=== PATIENT | female | born 1940 | race Caucasian/White ===

== ENCOUNTER 2018-05-05 10:05 | Inpatient (IN) | payer MEDICARE ==
[2018-05-05] MEDS ORDERED: SODIUM CHLORIDE 0.9% 500 ML IV STA (10:22)
[2018-05-05] MEDS ORDERED: ONDANSETRON 4 MG/2 ML VIAL IVP STA (10:23)
--- NOTE | 2018-05-05 10:41 | ED ---
General Adult HPI - General Chief complaint: Shortness of Breath Stated complaint: not feeling well Source: patient Mode of arrival: wheelchair Limitations: no limitations - History of Present Illness Initial comments: Dictation was produced using [employer] dictation software. please excuse any grammatical, word or spelling errors. Chief Complaint: 77-year-old female past medical history of hypertension, depression, GERD presents with 2 days of shortness of breath, left flank pain History of Present Illness:-year-old female past medical history of GERD, hypertension depression presents with left-sided flank pain, shortness of breath and nausea and vomiting 2 days. Patient states her symptoms began acutely. She states that she does not have any COPD or history of asthma. Patient has never taken an inhaler before. She does not know of any history of lung issues. Patient is also been having urinary complaints. She was just treated with antibiotics for recent UTI. Patient having history of chills but no fevers. States that she had multiple episodes of nausea and vomiting. She states her left flank pain is from leaving over the side of the bed caused by pressure. The ROS documented in this emergency department record has been reviewed and confirmed by me. Those systems with pertinent positive or negative responses have been documented in the HPI. All other systems are other negative and/or noncontributory. - Related Data Home Medications Medication Instructions Recorded Confirmed Hydrochlorothiazide [Hydrodiuril] 12.5 mg PO DAILY 02/21/14 05/05/18 Levothyroxine Sodium [Synthroid] 88 mcg PO DAILY 02/21/14 05/05/18 Losartan [Cozaar] 50 mg PO DAILY 02/21/14 05/05/18 amLODIPine BESYLATE [Norvasc] 10 mg PO DAILY 02/21/14 05/05/18 Citalopram Hydrobromide [CeleXA] 5 mg PO DAILY 06/20/16 05/05/18 Omeprazole/Sodium Bicarbonate 1 cap PO DAILY 06/20/16 05/05/18 [Zegerid 20 mg Capsule] Atorvastatin Calcium [Lipitor] 10 mg PO HS 05/05/18 05/05/18 Allergies Allergy/AdvReac Type Severity Reaction Status Date / Time Penicillins Allergy RASH ON Verified 05/05/18 11:24 TONGUE cephalexin monohydrate AdvReac Nausea Verified 05/05/18 11:24 [From Keflex] diazepam [From Valium] AdvReac PHLEBITIS Verified 05/05/18 11:24 IN RT ARM Review of Systems ROS Statement: Those systems with pertinent positive or pertinent negative responses have been documented in the HPI. ROS Other: All systems not noted in ROS Statement are negative. Past Medical History Past Medical History: GERD/Reflux, Hypertension, Osteoarthritis (OA), Thyroid Disorder Additional Past Medical History / Comment(s): HX IBS. History of Any Multi-Drug Resistant Organisms: None Reported Past Surgical History: Hysterectomy, Orthopedic Surgery Additional Past Surgical History / Comment(s): 2 RT SHOULDER SURG. LEFT FOOT SURGERY Past Anesthesia/Blood Transfusion Reactions: Postoperative Nausea & Vomiting ( PONV) Past Psychological History: Anxiety Smoking Status: Former smoker Past Alcohol Use History: None Reported Past Drug Use History: None Reported - Past Family History Mother Family Medical History: Cancer Additional Family Medical History / Comment(s): BREAST CANCER General Exam - General Exam Comments Initial Comments: PHYSICAL EXAM: General Impression: Alert and oriented x3, acute respiratory distress, mildly diaphoretic HEENT: Normocephalic atraumatic, extra-ocular movements intact, pupils equal and reactive to light bilaterally, dry mucous membranes Cardiovascular: Heart regular rate and rhythm, S1&S2 audible, no murmurs, rubs or gallops Chest: Lungs clear to auscultation bilaterally, no rhonchi, no wheeze, no rales Abdomen: Bowel sounds present, abdomen soft, non-tender, non-distended, no organomegaly Musculoskeletal: Pulses present and equal in all extremities, no peripheral edema, positive CVA tenderness Motor: Power 5/5 bilaterally, no focal deficits noted Neurological: CN II-XII grossly intact, no focal motor or sensory deficits noted Skin: Intact with no visualized rashes Psych: Normal affect and mood Limitations: no limitations Course Vital Signs 05/05/18 05/05/18 10:07 11:44 Temperature 95.5 F L Pulse Rate 125 H 108 H Respiratory 27 H 16 Rate Blood Pressure 108/69 131/81 O2 Sat by Pulse 95 95 Oximetry Medical Decision Making - Medical Decision Making ED course: 77-year-old female with no significant comorbidities presents with 2 days of flank pain, shortness of breath and nausea vomiting. As upon arrival shows temperature 95.5, heart rate of 125, respiratory rate of 27. Patient is hemodynamic was stable otherwise. Laboratory evaluation obtained. Leukocytosis of 16.0. Hemoglobin of 17.5. Coag panel shows INR 1.2. Potassium 3.1. Patient given by mouth potassium. There is mild elevation of renal markers. Glucose is 100. Total bilirubin 1.8. Cardiac enzymes are within normal limits. Urinalysis consistent with urinary tract infection. Patient given for quinolones for UTI. There is reasonably that patient is having symptoms consistent with pyelonephritis given left CVA tenderness. There is clinical suspicion that patient also has a pulmonary embolus. CT angios obtained showing filling defect in the tertiary and secondary right lower lobe pulmonary arterial branches compatible with pulmonary embolism. Patient denies any lower extremity symptoms. Patient started on heparin. Patient appears stable at this time. No signs of severe right heart strain given negative cardiac enzymes. Patient is hemodynamically stable at this time. Patient be admitted to Dr. Hernandez. EKG Interpretation: A 12 lead EKG was obtained. It was interpreted by myself and attending physician. There is a P wave before every QRS complex. Rate is 110. Rhythm is sinus tachycardia. QT is not prolonged. No ST segment depression or elevation. There is findings of S1 every 3 T3. Given clinical presentation there is some EKG findings to suggest right heart strain. - Lab Data Result diagrams: 05/05/18 10:52 05/05/18 10:52 Lab Results 05/05/18 05/05/18 05/05/18 Range/Units 10:52 10:52 10:52 WBC 16.0 H (3.8-10.6) k/uL RBC 5.81 H (3.80-5.40) m/uL Hgb 17.5 H (11.4-16.0) gm/dL Hct 52.6 H (34.0-46.0) % MCV 90.7 (80.0-100.0) fL MCH 30.1 (25.0-35.0) pg MCHC 33.2 (31.0-37.0) g/dL RDW 13.8 (11.5-15.5) % Plt Count 150 (150-450) k/uL Neutrophils % 90 % Lymphocytes % 3 % Monocytes % 5 % Eosinophils % 0 % Basophils % 0 % Neutrophils # 14.4 H (1.3-7.7) k/uL Lymphocytes # 0.6 L (1.0-4.8) k/uL Monocytes # 0.8 (0-1.0) k/uL Eosinophils # 0.1 (0-0.7) k/uL Basophils # 0.0 (0-0.2) k/uL PT (9.0-12.0) sec INR (<1.2) APTT (22.0-30.0) sec Sodium 139 (137-145) mmol/L Potassium 3.1 L (3.5-5.1) mmol/L Chloride 103 (98-107) mmol/L Carbon Dioxide 25 (22-30) mmol/L Anion Gap 11 mmol/L BUN 21 H (7-17) mg/dL Creatinine 1.10 H (0.52-1.04) mg/dL Est GFR (CKD-EPI)AfAm 57 (>60 ml/min/1.73 sqM) Est GFR (CKD-EPI)NonAf 49 (>60 ml/min/1.73 sqM) Glucose 100 H (74-99) mg/dL Calcium 9.5 (8.4-10.2) mg/dL Magnesium 1.7 (1.6-2.3) mg/dL Total Bilirubin 1.8 H (0.2-1.3) mg/dL AST 22 (14-36) U/L ALT 35 (9-52) U/L Alkaline Phosphatase 77 (38-126) U/L Total Creatine Kinase 41 (30-135) U/L CK-MB (CK-2) 0.7 (0.0-2.4) ng/mL CK-MB (CK-2) Rel Index 1.7 Troponin I 0.017 (0.000-0.034) ng/mL NT-Pro-B Natriuret Pep pg/mL Total Protein 6.3 (6.3-8.2) g/dL Albumin 3.5 (3.5-5.0) g/dL Lipase 92 (23-300) U/L Urine Color Urine Appearance (Clear) Urine pH (5.0-8.0) Ur Specific [place] (1.001-1.035) Urine Protein (Negative) Urine Glucose (UA) (Negative) Urine Ketones (Negative) Urine Blood (Negative) Urine Nitrite (Negative) Urine Bilirubin (Negative) Urine Urobilinogen (<2.0) mg/dL Ur Leukocyte Esterase (Negative) Urine RBC (0-5) /hpf Urine WBC (0-5) /hpf Urine WBC Clumps (None) /hpf Ur Squamous Epith Cells (0-4) /hpf Urine Bacteria (None) /hpf Urine Mucus (None) /hpf 05/05/18 05/05/18 05/05/18 Range/Units 10:52 10:52 11:42 WBC (3.8-10.6) k/uL RBC (3.80-5.40) m/uL Hgb (11.4-16.0) gm/dL Hct (34.0-46.0) % MCV (80.0-100.0) fL MCH (25.0-35.0) pg MCHC (31.0-37.0) g/dL RDW (11.5-15.5) % Plt Count (150-450) k/uL Neutrophils % % Lymphocytes % % Monocytes % % Eosinophils % % Basophils % % Neutrophils # (1.3-7.7) k/uL Lymphocytes # (1.0-4.8) k/uL Monocytes # (0-1.0) k/uL Eosinophils # (0-0.7) k/uL Basophils # (0-0.2) k/uL PT 11.8 (9.0-12.0) sec INR 1.2 H (<1.2) APTT 22.8 (22.0-30.0) sec Sodium (137-145) mmol/L Potassium (3.5-5.1) mmol/L Chloride (98-107) mmol/L Carbon Dioxide (22-30) mmol/L Anion Gap mmol/L BUN (7-17) mg/dL Creatinine (0.52-1.04) mg/dL Est GFR (CKD-EPI)AfAm (>60 ml/min/1.73 sqM) Est GFR (CKD-EPI)NonAf (>60 ml/min/1.73 sqM) Glucose (74-99) mg/dL Calcium (8.4-10.2) mg/dL Magnesium (1.6-2.3) mg/dL Total Bilirubin (0.2-1.3) mg/dL AST (14-36) U/L ALT (9-52) U/L Alkaline Phosphatase (38-126) U/L Total Creatine Kinase (30-135) U/L CK-MB (CK-2) (0.0-2.4) ng/mL CK-MB (CK-2) Rel Index Troponin I (0.000-0.034) ng/mL NT-Pro-B Natriuret Pep 695 pg/mL Total Protein (6.3-8.2) g/dL Albumin (3.5-5.0) g/dL Lipase (23-300) U/L Urine Color Yellow Urine Appearance Cloudy H (Clear) Urine pH 7.5 (5.0-8.0) Ur Specific [place] 1.017 (1.001-1.035) Urine Protein 2+ H (Negative) Urine Glucose (UA) Negative (Negative) Urine Ketones 1+ H (Negative) Urine Blood Large H (Negative) Urine Nitrite Positive H (Negative) Urine Bilirubin Negative (Negative) Urine Urobilinogen 3.0 (<2.0) mg/dL Ur Leukocyte Esterase Large H (Negative) Urine RBC 25 H (0-5) /hpf Urine WBC >182 H (0-5) /hpf Urine WBC Clumps Many H (None) /hpf Ur Squamous Epith Cells 3 (0-4) /hpf Urine Bacteria Many H (None) /hpf Urine Mucus Few H (None) /hpf Disposition Clinical Impression: Pyelonephritis, Pulmonary embolism Disposition: ADMITTED IP TO THIS HOSP Referrals: Cole Hernandez DO [Primary Care Provider] - 1-2 days Decision Time: 13:27
[2018-05-05 11:09] LABS: Basophils % (A) 0 %; Eosinophils # (A) 0.1 k/uL (0-0.7); Eosinophils % (A) 0 %; HCT 52.6 % (34.0-46.0); HGB 17.5 gm/dL (11.4-16.0); Lymphocytes # (A) 0.6 k/uL (1.0-4.8); Lymphocytes % (A) 3 %; MCH 30.1 pg (25.0-35.0); MCHC 33.2 g/dL (31.0-37.0); MCV 90.7 fL (80.0-100.0); Mean Platelet Volume 6.8; Monocytes # (A) 0.8 k/uL (0-1.0); Monocytes % (A) 5 %; Neutrophils # (A) 14.4 k/uL (1.3-7.7); Neutrophils % (A) 90 %; Platelet Count 150 k/uL (150-450); RBC 5.81 m/uL (3.80-5.40); RDW 13.8 % (11.5-15.5)
[2018-05-05 11:15] LABS: INR 1.2 (<1.2); Partial Thromboplastin Time 22.8 sec (22.0-30.0); Prothrombin Time 11.8 sec (9.0-12.0)
[2018-05-05 11:17] LABS: Albumin 3.5 g/dL (3.5-5.0); Calcium 9.5 mg/dL (8.4-10.2); Magnesium 1.7 mg/dL (1.6-2.3); Potassium 3.1 mmol/L (3.5-5.1); Total Bilirubin 1.8 mg/dL (0.2-1.3); Total Protein 6.3 g/dL (6.3-8.2)
--- NOTE | 2018-05-05 11:23 | XR ---
EXAMINATION TYPE: XR chest 2V DATE OF EXAM: 05/05/2018 COMPARISON: None HISTORY: Difficulty breathing, shortness of breath and vomiting TECHNIQUE: Frontal and lateral views of the chest are obtained. FINDINGS: Aorta is dense, question some tortuosity, dilation in the thoracic aorta. Retrocardiac den sity with central lucency suggests hiatal hernia. No evident airspace disease, pneumothorax, or pleur al effusion. Heart size may be accentuated by rotation. Pulmonary vascularity and isi within normal limits. Question erosion distal clavicle, correlate for postop change. There are overlying cardiac le ads. IMPRESSION: Question some ectasia or aneurysmal change of the distal thoracic aorta. Probable hiatal hernia.
[2018-05-05 11:47] LABS: Creatine Kinase MB 0.7 ng/mL (0.0-2.4); Troponin I 0.017 ng/mL (0.000-0.034)
[2018-05-05 12:08] LABS: Appearance,Urine Cloudy (Clear); Bacteria,Urine Many /hpf; Bilirubin,Urine Negative (Negative); Blood,Urine Large (Negative); Color,Urine Yellow; Glucose,Urine (UA) Negative (Negative); Ketones,Urine 1+ (Negative); Leukocyte Esterase,Urine Large (Negative); Mucus,Urine Few /hpf; Nitrite,Urine Positive (Negative); PH, Urine 7.5 (5.0-8.0); Protein,Urine 2+ (Negative); RBC,Urine 25 /hpf (0-5); Specific Gravity,Urine 1.017 (1.001-1.035); Squamous Epithelial Cell,Urine 3 /hpf (0-4); WBC,Urine >182 /hpf (0-5)
[2018-05-05] MEDS ORDERED: LEVOFLOXACIN 750MG-D5W PMX 750 MG in DEXTROSE/WATER 1 150ML.BAG IVPB STA (12:13)
--- NOTE | 2018-05-05 12:33 | CT ---
EXAMINATION TYPE: CT angio chest DATE OF EXAM: 05/05/2018 COMPARISON: HISTORY: Difficulty breathing. CT DLP: 215.4 mGycm CONTRAST: CT chest with contrast and 3D reconstruction with MIP imaging is performed with IV Contrast, patient injected with 80 mL of Isovue 370. Contrast-enhanced CT of the chest was performed through the course of the pulmonary arteries with corey g and mediastinal window settings submitted. 3D reconstruction with MIP imaging was also performed. PULMONARY ARTERIES: Filling defect is seen within secondary and tertiary right lower lobe pulmonary arterial branches compatible with pulmonary embolism. No evidence for upper lobe embolism on the righ t or left-sided embolism. No saddle component is seen. LUNGS: The lungs are clear and free of infiltrate. No evidence for atelectasis. No pulmonary nodule or mass is detected. No pleural effusion. MEDIASTINUM: Thoracic aorta is of normal caliber,however, evaluation is limited given timing of the contrast bolus. If there is concern for thoracic aortic pathology consider SRINIVASAN. Correlate clinicall y . The heart is not enlarged. No evidence for mediastinal mass. No mediastinal lymph nodes greater than 1cm. HILAR STRUCTURES: No evidence for mass. No hilar lymph nodes greater than 1 cm. UPPER ABDOMEN: Large left renal cystic lesion. IMPRESSION: 1. Filling defect is seen within secondary and tertiary right lower lobe pulmonary arterial branche s compatible with pulmonary embolism.
[2018-05-05] MEDS ORDERED: HEPARIN SODIUM,PORCINE 5,000 UNIT/ML 1 ML VIAL IV PRN (12:50)
[2018-05-05] MEDS ORDERED: HEPARIN SODIUM,PORCINE 10,000 UNIT/ML 1 ML VIAL IV ONE (12:50)
[2018-05-05] MEDS ORDERED: POTASSIUM CHLORIDE ER 20 MEQ TAB.ER PO STA (13:25)
[2018-05-05] MEDS ORDERED: NALOXONE 0.4 MG/ML 1 ML VIAL IV PRN (13:37)
[2018-05-05] MEDS: HEPARIN SOD,PORK IN 0.45% NACL 25,000 UNIT in 0.45% NACL 1 500ML.BAG IV SCH (14:04)
[2018-05-05] MEDS ORDERED: SODIUM CHLORIDE 0.9% 500 ML IV SCH (14:15)
[2018-05-05] MEDS ORDERED: ACETAMINOPHEN TAB 325 MG TAB PO PRN (16:39)
[2018-05-05] MEDS ORDERED: ATORVASTATIN 10 MG TAB PO SCH (21:00)
[2018-05-06] MEDS: LEVOTHYROXINE 88 MCG TAB PO SCH (07:05)
[2018-05-06 07:47] LABS: Basophils % (A) 0 %; Eosinophils % (A) 0 %; HCT 44.8 % (34.0-46.0); Lymphocytes # (A) 0.9 k/uL (1.0-4.8); Lymphocytes % (A) 6 %; MCH 29.9 pg (25.0-35.0); MCV 93.4 fL (80.0-100.0); Mean Platelet Volume 8.2; Monocytes # (A) 0.9 k/uL (0-1.0); Monocytes % (A) 7 %; Neutrophils # (A) 12.4 k/uL (1.3-7.7); Neutrophils % (A) 86 %; Platelet Count 136 k/uL (150-450); RBC 4.79 m/uL (3.80-5.40); RDW 13.7 % (11.5-15.5); WBC 14.4 k/uL (3.8-10.6)
[2018-05-06] MEDS ORDERED: LEVOFLOXACIN 750MG-D5W PMX 750 MG in DEXTROSE/WATER 1 150ML.BAG IVPB SCH (08:00)
[2018-05-06 08:05] LABS: Albumin 2.7 g/dL (3.5-5.0); Calcium 8.2 mg/dL (8.4-10.2); Potassium 3.8 mmol/L (3.5-5.1); Total Bilirubin 0.7 mg/dL (0.2-1.3); Total Protein 5.3 g/dL (6.3-8.2)
[2018-05-06 08:10] LABS: HGB 14.3 gm/dL (11.4-16.0)
[2018-05-06] MEDS: amLODIPine 10 MG TAB PO SCH (09:07)
[2018-05-06] MEDS: LOSARTAN 50 MG TAB PO SCH (09:07)
[2018-05-06] MEDS: HYDROCHLOROTHIAZIDE 12.5 MG CAP PO SCH (09:07)
[2018-05-06] MEDS: PANTOPRAZOLE 40 MG TABLET PO SCH (09:07)
[2018-05-06] MEDS: CITALOPRAM HYDROBROMIDE 10 MG TAB PO SCH (09:07)
[2018-05-06] MEDS ORDERED: SODIUM CHLORIDE 0.9% 1,000 ML IV SCH (11:30)
[2018-05-06] MEDS: SODIUM CHLORIDE 0.9% 1,000 ML IV SCH (11:40)
--- NOTE | 2018-05-06 12:28 | US ---
EXAMINATION TYPE: US venous doppler duplex LE BI DATE OF EXAM: 05/06/2018 10:54 AM COMPARISON: CT chest 05/05/2018 CLINICAL HISTORY: PE, r/o DVT. SIDE PERFORMED: Bilateral TECHNIQUE: The lower extremity deep venous system is examined utilizing real time linear array sonog [place] with graded compression, doppler sonography and color-flow sonography. VESSELS IMAGED: External Iliac Vein (EIV) Common Femoral Vein Deep Femoral Vein Greater Saphenous Vein * Femoral Vein Popliteal Vein Small Saphenous Vein * Proximal Calf Veins (* superficial vessels) Grayscale, color doppler, spectral doppler imaging performed of the deep veins of the lower extremiti es. Right Leg: Negative for DVT Left Leg: Positive for DVT, echo filled mid popliteal v extending to proximal calf v's, non-compress ible vessel with no flow at this area. Lack of color flow is noted within the left popliteal vein extending peripherally, there are low-leve l internal echoes, no spectral waveform present. There is noncompressibility. IMPRESSION: Popliteal deep venous thrombosis noted on the left.
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
--- NOTE | 2018-05-06 13:45 | ECHOF ---
Referral Reason:PE MEASUREMENTS -------- HEIGHT: 165.1 cm WEIGHT: 72.1 kg BP: 110/62 RVIDd: 3.1 cm (< 3.3) IVSd: 1.2 cm (0.6 - 1.1) LVIDd: 4.3 cm (3.9 - 5.3) LVPWd: 1.2 cm (0.6 - 1.1) IVSs: 1.8 cm LVIDs: 2.6 cm LVPWs: 1.6 cm LA Diam: 3.5 cm (2.7 - 3.8) LAESV Index (A-L): 21.33 ml/m Ao Diam: 3.7 cm (2.0 - 3.7) AV Cusp: 2.4 cm (1.5 - 2.6) MV EXCURSION: 14.924 mm (> 18.000) MV EF SLOPE: 42 mm/s (70 - 150) EPSS: 0.4 cm MV E Pepe: 0.69 m/s MV DecT: 200 ms MV A Pepe: 0.93 m/s MV E/A Ratio: 0.73 AV maxP.35 mmHg AV maxP.35 mmHg AV meanP.32 mmHg AR PHT: 704 ms FINDINGS -------- Sinus rhythm. This was a technically adequate study. The left ventricular size is normal. There is borderline concentric left ventricular hypertrophy. Overall left ventricular systolic function is normal with, an EF between 60 - 65 %. The right ventricle is normal in size. Normal LA size by volume 22+/-6 ml/m2. The right atrium is normal in size. There is mild aortic valve sclerosis. There is mild aortic regurgitation. Mild mitral annular calcification present. There is trace mitral regurgitation. The tricuspid valve appears structurally normal. The pulmonic valve was not well visualized. The aortic root size is normal. The ascending aorta is dilated measuring up to {Ao Asc Diam}.4.2cm IVC Not well visulized. There is no pericardial effusion. CONCLUSIONS -------- 1. Sinus rhythm. 2. This was a technically adequate study. 3. The left ventricular size is normal. 4. There is borderline concentric left ventricular hypertrophy. 5. Overall left ventricular systolic function is normal with, an EF between 60 - 65 %. 6. The right ventricle is normal in size. 7. Normal LA size by volume 22+/-6 ml/m2. 8. The right atrium is normal in size. 9. There is mild aortic valve sclerosis. 10. There is mild aortic regurgitation. 11. Mild mitral annular calcification present. 12. There is trace mitral regurgitation. 13. The tricuspid valve appears structurally normal. 14. The pulmonic valve was not well visualized. 15. The aortic root size is normal. 16. The ascending aorta is dilated measuring up to {Ao Asc Diam}. 17. IVC Not well visulized. 18. There is no pericardial effusion. PATIENT RESOURCE SPECIALIST: Bushra Gambino RDCS
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
--- NOTE | 2018-05-06 15:13 | US ---
EXAMINATION TYPE: US kidneys/renal and bladder DATE OF EXAM: 05/06/2018 COMPARISON: Prior abdomen ultrasound 06/02/2012 CLINICAL HISTORY: uti, possible pyelonephritis. EXAM MEASUREMENTS: Right Kidney: 11.0 x 5.2 x 4.8 cm Left Kidney: 14.1 x 7.8 x 6.4 cm Right Kidney: multiple cysts noted largest measuring 3.0 x 3.0 x 2.4cm which is increased in size com pared to prior exam from 18 mm, cortical medullary differentiation is maintained, there is no hydrone phrosis or pathologic calcification Left Kidney: multiple cysts noted, largest measuring 11.2 x 7.6 x 10.1cm, there is poor visualization of the normal renal parenchyma, cortical medullary differentiation appears maintained, no pathologic calcification Bladder: wnl as visualized, not fully distended There is no ascites.. Cyst associated with the kidneys show increased through transmission, imperceptible wall, are anechoi c. IMPRESSION: Bilateral renal cysts appear simple. Pyelonephritis not excluded.
[2018-05-06] MEDS: HEPARIN SOD,PORK IN 0.45% NACL 25,000 UNIT in 0.45% NACL 1 500ML.BAG IV SCH (16:52)
[2018-05-07] MEDS: LEVOTHYROXINE 88 MCG TAB PO SCH (06:15)
[2018-05-07] MEDS: PANTOPRAZOLE 40 MG TABLET PO SCH (06:15)
[2018-05-07] MEDS: SODIUM CHLORIDE 0.9% 1,000 ML IV SCH ×2 (08:05→15:17)
[2018-05-07] MEDS: HEPARIN SOD,PORK IN 0.45% NACL 25,000 UNIT in 0.45% NACL 1 500ML.BAG IV SCH (08:05)
[2018-05-07] MEDS ORDERED: APIXABAN 5 MG TAB PO SCH (09:00)
[2018-05-07] MEDS: CITALOPRAM HYDROBROMIDE 10 MG TAB PO SCH (09:56)
[2018-05-07] MEDS: LOSARTAN 50 MG TAB PO SCH (09:58)
[2018-05-07] MEDS: amLODIPine 10 MG TAB PO SCH (09:58)
[2018-05-07] MEDS: HYDROCHLOROTHIAZIDE 12.5 MG CAP PO SCH (09:58)
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
--- NOTE | 2018-05-07 14:24 | P.GSCN ---
History of Present Illness Consult date: 05/07/18 Reason for Consult: Pyelonephritis Requesting physician: Cole Hernandez History of present illness: The patient is a 77-year-old white female who recently sustained a left hip injury while kayaking. She has also experienced chills, dyspnea, nausea with vomiting, and malodorous urine. She presented to the emergency room, and was found to have a left lower extremity deep venous thrombosis with pulmonary emboli. Urinalysis is suggestive of infection, and clinically she appears to have acute left pyelonephritis and she has experienced mild left flank discomfort. She denies any prior history of pyelonephritis, but she has been treated for several UTIs annually. Review of Systems - Constitutional Reports chills, Denies fever - Gastrointestinal Reports nausea, Reports vomiting - Genitourinary Genitourinary: Reports flank pain, Denies dysuria, Denies hematuria, Denies kidney stones Past Medical History Past Medical History: GERD/Reflux, Hyperlipidemia, Osteoarthritis (OA), Thyroid Disorder Additional Past Medical History / Comment(s): Pt had recent UTI tx with ABX, IBS , past rectal bleed, diverticulosis, gastric polyps/montague's esophagus in past , arthritis in neck/back bilateral shoulders and bilateral thumbs, past R arm phlebitis, past liver cyst. History of Any Multi-Drug Resistant Organisms: None Reported Past Surgical History: Bladder Surgery, Breast Surgery, Hysterectomy, Orthopedic Surgery Additional Past Surgical History / Comment(s): Hysterectomy with cystocele, R shoulder arthroscopy for rotator cuff repair and R shoulder arthrotomy for spur , L foot injured as child with surgical repair, EGDs/colonoscopies, R breast benign biopsy, bilateral cataract removal/lens implants. Past Anesthesia/Blood Transfusion Reactions: Postoperative Nausea & Vomiting ( PONV) Smoking Status: Former smoker - Past Family History Mother Family Medical History: Cancer Additional Family Medical History / Comment(s): BREAST CANCER Father Family Medical History: Coronary Artery Disease (CAD) Medications and Allergies Home Medications Medication Instructions Recorded Confirmed Type Hydrochlorothiazide [Hydrodiuril] 12.5 mg PO DAILY 02/21/14 05/05/18 History Levothyroxine Sodium [Synthroid] 88 mcg PO DAILY 02/21/14 05/05/18 History Losartan [Cozaar] 50 mg PO DAILY 02/21/14 05/05/18 History amLODIPine BESYLATE [Norvasc] 10 mg PO DAILY 02/21/14 05/05/18 History Citalopram Hydrobromide [CeleXA] 5 mg PO DAILY 06/20/16 05/05/18 History Omeprazole/Sodium Bicarbonate 1 cap PO DAILY 06/20/16 05/05/18 History [Zegerid 20 mg Capsule] Rosuvastatin [Crestor] 10 mg PO HS #30 tablet 05/06/18 Rx Levofloxacin [Levaquin] 500 mg PO DAILY 3 Days #7 tab 05/07/18 Rx Allergies Allergy/AdvReac Type Severity Reaction Status Date / Time Penicillins Allergy RASH ON Verified 05/05/18 11:24 TONGUE cephalexin monohydrate AdvReac Nausea Verified 05/05/18 11:24 [From Keflex] diazepam [From Valium] AdvReac PHLEBITIS Verified 05/05/18 11:24 IN RT ARM Surgical - Exam Vital Signs Temp Pulse Resp BP Pulse Ox 95.5 F L 125 H 27 H 108/69 95 05/05/18 10:07 05/05/18 10:07 05/05/18 10:07 05/05/18 10:07 05/05/18 10:07 - General well developed, well nourished, no distress - Neck no masses, trachea midline - Respiratory normal respiratory effort - Abdomen Abdomen: soft, non tender, no guarding, no rigid, no rebound - Psychiatric oriented to time, oriented to person, oriented to place, speech is normal, memory intact Results - Labs 05/06/18 03:04 05/06/18 03:04 Abnormal Lab Results - Last 24 Hours (Table) 05/06/18 05/06/18 05/06/18 Range/Units 03:04 03:04 08:41 WBC 14.4 H (3.8-10.6) k/uL Plt Count 136 L (150-450) k/uL Neutrophils # 12.4 H (1.3-7.7) k/uL Lymphocytes # 0.9 L (1.0-4.8) k/uL APTT 64.1 H (22.0-30.0) sec Chloride 110 H (98-107) mmol/L Carbon Dioxide 19 L (22-30) mmol/L BUN 20 H (7-17) mg/dL Glucose 119 H (74-99) mg/dL Calcium 8.2 L (8.4-10.2) mg/dL Total Protein 5.3 L (6.3-8.2) g/dL Albumin 2.7 L (3.5-5.0) g/dL Microbiology - Last 24 Hours (Table) 05/06/18 16:05 Urine Culture - Preliminary Urine,Clean Catch 05/05/18 10:52 Blood Culture - Preliminary Blood No Growth after 24 hours Diabetes panel 05/06/18 Range/Units 03:04 Sodium 138 (137-145) mmol/L Potassium 3.8 (3.5-5.1) mmol/L Chloride 110 H (98-107) mmol/L Carbon Dioxide 19 L (22-30) mmol/L BUN 20 H (7-17) mg/dL Creatinine 0.99 (0.52-1.04) mg/dL Glucose 119 H (74-99) mg/dL Calcium 8.2 L (8.4-10.2) mg/dL AST 24 (14-36) U/L ALT 34 (9-52) U/L Alkaline Phosphatase 58 (38-126) U/L Total Protein 5.3 L (6.3-8.2) g/dL Albumin 2.7 L (3.5-5.0) g/dL Calcium panel 05/06/18 Range/Units 03:04 Calcium 8.2 L (8.4-10.2) mg/dL Albumin 2.7 L (3.5-5.0) g/dL Pituitary panel 05/06/18 Range/Units 03:04 Sodium 138 (137-145) mmol/L Potassium 3.8 (3.5-5.1) mmol/L Chloride 110 H (98-107) mmol/L Carbon Dioxide 19 L (22-30) mmol/L BUN 20 H (7-17) mg/dL Creatinine 0.99 (0.52-1.04) mg/dL Glucose 119 H (74-99) mg/dL Calcium 8.2 L (8.4-10.2) mg/dL Adrenal panel 05/06/18 Range/Units 03:04 Sodium 138 (137-145) mmol/L Potassium 3.8 (3.5-5.1) mmol/L Chloride 110 H (98-107) mmol/L Carbon Dioxide 19 L (22-30) mmol/L BUN 20 H (7-17) mg/dL Creatinine 0.99 (0.52-1.04) mg/dL Glucose 119 H (74-99) mg/dL Calcium 8.2 L (8.4-10.2) mg/dL Total Bilirubin 0.7 (0.2-1.3) mg/dL AST 24 (14-36) U/L ALT 34 (9-52) U/L Alkaline Phosphatase 58 (38-126) U/L Total Protein 5.3 L (6.3-8.2) g/dL Albumin 2.7 L (3.5-5.0) g/dL - Imaging US - kidney/bladder: report reviewed Assessment and Plan (1) Pyelonephritis Current Visit: Yes Status: Acute Code(s): N12 - TUBULO-INTERSTITIAL NEPHRITIS, NOT SPCF ACUTE OR CHRONIC SNOMED Code(s): 63938385 Plan: As stated, the patient appears to have acute left pyelonephritis. A urine culture is pending. She has been treated with IV Levaquin, with symptomatic improvement. She is scheduled to be discharged home on our course. She will be treated with Levaquin 500 mg daily for 7 days. Unfortunately, she has a very difficult time tolerating antibiotics. She is ALLERGIC to penicillin and cephalosporins. Levaquin causes GI upset, similar to ciprofloxacin, but to a lesser degree than Bactrim. The renal ultrasound showed renal cysts but was otherwise unremarkable. The postvoid residual be checked to assess bladder emptying prior to discharge. For UTI prevention, I have suggested she may benefit from cranberry tablets, as well as the use of Estrace vaginal cream. She will follow up with me as needed. Time with Patient: Greater than 30
[2018-05-07 15:29] VITALS: BP 118/82; PULSE 79; RESP 14; TEMP 98.2
[2018-05-08] MEDS ORDERED: LEVOFLOXACIN 750 MG TAB PO SCH (09:00)
== END 2018-05-07 16:20 | disposition home or self-care (01) | DRG 299 ==
LOC: EC 10:05 → 6SEL 13:39
PROVIDERS: ADMIT Family Medicine; ATTEND Family Medicine
DX: I82.432 Acute embolism and thrombosis of left popliteal vein (principal); I26.99 Other pulmonary embolism without acute cor pulmonale; N10 Acute pyelonephritis; S80.12XS Contusion of left lower leg, sequela; S80.11XS Contusion of right lower leg, sequela; V94 Other and unspecified water transport accidents; B96.20 Unspecified Escherichia coli [E. coli] as the cause of diseases classified elsewhere; E03.9 Hypothyroidism, unspecified; E78.5 Hyperlipidemia, unspecified; I10 Essential (primary) hypertension; K21.9 Gastro-esophageal reflux disease without esophagitis; K22.70 Barrett's esophagus without dysplasia; K44.9 Diaphragmatic hernia without obstruction or gangrene; K58.9 Irritable bowel syndrome, unspecified; M47.9 Spondylosis, unspecified; M19.042 Primary osteoarthritis, left hand; M19.041 Primary osteoarthritis, right hand; Z98.42 Cataract extraction status, left eye; Z98.41 Cataract extraction status, right eye; Z96.1 Presence of intraocular lens; Z80.3 Family history of malignant neoplasm of breast; Z82.49 Family history of ischemic heart disease and other diseases of the circulatory system; Z86.010 Personal history of colon polyps; Z87.19 Personal history of other diseases of the digestive system; Z86.72 Personal history of thrombophlebitis; Z87.440 Personal history of urinary (tract) infections; Z87.891 Personal history of nicotine dependence; Z90.710 Acquired absence of both cervix and uterus; M19.012 Primary osteoarthritis, left shoulder; M19.011 Primary osteoarthritis, right shoulder; Z88.1 Allergy status to other antibiotic agents; Z88.0 Allergy status to penicillin; Z88.8 Allergy status to other drugs, medicaments and biological substances; F41.9 Anxiety disorder, unspecified; N28.1 Cyst of kidney, acquired; Z79.890 Hormone replacement therapy; Z79.899 Other long term (current) drug therapy; K57.90 Diverticulosis of intestine, part unspecified, without perforation or abscess without bleeding
CPT/HCPCS: 36415; 71046; 71275; 76770; 80053; 81001; 82550; 82553; 83690; 83735; 83880; 84484; 85025; 85610; 85730; 87040; 87086; 93005; 93306; 93970; 96361; 96365; 96375; 96376; 99285

== ENCOUNTER 2018-07-03 15:51 | Emergency (ER) | payer MEDICARE ==
[2018-07-03 17:31] LABS: Basophils # (A) 0.1 k/uL (0-0.2); Basophils % (A) 1 %; Eosinophils # (A) 0.1 k/uL (0-0.7); Eosinophils % (A) 1 %; HCT 36.9 % (34.0-46.0); HGB 11.8 gm/dL (11.4-16.0); Lymphocytes # (A) 1.3 k/uL (1.0-4.8); Lymphocytes % (A) 19 %; MCH 27.8 pg (25.0-35.0); MCV 87.1 fL (80.0-100.0); Mean Platelet Volume 6.7; Monocytes # (A) 0.6 k/uL (0-1.0); Monocytes % (A) 9 %; Neutrophils # (A) 4.5 k/uL (1.3-7.7); Neutrophils % (A) 67 %; Platelet Count 371 k/uL (150-450); RBC 4.24 m/uL (3.80-5.40); RDW 15.4 % (11.5-15.5); WBC 6.6 k/uL (3.8-10.6)
[2018-07-03 17:43] LABS: Anion Gap 9 mmol/L; Blood Urea Nitrogen 19 mg/dL (7-17); Calcium 10.1 mg/dL (8.4-10.2); Carbon Dioxide 22 mmol/L (22-30); Chloride 104 mmol/L (98-107); Glucose 87 mg/dL (74-99); Potassium 3.6 mmol/L (3.5-5.1); Sodium 135 mmol/L (137-145)
--- NOTE | 2018-07-03 18:35 | CT ---
EXAMINATION TYPE: CT abdomen pelvis w con DATE OF EXAM: 07/03/2018 COMPARISON: CT abdomen pelvis 05/30/2018 HISTORY: Constipation. CT DLP: 679.6 mGycm Automated exposure control for dose reduction was used. TECHNIQUE: Helical acquisition of images was performed from the lung bases through the pelvis. CONTRAST: Performed without Oral Contrast and with IV Contrast, patient injected with 100ml mL of Isovue 300. FINDINGS: LUNG BASES/lower thorax: No significant abnormality is appreciated. Noncalcified plaque is again seen in the lower thoracic aorta. LIVER/GB: No significant abnormality is appreciated. Multiple benign liver cysts are seen. The gallbl adder is unremarkable. PANCREAS: Small unchanged low attenuation structures are again seen throughout the pancreas. SPLEEN: No significant abnormality is seen. ADRENALS: No significant abnormality is seen. KIDNEYS: Multiple bilateral renal cysts are unchanged. Kidneys are otherwise unremarkable. FREE AIR: No free air is visualized. RETROPERITONEAL ADENOPATHY: None visualized REPRODUCTIVE ORGANS: The uterus is absent. URINARY BLADDER: No significant abnormality is seen. PELVIC ADENOPATHY: None visualized. OSSEOUS STRUCTURES: No significant abnormality is seen. BOWEL: No significant abnormality is seen. A gastrostomy tube is evident. There is a left lower quad rant ostomy which is unremarkable. 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 Interval removal of right lower quadrant abdominal drains. Trace amount of fluid within the low pelvis which has significantly improved in th e interval. IMPRESSION: 1. NO ACUTE ABDOMINAL OR PELVIC PROCESS. 2. POSTSURGICAL CHANGES.
[2018-07-03 18:41] VITALS: PULSE 99
[2018-07-03] MEDS ORDERED: SENNOSIDES 8.6 MG TAB PO STA (18:47)
[2018-07-03] MEDS ORDERED: BISACODYL 5 MG TABLET.DR PO STA (18:47)
--- NOTE | 2018-07-03 18:55 | ED ---
Abdominal Pain HPI - General Chief Complaint: Abdominal Pain Stated Complaint: Colostomy issues Time Seen by Provider: 07/03/18 16:16 Source: patient Mode of arrival: wheelchair Limitations: no limitations - History of Present Illness Initial Comments: 87-year-old female presenting with stoma pain and hard stool at stoma site. Patient recently had a complicated medical admission for diverticulitis that resulted in a sigmoid colectomy with colostomy. Patient states she was discharged from [facility] two days prior and they did not fill her stool softeners. She states she has been having stoma pressure with hard stool at the site and she was unsure if this was normal. Denies any nausea vomiting or fevers or chills. She states that there has been gas within her ostomy bag. She denies any abdominal pain. - Related Data Home Medications Medication Instructions Recorded Confirmed Omeprazole/Sodium Bicarbonate 1 cap PO DAILY 06/20/16 05/12/18 [Zegerid 20 mg Capsule] Apixaban [Eliquis] 5 mg PO BID 05/12/18 05/12/18 Previous Rx's Medication Instructions Recorded ALPRAZolam [Xanax] 0.5 mg PO TID #9 tab 06/14/18 Acetaminophen Tab [Tylenol] 650 mg PO Q4HR PRN tab 06/14/18 Aspirin 81 mg PO DAILY chew 06/14/18 Atorvastatin [Lipitor] 20 mg PO HS tab 06/14/18 Calcium Carbonate [Tums] 1,000 mg PO QID PRN chew 06/14/18 Citalopram Hydrobromide [CeleXA] 40 mg PO DAILY #6 tab 06/14/18 Furosemide [Lasix] 20 mg PO BID@0900,1600 tab 06/14/18 Levothyroxine Sodium [Synthroid] 100 mcg PO DAILY@0630 tab 06/14/18 Mag Hydrox/Al Hydrox/Simeth 15 ml PO Q4HR PRN cup 06/14/18 [Maalox] Magnesium Hydroxide [Milk of 2,400 mg PO BID PRN ml 06/14/18 Magnesia Concentrate] Multivitamins, Thera Liquid 5 ml PO DAILY@1200 ml 06/14/18 [Theragran Liquid (formulary)] Ondansetron Odt [Zofran Odt] 4 mg PO Q8HR PRN #30 tab 06/14/18 amLODIPine [Norvasc] 5 mg PO DAILY tab 06/14/18 guaiFENesin [Mucinex] 600 mg PO Q12HR tablet.er 06/14/18 Doxycycline [Vibramycin] 100 mg PEG/G-TUBE BID 9 Days #18 06/15/18 cap Metoprolol Tartrate [Lopressor] 75 mg PO BID tab 06/15/18 Bisacodyl [Dulcolax] 5 mg PO DAILY #30 tablet. 07/03/18 Sennosides-Docusate Sodium 2 each PO BID #60 tab 07/03/18 [Senokot-S] Allergies Allergy/AdvReac Type Severity Reaction Status Date / Time Penicillins Allergy RASH ON Verified 07/03/18 16:10 TONGUE cephalexin monohydrate AdvReac Nausea Verified 07/03/18 16:10 [From Keflex] diazepam [From Valium] AdvReac PHLEBITIS Verified 07/03/18 16:10 IN RT ARM diphenhydramine AdvReac Unknown Verified 07/03/18 16:10 [From Benadryl] erythromycin base AdvReac Unknown Verified 07/03/18 16:10 sulfamethoxazole AdvReac Vomiting Verified 07/03/18 16:10 [From Bactrim] trimethoprim [From Bactrim] AdvReac Vomiting Verified 07/03/18 16:10 Review of Systems ROS Statement: Those systems with pertinent positive or pertinent negative responses have been documented in the HPI. Review of Systems Constitutional: Denies fever, chills Eyes: Denies change in vision, Denies pain Ears, nose, mouth, throat: Denies headaches, Denies sore throat Cardiovascular: Denies chest pain. Denies palpitations Respiratory: Denies shortness of breath, Denies cough Gastrointestinal: Denies abdominal pain. Denies nausea, vomiting, diarrhea. Pain at stoma site Genitourinary: Denies hematuria, Denies infections Musculoskeletal: Denies pain, Denies swelling Integumentary: Denies rash Neurological: Denies headache, focal weakness, focal numbness Psychiatric: Denies anxiety, Denies depression Hematologic/Lymphatic: Denies easy bleeding or bruising ROS Other: All systems not noted in ROS Statement are negative. Past Medical History Past Medical History: Deep Vein Thrombosis (DVT), GERD/Reflux, Hyperlipidemia, Osteoarthritis (OA), Pulmonary Embolus (PE), Thyroid Disorder Additional Past Medical History / Comment(s): recurrent uti's, IBS, past rectal bleed, diverticulosis, gastric polyps/montague's esophagus in past, arthritis in neck/back bilateral shoulders and bilateral thumbs, past R arm phlebitis, past liver cyst. History of Any Multi-Drug Resistant Organisms: VRE Date of last positivie culture/infection: 06/12/18 MDRO Source:: VRE Past Surgical History: Bladder Surgery, Bowel Resection, Breast Surgery, Hysterectomy, Orthopedic Surgery Additional Past Surgical History / Comment(s): Hysterectomy with cystocele, R shoulder arthroscopy for rotator cuff repair and R shoulder arthrotomy for spur , L foot injured as child with surgical repair, EGDs/colonoscopies, R breast benign biopsy, bilateral cataract removal/lens implants. Past Anesthesia/Blood Transfusion Reactions: Postoperative Nausea & Vomiting ( PONV) Past Psychological History: Unable to Obtain Smoking Status: Former smoker Past Alcohol Use History: Unable to Obtain Past Drug Use History: Unable to Obtain - Past Family History Mother Family Medical History: Cancer Additional Family Medical History / Comment(s): BREAST CANCER Father Family Medical History: Coronary Artery Disease (CAD) General Exam - General Exam Comments Initial Comments: General: Awake, alert, No acute Distress HENT: Normocephalic. Atraumatic Eyes: PERRL. EOMI. No scleral icterus. No injected conjunctiva Neck: Full ROM Chest/Lungs: Clear to auscultation bilaterally. No wheezing, rhonchi, or rales Cardiac: Regular rate, rhythm. No murmurs or rubs Abdomen/GI: Soft, nontender, nondistended. No rebound, guarding, or rigidity. No erythema surrounding feeding tube. Ostomy with dried stool. Normoactive bowel sounds. Musculoskeletal: Full ROM Skin: Warm, dry, intact Neurologic: A/Ox3, no weakness, no sensory deficit, no abnormal gait, no coordination deficit Limitations: no limitations Course Vital Signs 07/03/18 07/03/18 07/03/18 16:07 18:39 19:16 Temperature 98.1 F 98.5 F Pulse Rate 85 99 99 Respiratory 18 18 16 Rate Blood Pressure 141/81 132/85 125/92 O2 Sat by Pulse 98 97 97 Oximetry Medical Decision Making - Medical Decision Making 77-year-old female presenting with hard stool and stoma pressure. Initial exam the patient is awake, alert, no acute distress. VSS. Her abdomen is soft and nontender, nsoft stool easily moves away from the stoma. Her laboratory workup is negative for acute process. Her CT abdomen and pelvis with contrast showed no evidence of obstruction patient will be given prescriptions for her Senokot and took a laxative she was taking outpatient. She has a follow-up appointment with her surgeon on the 15 of this month. She is nontoxic appearing and tolerating by mouth. No further emergent workup indicated. The patient was given return to ED instructions. They were instructed to follow up with their primary care provider. Stable for discharge at this time. - Lab Data Result diagrams: 07/03/18 17:05 07/03/18 17:05 Lab Results 07/03/18 07/03/18 Range/Units 17:05 17:05 WBC 6.6 (3.8-10.6) k/uL RBC 4.24 (3.80-5.40) m/uL Hgb 11.8 (11.4-16.0) gm/dL Hct 36.9 (34.0-46.0) % MCV 87.1 (80.0-100.0) fL MCH 27.8 (25.0-35.0) pg MCHC 32.0 (31.0-37.0) g/dL RDW 15.4 (11.5-15.5) % Plt Count 371 (150-450) k/uL Neutrophils % 67 % Lymphocytes % 19 % Monocytes % 9 % Eosinophils % 1 % Basophils % 1 % Neutrophils # 4.5 (1.3-7.7) k/uL Lymphocytes # 1.3 (1.0-4.8) k/uL Monocytes # 0.6 (0-1.0) k/uL Eosinophils # 0.1 (0-0.7) k/uL Basophils # 0.1 (0-0.2) k/uL Sodium 135 L (137-145) mmol/L Potassium 3.6 (3.5-5.1) mmol/L Chloride 104 (98-107) mmol/L Carbon Dioxide 22 (22-30) mmol/L Anion Gap 9 mmol/L BUN 19 H (7-17) mg/dL Creatinine 0.72 (0.52-1.04) mg/dL Est GFR (CKD-EPI)AfAm >90 (>60 ml/min/1.73 sqM) Est GFR (CKD-EPI)NonAf 83 (>60 ml/min/1.73 sqM) Glucose 87 (74-99) mg/dL Calcium 10.1 (8.4-10.2) mg/dL Disposition Clinical Impression: Constipation Disposition: HOME SELF-CARE Condition: Good Instructions: Colostomy Care (ED), Colectomy Diet (ED) Additional Instructions: Follow up with your surgeon and doctor as scheduled. Return to ED if unable to eat or drink without vomiting, worsening stoma pain, or not passing stool. Prescriptions: Bisacodyl [Dulcolax] 5 mg PO DAILY #30 tablet.dr [place]-Docusate Sodium [Senokot-S] 2 each PO BID #60 tab Is patient prescribed a controlled substance at d/c from ED?: No
[2018-07-03 19:18] VITALS: BP 125/92; RESP 16; TEMP 98.5
== END 2018-07-03 19:25 | disposition home or self-care (01) ==
LOC: EC 15:51
DX: K59.00 Constipation, unspecified (principal); K21.9 Gastro-esophageal reflux disease without esophagitis; Z87.891 Personal history of nicotine dependence; Z88.0 Allergy status to penicillin; Z88.1 Allergy status to other antibiotic agents; Z88.2 Allergy status to sulfonamides; Z88.8 Allergy status to other drugs, medicaments and biological substances; Z79.01 Long term (current) use of anticoagulants; Z79.899 Other long term (current) drug therapy; Z86.711 Personal history of pulmonary embolism; Z86.718 Personal history of other venous thrombosis and embolism; Z90.49 Acquired absence of other specified parts of digestive tract; Z93.3 Colostomy status
CPT/HCPCS: 36415; 80048; 85025; 74177; 99284; Q9967

== ENCOUNTER → 2018-08-25 | Outpatient (CLI) | payer MEDICARE ==
[2018-08-25 13:56] LABS: Potassium 3.5 mmol/L (3.5-5.1)
[2018-08-25 14:10] LABS: HCT 38.5 % (34.0-46.0); HGB 12.3 gm/dL (11.4-16.0); MCH 26.3 pg (25.0-35.0); MCHC 32.1 g/dL (31.0-37.0); Mean Platelet Volume 7.2; Platelet Count 287 k/uL (150-450); RDW 14.4 % (11.5-15.5); WBC 7.4 k/uL (3.8-10.6)
[2018-08-25 14:13] LABS: MCV 81.9 fL (80.0-100.0)
== END | disposition home or self-care (01) ==
LOC: LABPAT 11:40
PROVIDERS: ATTEND Surgery
DX: Z01.818 Encounter for other preprocedural examination (principal); Z01.812 Encounter for preprocedural laboratory examination; K57.32 Diverticulitis of large intestine without perforation or abscess without bleeding
CPT/HCPCS: 36415; 80051; 85027; 93005

== ENCOUNTER 2018-08-31 10:58 | Day surgery (SDC) | payer MEDICARE ==
[2018-08-25 18:22] VITALS: BMI 24.6
[~2018-08-31 10:58] MED LIST: LACTATED RINGERS 1,000 ML IV SCH
[2018-08-31 11:16] VITALS: TEMP 97.9
[2018-08-31] MEDS ORDERED: LIDOCAINE 1% 20 ML VIAL (10MG/ML) FOR IV START INTRADERMA ONE (11:16)
[2018-08-31] MEDS ORDERED: LACTATED RINGERS 1,000 ML IV ONE (11:16)
[2018-08-31] MEDS ORDERED: PROPOFOL 10 MG/ML 20 ML VIAL IV ONE (12:11)
[2018-08-31] MEDS ORDERED: LIDOCAINE 1% INJ 10MG/ML (20 ML MDV) ONE (12:11)
--- NOTE | 2018-08-31 12:14 | P.GSHP ---
History of Present Illness H&P Date: 08/31/18 Chief Complaint: History of perforated diverticulitis This a 77-year-old female who presents today for colonoscopy. Patient's previous history of perforated diverticulitis. She'll be undergoing reversal of colostomy. Past Medical History Past Medical History: Atrial Fibrillation, Deep Vein Thrombosis (DVT), GERD/ Reflux, GI Bleed, Hyperlipidemia, Hypertension, Osteoarthritis (OA), Pulmonary Embolus (PE), Thyroid Disorder Additional Past Medical History / Comment(s): IBS, past rectal bleed/PROCTITIS, diverticulosis, COLON/gastric Polyps/ montague's esophagus in past, arthritis in neck/back bilateral shoulders & bilateral FINGERS, past R arm phlebitis, past liver cyst. SL LEAKY VALVE, GETS ECHO YEARLY. SEPSIS, COLOSTOMY D/T PERFORATION 05/20/18; HAS PEG TUBE; EPISODE OF AFIB POST-OP. EDEMA FEET. History of Any Multi-Drug Resistant Organisms: VRE Date of last positivie culture/infection: 06/12/18 MDRO Source:: VRE Past Surgical History: Bladder Surgery, Bowel Resection, Breast Surgery, Hysterectomy, Orthopedic Surgery Additional Past Surgical History / Comment(s): Hysterectomy with cystocele, R shoulder arthroscopy for rotator cuff repair and R shoulder arthrotomy for spur , L foot injured as child with surgical repair, EGDs/colonoscopies, R breast benign biopsy, bilateral cataract removal/lens implants. VARICOSE VEINS LASERED BOB. PICC LINE, THEN REMOVAL; COLOSTOMY 04/2018; PEG TUBE 06/10/18. Past Anesthesia/Blood Transfusion Reactions: Postoperative Nausea & Vomiting ( PONV) Additional Past Anesthesia/Blood Transfusion Reaction / Comment(s): PONV X1 Smoking Status: Former smoker - Past Family History Mother Family Medical History: Cancer Additional Family Medical History / Comment(s): BREAST CANCER Father Family Medical History: Coronary Artery Disease (CAD) Medications and Allergies Home Medications Medication Instructions Recorded Confirmed Type Omeprazole/Sodium Bicarbonate 1 cap PO DAILY 06/20/16 08/25/18 History [Zegerid 20 mg Capsule] Apixaban [Eliquis] 5 mg PO BID 05/12/18 08/25/18 History Acetaminophen Tab [Tylenol] 650 mg PO Q4HR PRN tab 06/14/18 08/25/18 Rx Aspirin 81 mg PO DAILY chew 06/14/18 08/25/18 Rx Levothyroxine Sodium [Synthroid] 100 mcg PO DAILY@0630 tab 06/14/18 08/25/18 Rx ALPRAZolam [Xanax] 0.25 mg PO BID PRN 08/25/18 08/25/18 History Bisacodyl [Dulcolax] 5 mg PO HS 08/25/18 08/25/18 History Citalopram Hydrobromide [CeleXA] 20 mg PO DAILY 08/25/18 08/25/18 History Fiber Powder 2 tsp PO BID 08/25/18 08/25/18 History Losartan Potassium [Cozaar] 50 mg PO DAILY 08/25/18 08/25/18 History Multivit/Folic Acid/Vit K1 2 each PO DAILY 08/25/18 08/25/18 History [One-A-Day Women's 50 Plus Tab] Rosuvastatin [Crestor] 10 mg PO DAILY 08/25/18 08/25/18 History amLODIPine [Norvasc] 10 mg PO DAILY 08/25/18 08/25/18 History Allergies Allergy/AdvReac Type Severity Reaction Status Date / Time Penicillins Allergy RASH ON Verified 08/25/18 16:59 TONGUE sulfamethoxazole Allergy Vomiting Verified 08/25/18 16:59 [From Bactrim] trimethoprim [From Bactrim] Allergy Vomiting Verified 08/25/18 16:59 cephalexin monohydrate AdvReac Nausea Verified 08/25/18 16:59 [From Keflex] diazepam [From Valium] AdvReac PHLEBITIS Verified 08/25/18 16:59 IN RT ARM diphenhydramine AdvReac Unknown Verified 08/25/18 16:59 [From Benadryl] erythromycin base AdvReac Unknown Verified 08/25/18 16:59 Surgical - Exam Vital Signs Temp Pulse Resp BP Pulse Ox 97.9 F 97 18 155/81 94 L 08/31/18 11:15 08/31/18 11:15 08/31/18 11:15 08/31/18 11:15 08/31/18 11:15 - General well developed, no distress - Eyes PERRL - ENT normal pinna - Neck no masses - Respiratory normal expansion - Cardiovascular Rhythm: regular - Abdomen Abdomen: soft, non tender Assessment and Plan Assessment: History of perforated place. We'll perform colonoscopy.
--- NOTE | 2018-08-31 12:29 | P.OP ---
Date of Procedure: 08/31/18 Preoperative Diagnosis: History of perforated diverticulitis Postoperative Diagnosis: Mild diverticulosis Procedure(s) Performed: Colonoscopy Anesthesia: MAC Surgeon: Jose Garcia Pathology: none sent Condition: stable Disposition: PACU Description of Procedure: The patient's placed on the endoscopy table in the lateral position she received IV sedation. Digital rectal exam was performed which revealed no abnormalities. The flexible colonoscope was then placed patient anus and passed throughout the rectal stump. The stump measured approximately 18 cm in length. The the scope was then withdrawn. Next the clot scope was advanced through the colostomy. The ileocecal valve was visualized. The cecum, ascending and transverse colon appeared normal. There is a few scattered diverticuli in the descending colon. Scope was withdrawn for patient.
[2018-08-31 12:50] VITALS: BP 139/82; PULSE 70; RESP 16
== END 2018-08-31 13:11 | disposition home or self-care (01) ==
LOC: ORWHC2ENDO 10:58
PROVIDERS: ATTEND Surgery
DX: K57.30 Diverticulosis of large intestine without perforation or abscess without bleeding (principal); E07.9 Disorder of thyroid, unspecified; E78.5 Hyperlipidemia, unspecified; I10 Essential (primary) hypertension; I48.91 Unspecified atrial fibrillation; K21.9 Gastro-esophageal reflux disease without esophagitis; Z79.01 Long term (current) use of anticoagulants; Z79.82 Long term (current) use of aspirin; Z82.49 Family history of ischemic heart disease and other diseases of the circulatory system; Z86.711 Personal history of pulmonary embolism; Z86.718 Personal history of other venous thrombosis and embolism; Z88.0 Allergy status to penicillin; Z87.891 Personal history of nicotine dependence; Z93.1 Gastrostomy status; Z93.3 Colostomy status; Z88.1 Allergy status to other antibiotic agents; Z88.2 Allergy status to sulfonamides; F32.9 Major depressive disorder, single episode, unspecified; Z79.899 Other long term (current) drug therapy
CPT/HCPCS: 44388; J2001; J2704

== ENCOUNTER 2018-09-01 10:11 | Inpatient (IN) | payer MEDICARE ==
[~2018-09-01 10:11] MED LIST changes: +DEXAMETHASONE SOD PHOSPHATE 10 MG/ML 1 ML VIAL IV ONE; +HEPARIN SODIUM,PORCINE 5,000 UNIT/ML 1 ML VIAL SQ ONE; +HYDROmorphone 0.5 MG/0.5 ML SYRINGE IVP PRN; +LIDOCAINE 1% 20 ML VIAL (10MG/ML) FOR IV START INTRADERMA PRN; +MIDAZOLAM (PF) 2 MG/2 ML VIAL IV PRN; +ONDANSETRON 4 MG/2 ML VIAL IVP ONE; +SCOPOLAMINE 1.5MG/72HR PATCH TRANSDERM ONE; +ceFAZolin IN SWFI 2 GM/20 ML SYRINGE IVP ONE; +metroNIDAZOLE-NS PMX 500 MG in SALINE 1 100ML.BAG IVPB ONE
--- NOTE | 2018-09-01 12:01 | P.GSHP ---
History of Present Illness H&P Date: 09/01/18 Chief Complaint: History of perforated diverticulitis This a 77-year-old female who presents today for reversal of colostomy. Patient 's previous history of perforated diverticulitis. She will also have her PEG tube removed today. Patient aware the risks of surgery including anastomotic leak. Past Medical History Past Medical History: Atrial Fibrillation, Deep Vein Thrombosis (DVT), GERD/ Reflux, GI Bleed, Hyperlipidemia, Hypertension, Osteoarthritis (OA), Pulmonary Embolus (PE), Thyroid Disorder Additional Past Medical History / Comment(s): IBS, past rectal bleed/PROCTITIS, diverticulosis, COLON/gastric Polyps/ montague's esophagus in past, arthritis in neck/back bilateral shoulders & bilateral FINGERS, past R arm phlebitis, past liver cyst. SL LEAKY VALVE, GETS ECHO YEARLY. SEPSIS, COLOSTOMY D/T PERFORATION 05/20/18; HAS PEG TUBE; EPISODE OF AFIB POST-OP. EDEMA FEET. History of Any Multi-Drug Resistant Organisms: VRE Date of last positivie culture/infection: 06/12/18 MDRO Source:: VRE Past Surgical History: Bladder Surgery, Bowel Resection, Breast Surgery, Hysterectomy, Orthopedic Surgery Additional Past Surgical History / Comment(s): Hysterectomy with cystocele, R shoulder arthroscopy for rotator cuff repair and R shoulder arthrotomy for spur , L foot injured as child with surgical repair, EGDs/colonoscopies, R breast benign biopsy, bilateral cataract removal/lens implants. VARICOSE VEINS LASERED BOB. PICC LINE, THEN REMOVAL; COLOSTOMY 04/2018; PEG TUBE 06/10/18. Past Anesthesia/Blood Transfusion Reactions: Postoperative Nausea & Vomiting ( PONV) Additional Past Anesthesia/Blood Transfusion Reaction / Comment(s): PONV X1. Smoking Status: Former smoker - Past Family History Mother Family Medical History: Cancer Additional Family Medical History / Comment(s): BREAST CANCER Father Family Medical History: Coronary Artery Disease (CAD) Medications and Allergies Home Medications Medication Instructions Recorded Confirmed Type Omeprazole/Sodium Bicarbonate 1 cap PO DAILY 06/20/16 09/01/18 History [Zegerid 20 mg Capsule] Apixaban [Eliquis] 5 mg PO BID 05/12/18 09/01/18 History Acetaminophen Tab [Tylenol] 650 mg PO Q4HR PRN tab 06/14/18 09/01/18 Rx Aspirin 81 mg PO DAILY chew 06/14/18 09/01/18 Rx Levothyroxine Sodium [Synthroid] 100 mcg PO DAILY@0630 tab 06/14/18 09/01/18 Rx ALPRAZolam [Xanax] 0.25 mg PO BID PRN 08/25/18 09/01/18 History Bisacodyl [Dulcolax] 5 mg PO HS 08/25/18 09/01/18 History Citalopram Hydrobromide [CeleXA] 20 mg PO DAILY 08/25/18 09/01/18 History Fiber Powder 2 tsp PO BID 08/25/18 09/01/18 History Losartan Potassium [Cozaar] 50 mg PO DAILY 08/25/18 09/01/18 History Multivit/Folic Acid/Vit K1 2 each PO DAILY 08/25/18 09/01/18 History [One-A-Day Women's 50 Plus Tab] Rosuvastatin [Crestor] 10 mg PO DAILY 08/25/18 09/01/18 History amLODIPine [Norvasc] 10 mg PO DAILY 08/25/18 09/01/18 History Allergies Allergy/AdvReac Type Severity Reaction Status Date / Time Penicillins Allergy RASH ON Verified 09/01/18 10:41 TONGUE sulfamethoxazole Allergy Vomiting Verified 09/01/18 10:41 [From Bactrim] trimethoprim [From Bactrim] Allergy Vomiting Verified 09/01/18 10:41 cephalexin monohydrate AdvReac Nausea Verified 09/01/18 10:41 [From Keflex] diazepam [From Valium] AdvReac PHLEBITIS Verified 09/01/18 10:41 IN RT ARM diphenhydramine AdvReac Unknown Verified 09/01/18 10:41 [From Benadryl] erythromycin base AdvReac Unknown Verified 09/01/18 10:41 Surgical - Exam Vital Signs Temp Pulse Resp BP Pulse Ox 98.1 F 86 16 137/79 96 09/01/18 10:30 09/01/18 10:30 09/01/18 10:30 09/01/18 10:30 09/01/18 10:30 - General well developed, no distress - Eyes PERRL - ENT normal pinna - Neck no masses - Respiratory normal expansion - Cardiovascular Rhythm: regular - Abdomen Colostomy in left lower quadrant Abdomen: soft, non tender Assessment and Plan Assessment: History of perforated diverticulitis. We'll perform reversal colostomy.
[2018-09-01] MEDS ORDERED: GLYCOPYRROLATE 0.2 MG/ML 2 ML VIAL ONE (12:30)
[2018-09-01] MEDS ORDERED: ePHEDrine SULFATE/0.9% NACL/PF 50 MG/5 ML SYRINGE IV ONE (12:30)
[2018-09-01] MEDS ORDERED: NEOSTIGMINE 1 MG/ML 10 ML VIAL ONE (12:30)
[2018-09-01] MEDS ORDERED: HYDROmorphone (PF) 1 MG/ML ONE (12:30)
[2018-09-01] MEDS ORDERED: ROCURONIUM BROMIDE 10 MG/ML 10 ML VIAL IV ONE (12:30)
[2018-09-01] MEDS ORDERED: MIDAZOLAM 2 MG/2 ML VIAL ONE (12:30)
[2018-09-01] MEDS ORDERED: WATER FOR INJECTION, STERILE 10 ML VIAL IV ONE (12:30)
[2018-09-01] MEDS ORDERED: fentaNYL (PF) 50 MCG/ML 2 ML AMP ONE (12:30)
[2018-09-01] MEDS ORDERED: SUCCINYLCHOLINE CHLORIDE 100 MG/5 ML SYR IV ONE (12:30)
[2018-09-01] MEDS ORDERED: LIDOCAINE 1% INJ 10MG/ML (20 ML MDV) ONE (12:30)
[2018-09-01] MEDS ORDERED: PROPOFOL 10 MG/ML 20 ML VIAL IV ONE (12:30)
[2018-09-01] MEDS ORDERED: NALOXONE 0.4 MG/ML 1 ML VIAL IV PRN (14:12)
[2018-09-01] MEDS ORDERED: ROPIVACAINE 250 MG, HYDROMORPHONE (PF) 5 MG in SODIUM CHLORIDE 0.9% 200 ML EPIDURAL PRN (14:12)
[2018-09-01] MEDS ORDERED: HYDROmorphone 1 MG/ML 1 ML SYRINGE IVP PRN (14:40)
--- NOTE | 2018-09-01 16:31 | P.OP ---
Date of Procedure: 09/01/18 Preoperative Diagnosis: History of perforated diverticulitis Postoperative Diagnosis: History of perforated diverticulitis Adhesions Procedure(s) Performed: Reversal of colostomy Place of adhesions Small bowel resection Anesthesia: CAM Surgeon: Jose Garcia Estimated Blood Loss (ml): 50 Pathology: other (Small bowel, colon) Condition: stable Disposition: PACU Description of Procedure: The patient's placed on the operative table in the supine position. She received general anesthesia. Her abdomen was prepped and draped in usual sterile fashion. The patient was placed in dorsal 5 position. And was entered through midline incision. Upon entering the peritoneal cavity there was extensive adhesions. Approximately 35 minutes operative time used to lyse adhesions. The colostomy was then transected against the fascia using the GI stapler. The colon was mobilized by dividing the white line of [place]. In the pelvis there were extensive adhesions. These were lysed with sharp dissection. There was a loop of small bowel that appeared to contain the interloop abscess and was quite scarred. This was dissected free. Incised through its size this portion of small bowel. The bowel was transected proximally and distally with a GI stapler. And then a [id number] functional end-to-end staple phimosis was performed using the MEET and TA stapler. The rectal stump was mobilized. At this point the anvil for the EEA stapler was placed into the colon. The staple line was transected using left cautery and then the anvil was placed into the colon and then using a GI stapler a small segment of the colon was transected. The anvil was driven through the staple line. The EEA stapler was then placed the patient's anus and then the spike was driven through the rectal stump. The anvil was connected to the stapler. [place] then closed and fired. 2 intact tissue rings were retrieved. Using a hydropic the proximal bowel was occluded. And then air was insufflated via a rigid sigmoidoscope. There is no evidence of any extravasation of air. The abdomen was then irrigated. The fascia was closed with looped #1 PDS suture. Skin was closed viktoriya. The colostomy site was then excised using cautery. The fascial defect was closed with 0 Vicryl suture. Skin was closed viktoriya. The prevena wound system was placed on top of the stapler skin. Patient was sent to recovery in stable condition.
[2018-09-01 20:45] VITALS: BMI 27.5
[2018-09-01] MEDS: D5-0.45% NACL WITH KCL 20MEQ/L 1,000 ML IV SCH (22:25)
[2018-09-02] MEDS: D5-0.45% NACL WITH KCL 20MEQ/L 1,000 ML IV SCH ×3 (00:10→19:16)
[2018-09-02 00:30] LABS: Glucose,Whole Blood 173 mg/dL (75-99)
[2018-09-02] MEDS ORDERED: LACTATED RINGERS 1,000 ML IV SCH ×3 (01:30→03:30)
--- NOTE | 2018-09-02 07:40 | P.PN ---
Progress Note - Text Progress Note Date: 09/02/18 Postoperative day # status post colostomy reversal ,epidural catheter placed for postoperative analgesia, patient currently on combination of epidural infusion solution of Ropivacaine 0.0625% and Dilaudid 20 g per mL the infusion rate at 2 ml per hour , yesterday patient was started at 6 mL per hour , overnight patient was drowsy and she had pinpoint pupils, and patient given intravenous Narcan to reverse the effects of opioid , and we decreased the infusion from 6 mL per hour to 2 mL per hour, patient responded very well, currently her vital signs are stable and her blood pressure is 103/69 pulse 96 and saturation 95% , on facemask, patient had no motor deficit, her VAS 0/10, negative aspiration for CSF, Description alert and oriented 3, there is no focal neurological deficit Assessment and plan= post operative day # 1 , patient had epidural catheter ( functioning glue-like intrathecal ) ,patient doing well ,pain well controlled , will continue the same management, we'll keep patient at 2 mL per hour
[2018-09-02 07:48] LABS: Basophils % (A) 0 %; Eosinophils % (A) 0 %; HCT 33.5 % (34.0-46.0); HGB 10.1 gm/dL (11.4-16.0); Hypochromasia Marked; Lymphocytes # (A) 0.7 k/uL (1.0-4.8); Lymphocytes % (A) 4 %; MCHC 30.2 g/dL (31.0-37.0); Mean Platelet Volume 6.6; Monocytes % (A) 6 %; Neutrophils # (A) 14.9 k/uL (1.3-7.7); Neutrophils % (A) 89 %; Platelet Count 202 k/uL (150-450); RDW 14.4 % (11.5-15.5); WBC 16.7 k/uL (3.8-10.6)
[2018-09-02 08:31] LABS: Calcium 8.7 mg/dL (8.4-10.2); Potassium 4.4 mmol/L (3.5-5.1)
[2018-09-02] MEDS ORDERED: SODIUM CHLORIDE 0.9% 500 ML 500 ML IV ONE ×2 (08:42→12:03)
[2018-09-02] MEDS ORDERED: LACTATED RINGERS 500 ML IV SCH (09:30)
--- NOTE | 2018-09-02 10:30 | XR ---
EXAMINATION TYPE: XR chest 1V portable DATE OF EXAM: 09/02/2018 COMPARISON: Prior chest x-ray 06/12/2018 HISTORY: Hypoxia and atelectasis TECHNIQUE: Single frontal view of the chest is obtained. FINDINGS: Patient is rotated, technique is apical lordotic. There are overlying cardiac leads. Aorta is dense. Right hemidiaphragm is elevated. Left-sided PICC line has been removed. Heart size is stab le. Suspect some basilar atelectatic changes are present. No pneumothorax or pleural effusion. IMPRESSION: Basilar atelectasis. Rotated exam. Follow-up PA and lateral chest x-ray suggested.
[2018-09-02] MEDS ORDERED: ALPRAZolam 0.25 MG TAB PO PRN (11:56)
[2018-09-02] MEDS ORDERED: IPRATROPIUM-ALBUTEROL 3 ML NEB INHALATION PRN (13:10)
--- NOTE | 2018-09-02 14:03 | P.HPIM ---
History of Present Illness H&P Date: 09/02/18 Chief Complaint: scheduled reversal of colostomy 77-year-old female who underwent elective reversal of colostomy and removal of PEG tube. The patient underwent sigmoid colectomy and end colostomy in April 2018 due to diverticulitis with abscess formation. She became malnourished at that time and required PEG tube insertion. The patient has not used her PEG tube recently and has been tolerating oral intake well. The patient was evaluated postoperatively on the medical floor. She is awake and alert. Reports pain is tolerable. Denies chest pain or pressure. Person catheter is intact. Patients urine output has been marginal. She has received 2L in fluid boluses overnight. Patient has an epidural which was infusing at 6ml/hr. The patient became hypoxic overnight with oxygen saturations in the 50s and increased lethargy. She was given Narcan with improvement in her oxygenation. She is on a non-rebreather this morning with O2 sats greater than 92%. Epidural was decreased to 2ml/hr and patient is tolerating well. REVIEW OF SYSTEMS: Those systems with pertinent positive or pertinent negative responses have been documented in the HPI PHYSICAL EXAM: GENERAL: This is a 77-year-old female in no apparent distress at the time of examination. Pleasant and cooperative. HEENT: Head is atraumatic, normocephalic. Pupils are equal, round, and reactive to light. Sclerae anicteric. Conjunctivae are clear. Mucus membranes of the mouth are moist. Neck is supple. RESPIRATORY: Clear to auscultation. No wheezes, rales, or rhonchi. No use of accessory muscles. Patient maintaining oxygen saturation greater than 92%. CARDIOVASCULAR: Regular rate and rhythm. S1 and S2 noted. GASTROINTESTINAL: No distention noted. Abdomen soft and round. Hypoactive bowel sounds auscultated x [address]rants[address] vac in place INTEGUMENTARY: No cyanosis. No jaundice. No rashes noted. No cellulitis noted. EXTREMITIES: 2+ peripheral pulses. No evidence of peripheral edema. No calf tenderness noted. NEUROLOGIC: Cranial nerves II-XII intact. PSYCHIATRIC: Awake, alert, and oriented X 3. Appropriate affect. Intact judgement and insight. ASSESSMENT: Reversal of colostomy and removal of PEG tube, POD #1 History of diverticulitis with abscess formation, s/p colectomy with colostomy creation in April 2018 Acute hypoxic respiratory failure, suspect secondary to epidural infusion, improved with Narcan Elevated troponin, suspect secondary to oxygen supply and demand mismatch, secondary to hypoxia overnight Acute kidney injury, creatinine 1.2, baseline 0.4-0.6 History of paroxysmal atrial fibrillation History of right lower lobe pulmonary emboli and left popliteal DVT, April 2018, on anticoagulation with Eliquis Hyperlipidemia GERD Hypothyroidism History of anxiety PLAN: Continue postoperative surgical care per Dr. Garcia Continue epidural at decreased rate of 2ml Monitor respiratory status Pulmonary on consult. Appreciate recommendations and input Patient received 500cc bolus this morning. Give additional 500cc bolus now x 1. Monitor urine output. Continue IV fluids at 125cc/hr Continue to hold Eliquis while epidural is infusing. Will resume after epidural DC Continue person while epidural is in place Consult cardiology for evaluation Home meds as appropriate Monitor labs Monitor vital signs and address as appropriate Discharge planning: Patient to return home when stable Further recommendations pending patient's course Nurse practitioner note has been reviewed by physician. Signing provider agrees with the documented findings, assessment, and plan of care. Past Medical History Past Medical History: Atrial Fibrillation, Deep Vein Thrombosis (DVT), GERD/ Reflux, GI Bleed, Hyperlipidemia, Hypertension, Osteoarthritis (OA), Pulmonary Embolus (PE), Thyroid Disorder Additional Past Medical History / Comment(s): IBS, past rectal bleed/PROCTITIS, diverticulosis, COLON/gastric Polyps/ montague's esophagus in past, arthritis in neck/back bilateral shoulders & bilateral FINGERS, past R arm phlebitis, past liver cyst. SL LEAKY VALVE, GETS ECHO YEARLY. SEPSIS, COLOSTOMY D/T PERFORATION 05/20/18; HAS PEG TUBE; EPISODE OF AFIB POST-OP. EDEMA FEET. History of Any Multi-Drug Resistant Organisms: VRE Date of last positivie culture/infection: 06/12/18 MDRO Source:: VRE Past Surgical History: Bladder Surgery, Bowel Resection, Breast Surgery, Hysterectomy, Orthopedic Surgery Additional Past Surgical History / Comment(s): Hysterectomy with cystocele, R shoulder arthroscopy for rotator cuff repair and R shoulder arthrotomy for spur , L foot injured as child with surgical repair, EGDs/colonoscopies, R breast benign biopsy, bilateral cataract removal/lens implants. VARICOSE VEINS LASERED BBO. PICC LINE, THEN REMOVAL; COLOSTOMY 04/2018; PEG TUBE 06/10/18. Past Anesthesia/Blood Transfusion Reactions: Postoperative Nausea & Vomiting ( PONV) Additional Past Anesthesia/Blood Transfusion Reaction / Comment(s): PONV X1. Past Psychological History: Anxiety, Depression Additional Psychological History / Comment(s): ANXIETY BEGAN DURING [facility] HOSPITALIZATION 04/2018. Smoking Status: Former smoker Past Alcohol Use History: None Reported Additional Past Alcohol Use History / Comment(s): STARTED SMOKING AT AGE 17, QUIT AT AGE 43, SMOKED 1PPD Past Drug Use History: None Reported - Past Family History Mother Family Medical History: Cancer Additional Family Medical History / Comment(s): BREAST CANCER Father Family Medical History: Coronary Artery Disease (CAD) Medications and Allergies Home Medications Medication Instructions Recorded Confirmed Type Omeprazole/Sodium Bicarbonate 1 cap PO DAILY 06/20/16 09/01/18 History [Zegerid 20 mg Capsule] Apixaban [Eliquis] 5 mg PO BID 05/12/18 09/01/18 History Acetaminophen Tab [Tylenol] 650 mg PO Q4HR PRN tab 06/14/18 09/01/18 Rx Aspirin 81 mg PO DAILY chew 06/14/18 09/01/18 Rx Levothyroxine Sodium [Synthroid] 100 mcg PO DAILY@0630 tab 06/14/18 09/01/18 Rx ALPRAZolam [Xanax] 0.25 mg PO BID PRN 08/25/18 09/01/18 History Bisacodyl [Dulcolax] 5 mg PO HS 08/25/18 09/01/18 History Citalopram Hydrobromide [CeleXA] 20 mg PO DAILY 08/25/18 09/01/18 History Fiber Powder 2 tsp PO BID 08/25/18 09/01/18 History Losartan Potassium [Cozaar] 50 mg PO DAILY 08/25/18 09/01/18 History Multivit/Folic Acid/Vit K1 2 tab PO DAILY 08/25/18 09/01/18 History [One-A-Day Women's 50 Plus Tab] Rosuvastatin [Crestor] 10 mg PO DAILY 08/25/18 09/01/18 History amLODIPine [Norvasc] 10 mg PO DAILY 08/25/18 09/01/18 History Allergies Allergy/AdvReac Type Severity Reaction Status Date / Time Penicillins Allergy RASH ON Verified 09/01/18 17:26 TONGUE sulfamethoxazole Allergy Vomiting Verified 09/01/18 17:26 [From Bactrim] trimethoprim [From Bactrim] Allergy Vomiting Verified 09/01/18 17:26 cephalexin monohydrate AdvReac Nausea Verified 09/01/18 17:26 [From Keflex] diazepam [From Valium] AdvReac PHLEBITIS Verified 09/01/18 17:26 IN RT ARM diphenhydramine AdvReac Unknown Verified 09/01/18 17:26 [From Benadryl] erythromycin base AdvReac Unknown Verified 09/01/18 17:26 Physical Exam Vitals: Vital Signs Temp Pulse Pulse Resp BP Pulse Ox 09/02/18 08:00 98 18 09/02/18 07:04 99.3 F 98 18 103/69 95 09/02/18 05:17 91 14 118/50 96 09/02/18 03:26 88 12 107/71 98 09/02/18 02:07 87 12 102/69 97 09/02/18 00:37 97.6 F 103 H 12 118/76 86 L 09/02/18 00:30 8 L 103/69 09/02/18 00:15 97.0 F L 98 8 L 93/58 86 L 09/01/18 19:30 97.5 F L 91 16 103/66 92 L 09/01/18 17:57 97.6 F 93 108/69 95 09/01/18 17:15 85 16 108/63 98 09/01/18 16:45 86 16 111/64 98 09/01/18 16:16 86 16 120/66 98 09/01/18 16:02 88 16 122/66 98 09/01/18 15:46 88 16 123/67 97 09/01/18 15:32 93 16 135/73 100 09/01/18 15:19 89 16 127/70 100 09/01/18 15:00 89 16 127/66 100 09/01/18 14:52 97.0 F L 93 12 127/64 97 Intake and Output 09/01/18 09/02/18 09/02/18 22:59 06:59 14:59 Intake Total 1028 2000 Output Total 120 100 100 Balance 908 1900 -100 Intake: IV 438 Intake, IV Titration 2000 Amount Lactated Ringers 1,000 ml 1000 @ 999 mls/hr IV .Q1H1M [facility] Rx#:[id number] Lactated Ringers 1,000 ml 1000 @ 999 mls/hr IV .Q1H1M [facility] Rx#:[id number] Oral 590 Output: Urine 120 100 100 Uretheral (Person) 100 100 Other: Voiding Method Indwelling Catheter Indwelling Catheter Indwelling Catheter Weight 75 kg Results CBC & Chem 7: 09/02/18 07:16 09/02/18 07:16 Labs: Abnormal Lab Results - Last 24 Hours (Table) 09/02/18 09/02/18 09/02/18 Range/Units 00:29 07:16 07:16 WBC 16.7 H (3.8-10.6) k/uL Hgb 10.1 L (11.4-16.0) gm/dL Hct 33.5 L (34.0-46.0) % MCHC 30.2 L (31.0-37.0) g/dL Neutrophils # 14.9 H (1.3-7.7) k/uL Lymphocytes # 0.7 L (1.0-4.8) k/uL Chloride 108 H (98-107) mmol/L BUN 18 H (7-17) mg/dL Creatinine 1.20 H (0.52-1.04) mg/dL Glucose 160 H (74-99) mg/dL POC Glucose (mg/dL) 173 H (75-99) mg/dL Troponin I (0.000-0.034) ng/mL 09/02/18 Range/Units 07:16 WBC (3.8-10.6) k/uL Hgb (11.4-16.0) gm/dL Hct (34.0-46.0) % MCHC (31.0-37.0) g/dL Neutrophils # (1.3-7.7) k/uL Lymphocytes # (1.0-4.8) k/uL Chloride (98-107) mmol/L BUN (7-17) mg/dL Creatinine (0.52-1.04) mg/dL Glucose (74-99) mg/dL POC Glucose (mg/dL) (75-99) mg/dL Troponin I 0.040 H* (0.000-0.034) ng/mL Thrombosis Risk Factor Assmnt - Choose All That Apply Each Factor Represents 1 point: History of prior major surgery (<1month), Obesity (BMI >25) Other Risk Factors: Yes Each Risk Factor Represents 2 Points: Major surgery Each Risk Factor Represents 3 Points: Age 75 years or older, History of DVT/PE Thrombosis Risk Factor Assessment Total Risk Factor Score: 10 Thrombosis Risk Factor Assessment Level: High Risk
--- NOTE | 2018-09-02 14:12 | P.PN ---
Subjective Progress Note Date: 09/02/18 77-year-old female who underwent elective reversal of colostomy and removal of PEG tube. POD #1. The patient underwent sigmoid colectomy and end colostomy in April 2018 due to diverticulitis with abscess formation. She became malnourished at that time and required PEG tube insertion. The patient has not used her PEG tube recently and has been tolerating oral intake well. The patient was evaluated postoperatively on the medical floor. She is awake and alert. Reports pain is tolerable. Denies chest pain or pressure. [place] catheter is intact. Patients urine output has been marginal. She has received 2L in fluid boluses overnight and and additional 1L per medicine today. IVF infusing at 125cc/hr. Patient has an epidural which was infusing at 6ml/hr during the night. The patient became hypoxic overnight with oxygen saturations in the 50s and increased lethargy. She was given Narcan with improvement in her oxygenation. She was placed on a non-rebreather which has since been weaned to 4L NC. Epidural was decreased to 2ml/hr and patient is tolerating well. She is tolerating ice chips. Denies passing flatus. PHYSICAL EXAM: GENERAL: This is a 77-year-old female in no apparent distress at the time of examination. Pleasant and cooperative. HEENT: Head is atraumatic, normocephalic. Pupils are equal, round, and reactive to light. Sclerae anicteric. Conjunctivae are clear. Mucus membranes of the mouth are moist. Neck is supple. RESPIRATORY: Clear to auscultation. No wheezes, rales, or rhonchi. No use of accessory muscles. Patient maintaining oxygen saturation greater than 92%. CARDIOVASCULAR: Regular rate and rhythm. GASTROINTESTINAL: No distention noted. Abdomen soft and round. Hypoactive bowel sounds auscultated x [address]rants[address] vac in place INTEGUMENTARY: No cyanosis. No jaundice. No rashes noted. No cellulitis noted. EXTREMITIES: 2+ peripheral pulses. No evidence of peripheral edema. No calf tenderness noted. NEUROLOGIC: Cranial nerves II-XII intact. PSYCHIATRIC: Awake, alert, and oriented X 3. Appropriate affect. Intact judgement and insight. ASSESSMENT: Reversal of colostomy and removal of PEG tube, POD #1 History of diverticulitis with abscess formation, s/p colectomy with colostomy creation in April 2018 Acute hypoxic respiratory failure, suspect secondary to epidural infusion, improved with Narcan Elevated troponin, suspect secondary to oxygen supply and demand mismatch, secondary to hypoxia overnight Acute kidney injury, creatinine 1.2, baseline 0.4-0.6 History of paroxysmal atrial fibrillation History of right lower lobe pulmonary emboli and left popliteal DVT, April 2018, on anticoagulation with Eliquis Hyperlipidemia GERD Hypothyroidism History of anxiety PLAN: Patient may begin clear liquid diet Patient received an additional 1L bolus today, for a total of 3L. Continue IVF at 125. Monitor urine output. Pain control. Continue epidural Incentive spirometry Continue to hold Eliquis while epidural is infusing. Will resume after epidural DC Nurse practitioner note has been reviewed by physician. Signing provider agrees with the documented findings, assessment, and plan of care. Objective - Vital Signs Vital signs: Vital Signs Temp 99.3 F 09/02/18 07:04 Pulse 98 09/02/18 08:00 Resp 18 09/02/18 08:00 BP 103/69 09/02/18 07:04 Pulse Ox 95 09/02/18 07:04 Intake & Output 09/01/18 09/02/18 09/02/18 18:59 06:59 18:59 Intake Total 2538 2590 1000 Output Total 220 100 100 Balance 2318 2490 900 Weight 75 kg Intake: IV 2538 Intake, IV Titration 2000 1000 Amount Lactated Ringers 1,000 ml 1000 @ 999 mls/hr IV .Q1H1M [facility] Rx#:[id number] Lactated Ringers 1,000 ml 1000 @ 999 mls/hr IV .Q1H1M [facility] Rx#:[id number] Sodium Chloride 0.9% 500 500 ml 500 ml @ 999 mls/hr IV .Q31M [facility] Rx#:[id number] Sodium Chloride 0.9% 500 500 ml 500 ml @ 999 mls/hr IV .Q31M [facility] Rx#:[id number] Oral 590 Output: Urine 120 100 100 Uretheral ([place]) 100 100 Estimated Blood Loss 100 Other: Voiding Method Indwelling Catheter Indwelling Catheter Indwelling Catheter - Labs CBC & Chem 7: 09/02/18 07:16 09/02/18 07:16 Labs: Abnormal Lab Results - Last 24 Hours (Table) 09/02/18 09/02/18 09/02/18 Range/Units 00:29 07:16 07:16 WBC 16.7 H (3.8-10.6) k/uL Hgb 10.1 L (11.4-16.0) gm/dL Hct 33.5 L (34.0-46.0) % MCHC 30.2 L (31.0-37.0) g/dL Neutrophils # 14.9 H (1.3-7.7) k/uL Lymphocytes # 0.7 L (1.0-4.8) k/uL Chloride 108 H (98-107) mmol/L BUN 18 H (7-17) mg/dL Creatinine 1.20 H (0.52-1.04) mg/dL Glucose 160 H (74-99) mg/dL POC Glucose (mg/dL) 173 H (75-99) mg/dL Troponin I (0.000-0.034) ng/mL 09/02/18 Range/Units 07:16 WBC (3.8-10.6) k/uL Hgb (11.4-16.0) gm/dL Hct (34.0-46.0) % MCHC (31.0-37.0) g/dL Neutrophils # (1.3-7.7) k/uL Lymphocytes # (1.0-4.8) k/uL Chloride (98-107) mmol/L BUN (7-17) mg/dL Creatinine (0.52-1.04) mg/dL Glucose (74-99) mg/dL POC Glucose (mg/dL) (75-99) mg/dL Troponin I 0.040 H* (0.000-0.034) ng/mL
--- NOTE | 2018-09-02 16:54 | P.CNPUL ---
History of Present Illness Consult date: 09/02/18 Requesting physician: Cole Hernandez Reason for consult: dyspnea Chief complaint: Shortness of breath History of present illness: This is a very pleasant 77-year-old female patient who follows with Dr. Hernandez as her primary care physician. She has a history of DVT/PE, hyperlipidemia, hypothyroidism, depression, former smoking history, and abdominal abscess and perforated diverticulitis requiring colectomy and end colostomy performed on . She was readmitted here to the hospital yesterday 09/01/2018 to undergo an elective bursal of colostomy with lysis of adhesions and small bowel resection performed by Dr. Garcia. She tolerated the procedure well. She was having some issues with shortness of breath and O2 saturations in the low 90s requiring nonrebreather mask. A chest x-ray revealed bibasilar atelectasis and we are consulted for the same. She is seen today in consultation on the regular medical floor. She is awake and alert in no acute distress. Currently maintaining O2 saturations in the 90s on 3 L/m per nasal cannula. Her pain is well controlled with an epidural of a ropivacaine/hydromorphone. She is working with the incentive spirometer. Pulling approximately 1 L. White count 16.7. Hemoglobin 10.1. Creatinine 1.20. Review of Systems 14 point review of system was conducted. All negative other than as mentioned in HPI. Past Medical History Past Medical History: Atrial Fibrillation, Deep Vein Thrombosis (DVT), GERD/ Reflux, GI Bleed, Hyperlipidemia, Hypertension, Osteoarthritis (OA), Pulmonary Embolus (PE), Thyroid Disorder Additional Past Medical History / Comment(s): IBS, past rectal bleed/PROCTITIS, diverticulosis, COLON/gastric Polyps/ montague's esophagus in past, arthritis in neck/back bilateral shoulders & bilateral FINGERS, past R arm phlebitis, past liver cyst. SL LEAKY VALVE, GETS ECHO YEARLY. SEPSIS, COLOSTOMY D/T PERFORATION 05/20/18; HAS PEG TUBE; EPISODE OF AFIB POST-OP. EDEMA FEET. History of Any Multi-Drug Resistant Organisms: VRE Date of last positivie culture/infection: 06/12/18 MDRO Source:: VRE Past Surgical History: Bladder Surgery, Bowel Resection, Breast Surgery, Hysterectomy, Orthopedic Surgery Additional Past Surgical History / Comment(s): Hysterectomy with cystocele, R shoulder arthroscopy for rotator cuff repair and R shoulder arthrotomy for spur , L foot injured as child with surgical repair, EGDs/colonoscopies, R breast benign biopsy, bilateral cataract removal/lens implants. VARICOSE VEINS LASERED BOB. PICC LINE, THEN REMOVAL; COLOSTOMY 04/2018; PEG TUBE 06/10/18. Past Anesthesia/Blood Transfusion Reactions: Postoperative Nausea & Vomiting ( PONV) Additional Past Anesthesia/Blood Transfusion Reaction / Comment(s): PONV X1. Past Psychological History: Anxiety, Depression Additional Psychological History / Comment(s): ANXIETY BEGAN DURING [facility] 04/2018. Smoking Status: Former smoker Past Alcohol Use History: None Reported Additional Past Alcohol Use History / Comment(s): STARTED SMOKING AT AGE 17, QUIT AT AGE 43, SMOKED 1PPD Past Drug Use History: None Reported - Past Family History Mother Family Medical History: Cancer Additional Family Medical History / Comment(s): BREAST CANCER Father Family Medical History: Coronary Artery Disease (CAD) Medications and Allergies Home Medications Medication Instructions Recorded Confirmed Type Omeprazole/Sodium Bicarbonate 1 cap PO DAILY 06/20/16 09/01/18 History [Zegerid 20 mg Capsule] Apixaban [Eliquis] 5 mg PO BID 05/12/18 09/01/18 History Acetaminophen Tab [Tylenol] 650 mg PO Q4HR PRN tab 06/14/18 09/01/18 Rx Aspirin 81 mg PO DAILY chew 06/14/18 09/01/18 Rx Levothyroxine Sodium [Synthroid] 100 mcg PO DAILY@0630 tab 06/14/18 09/01/18 Rx ALPRAZolam [Xanax] 0.25 mg PO BID PRN 08/25/18 09/01/18 History Bisacodyl [Dulcolax] 5 mg PO HS 08/25/18 09/01/18 History Citalopram Hydrobromide [CeleXA] 20 mg PO DAILY 08/25/18 09/01/18 History Fiber Powder 2 tsp PO BID 08/25/18 09/01/18 History Losartan Potassium [Cozaar] 50 mg PO DAILY 08/25/18 09/01/18 History Multivit/Folic Acid/Vit K1 2 tab PO DAILY 08/25/18 09/01/18 History [One-A-Day Women's 50 Plus Tab] Rosuvastatin [Crestor] 10 mg PO DAILY 08/25/18 09/01/18 History amLODIPine [Norvasc] 10 mg PO DAILY 08/25/18 09/01/18 History Allergies Allergy/AdvReac Type Severity Reaction Status Date / Time Penicillins Allergy RASH ON Verified 09/01/18 17:26 TONGUE sulfamethoxazole Allergy Vomiting Verified 09/01/18 17:26 [From Bactrim] trimethoprim [From Bactrim] Allergy Vomiting Verified 09/01/18 17:26 cephalexin monohydrate AdvReac Nausea Verified 09/01/18 17:26 [From Keflex] diazepam [From Valium] AdvReac PHLEBITIS Verified 09/01/18 17:26 IN RT ARM diphenhydramine AdvReac Unknown Verified 09/01/18 17:26 [From Benadryl] erythromycin base AdvReac Unknown Verified 09/01/18 17:26 Physical Exam Vitals: Vital Signs Temp Pulse Pulse Resp BP Pulse Ox 09/02/18 15:00 97.6 F 93 16 112/67 90 L 09/02/18 08:00 98 18 09/02/18 07:04 99.3 F 98 18 103/69 95 09/02/18 05:17 91 14 118/50 96 09/02/18 03:26 88 12 107/71 98 09/02/18 02:07 87 12 102/69 97 09/02/18 00:37 97.6 F 103 H 12 118/76 86 L 09/02/18 00:30 8 L 103/69 09/02/18 00:15 97.0 F L 98 8 L 93/58 86 L 09/01/18 19:30 97.5 F L 91 16 103/66 92 L 09/01/18 17:57 97.6 F 93 108/69 95 09/01/18 17:15 85 16 108/63 98 09/01/18 16:45 86 16 111/64 98 Intake and Output 09/02/18 09/02/18 09/02/18 06:59 14:59 22:59 Intake Total 1999 1000 Output Total 100 100 Balance 1900 900 Intake: Intake, IV Titration 1999 1000 Amount Lactated Ringers 1,000 ml 1000 @ 999 mls/hr IV .Q1H1M [facility] Rx#:[id number] Lactated Ringers 1,000 ml 1000 @ 999 mls/hr IV .Q1H1M [facility] Rx#:[id number] Sodium Chloride 0.9% 500 500 ml 500 ml @ 999 mls/hr IV .Q31M [facility] Rx#:[id number] Sodium Chloride 0.9% 500 500 ml 500 ml @ 999 mls/hr IV .Q31M [facility] Rx#:[id number] Output: Urine 100 100 Uretheral (Medellin) 100 100 Other: Voiding Method Indwelling Catheter Indwelling Catheter Weight 75 kg GENERAL EXAM: Alert, active, comfortable in no apparent distress. On nasal O2. HEAD: Normocephalic. EYES: Normal reaction of pupils, equal size. NOSE: Clear with pink turbinates. THROAT: No erythema or exudates. NECK: No masses, no JVD. CHEST: No chest wall deformity. LUNGS: Equal air entry with faint crackles in the posterior bases. CVS: S1 and S2 normal with no audible murmur, regular rhythm. ABDOMEN: Abdominal dressing dry and intact. No hepatosplenomegaly, normal bowel sounds, no guarding or rigidity. SPINE: No scoliosis or deformity SKIN: No rashes CENTRAL NERVOUS SYSTEM: No focal deficits, tone is normal in all 4 extremities. EXTREMITIES: There is no peripheral edema. No clubbing, no cyanosis. Peripheral pulses are intact. Results - Laboratory Findings CBC and BMP: 09/02/18 07:16 09/02/18 07:16 Abnormal lab findings: Abnormal Labs 09/02/18 09/02/18 09/02/18 00:29 07:16 07:16 WBC 16.7 H Hgb 10.1 L Hct 33.5 L MCHC 30.2 L Neutrophils # 14.9 H Lymphocytes # 0.7 L Chloride 108 H BUN 18 H Creatinine 1.20 H Glucose 160 H POC Glucose (mg/dL) 173 H Troponin I 09/02/18 07:16 WBC Hgb Hct MCHC Neutrophils # Lymphocytes # Chloride BUN Creatinine Glucose POC Glucose (mg/dL) Troponin I 0.040 H* - Diagnostic Findings Chest x-ray: image reviewed (Minimal atelectasis in the lung bases) Assessment and Plan Assessment: Impression: #1 Colectomy with end colostomy performed secondary to perforated diverticulitis and abscess back on 05/20/2018. Reversal of colostomy with lysis of adhesions performed on 09/01/2018. Postoperative day #1. #2 Hypoxemia as an expected outcome due to abdominal surgery and poor inspiratory effort. Currently on oxygen at 2 L/m per nasal cannula. #3 History of PE/DVT, anticoagulated with Eliquis in the outpatient setting. #4 Hypothyroidism. #5 Hypertension. #6 Hyperlipidemia. #7 History of anxiety/depression. #8 Acute renal failure. Plan: The patient was seen and evaluated by Dr. Dr. Gutierres. Chest x-ray and labs were reviewed. We will resume DuoNeb inhalations every 4 hours. Encouraged regarding the increased use of the incentive spirometer and cough and deep breathing exercises. Increase her activity as tolerated. Resume Eliquis once cleared by surgical services. We will continue to follow and make further recommendations based on her clinical status. I, the cosigning physician, performed a history & physical examination of the patient. Lungs sounds faint crackles in the posterior bases, diminished. Maintaining good O2 saturations in the 90s on 2 L/m per nasal cannula. I discussed the assessment and plan of care with my nurse practitioner, Margo Neves. I attest to the above note as dictated by her. Time with Patient: Greater than 30
[2018-09-02] MEDS: IPRATROPIUM-ALBUTEROL 3 ML NEB INHALATION SCH (20:55)
[2018-09-02] MEDS: PSYLLIUM HUSK 100% 6 GM PACKET PO SCH (22:17)
[2018-09-02] MEDS: METOCLOPRAMIDE 5 MG/ML 2 ML VIAL IVP PRN (22:20)
[2018-09-02] MEDS ORDERED: PANTOPRAZOLE 40 MG TABLET PO STA (22:51)
[2018-09-03] MEDS: D5-0.45% NACL WITH KCL 20MEQ/L 1,000 ML IV SCH ×3 (02:11→22:51)
[2018-09-03] MEDS: METOCLOPRAMIDE 5 MG/ML 2 ML VIAL IVP PRN ×2 (03:40→11:37)
--- NOTE | 2018-09-03 06:01 | P.PN ---
Progress Note - Text Progress Note Date: 09/03/18 Patient is postop day 2 from a colostomy reversal. She has an epidural catheter which has been running at a very low rate to a miles per hour. She's had some difficulty breathing last night advise him to turn to catheter off. The night prior she also had some difficulty breathing and the catheter was turned down to 2 amounts. She reports a heaviness in her lower extremities. At the time of exam this morning the catheter been off for a few hours and lower extremities and return to normal. Continues to require oxygen but is feeling better than she was previously. At this point I feel that removing the catheter be the best course of action. We will discontinue the catheter today. Please discontinue the catheter at least 4 hours after last dose subq heparin and hold the next dose for at least 2 hours after discontinuation
[2018-09-03] MEDS: IPRATROPIUM-ALBUTEROL 3 ML NEB INHALATION SCH ×3 (07:00→20:03)
[2018-09-03] MEDS ORDERED: ONDANSETRON 4 MG/2 ML VIAL ONE (07:40)
[2018-09-03 08:36] LABS: Basophils % (A) 0 %; Eosinophils # (A) 0.1 k/uL (0-0.7); Eosinophils % (A) 1 %; HGB 10.8 gm/dL (11.4-16.0); Hypochromasia Slight; Lymphocytes % (A) 6 %; MCH 27.3 pg (25.0-35.0); MCHC 32.8 g/dL (31.0-37.0); MCV 83.4 fL (80.0-100.0); Mean Platelet Volume 7.4; Monocytes % (A) 6 %; Neutrophils # (A) 14.3 k/uL (1.3-7.7); Neutrophils % (A) 86 %; Platelet Count 211 k/uL (150-450); RBC 3.95 m/uL (3.80-5.40); RDW 14.7 % (11.5-15.5); WBC 16.6 k/uL (3.8-10.6)
[2018-09-03 08:59] LABS: Calcium 8.6 mg/dL (8.4-10.2); Potassium 4.1 mmol/L (3.5-5.1); Total Bilirubin 0.5 mg/dL (0.2-1.3); Total Protein 5.6 g/dL (6.3-8.2)
[2018-09-03] MEDS ORDERED: HEPARIN SODIUM,PORCINE 5,000 UNIT/ML 1 ML VIAL SQ SCH (09:00)
[2018-09-03] MEDS: ONDANSETRON 4 MG/2 ML VIAL IVP PRN (09:19)
[2018-09-03] MEDS: LEVOTHYROXINE 100 MCG TAB PO SCH (10:15)
[2018-09-03] MEDS: MULTIVITAMINS, THERA 1 EACH TAB PO SCH (10:16)
[2018-09-03] MEDS: PSYLLIUM HUSK 100% 6 GM PACKET PO SCH ×2 (10:18→20:44)
[2018-09-03] MEDS: APIXABAN 5 MG TAB PO SCH ×2 (10:23→20:44)
[2018-09-03] MEDS: PANTOPRAZOLE 40 MG TABLET PO SCH (10:23)
[2018-09-03] MEDS: amLODIPine 10 MG TAB PO SCH (11:19)
[2018-09-03] MEDS: CITALOPRAM HYDROBROMIDE 20 MG TAB PO SCH (11:19)
[2018-09-03] MEDS: ATORVASTATIN 20 MG TAB PO SCH (11:19)
[2018-09-03] MEDS: LOSARTAN 50 MG TAB PO SCH (11:19)
[2018-09-03] MEDS: ACETAMINOPHEN TAB 325 MG TAB PO PRN (11:33)
--- NOTE | 2018-09-03 13:28 | XR ---
EXAMINATION TYPE: XR chest 1V portable DATE OF EXAM: 09/03/2018 COMPARISON: 09/02/2018 HISTORY: Shortness of breath TECHNIQUE: Single frontal view of the chest is obtained. FINDINGS: There is a new right lower lobe opacity obscuring the right hemidiaphragm and right midlun g reticular opacity both accentuated by low lung volumes. Retrocardiac opacity is also seen with obsc uration of the medial left hemidiaphragm. Remainder the lungs are clear. Cardia mediastinal silhouett e is mildly enlarged. Osseous structures are grossly intact with generalized demineralization. IMPRESSION: Findings most compatible with multifocal pneumonia. Follow-up exam after treatment is re commended to ensure resolution.
--- NOTE | 2018-09-03 14:32 | P.PN ---
Subjective Progress Note Date: 09/03/18 Principal diagnosis: Colectomy with end colostomy, postoperative acute hypoxemic respiratory failure This is a very pleasant 77-year-old female patient who follows with Dr. Hernandez as her primary care physician. She has a history of DVT/PE, hyperlipidemia, hypothyroidism, depression, former smoking history, and abdominal abscess and perforated diverticulitis requiring colectomy and end colostomy performed on . She was readmitted here to the hospital yesterday 09/01/2018 to undergo an elective bursal of colostomy with lysis of adhesions and small bowel resection performed by Dr. Garcia. She tolerated the procedure well. She was having some issues with shortness of breath and O2 saturations in the low 90s requiring nonrebreather mask. A chest x-ray revealed bibasilar atelectasis and we are consulted for the same. She is seen today in consultation on the regular medical floor. She is awake and alert in no acute distress. Currently maintaining O2 saturations in the 90s on 3 L/m per nasal cannula. Her pain is well controlled with an epidural of a ropivacaine/hydromorphone. She is working with the incentive spirometer. Pulling approximately 1 L. White count 16.7. Hemoglobin 10.1. Creatinine 1.20. On 09/03/2018 patient seen in follow-up on medical surgical floor. Patient has been increasingly more hypoxemic, now she is on 15 L per high flow nasal cannula , with a pulse ox of 91-92%, patient has been vomiting, liquid dark green emesis. There was a-team call last night in regards to increasing hypoxemia, Dr Gutierres was not contacted regarding the a-team. No fever, no chills, patient has been afebrile, hemodynamically stable, lung sounds are diminished, bowel sounds are absent, wound VAC is present on the abdominal incision. These labs have been reviewed, WBC is 16.6, about the same as it was yesterday, hemoglobin is 10.8, sodium is 136, potassium is 4.1, chloride is 106, B1 is 16 and creatinine 0.86. No cough, no chest congestion, no wheezing. No chest pain. Patient will have a NG tube inserted for the ileus. Not passed any gas yet. She has been work on her incentive spirometer, and she is able to achieve about [id number] on it. Stat chest x-ray was obtained, and showed a new right lower lobe opacity obscuring the right hemidiaphragm and right midlung, reticular opacity both accentuated by low lung volumes. Retrocardiac opacity is also seen with obscuration of the medial left hemidiaphragm, findings are suspicious for multifocal pneumonia, possibly aspiration related. She was started on antibiotic coverage in the form of Levaquin, patient has multiple ALLERGIES including to penicillins, sulfamethoxazole, trimethoprim, cephalexin, erythromycin. Objective - Vital Signs Vital signs: Vital Signs Temp 98.5 F 09/03/18 07:00 Pulse 103 H 09/03/18 08:00 Resp 16 09/03/18 08:00 BP 128/74 09/03/18 07:00 Pulse Ox 92 L 09/03/18 07:00 Intake & Output 09/02/18 09/03/18 09/03/18 18:59 06:59 18:59 Intake Total 1000 2000 Output Total 250 900 400 Balance 750 1100 -400 Weight 75 kg Intake: Intake, IV Titration 1000 2000 Amount D5-0.45% NaCl with KCl 2000 20Meq/l 1,000 ml @ 125 mls/hr IV .Q8H [facility] Rx#: [id number] Sodium Chloride 0.9% 500 500 ml 500 ml @ 999 mls/hr IV .Q31M [facility] Rx#:[id number] Sodium Chloride 0.9% 500 500 ml 500 ml @ 999 mls/hr IV .Q31M [facility] Rx#:[id number] Output: Urine 250 900 400 Uretheral (Medellin) 250 400 Other: Voiding Method Indwelling Catheter Indwelling Catheter Indwelling Catheter - Exam GENERAL EXAM: Alert, pleasant, 77-year-old white female Ativan 15 L per high flow nasal cannula comfortable in no apparent distress. HEAD: Normocephalic/atraumatic. EYES: Normal reaction of pupils, equal size. Conjunctiva pink, sclera white. NOSE: Clear with pink turbinates. THROAT: No erythema or exudates. NECK: No masses, no JVD, no thyroid enlargement, no adenopathy. CHEST: No chest wall deformity. Symmetrical expansion. LUNGS: Diminished breath sounds bilaterally CVS: Regular rate and rhythm, normal S1 and S2, no gallops, no murmurs, no rubs ABDOMEN: Soft, nontender. Mid abdominal and left upper quadrant transverse incision, the wound VAC in place. Bowel sounds are absent EXTREMITIES: No clubbing, no edema, no cyanosis, 2+ pulses and upper and lower extremities. MUSCULOSKELETAL: Muscle strength and tone normal. SPINE: No scoliosis or deformity SKIN: No rashes CENTRAL NERVOUS SYSTEM: Alert and oriented -3. No focal deficits, tone is normal in all 4 extremities. PSYCHIATRIC: Alert and oriented -3. Appropriate affect. Intact judgment and insight. - Labs CBC & Chem 7: 09/03/18 07:44 09/03/18 07:44 Labs: Abnormal Lab Results - Last 24 Hours (Table) 09/03/18 09/03/18 Range/Units 07:44 07:44 WBC 16.6 H (3.8-10.6) k/uL Hgb 10.8 L (11.4-16.0) gm/dL Hct 33.0 L (34.0-46.0) % Neutrophils # 14.3 H (1.3-7.7) k/uL Sodium 136 L (137-145) mmol/L Glucose 123 H (74-99) mg/dL Total Protein 5.6 L (6.3-8.2) g/dL Albumin 3.0 L (3.5-5.0) g/dL Assessment and Plan Plan: Assessment: #1 Colectomy with end colostomy performed secondary to perforated diverticulitis and abscess back on 05/20/2018. Reversal of colostomy with lysis of adhesions performed on 09/01/2018. Postoperative day #2 #2 Acute hypoxemic respiratory failure related to abdominal surgery and poor inspiratory effort. Today's chest x-ray showed bilateral infiltrates, suspicious for multifocal pneumonia, possibly related to aspiration. #3 Nausea and vomiting, related to postoperative ileus #4 History of PE/DVT, anticoagulated with Eliquis in the outpatient setting. #5 Hypothyroidism. #6 Hypertension. #7 Hyperlipidemia. #8 History of anxiety/depression. #9 Acute renal failure. Plan: Today's chest x-ray has been reviewed with Dr. Gutireres, showed bilateral infiltrates suspicious for multifocal pneumonia, possibly related to aspiration. Patient has multiple ALLERGIES including ALLERGIES to multiple antibiotics. IV Levaquin has been started, continue with nebulized bronchodilators, continue encouraging deep breathing and coughing, patient's epidural has been discontinued, she is fairly comfortable at rest. Patient has developed postoperative ileus, NG tube will be inserted. We will continue to closely follow I performed a history & physical examination of the patient and discussed their management with my nurse practitioner, Ros Liao. I reviewed the nurse practitioner's note and agree with the documented findings and plan of care. Lung sounds are positive for diminished breath sounds. The findings and the impression was discussed with the patient. I attest to the documentation by the nurse practitioner. Time with Patient: Less than 30
--- NOTE | 2018-09-03 14:54 | P.CRDCN ---
History of Present Illness History of present illness: This is a pleasant 77-year-old female past medical history significant for paroxysmal atrial fibrillation on long-term anticoagulation, dyslipidemia, hypertension, DVT, diverticulitis with colostomy, and aortic regurgitation with preserved LV function. She follows with Dr. Landry in the office. She has not history of coronary artery disease. We have been asked to see her in consultation for elevated troponin. She came to the hospital 09/01 for elective reversal of colostomy and PEG tube removal per Dr. Overton. Surgery was unremarkable. Post operatively she had an epidural in place. Overnight after surgery she was found to be hypoxic at 50% and had to receive Narcan. Lethargy and hypoxia improved with narcan administration. Epidural has since been removed. Troponins were obtained and came to be minimally elevated 0.012, 0.040 and 0.029. This is why we are asked to see her. She is seen and examined resting comfortably in bed in no acute distress with and daughter at the bedside. She denies ever having had chest pain. She currently denies shortness of breath, chest pain, dizziness or palpitations. She continues to feel discomfort in her abdomen. Chest x-ray obtained reveals multifocal pneumonia. She has been seen in consultation by pulmonary services and his third thought that she possibly has aspiration pneumonia. EKG reveals sinus mechanism with nonspecific ST abnormalities noted. Laboratory data reviewed, hemoglobin 10.8, platelets 211, to be VC 16.6, sodium 136, potassium 4.1, creatinine 0.86. Current cardiac medications include amlodipine 10 mg daily, rosuvastatin 10 mg daily, losartan 50 mg daily, aspirin 81 mg daily and Eliquis 5 mg twice a day. Most recent echocardiogram obtained April 2018 reveals preserved left ventricular systolic function with ejection fraction 55-60% and moderately dilated left atrium. At the time of my exam: CONSTITUTIONAL: Denies fever. Denies chills. EYES: Denies blurred vision. Denies vision changes. Denies eye pain. EARS, NOSE, MOUTH & THROAT: Denies headache. Denies sore throat. Denies ear pain. CARDIOVASCULAR: Denies chest pain. Denies shortness of breath. Denies orthopnea. Denies PND. Denies palpitations. RESPIRATORY: Denies cough. GASTROINTESTINAL: Complains of abdominal pain. Denies diarrhea. Denies constipation. Denies nausea. Denies vomiting. MUSCULOSKELETAL: Denies myalgias. INTEGUMENTARY: Denies pruitis. Denies rash. NEUROLOGIC: Denies numbness. Denies tingling. Denies weakness. PSYCHIATRIC: Denies anxiety. Denies depression. ENDOCRINE: Denies fatigue. Denies weight change. Denies polydipsia. Denies polyurina. GENITOURINARY: Denies burning, hematuria or urgency with micturation. HEMATOLOGIC: Denies history of anemia. Denies bleeding. Blood pressure 128/74 heart rate 103 afebrile maintaining oxygen saturation on nasal cannula GENERAL: This is a 77-year-old female in no apparent distress at the time of my examination. HEENT: Head is atraumatic, normocephalic. Pupils are equal, round. Sclerae anicteric. Conjunctivae are clear. Mucous membranes of the mouth are moist. Neck is supple. There is no jugular venous distention. No carotid bruit is heard. LUNGS: Clear to auscultation no wheezes, rales or rhonchi. No chest wall tenderness is noted on palpation or with deep breathing. HEART: Regular rate and rhythm with murmur at the base, no rubs or gallops. S1 and S2 heard. EXTREMITIES: No evidence of peripheral edema and no calf tenderness noted. ASSESSMENT Elective colostomy reversal postoperative day #2 Acute hypoxia secondary to epidural Pneumonia, multifactorial. Possible aspiration. Mild troponin leak secondary to hypoxia oxygen supply demand mismatch. Paroxysmal atrial fibrillation on long-term anticoagulation Hypertension Dyslipidemia Aortic regurgitation PLAN Add on small dose of beta kacy, lopressor 25 mg PO BID for better heart rate control. No evidence of acute coronary syndrome, mild troponin leak secondary to acute hypoxic event causing an oxygen supply-demand mismatch. Ongoing medical management. Follow up with Dr. Landry upon discharge. Thank you kindly for this consultation. Nurse Practitioner note has been reviewed, I agree with a documented findings and plan of care. Patient was seen and examined. Past Medical History Past Medical History: Atrial Fibrillation, Deep Vein Thrombosis (DVT), GERD/ Reflux, GI Bleed, Hyperlipidemia, Hypertension, Osteoarthritis (OA), Pulmonary Embolus (PE), Thyroid Disorder Additional Past Medical History / Comment(s): IBS, past rectal bleed/PROCTITIS, diverticulosis, COLON/gastric Polyps/ montague's esophagus in past, arthritis in neck/back bilateral shoulders & bilateral FINGERS, past R arm phlebitis, past liver cyst. SL LEAKY VALVE, GETS ECHO YEARLY. SEPSIS, COLOSTOMY D/T PERFORATION 05/20/18; HAS PEG TUBE; EPISODE OF AFIB POST-OP. EDEMA FEET. History of Any Multi-Drug Resistant Organisms: VRE Date of last positivie culture/infection: 06/12/18 MDRO Source:: VRE Past Surgical History: Bladder Surgery, Bowel Resection, Breast Surgery, Hysterectomy, Orthopedic Surgery Additional Past Surgical History / Comment(s): Hysterectomy with cystocele, R shoulder arthroscopy for rotator cuff repair and R shoulder arthrotomy for spur , L foot injured as child with surgical repair, EGDs/colonoscopies, R breast benign biopsy, bilateral cataract removal/lens implants. VARICOSE VEINS LASERED BOB. PICC LINE, THEN REMOVAL; COLOSTOMY 04/2018; PEG TUBE 06/10/18. Past Anesthesia/Blood Transfusion Reactions: Postoperative Nausea & Vomiting ( PONV) Additional Past Anesthesia/Blood Transfusion Reaction / Comment(s): PONV X1. Past Psychological History: Anxiety, Depression Additional Psychological History / Comment(s): ANXIETY BEGAN DURING [facility] HOSPITALIZATION 04/2018. Smoking Status: Former smoker Past Alcohol Use History: None Reported Additional Past Alcohol Use History / Comment(s): STARTED SMOKING AT AGE 17, QUIT AT AGE 43, SMOKED 1PPD Past Drug Use History: None Reported - Past Family History Mother Family Medical History: Cancer Additional Family Medical History / Comment(s): BREAST CANCER Father Family Medical History: Coronary Artery Disease (CAD) Medications and Allergies Home Medications Medication Instructions Recorded Confirmed Type Omeprazole/Sodium Bicarbonate 1 cap PO DAILY 06/20/16 09/01/18 History [Zegerid 20 mg Capsule] Apixaban [Eliquis] 5 mg PO BID 05/12/18 09/01/18 History Acetaminophen Tab [Tylenol] 650 mg PO Q4HR PRN tab 06/14/18 09/01/18 Rx Aspirin 81 mg PO DAILY chew 06/14/18 09/01/18 Rx Levothyroxine Sodium [Synthroid] 100 mcg PO DAILY@0630 tab 06/14/18 09/01/18 Rx ALPRAZolam [Xanax] 0.25 mg PO BID PRN 08/25/18 09/01/18 History Bisacodyl [Dulcolax] 5 mg PO HS 08/25/18 09/01/18 History Citalopram Hydrobromide [CeleXA] 20 mg PO DAILY 08/25/18 09/01/18 History Fiber Powder 2 tsp PO BID 08/25/18 09/01/18 History Losartan Potassium [Cozaar] 50 mg PO DAILY 08/25/18 09/01/18 History Multivit/Folic Acid/Vit K1 2 tab PO DAILY 08/25/18 09/01/18 History [One-A-Day Women's 50 Plus Tab] Rosuvastatin [Crestor] 10 mg PO DAILY 08/25/18 09/01/18 History amLODIPine [Norvasc] 10 mg PO DAILY 08/25/18 09/01/18 History Allergies Allergy/AdvReac Type Severity Reaction Status Date / Time Penicillins Allergy RASH ON Verified 09/01/18 17:26 TONGUE sulfamethoxazole Allergy Vomiting Verified 09/01/18 17:26 [From Bactrim] trimethoprim [From Bactrim] Allergy Vomiting Verified 09/01/18 17:26 cephalexin monohydrate AdvReac Nausea Verified 09/01/18 17:26 [From Keflex] diazepam [From Valium] AdvReac PHLEBITIS Verified 09/01/18 17:26 IN RT ARM diphenhydramine AdvReac Unknown Verified 09/01/18 17:26 [From Benadryl] erythromycin base AdvReac Unknown Verified 09/01/18 17:26 Physical Exam Vitals: Vital Signs Temp Pulse Resp BP Pulse Ox 09/03/18 08:00 103 H 16 09/03/18 07:00 98.5 F 103 H 16 128/74 92 L 09/03/18 03:45 106 H 12 130/81 92 L 09/03/18 01:41 91 L 09/03/18 01:15 90 L 09/02/18 23:47 92 L 09/02/18 22:30 87 L 09/02/18 21:30 6 L 09/02/18 20:58 93 L 09/02/18 20:20 16 86 L 09/02/18 19:14 98.4 F 92 16 122/75 92 L 09/02/18 16:00 93 16 09/02/18 15:00 97.6 F 93 16 112/67 90 L Intake and Output 09/02/18 09/03/18 09/03/18 22:59 06:59 14:59 Intake Total 1000 1000 Output Total 150 900 400 Balance 850 100 -400 Intake: Intake, IV Titration 1000 1000 Amount D5-0.45% NaCl with KCl 1000 1000 20Meq/l 1,000 ml @ 125 mls/hr IV .Q8H [facility] Rx#: [id number] Output: Urine 150 900 400 Uretheral ([place]) 150 400 Other: Voiding Method Indwelling Catheter Indwelling Catheter Indwelling Catheter Weight 75 kg Results 09/03/18 07:44 09/03/18 07:44 Cardiac Enzymes 09/03/18 Range/Units 07:44 AST 21 (14-36) U/L CBC 09/03/18 Range/Units 07:44 WBC 16.6 H (3.8-10.6) k/uL RBC 3.95 (3.80-5.40) m/uL Hgb 10.8 L (11.4-16.0) gm/dL Hct 33.0 L (34.0-46.0) % Plt Count 211 (150-450) k/uL Comprehensive Metabolic Panel 09/03/18 Range/Units 07:44 Sodium 136 L (137-145) mmol/L Potassium 4.1 (3.5-5.1) mmol/L Chloride 106 (98-107) mmol/L Carbon Dioxide 23 (22-30) mmol/L BUN 16 (7-17) mg/dL Creatinine 0.86 (0.52-1.04) mg/dL Glucose 123 H (74-99) mg/dL Calcium 8.6 (8.4-10.2) mg/dL AST 21 (14-36) U/L ALT 17 (9-52) U/L Alkaline Phosphatase 49 (38-126) U/L Total Protein 5.6 L (6.3-8.2) g/dL Albumin 3.0 L (3.5-5.0) g/dL Current Medications Generic Name Dose Route Start Last Admin Trade Name Freq PRN Reason Stop Dose Admin Acetaminophen 650 mg 09/02/18 11:56 09/03/18 11:33 Tylenol Tab PO 650 mg Q4HR PRN Administration Fever and/ or Mild Pain Albuterol/Ipratropium 3 ml 09/02/18 20:00 09/03/18 13:33 Duoneb 0.5 Mg-3 Mg/3 Ml Soln INHALATION Not Given RT-TID KATI Albuterol/Ipratropium 3 ml 09/02/18 13:10 Duoneb 0.5 Mg-3 Mg/3 Ml Soln INHALATION RT-Q2H PRN Shortness Of Breath Or Wheezing Alprazolam 0.25 mg 09/02/18 11:56 Xanax PO BID PRN Anxiety Amlodipine Besylate 10 mg 09/03/18 09:00 09/03/18 11:19 Norvasc PO Not Given DAILY [facility] Apixaban 5 mg 09/03/18 09:00 09/03/18 10:23 Eliquis PO 5 mg BID KATI Administration Atorvastatin Calcium 20 mg 09/03/18 09:00 09/03/18 11:19 Lipitor PO Not Given DAILY [facility] Citalopram Hydrobromide 20 mg 09/03/18 09:00 09/03/18 11:19 Celexa PO Not Given DAILY [facility] Hydromorphone HCl 1 mg 09/01/18 14:40 Dilaudid IVP Q3HR PRN Pain Ropivacaine 250 mg/ 250 mls @ 0 mls/hr 09/01/18 14:12 09/01/18 15:26 Hydromorphone HCl 5 mg/ Sodium EPIDURAL 38 mls Chloride .Q0M PRN Administration Pain Control Protocol Per Protocol Potassium Chloride/Dextrose/Sod Cl 1,000 mls @ 125 mls/hr 09/01/18 14:45 07/12 02:11 D5%-1/2ns-Kcl 20 Meq/L Iv Solution IV Not Given .Q8H [facility] Levofloxacin 500 mg/ IV 100 mls @ 100 mls/hr 09/03/18 16:00 Solution IVPB Q24H [facility] Levothyroxine Sodium 100 mcg 09/03/18 06:30 09/03/18 10:15 Synthroid PO Not Given DAILY@0630 [facility] Lidocaine HCl 0.1 ml 09/01/18 05:47 09/01/18 11:00 .Xylocaine 1% Inj (10mg/Ml) For Iv Start INTRADERMA 0.1 ml PER PROTOCOL PRN Administration IV Start Losartan Potassium 50 mg 09/03/18 09:00 09/03/18 11:19 Cozaar PO Not Given DAILY [facility] Metoclopramide HCl 10 mg 09/01/18 14:40 09/03/18 11:37 Reglan IVP 10 mg Q6HR PRN Administration Nausea and Vomiting Multivitamins 1 each 09/03/18 09:00 09/03/18 10:16 Theragran PO Not Given DAILY [facility] Naloxone HCl 0.2 mg 09/01/18 14:12 09/02/18 00:30 Narcan IV 0.2 mg Q2M PRN Administration Opioid Reversal Ondansetron HCl 4 mg 09/03/18 07:38 09/03/18 09:19 Zofran IVP 4 mg Q6HR PRN Administration Nausea And Vomiting Pantoprazole Sodium 40 mg 09/03/18 07:30 09/03/18 10:23 Protonix PO 40 mg [id number] KATI Administration Psyllium Hydrophilic Mucilloid 6 gm 09/02/18 21:00 09/03/18 10:18 Metamucil PO Not Given BID KATI Intake and Output 09/02/18 09/03/18 09/03/18 22:59 06:59 14:59 Intake Total 1000 1000 Output Total 150 900 400 Balance 850 100 -400 Intake: Intake, IV Titration 1000 1000 Amount D5-0.45% NaCl with KCl 1000 1000 20Meq/l 1,000 ml @ 125 mls/hr IV .Q8H [facility] Rx#: [id number] Output: Urine 150 900 400 Uretheral ([place]) 150 400 Other: Voiding Method Indwelling Catheter Indwelling Catheter Indwelling Catheter Weight 75 kg 09/03/18 07:44 09/03/18 07:44
[2018-09-03] MEDS: LEVOFLOXACIN 500MG-D5W PMX 500 MG in DEXTROSE/WATER 1 100ML.BAG IVPB SCH (15:27)
--- NOTE | 2018-09-03 15:54 | P.PN ---
Subjective Progress Note Date: 09/03/18 77-year-old female who underwent elective reversal of colostomy and removal of PEG tube. The patient underwent sigmoid colectomy and end colostomy in April 2018 due to diverticulitis with abscess formation. She became malnourished at that time and required PEG tube insertion. The patient has not used her PEG tube recently and has been tolerating oral intake well. 09/02/2018 The patient was evaluated postoperatively on the medical floor. She is awake and alert. Reports pain is tolerable. Denies chest pain or pressure. [place] catheter is intact. Patients urine output has been marginal. She has received 2L in fluid boluses overnight. Patient has an epidural which was infusing at 6ml /hr. The patient became hypoxic overnight with oxygen saturations in the 50s and increased lethargy. She was given Narcan with improvement in her oxygenation. She is on a non-rebreather this morning with O2 sats greater than 92%. Epidural was decreased to 2ml/hr and patient is tolerating well. 09/03/2018 Patient examined at the bedside. Patient reports yesterday afternoon she drank apple juice and a bowl of broth. She became nauseated afterwards. The patient had an episode of emesis this morning. She also became more hypoxic overnight and is requiring 15 L of oxygen. Pulmonary is following. PHYSICAL EXAM: GENERAL: This is a 77-year-old female in no apparent distress at the time of examination. Pleasant and cooperative. HEENT: Head is atraumatic, normocephalic. Pupils are equal, round, and reactive to light. Sclerae anicteric. Conjunctivae are clear. Mucus membranes of the mouth are moist. Neck is supple. RESPIRATORY: Clear to auscultation. No wheezes, rales, or rhonchi. No use of accessory muscles. Patient maintaining oxygen saturation greater than 92%. CARDIOVASCULAR: Regular rate and rhythm. S1 and S2 noted. GASTROINTESTINAL: No distention noted. Abdomen soft and round. Hypoactive bowel sounds auscultated x [address]rants[address] vac in place INTEGUMENTARY: No cyanosis. No jaundice. No rashes noted. No cellulitis noted. EXTREMITIES: 2+ peripheral pulses. No evidence of peripheral edema. No calf tenderness noted. NEUROLOGIC: Cranial nerves II-XII intact. PSYCHIATRIC: Awake, alert, and oriented X 3. Appropriate affect. Intact judgement and insight. ASSESSMENT: Reversal of colostomy and removal of PEG tube, POD #2 History of diverticulitis with abscess formation, s/p colectomy with colostomy creation in April 2018 Acute hypoxic respiratory failure, suspect secondary to epidural infusion, improved with Narcan Elevated troponin, suspect secondary to oxygen supply and demand mismatch, secondary to hypoxia overnight Acute kidney injury, creatinine 1.2, baseline 0.4-0.6 History of paroxysmal atrial fibrillation History of right lower lobe pulmonary emboli and left popliteal DVT, April 2018, on anticoagulation with Eliquis Hyperlipidemia GERD Hypothyroidism History of anxiety PLAN: Continue postoperative surgical care per Dr. Garcia Discontinue epidural Resume Eliquis Monitor respiratory status Pulmonary and cardiology on consult. Appreciate recommendations and input Home meds as appropriate Monitor labs Monitor vital signs and address as appropriate Discharge planning: Patient to return home when stable Further recommendations pending patient's course Nurse practitioner note has been reviewed by physician. Signing provider agrees with the documented findings, assessment, and plan of care. Objective - Vital Signs Vital signs: Vital Signs Temp 98.5 F 09/03/18 07:00 Pulse 103 H 09/03/18 15:11 Resp 16 09/03/18 15:11 BP 128/74 09/03/18 07:00 Pulse Ox 92 L 09/03/18 07:00 Intake & Output 09/02/18 09/03/18 09/03/18 18:59 06:59 18:59 Intake Total 1000 2000 875 Output Total 250 900 800 Balance 750 1100 75 Weight 75 kg Intake: Intake, IV Titration 1000 2000 875 Amount D5-0.45% NaCl with KCl 1999 875 20Meq/l 1,000 ml @ 125 mls/hr IV .Q8H [facility] Rx#: [id number] Sodium Chloride 0.9% 500 500 ml 500 ml @ 999 mls/hr IV .Q31M [facility] Rx#:[id number] Sodium Chloride 0.9% 500 500 ml 500 ml @ 999 mls/hr IV .Q31M [facility] Rx#:[id number] Output: Urine 250 900 800 Uretheral ([place]) 250 800 Other: Voiding Method Indwelling Catheter Indwelling Catheter Indwelling Catheter - Labs CBC & Chem 7: 09/03/18 07:44 09/03/18 07:44 Labs: Abnormal Lab Results - Last 24 Hours (Table) 09/03/18 09/03/18 Range/Units 07:44 07:44 WBC 16.6 H (3.8-10.6) k/uL Hgb 10.8 L (11.4-16.0) gm/dL Hct 33.0 L (34.0-46.0) % Neutrophils # 14.3 H (1.3-7.7) k/uL Sodium 136 L (137-145) mmol/L Glucose 123 H (74-99) mg/dL Total Protein 5.6 L (6.3-8.2) g/dL Albumin 3.0 L (3.5-5.0) g/dL
--- NOTE | 2018-09-03 16:03 | P.PN ---
Subjective Progress Note Date: 09/03/18 77-year-old female who underwent elective reversal of colostomy and removal of PEG tube. POD #2. Patient having episodes of emesis this morning. Unable to tolerate clear liquids. NG tube was attempted multiple times without success. Patient refusing any additional attempts. WBC 16.6. Epidural discontinued this morning and Eliquis has been resumed. PHYSICAL EXAM: GENERAL: This is a 77-year-old female in no apparent distress at the time of examination. Pleasant and cooperative. HEENT: Head is atraumatic, normocephalic. Pupils are equal, round, and reactive to light. Sclerae anicteric. Conjunctivae are clear. Mucus membranes of the mouth are moist. Neck is supple. RESPIRATORY: Nonlabored respirations. Equal expansion CARDIOVASCULAR: Regular rate and rhythm. GASTROINTESTINAL: No distention noted. Abdomen soft and round. Hypoactive bowel sounds auscultated x [address]rants[address] vac in place INTEGUMENTARY: No cyanosis. No jaundice. No rashes noted. No cellulitis noted. EXTREMITIES: 2+ peripheral pulses. No evidence of peripheral edema. No calf tenderness noted. NEUROLOGIC: Cranial nerves II-XII intact. PSYCHIATRIC: Awake, alert, and oriented X 3. Appropriate affect. Intact judgement and insight. ASSESSMENT: 1. Reversal of colostomy and removal of PEG tube, POD #2 2. History of diverticulitis with abscess formation, s/p colectomy with colostomy creation in April 2018 3. Acute hypoxic respiratory failure, suspect secondary to epidural infusion, improved with Narcan. Further worsened overnight requiring high flow nasal cannula, CXR reveals bilateral infiltrates, suspicious for multifocal pneumonia , possibly related to aspiration. 4. Postoperative ileus 5. Elevated troponin, suspect secondary to oxygen supply and demand mismatch, secondary to hypoxia overnight 6. Acute kidney injury, creatinine 1.2, baseline 0.4-0.6 7. History of paroxysmal atrial fibrillation 8. History of right lower lobe pulmonary emboli and left popliteal DVT, April 2018, on anticoagulation with Eliquis 9. Hyperlipidemia 10. GERD 11. Hypothyroidism 12. History of anxiety PLAN: Patient refusing further attempts at NG insertion at this time. Keep patient NPO. Continue IV fluids. Pulmonary, cardiology, and medicine on consult. Input appreciated. Incentive spirometry. Begin Levaquin 500 mg every 24 hours. Monitor white count. Nurse practitioner note has been reviewed by physician. Signing provider agrees with the documented findings, assessment, and plan of care. Objective - Vital Signs Vital signs: Vital Signs Temp 98.5 F 09/03/18 07:00 Pulse 103 H 09/03/18 15:11 Resp 16 09/03/18 15:11 BP 128/74 09/03/18 07:00 Pulse Ox 92 L 09/03/18 07:00 Intake & Output 09/02/18 09/03/18 09/03/18 18:59 06:59 18:59 Intake Total 1000 2000 875 Output Total 250 900 800 Balance 750 1100 75 Weight 75 kg Intake: Intake, IV Titration 1000 2000 875 Amount D5-0.45% NaCl with KCl 2000 875 20Meq/l 1,000 ml @ 125 mls/hr IV .Q8H [facility] Rx#: [id number] Sodium Chloride 0.9% 500 500 ml 500 ml @ 999 mls/hr IV .Q31M [facility] Rx#:[id number] Sodium Chloride 0.9% 500 500 ml 500 ml @ 999 mls/hr IV .Q31M [facility] Rx#:[id number] Output: Urine 250 900 800 Uretheral ([place]) 250 800 Other: Voiding Method Indwelling Catheter Indwelling Catheter Indwelling Catheter - Labs CBC & Chem 7: 09/03/18 07:44 09/03/18 07:44 Labs: Abnormal Lab Results - Last 24 Hours (Table) 09/03/18 09/03/18 Range/Units 07:44 07:44 WBC 16.6 H (3.8-10.6) k/uL Hgb 10.8 L (11.4-16.0) gm/dL Hct 33.0 L (34.0-46.0) % Neutrophils # 14.3 H (1.3-7.7) k/uL Sodium 136 L (137-145) mmol/L Glucose 123 H (74-99) mg/dL Total Protein 5.6 L (6.3-8.2) g/dL Albumin 3.0 L (3.5-5.0) g/dL
[2018-09-03] MEDS: METOPROLOL TARTRATE 25 MG TAB PO SCH (20:44)
[2018-09-04] MEDS: LEVOTHYROXINE 100 MCG TAB PO SCH (05:50)
[2018-09-04] MEDS: D5-0.45% NACL WITH KCL 20MEQ/L 1,000 ML IV SCH ×3 (05:52→15:22)
[2018-09-04 08:16] LABS: Basophils % (A) 0 %; Eosinophils # (A) 0.2 k/uL (0-0.7); Eosinophils % (A) 1 %; HCT 33.8 % (34.0-46.0); HGB 10.8 gm/dL (11.4-16.0); Hypochromasia Slight; Lymphocytes # (A) 0.8 k/uL (1.0-4.8); Lymphocytes % (A) 7 %; MCH 26.4 pg (25.0-35.0); MCHC 31.8 g/dL (31.0-37.0); MCV 82.8 fL (80.0-100.0); Mean Platelet Volume 7.5; Monocytes # (A) 0.7 k/uL (0-1.0); Monocytes % (A) 6 %; Neutrophils # (A) 10.2 k/uL (1.3-7.7); Neutrophils % (A) 85 %; Platelet Count 188 k/uL (150-450); RBC 4.09 m/uL (3.80-5.40); RDW 14.8 % (11.5-15.5)
[2018-09-04 08:23] LABS: ALT 20 U/L (9-52); AST 18 U/L (14-36); Alkaline Phosphatase 56 U/L (38-126); Anion Gap 7 mmol/L; Blood Urea Nitrogen 6 mg/dL (7-17); Calcium 9.2 mg/dL (8.4-10.2); Carbon Dioxide 25 mmol/L (22-30); Chloride 110 mmol/L (98-107); Glucose 120 mg/dL (74-99); Potassium 3.9 mmol/L (3.5-5.1); Sodium 142 mmol/L (137-145); Total Bilirubin 0.5 mg/dL (0.2-1.3); Total Protein 5.8 g/dL (6.3-8.2)
[2018-09-04] MEDS: IPRATROPIUM-ALBUTEROL 3 ML NEB INHALATION SCH ×3 (08:58→20:26)
[2018-09-04] MEDS: ACETAMINOPHEN TAB 325 MG TAB PO PRN (10:15)
[2018-09-04] MEDS: PANTOPRAZOLE 40 MG TABLET PO SCH (10:28)
[2018-09-04] MEDS: APIXABAN 5 MG TAB PO SCH ×2 (10:28→20:59)
[2018-09-04] MEDS: METOPROLOL TARTRATE 25 MG TAB PO SCH ×2 (10:29→20:59)
[2018-09-04] MEDS: PSYLLIUM HUSK 100% 6 GM PACKET PO SCH ×2 (10:30→21:01)
[2018-09-04] MEDS: amLODIPine 10 MG TAB PO SCH (11:46)
[2018-09-04] MEDS: ATORVASTATIN 20 MG TAB PO SCH (11:46)
[2018-09-04] MEDS: LOSARTAN 50 MG TAB PO SCH (11:53)
[2018-09-04] MEDS: CITALOPRAM HYDROBROMIDE 20 MG TAB PO SCH (11:53)
[2018-09-04] MEDS: MULTIVITAMINS, THERA 1 EACH TAB PO SCH (11:54)
--- NOTE | 2018-09-04 12:12 | P.PN ---
Subjective Progress Note Date: 09/04/18 Principal diagnosis: Reversal of colostomy. Postoperative hypoxemic respiratory failure. This is a very pleasant 77-year-old female patient who follows with Dr. Hernandez as her primary care physician. She has a history of DVT/PE, hyperlipidemia, hypothyroidism, depression, former smoking history, and abdominal abscess and perforated diverticulitis requiring colectomy and end colostomy performed on . She was readmitted here to the hospital yesterday 09/01/2018 to undergo an elective bursal of colostomy with lysis of adhesions and small bowel resection performed by Dr. Garcia. She tolerated the procedure well. She was having some issues with shortness of breath and O2 saturations in the low 90s requiring nonrebreather mask. A chest x-ray revealed bibasilar atelectasis and we are consulted for the same. She is seen today in consultation on the regular medical floor. She is awake and alert in no acute distress. Currently maintaining O2 saturations in the 90s on 3 L/m per nasal cannula. Her pain is well controlled with an epidural of a ropivacaine/hydromorphone. She is working with the incentive spirometer. Pulling approximately 1 L. White count 16.7. Hemoglobin 10.1. Creatinine 1.20. On 09/03/2018 patient seen in follow-up on medical surgical floor. Patient has been increasingly more hypoxemic, now she is on 15 L per high flow nasal cannula , with a pulse ox of 91-92%, patient has been vomiting, liquid dark green emesis. There was a-team call last night in regards to increasing hypoxemia, Dr Gutierres was not contacted regarding the a-team. No fever, no chills, patient has been afebrile, hemodynamically stable, lung sounds are diminished, bowel sounds are absent, wound VAC is present on the abdominal incision. These labs have been reviewed, WBC is 16.6, about the same as it was yesterday, hemoglobin is 10.8, sodium is 136, potassium is 4.1, chloride is 106, B1 is 16 and creatinine 0.86. No cough, no chest congestion, no wheezing. No chest pain. Patient will have a NG tube inserted for the ileus. Not passed any gas yet. She has been work on her incentive spirometer, and she is able to achieve about [id number] on it. Stat chest x-ray was obtained, and showed a new right lower lobe opacity obscuring the right hemidiaphragm and right midlung, reticular opacity both accentuated by low lung volumes. Retrocardiac opacity is also seen with obscuration of the medial left hemidiaphragm, findings are suspicious for multifocal pneumonia, possibly aspiration related. She was started on antibiotic coverage in the form of Levaquin, patient has multiple ALLERGIES including to penicillins, sulfamethoxazole, trimethoprim, cephalexin, erythromycin. Patient is seen today 09/04/2017 in follow-up on the surgical floor. She is currently sitting up in a chair at the bedside. She is awake and alert in no acute distress. They were unable to pass a nasogastric tube down for her suspected ileus yesterday. Today however she has not had any further nausea or vomiting. She is also much less short of breath today and down to 4 L/m per nasal cannula. She is working well with the incentive spirometer. Count 12.0. Hemoglobin 10.8. Creatinine 0.68. He remains on Levaquin. Objective - Vital Signs Vital signs: Vital Signs Temp 98.1 F 09/04/18 07:05 Pulse 94 09/04/18 11:45 Resp 16 09/04/18 11:45 BP 138/81 09/04/18 11:45 Pulse Ox 94 L 09/04/18 11:45 Intake & Output 09/03/18 09/04/18 09/04/18 18:59 06:59 18:59 Intake Total 875 2000 Output Total 800 3800 2100 Balance 75 -1800 -2100 Intake: Intake, IV Titration 875 2000 Amount D5-0.45% NaCl with KCl 875 2000 20Meq/l 1,000 ml @ 125 mls/hr IV .Q8H [facility] Rx#: [id number] Output: Urine 800 3800 2100 Uretheral ([place]) 800 Other: Voiding Method Indwelling Catheter Indwelling Catheter Indwelling Catheter - Exam GENERAL EXAM: Alert, pleasant, 77-year-old female in no acute distress. Currently on 4 L nasal cannula. HEAD: Normocephalic/atraumatic. EYES: Normal reaction of pupils, equal size. Conjunctiva pink, sclera white. NOSE: Clear with pink turbinates. THROAT: No erythema or exudates. NECK: No masses, no JVD, no thyroid enlargement, no adenopathy. CHEST: No chest wall deformity. Symmetrical expansion. LUNGS: Diminished breath sounds bilaterally CVS: Regular rate and rhythm, normal S1 and S2, no gallops, no murmurs, no rubs ABDOMEN: Soft, nontender. Mid abdominal and left upper quadrant transverse incision, the wound VAC in place. Bowel sounds are absent EXTREMITIES: No clubbing, no edema, no cyanosis, 2+ pulses and upper and lower extremities. MUSCULOSKELETAL: Muscle strength and tone normal. SPINE: No scoliosis or deformity SKIN: No rashes CENTRAL NERVOUS SYSTEM: Alert and oriented -3. No focal deficits, tone is normal in all 4 extremities. PSYCHIATRIC: Alert and oriented -3. Appropriate affect. Intact judgment and insight. - Labs CBC & Chem 7: 09/04/18 07:35 09/04/18 07:35 Labs: Abnormal Lab Results - Last 24 Hours (Table) 09/04/18 09/04/18 Range/Units 07:35 07:35 WBC 12.0 H (3.8-10.6) k/uL Hgb 10.8 L (11.4-16.0) gm/dL Hct 33.8 L (34.0-46.0) % Neutrophils # 10.2 H (1.3-7.7) k/uL Lymphocytes # 0.8 L (1.0-4.8) k/uL Chloride 110 H (98-107) mmol/L BUN 6 L (7-17) mg/dL Glucose 120 H (74-99) mg/dL Total Protein 5.8 L (6.3-8.2) g/dL Albumin 3.0 L (3.5-5.0) g/dL Assessment and Plan Assessment: Impression: #1 Colectomy with end colostomy performed secondary to perforated diverticulitis and abscess back on 05/20/2018. Reversal of colostomy with lysis of adhesions performed on 09/01/2018. Postoperative day #3. #2 Hypoxemia as an expected outcome due to abdominal surgery and poor inspiratory effort. Currently on oxygen at 4 L/m per nasal cannula. #3 History of PE/DVT, anticoagulated with Eliquis in the outpatient setting. #4 Hypothyroidism. #5 Hypertension. #6 Hyperlipidemia. #7 History of anxiety/depression. #8 Acute renal failure. Plan: The patient was seen and evaluated by Dr. Gutierres. She is improved today as compared to yesterday. Down to 4 L/m per nasal cannula. Encouraged regarding the increased use of the incentive spirometer and cough and deep breathing exercises. Increase her activity as tolerated. We will continue to follow and make further recommendations based on her clinical status. I, the cosigning physician, performed a history & physical examination of the patient. Lungs sounds faint crackles in the posterior bases, diminished. Maintaining good O2 saturations in the 90s on 4 L/m per nasal cannula. I discussed the assessment and plan of care with my nurse practitioner, Margo Neves. I attest to the above note as dictated by her.
[2018-09-04] MEDS: LEVOFLOXACIN 500MG-D5W PMX 500 MG in DEXTROSE/WATER 1 100ML.BAG IVPB SCH (15:21)
--- NOTE | 2018-09-04 15:30 | P.PN ---
Subjective Progress Note Date: 09/04/18 Principal diagnosis: Reversal of colostomy Postoperative hypoxic respiratory failure This is a very pleasant 77-year-old female patient who follows with Dr. Hernandez as her primary care physician. She has a history of DVT/PE, hyperlipidemia, hypothyroidism, depression, former smoking history, and abdominal abscess and perforated diverticulitis requiring colectomy and end colostomy performed on . She was readmitted here to the hospital yesterday 09/01/2018 to undergo an elective bursal of colostomy with lysis of adhesions and small bowel resection performed by Dr. Garcia. She tolerated the procedure well. She was having some issues with shortness of breath and O2 saturations in the low 90s requiring nonrebreather mask. A chest x-ray revealed bibasilar atelectasis and we are consulted for the same. She is seen today in consultation on the regular medical floor. She is awake and alert in no acute distress. Currently maintaining O2 saturations in the 90s on 3 L/m per nasal cannula. Her pain is well controlled with an epidural of a ropivacaine/hydromorphone. She is working with the incentive spirometer. Pulling approximately 1 L. White count 16.7. Hemoglobin 10.1. Creatinine 1.20. Patient is seen today 09/04/2017 in follow-up on the surgical floor. She is currently sitting up in a chair at the bedside. She is awake and alert in no acute distress. They were unable to pass a nasogastric tube down for her suspected ileus yesterday. Today however she has not had any further nausea or vomiting. She is also much less short of breath today and down to 4 L/m per nasal cannula. She is working well with the incentive spirometer. Count 12.0. Hemoglobin 10.8. Creatinine 0.68. He remains on Levaquin. Objective - Vital Signs Vital signs: Vital Signs Temp 98.1 F 09/04/18 07:05 Pulse 88 09/04/18 07:05 Resp 18 09/04/18 07:05 BP 154/86 09/04/18 07:05 Pulse Ox 93 L 09/04/18 10:30 Intake & Output 09/03/18 09/04/18 09/04/18 18:59 06:59 18:59 Intake Total 875 2000 Output Total 800 3800 2100 Balance 75 -1800 -2100 Intake: Intake, IV Titration 875 2000 Amount D5-0.45% NaCl with KCl 875 2000 20Meq/l 1,000 ml @ 125 mls/hr IV .Q8H [facility] Rx#: [id number] Output: Urine 800 3800 2100 Uretheral ([place]) 800 Other: Voiding Method Indwelling Catheter Indwelling Catheter Indwelling Catheter - Exam GENERAL EXAM: Alert, pleasant, 77-year-old female in no acute distress. Currently on 4 L nasal cannula. HEAD: Normocephalic/atraumatic. EYES: Normal reaction of pupils, equal size. Conjunctiva pink, sclera white. NOSE: Clear with pink turbinates. THROAT: No erythema or exudates. NECK: No masses, no JVD, no thyroid enlargement, no adenopathy. CHEST: No chest wall deformity. Symmetrical expansion. LUNGS: Diminished breath sounds bilaterally CVS: Regular rate and rhythm, normal S1 and S2, no gallops, no murmurs, no rubs ABDOMEN: Soft, nontender. Mid abdominal and left upper quadrant transverse incision, the wound VAC in place. Bowel sounds are absent EXTREMITIES: No clubbing, no edema, no cyanosis, 2+ pulses and upper and lower extremities. MUSCULOSKELETAL: Muscle strength and tone normal. SPINE: No scoliosis or deformity SKIN: No rashes CENTRAL NERVOUS SYSTEM: Alert and oriented -3. No focal deficits, tone is normal in all 4 extremities. PSYCHIATRIC: Alert and oriented -3. Appropriate affect. Intact judgment and insight. - Labs CBC & Chem 7: 09/04/18 07:35 09/04/18 07:35 Labs: Abnormal Lab Results - Last 24 Hours (Table) 09/04/18 09/04/18 Range/Units 07:35 07:35 WBC 12.0 H (3.8-10.6) k/uL Hgb 10.8 L (11.4-16.0) gm/dL Hct 33.8 L (34.0-46.0) % Neutrophils # 10.2 H (1.3-7.7) k/uL Lymphocytes # 0.8 L (1.0-4.8) k/uL Chloride 110 H (98-107) mmol/L BUN 6 L (7-17) mg/dL Glucose 120 H (74-99) mg/dL Total Protein 5.8 L (6.3-8.2) g/dL Albumin 3.0 L (3.5-5.0) g/dL Assessment and Plan Assessment: 1 Colectomy with end colostomy performed secondary to perforated diverticulitis and abscess back on 05/20/2018. Reversal of colostomy with lysis of adhesions performed on 09/01/2018. Postoperative day #3. 2 Hypoxemia as an expected outcome due to abdominal surgery and poor inspiratory effort. Currently on oxygen at 4 L/m per nasal cannula. 3 History of PE/DVT, anticoagulated with Eliquis in the outpatient setting. 4 Hypothyroidism. 5 Hypertension. 6 Hyperlipidemia. 7 History of anxiety/depression. 8 Acute renal failure. She is improved today as compared to yesterday. Down to 4 L/m per nasal cannula. Encouraged regarding the increased use of the incentive spirometer and cough and deep breathing exercises. Increase her activity as tolerated. We will continue to follow and make further recommendations based on her clinical status. Time with Patient: Greater than 30
[2018-09-05] MEDS: D5-0.45% NACL WITH KCL 20MEQ/L 1,000 ML IV SCH ×3 (01:12→15:02)
[2018-09-05] MEDS: LEVOTHYROXINE 100 MCG TAB PO SCH (06:14)
[2018-09-05 07:47] LABS: Basophils % (A) 0 %; Eosinophils # (A) 0.3 k/uL (0-0.7); Eosinophils % (A) 3 %; HCT 35.5 % (34.0-46.0); HGB 11.2 gm/dL (11.4-16.0); Hypochromasia Moderate; Lymphocytes # (A) 1.1 k/uL (1.0-4.8); Lymphocytes % (A) 12 %; MCH 26.5 pg (25.0-35.0); MCHC 31.6 g/dL (31.0-37.0); MCV 83.7 fL (80.0-100.0); Monocytes # (A) 0.7 k/uL (0-1.0); Monocytes % (A) 8 %; Neutrophils # (A) 6.6 k/uL (1.3-7.7); Neutrophils % (A) 73 %; Platelet Count 226 k/uL (150-450); RBC 4.25 m/uL (3.80-5.40); RDW 14.7 % (11.5-15.5); WBC 9.1 k/uL (3.8-10.6)
[2018-09-05 08:18] LABS: ALT 29 U/L (9-52); AST 13 U/L (14-36); Alkaline Phosphatase 54 U/L (38-126); Anion Gap 7 mmol/L; Blood Urea Nitrogen 4 mg/dL (7-17); Calcium 9.3 mg/dL (8.4-10.2); Carbon Dioxide 23 mmol/L (22-30); Chloride 109 mmol/L (98-107); Glucose 109 mg/dL (74-99); Potassium 3.9 mmol/L (3.5-5.1); Sodium 139 mmol/L (137-145); Total Bilirubin 0.5 mg/dL (0.2-1.3); Total Protein 5.8 g/dL (6.3-8.2)
[2018-09-05] MEDS: LOSARTAN 50 MG TAB PO SCH (08:27)
[2018-09-05] MEDS: PANTOPRAZOLE 40 MG TABLET PO SCH (08:27)
[2018-09-05] MEDS: IPRATROPIUM-ALBUTEROL 3 ML NEB INHALATION SCH ×3 (09:27→20:06)
[2018-09-05] MEDS: amLODIPine 10 MG TAB PO SCH (10:30)
[2018-09-05] MEDS: METOPROLOL TARTRATE 25 MG TAB PO SCH ×2 (10:30→20:02)
[2018-09-05] MEDS: APIXABAN 5 MG TAB PO SCH ×2 (10:31→20:02)
[2018-09-05] MEDS: PSYLLIUM HUSK 100% 6 GM PACKET PO SCH (10:32)
[2018-09-05] MEDS: CITALOPRAM HYDROBROMIDE 20 MG TAB PO SCH (10:32)
[2018-09-05] MEDS: ATORVASTATIN 20 MG TAB PO SCH (10:32)
[2018-09-05] MEDS: MULTIVITAMINS, THERA 1 EACH TAB PO SCH (10:32)
--- NOTE | 2018-09-05 11:07 | P.PN ---
Subjective Progress Note Date: 09/04/18 CHIEF COMPLAINT: Status post colostomy reversal and small bowel resection HISTORY OF PRESENT ILLNESS: The patient is an 77-year-old female status post colostomy reversal and small bowel resection, 09/02/2018. Postop day 2. Yesterday she had nausea with vomiting. This morning, nausea has improved. By this evening, she feels much better. No passage of flatus. PHYSICAL EXAM: VITAL SIGNS: Reviewed GENERAL: Well-developed in no acute distress. HEENT: No sclera icterus. Extraocular movements grossly intact. Moist buccal mucosa. Head is atraumatic, normocephalic. Hears conversational speech. No nasal drainage. NECK: Supple without lymphadenopathy. CHEST: Non-labored respirations and equal bilateral excursions. CARDIOVASCULAR: Palpable 2+ radial pulses. Irregular rate and irregular rhythm ABDOMEN: Soft. Midline dressing clean dry and intact MUSCULOSKELETAL: No clubbing, cyanosis. NEUROLOGIC: No focal or lateralizing signs. Cranial nerves II through XII grossly intact. PSYCH: Appropriate affect. Alert and oriented to person, place and time. SKIN: Well perfused. Good skin turgor. LABS: Reviewed ASSESSMENT: 1. Diverticulitis with perforation and no takedown of colostomy PLAN: 1. No advancement of diet with current bowel function 2. Recommend warm beverage as she reports intolerance to ice chips and popsicles 3. Monitor leukocytosis Objective - Vital Signs Vital signs: Vital Signs Temp 98.0 F 09/05/18 08:00 Pulse 72 09/05/18 08:00 Resp 18 09/05/18 08:00 BP 164/92 09/05/18 08:00 Pulse Ox 92 L 09/05/18 08:00 Intake & Output 09/04/18 09/05/18 09/05/18 18:59 06:59 18:59 Intake Total 100 1000 296 Output Total 3100 Balance -3000 1000 296 Intake: Intake, IV Titration 100 1000 Amount D5-0.45% NaCl with KCl 100 1000 20Meq/l 1,000 ml @ 125 mls/hr IV .Q8H [facility] Rx#: [id number] Oral 296 Output: Urine 3100 Other: Voiding Method Toilet Bedpan Bedpan Bedpan # Voids 5 - Labs CBC & Chem 7: 09/05/18 07:18 09/05/18 07:18 Labs: Abnormal Lab Results - Last 24 Hours (Table) 09/05/18 09/05/18 Range/Units 07:18 07:18 Hgb 11.2 L (11.4-16.0) gm/dL Chloride 109 H (98-107) mmol/L BUN 4 L (7-17) mg/dL Glucose 109 H (74-99) mg/dL AST 13 L (14-36) U/L Total Protein 5.8 L (6.3-8.2) g/dL Albumin 3.0 L (3.5-5.0) g/dL Assessment and Plan (1) Atrial fibrillation with controlled ventricular rate Current Visit: Yes Status: Acute Code(s): I48.91 - UNSPECIFIED ATRIAL FIBRILLATION SNOMED Code(s): 11763430 (2) H/O deep venous thrombosis Current Visit: Yes Status: Acute Code(s): Z86.718 - PERSONAL HISTORY OF OTHER VENOUS THROMBOSIS AND EMBOLISM SNOMED Code(s): 841511538 (3) Diverticulitis Current Visit: Yes Status: Acute Code(s): K57.92 - DVTRCLI OF INTEST, PART UNSP, W/O PERF OR ABSCESS W/O BLEED SNOMED Code(s): 886479822 (4) Status post colostomy takedown Current Visit: Yes Status: Acute Code(s): Z98.890 - OTHER SPECIFIED POSTPROCEDURAL STATES SNOMED Code(s): 49188985568581447 (5) Ischemic dilated cardiomyopathy Current Visit: Yes Status: Acute Code(s): I25.5 - ISCHEMIC CARDIOMYOPATHY; I42.0 - DILATED CARDIOMYOPATHY SNOMED Code(s): 176858268 (6) Descending thoracic aortic dissection Current Visit: No Status: Acute Priority: Low Code(s): I71.01 - DISSECTION OF THORACIC AORTA SNOMED Code(s): 775545472 (7) Pulmonary embolism Current Visit: No Status: Acute Code(s): I26.99 - OTHER PULMONARY EMBOLISM WITHOUT ACUTE COR PULMONALE SNOMED Code(s): 14013601
[2018-09-05] MEDS: ACETAMINOPHEN TAB 325 MG TAB PO PRN ×2 (11:40→20:02)
--- NOTE | 2018-09-05 11:49 | P.PN ---
Subjective Progress Note Date: 09/05/18 Principal diagnosis: Reversal of colostomy Postoperative hypoxic respiratory failure Pneumonia This is a very pleasant 77-year-old female patient who follows with Dr. Hernandez as her primary care physician. She has a history of DVT/PE, hyperlipidemia, hypothyroidism, depression, former smoking history, and abdominal abscess and perforated diverticulitis requiring colectomy and end colostomy performed on . She was readmitted here to the hospital yesterday 09/01/2018 to undergo an elective bursal of colostomy with lysis of adhesions and small bowel resection performed by Dr. Garcia. She tolerated the procedure well. She was having some issues with shortness of breath and O2 saturations in the low 90s requiring nonrebreather mask. A chest x-ray revealed bibasilar atelectasis and we are consulted for the same. She is seen today in consultation on the regular medical floor. She is awake and alert in no acute distress. Currently maintaining O2 saturations in the 90s on 3 L/m per nasal cannula. Her pain is well controlled with an epidural of a ropivacaine/hydromorphone. She is working with the incentive spirometer. Pulling approximately 1 L. White count 16.7. Hemoglobin 10.1. Creatinine 1.20. Patient is seen today 09/04/2017 in follow-up on the surgical floor. She is currently sitting up in a chair at the bedside. She is awake and alert in no acute distress. They were unable to pass a nasogastric tube down for her suspected ileus yesterday. Today however she has not had any further nausea or vomiting. She is also much less short of breath today and down to 4 L/m per nasal cannula. She is working well with the incentive spirometer. Count 12.0. Hemoglobin 10.8. Creatinine 0.68. He remains on Levaquin. 09/05/2017 Patient is seen and evaluated in follow-up in room at bedside; patient does report improvement in nausea and vomiting; remains on clear liquid diet which will be adjusted per surgery discretion Vital signs are evaluated and are stable with a temp of 98 pulse 72 respiration 18 and blood pressure 164/92; patient is saturating 92% on room air Patient remains on IV levofloxacin 500 mg every 24 hours; we will continue with current antibiotics to further recommendations from pulmonary service; continue to monitor CBC closely Objective - Vital Signs Vital signs: Vital Signs Temp 98.0 F 09/05/18 08:00 Pulse 72 09/05/18 08:00 Resp 18 09/05/18 08:00 BP 164/92 09/05/18 08:00 Pulse Ox 92 L 09/05/18 08:00 Intake & Output 09/04/18 09/05/18 09/05/18 18:59 06:59 18:59 Intake Total 100 1000 296 Output Total 3100 Balance -3000 1000 296 Intake: Intake, IV Titration 100 1000 Amount D5-0.45% NaCl with KCl 100 1000 20Meq/l 1,000 ml @ 125 mls/hr IV .Q8H [facility] Rx#: [id number] Oral 296 Output: Urine 3100 Other: Voiding Method Toilet Bedpan Bedpan Bedpan # Voids 5 - Exam GENERAL EXAM: Alert, pleasant, 77-year-old female in no acute distress. Currently on 4 L nasal cannula. HEAD: Normocephalic/atraumatic. EYES: Normal reaction of pupils, equal size. Conjunctiva pink, sclera white. NOSE: Clear with pink turbinates. THROAT: No erythema or exudates. NECK: No masses, no JVD, no thyroid enlargement, no adenopathy. CHEST: No chest wall deformity. Symmetrical expansion. LUNGS: Diminished breath sounds bilaterally CVS: Regular rate and rhythm, normal S1 and S2, no gallops, no murmurs, no rubs ABDOMEN: Soft, nontender. Mid abdominal and left upper quadrant transverse incision, the wound VAC in place. Bowel sounds are absent EXTREMITIES: No clubbing, no edema, no cyanosis, 2+ pulses and upper and lower extremities. MUSCULOSKELETAL: Muscle strength and tone normal. SPINE: No scoliosis or deformity SKIN: No rashes CENTRAL NERVOUS SYSTEM: Alert and oriented -3. No focal deficits, tone is normal in all 4 extremities. PSYCHIATRIC: Alert and oriented -3. Appropriate affect. Intact judgment and insight. - Labs CBC & Chem 7: 09/05/18 07:18 09/05/18 07:18 Labs: Abnormal Lab Results - Last 24 Hours (Table) 09/05/18 09/05/18 Range/Units 07:18 07:18 Hgb 11.2 L (11.4-16.0) gm/dL Chloride 109 H (98-107) mmol/L BUN 4 L (7-17) mg/dL Glucose 109 H (74-99) mg/dL AST 13 L (14-36) U/L Total Protein 5.8 L (6.3-8.2) g/dL Albumin 3.0 L (3.5-5.0) g/dL Assessment and Plan Assessment: 1 Colectomy with end colostomy performed secondary to perforated diverticulitis and abscess back on 05/20/2018. Reversal of colostomy with lysis of adhesions performed on 09/01/2018. Postoperative day #3. 2 Hypoxemia as an expected outcome due to abdominal surgery and poor inspiratory effort. Currently on oxygen at 4 L/m per nasal cannula. 3 History of PE/DVT, anticoagulated with Eliquis in the outpatient setting. 4 Hypothyroidism. 5 Hypertension. 6 Hyperlipidemia. 7 History of anxiety/depression. 8 Acute renal failure. She is improved today as compared to yesterday. Down to 4 L/m per nasal cannula. Encouraged regarding the increased use of the incentive spirometer and cough and deep breathing exercises. Increase her activity as tolerated. We will continue to follow and make further recommendations based on her clinical status. Time with Patient: Greater than 30
--- NOTE | 2018-09-05 12:51 | PN ---
PROGRESS NOTE DATE OF SERVICE: September 05, 2018 This is a 77-year-old female, postop day #4, status post reversal of colostomy. She had a previous colectomy with end colostomy performed for perforated diverticulitis and abscess back May 20, 2018. Currently doing reasonably well. She did develop some respiratory distress postsurgically, likely from some fluid overload as well as some atelectasis. In addition, she developed a bit of a postoperative ileus. Multiple things have improved. An NG tube was attempted but could not be placed. Her saturations have improved and she is now down to room air. She does have previous history of pulmonary embolism/DVT. In addition, she has a history of hypothyroidism, hypertension, hyperlipidemia, anxiety/depression, and renal insufficiency. All-in-all, the patient is doing much better. She has no particular complaints today. She is lying nearly flat in bed. She is a little bit cool. Current vital signs are reviewed. Her temperature is 98 degrees, heart rate 72, respiratory rate 16, blood pressure 164/92, mean 116, room air saturation between 92-94 percent. Appears in no acute distress. No respiratory distress. No audible wheezing. No use of accessory muscles. HEENT examination is grossly unremarkable. Mucous membranes are moist. No oral lesions. Neck is supple. Full range of motion. No adenopathy or thyromegaly. Cardiovascular examination reveals regular rhythm rate. S1, S2 normal. No murmur. Lungs reveal a few scattered rhonchi. No wheezes or crackles. Breath sounds equal bilaterally. Abdomen is soft. Bowel sounds are not noted. Extremities are intact. No cyanosis, clubbing, or edema. Skin without rash. Neurologic examination is brief but nonfocal. LABS: Reviewed. White count 9.1, hemoglobin 11.2, hematocrit 35.5, platelet count 326,000. Sodium 139, potassium 3.9, chloride 109 CO2 is 23, BUN and creatinine were 4 and 0.69. The rest of the labs look pretty good. Albumin is 3. Microbiologic studies are negative. Medications are reviewed. ASSESSMENT: 1. Postoperative day #4, status post reversal of colostomy. The patient had a colectomy with end colostomy for perforated diverticulitis and abscess back in April 2018. 2. Hypoxemia, likely related to atelectasis and/or poor inspiratory effort and/or mild fluid overload, much improved. 3. History of pulmonary embolism/deep vein thrombosis. 4. Hypothyroidism. 5. Hypertension. 6. Hyperlipidemia. 7. History of anxiety/depression. 8. Acute renal insufficiency. PLAN: The patient is doing much better. She is doing better on her incentive spirometer. She is getting 2000 mL. In addition, she has been weaned off supplemental oxygen. Also, her belly is much improved. An NG tube was ordered but never performed. It could not be placed. We will continue to follow. Prognosis is guarded. MMODL / IJN: [id number] /
--- NOTE | 2018-09-05 14:27 | P.PN ---
Subjective Progress Note Date: 09/05/18 CHIEF COMPLAINT: Status post colostomy reversal and small bowel resection HISTORY OF PRESENT ILLNESS: The patient is an 77-year-old female status post colostomy reversal and small bowel resection, 09/02/2018. Postop day 3. Patient is concerned that she is pending to have a bowel movement and passed flatus. She also reports discomfort from sutures underneath the skin near the umbilicus. She has no abdominal binder for when she coughs causes pain. She is tolerating warm beverages PHYSICAL EXAM: VITAL SIGNS: Reviewed GENERAL: Well-developed in no acute distress. HEENT: No sclera icterus. Extraocular movements grossly intact. Moist buccal mucosa. Head is atraumatic, normocephalic. Hears conversational speech. No nasal drainage. NECK: Supple without lymphadenopathy. CHEST: Non-labored respirations and equal bilateral excursions. CARDIOVASCULAR: Palpable 2+ radial pulses. Regular rate and irregular rhythm ABDOMEN: Soft. Midline dressing clean dry and intact MUSCULOSKELETAL: No clubbing, cyanosis. NEUROLOGIC: No focal or lateralizing signs. Cranial nerves II through XII grossly intact. PSYCH: Appropriate affect. Alert and oriented to person, place and time. SKIN: Well perfused. Good skin turgor. LABS: Reviewed ASSESSMENT: 1. Diverticulitis with perforation and no takedown of colostomy PLAN: 1. Continue diet on clears. 2. IV fluids 75 mL/h or less to prevent volume overload 3. Recommend abdominal binder for comfort 4. May benefit from Entereg for ileus Objective - Vital Signs Vital signs: Vital Signs Temp 98.0 F 09/05/18 08:00 Pulse 72 09/05/18 08:00 Resp 18 09/05/18 08:00 BP 164/92 09/05/18 08:00 Pulse Ox 92 L 09/05/18 08:00 Intake & Output 09/04/18 09/05/18 09/05/18 18:59 06:59 18:59 Intake Total 100 1000 296 Output Total 3100 Balance -3000 1000 296 Intake: Intake, IV Titration 100 1000 Amount D5-0.45% NaCl with KCl 100 1000 20Meq/l 1,000 ml @ 125 mls/hr IV .Q8H [facility] Rx#: [id number] Oral 296 Output: Urine 3100 Other: Voiding Method Toilet Bedpan Bedpan Bedpan # Voids 5 - Labs CBC & Chem 7: 09/05/18 07:18 09/05/18 07:18 Labs: Abnormal Lab Results - Last 24 Hours (Table) 09/05/18 09/05/18 Range/Units 07:18 07:18 Hgb 11.2 L (11.4-16.0) gm/dL Chloride 109 H (98-107) mmol/L BUN 4 L (7-17) mg/dL Glucose 109 H (74-99) mg/dL AST 13 L (14-36) U/L Total Protein 5.8 L (6.3-8.2) g/dL Albumin 3.0 L (3.5-5.0) g/dL Assessment and Plan (1) Atrial fibrillation with controlled ventricular rate Current Visit: Yes Status: Acute Code(s): I48.91 - UNSPECIFIED ATRIAL FIBRILLATION SNOMED Code(s): 21419923 (2) H/O deep venous thrombosis Current Visit: Yes Status: Acute Code(s): Z86.718 - PERSONAL HISTORY OF OTHER VENOUS THROMBOSIS AND EMBOLISM SNOMED Code(s): 671591402 (3) Diverticulitis Current Visit: Yes Status: Acute Code(s): K57.92 - DVTRCLI OF INTEST, PART UNSP, W/O PERF OR ABSCESS W/O BLEED SNOMED Code(s): 902578221 (4) Status post colostomy takedown Current Visit: Yes Status: Acute Code(s): Z98.890 - OTHER SPECIFIED POSTPROCEDURAL STATES SNOMED Code(s): 39900370978267475 (5) Ischemic dilated cardiomyopathy Current Visit: Yes Status: Acute Code(s): I25.5 - ISCHEMIC CARDIOMYOPATHY; I42.0 - DILATED CARDIOMYOPATHY SNOMED Code(s): 261063930 (6) Descending thoracic aortic dissection Current Visit: No Status: Acute Priority: Low Code(s): I71.01 - DISSECTION OF THORACIC AORTA SNOMED Code(s): 630914411 (7) Pulmonary embolism Current Visit: No Status: Acute Code(s): I26.99 - OTHER PULMONARY EMBOLISM WITHOUT ACUTE COR PULMONALE SNOMED Code(s): 84489717
[2018-09-05] MEDS: LEVOFLOXACIN 500MG-D5W PMX 500 MG in DEXTROSE/WATER 1 100ML.BAG IVPB SCH (15:02)
[2018-09-05] MEDS ORDERED: ZOLPIDEM 5 MG TAB PO PRN (17:59)
[2018-09-05] MEDS: ALVIMOPAN 12 MG CAPSULE PO SCH (20:02)
[2018-09-06] MEDS: D5-0.45% NACL WITH KCL 20MEQ/L 1,000 ML IV SCH ×2 (04:55→17:27)
[2018-09-06] MEDS: LEVOTHYROXINE 100 MCG TAB PO SCH (06:19)
[2018-09-06] MEDS: IPRATROPIUM-ALBUTEROL 3 ML NEB INHALATION SCH ×3 (07:04→19:42)
[2018-09-06 07:23] LABS: Basophils # (A) 0.1 k/uL (0-0.2); Basophils % (A) 1 %; Eosinophils # (A) 0.3 k/uL (0-0.7); Eosinophils % (A) 4 %; HCT 36.7 % (34.0-46.0); HGB 11.8 gm/dL (11.4-16.0); Lymphocytes # (A) 1.4 k/uL (1.0-4.8); Lymphocytes % (A) 17 %; MCH 26.2 pg (25.0-35.0); MCHC 32.1 g/dL (31.0-37.0); MCV 81.7 fL (80.0-100.0); Mean Platelet Volume 7.3; Monocytes # (A) 0.7 k/uL (0-1.0); Monocytes % (A) 9 %; Neutrophils # (A) 5.4 k/uL (1.3-7.7); Neutrophils % (A) 66 %; Platelet Count 255 k/uL (150-450); RBC 4.49 m/uL (3.80-5.40); RDW 14.7 % (11.5-15.5); WBC 8.1 k/uL (3.8-10.6)
[2018-09-06 07:37] LABS: Albumin 3.2 g/dL (3.5-5.0); Calcium 9.6 mg/dL (8.4-10.2); Magnesium 1.3 mg/dL (1.6-2.3); Potassium 4.1 mmol/L (3.5-5.1); Total Bilirubin 0.6 mg/dL (0.2-1.3); Total Protein 6.2 g/dL (6.3-8.2)
[2018-09-06] MEDS: METOPROLOL TARTRATE 25 MG TAB PO SCH ×2 (08:24→21:14)
[2018-09-06] MEDS: LOSARTAN 50 MG TAB PO SCH (08:24)
[2018-09-06] MEDS: ALVIMOPAN 12 MG CAPSULE PO SCH ×2 (08:24→21:14)
[2018-09-06] MEDS: CITALOPRAM HYDROBROMIDE 20 MG TAB PO SCH (08:24)
[2018-09-06] MEDS: PANTOPRAZOLE 40 MG TABLET PO SCH (08:24)
[2018-09-06] MEDS: amLODIPine 10 MG TAB PO SCH (08:24)
[2018-09-06] MEDS: ATORVASTATIN 20 MG TAB PO SCH ×2 (08:24→08:25)
[2018-09-06] MEDS: MULTIVITAMINS, THERA 1 EACH TAB PO SCH (08:24)
[2018-09-06] MEDS: APIXABAN 5 MG TAB PO SCH ×2 (08:24→21:14)
--- NOTE | 2018-09-06 10:38 | P.PN ---
Subjective Progress Note Date: 09/06/18 77-year-old female who underwent elective reversal of colostomy and removal of PEG tube. POD #5. Patient was examined at the bedside this morning. She is feeling well this morning and states her pain is tolerable. She reports passing a lot of flatus. Denies BM. Patient states she sat in the chair yesterday and has been ambulating in her room. Denies nausea or vomiting. She is tolerating clear liquids. She is afebrile. WBC is 8.1. PHYSICAL EXAM: GENERAL: This is a 77-year-old female in no apparent distress at the time of examination. Pleasant and cooperative. HEENT: Head is atraumatic, normocephalic. Pupils are equal, round, and reactive to light. Sclerae anicteric. Conjunctivae are clear. Mucus membranes of the mouth are moist. Neck is supple. RESPIRATORY: Nonlabored respirations. Equal expansion CARDIOVASCULAR: Regular rate and rhythm. GASTROINTESTINAL: No distention noted. Abdomen soft and round. Hypoactive bowel sounds auscultated x 4 quadrants. Prevena vac in place. Abdominal binder in place. INTEGUMENTARY: No cyanosis. No jaundice. No rashes noted. No cellulitis noted. EXTREMITIES: 2+ peripheral pulses. No evidence of peripheral edema. No calf tenderness noted. NEUROLOGIC: Cranial nerves II-XII intact. PSYCHIATRIC: Awake, alert, and oriented X 3. Appropriate affect. Intact judgement and insight. ASSESSMENT: 1. Reversal of colostomy and removal of PEG tube 2. History of diverticulitis with abscess formation, s/p colectomy with colostomy creation in April 2018 3. Acute hypoxic respiratory failure, suspect secondary to epidural infusion, improved with Narcan. Further worsened overnight requiring high flow nasal cannula, CXR reveals bilateral infiltrates, suspicious for multifocal pneumonia , possibly related to aspiration. 4. Postoperative ileus, resolving 5. Elevated troponin, suspect secondary to oxygen supply and demand mismatch, secondary to hypoxia overnight 6. Acute kidney injury, creatinine 1.2, baseline 0.4-0.6 7. History of paroxysmal atrial fibrillation 8. History of right lower lobe pulmonary emboli and left popliteal DVT, April 2018, on anticoagulation with Eliquis 9. Hyperlipidemia 10. GERD 11. Hypothyroidism 12. History of anxiety PLAN: Continue clear liquid diet. Patient has only been drinking some tea for her meals. If patient is able to tolerate additional clear liquids today, possible advancement of diet to full liquids tonight. Patient passing flatus. Await BM. Increase activity as tolerated. Incentive spirometry. Abdominal binder for comfort. Continue Entereg. Nurse practitioner note has been reviewed by physician. Signing provider agrees with the documented findings, assessment, and plan of care. Objective - Vital Signs Vital signs: Vital Signs Temp 98.5 F 09/06/18 07:29 Pulse 78 09/06/18 07:29 Resp 14 09/06/18 07:29 BP 142/87 09/06/18 07:29 Pulse Ox 96 09/06/18 07:29 Intake & Output 09/05/18 09/06/18 09/06/18 18:59 06:59 18:59 Intake Total 592 Balance 592 Intake: Oral 592 Other: Voiding Method Bedpan Bedpan # Voids 3 1 1 - Labs CBC & Chem 7: 09/06/18 06:24 09/06/18 06:24 Labs: Abnormal Lab Results - Last 24 Hours (Table) 09/06/18 Range/Units 06:24 Chloride 110 H (98-107) mmol/L BUN 5 L (7-17) mg/dL Glucose 101 H (74-99) mg/dL Magnesium 1.3 L (1.6-2.3) mg/dL Total Protein 6.2 L (6.3-8.2) g/dL Albumin 3.2 L (3.5-5.0) g/dL
[2018-09-06] MEDS: ONDANSETRON 4 MG/2 ML VIAL IVP PRN (10:56)
--- NOTE | 2018-09-06 15:02 | P.PN ---
Subjective Progress Note Date: 09/06/18 Principal diagnosis: Colectomy with end colostomy, postoperative acute hypoxemic respiratory failure This is a very pleasant 77-year-old female patient who follows with Dr. Hernandez as her primary care physician. She has a history of DVT/PE, hyperlipidemia, hypothyroidism, depression, former smoking history, and abdominal abscess and perforated diverticulitis requiring colectomy and end colostomy performed on . She was readmitted here to the hospital yesterday 09/01/2018 to undergo an elective bursal of colostomy with lysis of adhesions and small bowel resection performed by Dr. Garcia. She tolerated the procedure well. She was having some issues with shortness of breath and O2 saturations in the low 90s requiring nonrebreather mask. A chest x-ray revealed bibasilar atelectasis and we are consulted for the same. She is seen today in consultation on the regular medical floor. She is awake and alert in no acute distress. Currently maintaining O2 saturations in the 90s on 3 L/m per nasal cannula. Her pain is well controlled with an epidural of a ropivacaine/hydromorphone. She is working with the incentive spirometer. Pulling approximately 1 L. White count 16.7. Hemoglobin 10.1. Creatinine 1.20. On 09/03/2018 patient seen in follow-up on medical surgical floor. Patient has been increasingly more hypoxemic, now she is on 15 L per high flow nasal cannula , with a pulse ox of 91-92%, patient has been vomiting, liquid dark green emesis. There was a-team call last night in regards to increasing hypoxemia, Dr Gutierres was not contacted regarding the a-team. No fever, no chills, patient has been afebrile, hemodynamically stable, lung sounds are diminished, bowel sounds are absent, wound VAC is present on the abdominal incision. These labs have been reviewed, WBC is 16.6, about the same as it was yesterday, hemoglobin is 10.8, sodium is 136, potassium is 4.1, chloride is 106, B1 is 16 and creatinine 0.86. No cough, no chest congestion, no wheezing. No chest pain. Patient will have a NG tube inserted for the ileus. Not passed any gas yet. She has been work on her incentive spirometer, and she is able to achieve about [id number] on it. Stat chest x-ray was obtained, and showed a new right lower lobe opacity obscuring the right hemidiaphragm and right midlung, reticular opacity both accentuated by low lung volumes. Retrocardiac opacity is also seen with obscuration of the medial left hemidiaphragm, findings are suspicious for multifocal pneumonia, possibly aspiration related. She was started on antibiotic coverage in the form of Levaquin, patient has multiple ALLERGIES including to penicillins, sulfamethoxazole, trimethoprim, cephalexin, erythromycin. On 09/06/2017 patient seen in follow-up on medical surgical floor. She sits up in the recliner, in no acute distress, on room air, the pulse ox of 96%, afebrile, hemodynamically stable, lung sounds are clear on today's examination, she working on her incentive spirometer. No further vomiting or nausea, today' s labs have been reviewed, showed a PVC of 8.1, hemoglobin 11.8, sodium is 140 potassium is 4.1, chloride is 110, B1 is 5 and creatinine 0.80, abdominal incisions are with foam, and wound VAC is in place. Patient is on her home dose Eliquis, she is on oral Levaquin, nebulized bronchodilators. Objective - Vital Signs Vital signs: Vital Signs Temp 98.5 F 09/06/18 07:29 Pulse 78 09/06/18 07:29 Resp 14 09/06/18 07:29 BP 142/87 09/06/18 07:29 Pulse Ox 96 09/06/18 07:29 Intake & Output 09/05/18 09/06/18 09/06/18 18:59 06:59 18:59 Intake Total 592 Balance 592 Weight 75 kg Intake: Oral 592 Other: Voiding Method Bedpan Bedpan # Voids 3 1 1 - Exam GENERAL EXAM: Alert, pleasant, 77-year-old white female on room air, comfortable in no apparent distress. HEAD: Normocephalic/atraumatic. EYES: Normal reaction of pupils, equal size. Conjunctiva pink, sclera white. NOSE: Clear with pink turbinates. THROAT: No erythema or exudates. NECK: No masses, no JVD, no thyroid enlargement, no adenopathy. CHEST: No chest wall deformity. Symmetrical expansion. LUNGS: Diminished breath sounds bilaterally CVS: Regular rate and rhythm, normal S1 and S2, no gallops, no murmurs, no rubs ABDOMEN: Soft, nontender. Mid abdominal and left upper quadrant transverse incision, the wound VAC in place. Bowel sounds are absent EXTREMITIES: No clubbing, no edema, no cyanosis, 2+ pulses and upper and lower extremities. MUSCULOSKELETAL: Muscle strength and tone normal. SPINE: No scoliosis or deformity SKIN: No rashes CENTRAL NERVOUS SYSTEM: Alert and oriented -3. No focal deficits, tone is normal in all 4 extremities. PSYCHIATRIC: Alert and oriented -3. Appropriate affect. Intact judgment and insight. - Labs CBC & Chem 7: 09/06/18 06:24 09/06/18 06:24 Labs: Abnormal Lab Results - Last 24 Hours (Table) 09/06/18 Range/Units 06:24 Chloride 110 H (98-107) mmol/L BUN 5 L (7-17) mg/dL Glucose 101 H (74-99) mg/dL Magnesium 1.3 L (1.6-2.3) mg/dL Total Protein 6.2 L (6.3-8.2) g/dL Albumin 3.2 L (3.5-5.0) g/dL Assessment and Plan Plan: Assessment: #1 Colectomy with end colostomy performed secondary to perforated diverticulitis and abscess back on 05/20/2018. Reversal of colostomy with lysis of adhesions performed on 09/01/2018. Postoperative day #5 #2 Acute hypoxemic respiratory failure related to abdominal surgery and poor inspiratory effort. Today's chest x-ray showed bilateral infiltrates, suspicious for multifocal pneumonia, possibly related to aspiration. Hypoxemia has resolved, today on 09/06/2018 patient is on room air #3 Nausea and vomiting, related to postoperative ileus, resolved #4 History of PE/DVT, anticoagulated with Eliquis in the outpatient setting. #5 Hypothyroidism. #6 Hypertension. #7 Hyperlipidemia. #8 History of anxiety/depression. #9 Acute renal failure. Plan: Clinically patient is stable, she is on room air, maintaining stable oxygenation , no difficulty breathing, she is working on her incentive spirometer, we'll repeat chest x-ray in the morning, continue her antibiotics, nebulized bronchodilators, encourage deep breathing and coughing. Further vomiting, patient is tolerating clear liquids. Possible discharge home in 24-48 hours, from pulmonary perspective if cleared by surgery I performed a history & physical examination of the patient and discussed their management with my nurse practitioner, Ros Liao. I reviewed the nurse practitioner's note and agree with the documented findings and plan of care. Lung sounds are positive for diminished breath sounds. The findings and the impression was discussed with the patient. I attest to the documentation by the nurse practitioner. Time with Patient: Less than 30
[2018-09-06] MEDS: LEVOFLOXACIN 500MG-D5W PMX 500 MG in DEXTROSE/WATER 1 100ML.BAG IVPB SCH (17:20)
--- NOTE | 2018-09-06 21:02 | P.PN ---
Subjective Progress Note Date: 09/06/18 77-year-old female who underwent elective reversal of colostomy and removal of PEG tube. POD #5. Patient was examined at the bedside this morning. She is feeling well this morning and states her pain is tolerable. She reports passing a lot of flatus. Denies BM. Patient states she sat in the chair yesterday and has been ambulating in her room. Denies nausea or vomiting. She is tolerating clear liquids. She is afebrile. Objective - Vital Signs Vital signs: Vital Signs Temp 98.7 F 09/06/18 15:11 Pulse 81 09/06/18 15:11 Resp 19 09/06/18 15:11 BP 130/84 09/06/18 15:11 Pulse Ox 94 L 09/06/18 15:11 Intake & Output 09/05/18 09/06/18 09/06/18 18:59 06:59 18:59 Intake Total 592 727.5 Balance 592 727.5 Weight 75 kg Intake: Intake, IV Titration 487.5 Amount D5-0.45% NaCl with KCl 487.5 20Meq/l 1,000 ml @ 75 mls /hr IV .[id number] [facility] Rx#: [id number] Oral 592 240 Other: Voiding Method Bedpan Bedpan # Voids 3 1 1 - Constitutional General appearance: Present: mild distress - EENT Eyes: Present: normal appearance ENT: Present: normal oropharynx - Respiratory Respiratory: bilateral: CTA - Cardiovascular Rhythm: regular - Gastrointestinal General gastrointestinal: Present: soft, tenderness Localized gastrointestinal: tender: midline (incision clean) - Integumentary Integumentary: Present: normal - Neurologic Neurologic: Present: focal deficits - Musculoskeletal Musculoskeletal: Present: strength equal bilaterally - Psychiatric Psychiatric: Present: A&O x's 3 - Labs CBC & Chem 7: 09/06/18 06:24 09/06/18 06:24 Labs: Abnormal Lab Results - Last 24 Hours (Table) 09/06/18 Range/Units 06:24 Chloride 110 H (98-107) mmol/L BUN 5 L (7-17) mg/dL Glucose 101 H (74-99) mg/dL Magnesium 1.3 L (1.6-2.3) mg/dL Total Protein 6.2 L (6.3-8.2) g/dL Albumin 3.2 L (3.5-5.0) g/dL Assessment and Plan Assessment: 1. Reversal of colostomy and removal of PEG tube 2. History of diverticulitis with abscess formation, s/p colectomy with colostomy creation in April 2018 3. Acute hypoxic respiratory failure, suspect secondary to epidural infusion, improved with Narcan. Further worsened overnight requiring high flow nasal cannula, CXR reveals bilateral infiltrates, suspicious for multifocal pneumonia , possibly related to aspiration. 4. Postoperative ileus, resolving 5. Elevated troponin, suspect secondary to oxygen supply and demand mismatch, secondary to hypoxia overnight 6. Acute kidney injury, creatinine 1.2, baseline 0.4-0.6 7. History of paroxysmal atrial fibrillation 8. History of right lower lobe pulmonary emboli and left popliteal DVT, April 2018, on anticoagulation with Eliquis 9. Hyperlipidemia 10. GERD 11. Hypothyroidism 12. History of anxiety Plan: PLAN: Continue clear liquid diet. Patient has only been drinking some tea for her meals. If patient is able to tolerate additional clear liquids today, possible advancement of diet to full liquids tonight. Patient passing flatus. Await BM. Increase activity as tolerated. Incentive spirometry.Discharge planning Time with Patient: Greater than 30
[2018-09-06] MEDS: ACETAMINOPHEN TAB 325 MG TAB PO PRN (22:31)
[2018-09-07] MEDS: LEVOTHYROXINE 100 MCG TAB PO SCH (05:52)
[2018-09-07] MEDS: D5-0.45% NACL WITH KCL 20MEQ/L 1,000 ML IV SCH (05:53)
--- NOTE | 2018-09-07 07:36 | XR ---
EXAMINATION TYPE: XR chest 2V DATE OF EXAM: 09/07/2018 COMPARISON: Prior chest x-ray 09/03/2018 CT abdomen pelvis 07/03/2018 HISTORY: Shortness of breath TECHNIQUE: Frontal and lateral views of the chest are obtained. FINDINGS: There is improvement in patient's lung volumes and aeration. Aorta is tortuous and dense, aneurysmal. Heart size is likely stable, may be accentuated by rotation. No pneumothorax or sizable p leural effusion evident, minimal blunting of the posterior costophrenic sulcus on the right. Bone min eralization is normal. Hiatal hernia again noted. IMPRESSION: Difficult to exclude minimal effusion, improvement in aeration. Hiatal hernia. Aortic an eurysm.
[2018-09-07] MEDS: IPRATROPIUM-ALBUTEROL 3 ML NEB INHALATION SCH ×2 (07:48→13:34)
[2018-09-07] MEDS: PANTOPRAZOLE 40 MG TABLET PO SCH (09:15)
[2018-09-07] MEDS: CITALOPRAM HYDROBROMIDE 20 MG TAB PO SCH (09:15)
[2018-09-07] MEDS: ALVIMOPAN 12 MG CAPSULE PO SCH (09:15)
[2018-09-07] MEDS: METOPROLOL TARTRATE 25 MG TAB PO SCH (09:16)
[2018-09-07] MEDS: ATORVASTATIN 20 MG TAB PO SCH (09:16)
[2018-09-07] MEDS: LOSARTAN 50 MG TAB PO SCH (09:16)
[2018-09-07] MEDS: amLODIPine 10 MG TAB PO SCH (09:16)
[2018-09-07] MEDS: APIXABAN 5 MG TAB PO SCH (09:17)
[2018-09-07] MEDS: MULTIVITAMINS, THERA 1 EACH TAB PO SCH (09:17)
--- NOTE | 2018-09-07 10:40 | P.PN ---
Subjective Progress Note Date: 09/07/18 77-year-old female who underwent elective reversal of colostomy and removal of PEG tube. POD #6. Patient was examined at the bedside this morning. She is feeling well this morning and states her pain is tolerable. She reports passing a lot of flatus. Patient did have a bowel movement this morning. Denies nausea or vomiting. She is tolerating full liquid diet. Lab work from this AM is currently pending. PHYSICAL EXAM: GENERAL: This is a 77-year-old female in no apparent distress at the time of examination. Pleasant and cooperative. HEENT: Head is atraumatic, normocephalic. Pupils are equal, round, and reactive to light. Sclerae anicteric. Conjunctivae are clear. Mucus membranes of the mouth are moist. Neck is supple. RESPIRATORY: Nonlabored respirations. Equal expansion CARDIOVASCULAR: Regular rate and rhythm. GASTROINTESTINAL: No distention noted. Abdomen soft and round. Bowel sounds auscultated x 4 quadrants. Pre[address]a vac in place. Abdominal binder in place. INTEGUMENTARY: No cyanosis. No jaundice. No rashes noted. No cellulitis noted. EXTREMITIES: 2+ peripheral pulses. No evidence of peripheral edema. No calf tenderness noted. NEUROLOGIC: Cranial nerves II-XII intact. PSYCHIATRIC: Awake, alert, and oriented X 3. Appropriate affect. Intact judgement and insight. ASSESSMENT: 1. Reversal of colostomy and removal of PEG tube 2. History of diverticulitis with abscess formation, s/p colectomy with colostomy creation in April 2018 3. Acute hypoxic respiratory failure, suspect secondary to epidural infusion, improved with Narcan. Further worsened overnight requiring high flow nasal cannula, CXR reveals bilateral infiltrates, suspicious for multifocal pneumonia , possibly related to aspiration. 4. Postoperative ileus, resolving 5. Elevated troponin, suspect secondary to oxygen supply and demand mismatch, secondary to hypoxia overnight 6. Acute kidney injury, creatinine 1.2, baseline 0.4-0.6 7. History of paroxysmal atrial fibrillation 8. History of right lower lobe pulmonary emboli and left popliteal DVT, April 2018, on anticoagulation with Eliquis 9. Hyperlipidemia 10. GERD 11. Hypothyroidism 12. History of anxiety 13. Hypomagnesemia PLAN: Continue full liquid diet. Continue supplements. Increase activity as tolerated. Incentive spirometry. Abdominal binder for comfort. Continue Entereg. Patients magnesium was low yesterday at 1.3. Repeat blood work from this morning is currently pending. Patient may require magnesium supplementation depending on lab work results. Anticipate discharge home tomorrow. Consult PT/OT Nurse practitioner note has been reviewed by physician. Signing provider agrees with the documented findings, assessment, and plan of care. Objective - Vital Signs Vital signs: Vital Signs Temp 97.5 F L 09/07/18 07:15 Pulse 80 09/07/18 07:15 Resp 16 09/07/18 07:15 BP 154/90 09/07/18 07:15 Pulse Ox 96 09/07/18 07:15 Intake & Output 09/06/18 09/07/18 09/07/18 18:59 06:59 18:59 Intake Total 727.5 600 Output Total 300 Balance 727.5 300 Weight 75 kg Intake: Intake, IV Titration 487.5 600 Amount D5-0.45% NaCl with KCl 487.5 600 20Meq/l 1,000 ml @ 75 mls /hr IV .[id number] [facility] Rx#: [id number] Oral 240 Output: Urine 300 Other: Voiding Method Bedpan # Voids 1 - Labs CBC & Chem 7: 09/06/18 06:24 09/06/18 06:24
--- NOTE | 2018-09-07 10:43 | P.PN ---
Subjective Progress Note Date: 09/07/18 Principal diagnosis: Reversal of colostomy. Postoperative hypoxemic respiratory failure. This is a very pleasant 77-year-old female patient who follows with Dr. Hernandez as her primary care physician. She has a history of DVT/PE, hyperlipidemia, hypothyroidism, depression, former smoking history, and abdominal abscess and perforated diverticulitis requiring colectomy and end colostomy performed on . She was readmitted here to the hospital yesterday 09/01/2018 to undergo an elective bursal of colostomy with lysis of adhesions and small bowel resection performed by Dr. Garcia. She tolerated the procedure well. She was having some issues with shortness of breath and O2 saturations in the low 90s requiring nonrebreather mask. A chest x-ray revealed bibasilar atelectasis and we are consulted for the same. She is seen today in consultation on the regular medical floor. She is awake and alert in no acute distress. Currently maintaining O2 saturations in the 90s on 3 L/m per nasal cannula. Her pain is well controlled with an epidural of a ropivacaine/hydromorphone. She is working with the incentive spirometer. Pulling approximately 1 L. White count 16.7. Hemoglobin 10.1. Creatinine 1.20. The patient is seen again today 09/07/2018 in follow-up on the regular medical floor. She is awake and alert in no acute distress. She is currently maintaining good O2 saturations in the 90s on room air. She's afebrile. Hemodynamically stable. Denies any worsening shortness of breath cough or congestion. Today's chest x-ray shows improved aeration with minimal effusions. Still some discomfort at the surgical site. Bowel sounds are present. Objective - Vital Signs Vital signs: Vital Signs Temp 97.5 F L 09/07/18 07:15 Pulse 80 09/07/18 07:15 Resp 16 09/07/18 07:15 BP 154/90 09/07/18 07:15 Pulse Ox 96 09/07/18 07:15 Intake & Output 09/06/18 09/07/18 09/07/18 18:59 06:59 18:59 Intake Total 727.5 600 Output Total 300 Balance 727.5 300 Weight 75 kg Intake: Intake, IV Titration 487.5 600 Amount D5-0.45% NaCl with KCl 487.5 600 20Meq/l 1,000 ml @ 75 mls /hr IV .[id number] KATI Rx#: [id number] Oral 240 Output: Urine 300 Other: Voiding Method Bedpan # Voids 1 - Exam GENERAL EXAM: Alert, pleasant, 77-year-old female in no acute distress. Currently on room air. HEAD: Normocephalic/atraumatic. EYES: Normal reaction of pupils, equal size. Conjunctiva pink, sclera white. NOSE: Clear with pink turbinates. THROAT: No erythema or exudates. NECK: No masses, no JVD, no thyroid enlargement, no adenopathy. CHEST: No chest wall deformity. Symmetrical expansion. LUNGS: Diminished breath sounds bilaterally CVS: Regular rate and rhythm, normal S1 and S2, no gallops, no murmurs, no rubs ABDOMEN: Soft, nontender. Mid abdominal and left upper quadrant transverse incision, the wound VAC in place. Bowel sounds are present EXTREMITIES: No clubbing, no edema, no cyanosis, 2+ pulses and upper and lower extremities. MUSCULOSKELETAL: Muscle strength and tone normal. SPINE: No scoliosis or deformity SKIN: No rashes CENTRAL NERVOUS SYSTEM: Alert and oriented -3. No focal deficits, tone is normal in all 4 extremities. PSYCHIATRIC: Alert and oriented -3. Appropriate affect. Intact judgment and insight. - Labs CBC & Chem 7: 09/06/18 06:24 09/06/18 06:24 Assessment and Plan Assessment: Impression: #1 Colectomy with end colostomy performed secondary to perforated diverticulitis and abscess back on 05/20/2018. Reversal of colostomy with lysis of adhesions performed on 09/01/2018. #2 Hypoxemia as an expected outcome due to abdominal surgery and poor inspiratory effort. Currently on oxygen at 4 L/m per nasal cannula. #3 History of PE/DVT, anticoagulated with Eliquis in the outpatient setting. #4 Hypothyroidism. #5 Hypertension. #6 Hyperlipidemia. #7 History of anxiety/depression. #8 Acute renal failure. Plan: The patient was seen and evaluated by Dr. Black. She is stable from the pulmonary standpoint. Maintaining good O2 saturations in the 90s on room air. Encouraged regarding the increased use of the incentive spirometer and cough and deep breathing exercises. Increase her activity as tolerated. We will continue to follow and make further recommendations based on her clinical status. Home once cleared surgically. I, the cosigning physician, performed a history & physical examination of the patient. Lungs sounds clear, diminished. Maintaining good O2 saturations in the 90s on room air. I discussed the assessment and plan of care with my nurse practitioner, Margo Neves. I attest to the above note as dictated by her.
[2018-09-07 11:08] LABS: Basophils % (A) 0 %; Eosinophils # (A) 0.2 k/uL (0-0.7); Eosinophils % (A) 2 %; HCT 35.9 % (34.0-46.0); HGB 11.4 gm/dL (11.4-16.0); Hypochromasia Slight; Lymphocytes # (A) 1.1 k/uL (1.0-4.8); Lymphocytes % (A) 11 %; MCH 26.4 pg (25.0-35.0); MCHC 31.9 g/dL (31.0-37.0); MCV 82.8 fL (80.0-100.0); Mean Platelet Volume 7.1; Monocytes # (A) 0.9 k/uL (0-1.0); Monocytes % (A) 9 %; Neutrophils # (A) 7.2 k/uL (1.3-7.7); Neutrophils % (A) 74 %; Platelet Count 274 k/uL (150-450); RBC 4.33 m/uL (3.80-5.40); RDW 14.8 % (11.5-15.5); WBC 9.7 k/uL (3.8-10.6)
[2018-09-07 11:19] LABS: Calcium 9.1 mg/dL (8.4-10.2); Magnesium 1.3 mg/dL (1.6-2.3); Potassium 4.5 mmol/L (3.5-5.1)
--- NOTE | 2018-09-07 13:06 | P.DS ---
Providers Date of admission: 09/01/18 10:11 Expected date of discharge: 09/07/18 Attending physician: Jose Garcia Consults: 09/01/18 16:35 Consult Physician Routine Consulting Provider: Cole Hernandez Consult Reason/Comments: Medical management Do you want consulting provider notified?: Yes 09/02/18 07:58 Consult Physician Routine Consulting Provider: Alex Gutierres Consult Reason/Comments: hypoxia Do you want consulting provider notified?: Yes 09/02/18 09:50 Consult Physician Routine Consulting Provider: Negro Landry Consult Reason/Comments: elevated troponin Do you want consulting provider notified?: Yes Primary care physician: Cole Hernandez Hospital Course: 77-year-old female who underwent elective reversal of colostomy and removal of PEG tube. Patient did well postoperatively. She is tolerating PO intake. Having BMs. Vitals stable. Afebrile. WBC within normal limits. She has been ambulating. She is stable for discharge home today. Follow up with Dr. Garcia and Dr. Hernandez in one week. See EMR for further details regarding hospital course. Discharge Diagnosis: 1. Reversal of colostomy and removal of PEG tube 2. History of diverticulitis with abscess formation, s/p colectomy with colostomy creation in April 2018 3. Acute hypoxic respiratory failure, suspect secondary to epidural infusion, improved with Narcan. Further worsened overnight requiring high flow nasal cannula, CXR reveals bilateral infiltrates, suspicious for multifocal pneumonia , possibly related to aspiration. 4. Postoperative ileus, resolved Nurse practitioner note has been reviewed by physician. Signing provider agrees with the documented findings, assessment, and plan of care. Patient Condition at Discharge: Stable Plan - Discharge Summary Discharge Rx Participant: No New Discharge Prescriptions: New Levofloxacin [Levaquin] 500 mg PO Q24H #5 tab Metoprolol Tartrate [Lopressor] 25 mg PO BID #60 tab Continue Omeprazole/Sodium Bicarbonate [Zegerid 20 mg Capsule] 1 cap PO DAILY Apixaban [Eliquis] 5 mg PO BID Acetaminophen Tab [Tylenol] 650 mg PO Q4HR PRN tab PRN Reason: Fever and/ or Mild Pain Aspirin 81 mg PO DAILY chew Levothyroxine Sodium [Synthroid] 100 mcg PO DAILY@0630 tab ALPRAZolam [Xanax] 0.25 mg PO BID PRN PRN Reason: Anxiety Citalopram Hydrobromide [CeleXA] 20 mg PO DAILY Bisacodyl [Dulcolax] 5 mg PO HS Multivit/Folic Acid/Vit K1 [One-A-Day Women's 50 Plus Tab] 2 tab PO DAILY Losartan Potassium [Cozaar] 50 mg PO DAILY amLODIPine [Norvasc] 10 mg PO DAILY Rosuvastatin [Crestor] 10 mg PO DAILY Fiber Powder 2 tsp PO BID Discharge Medication List Omeprazole/Sodium Bicarbonate [Zegerid 20 mg Capsule] 1 cap PO DAILY 06/20/16 [ History] Apixaban [Eliquis] 5 mg PO BID 05/12/18 [History] Acetaminophen Tab [Tylenol] 650 mg PO Q4HR PRN tab 06/14/18 [Rx] Aspirin 81 mg PO DAILY chew 06/14/18 [Rx] Levothyroxine Sodium [Synthroid] 100 mcg PO DAILY@0630 tab 06/14/18 [Rx] ALPRAZolam [Xanax] 0.25 mg PO BID PRN 08/25/18 [History] Bisacodyl [Dulcolax] 5 mg PO HS 08/25/18 [History] Citalopram Hydrobromide [CeleXA] 20 mg PO DAILY 08/25/18 [History] Fiber Powder 2 tsp PO BID 08/25/18 [History] Losartan Potassium [Cozaar] 50 mg PO DAILY 08/25/18 [History] Multivit/Folic Acid/Vit K1 [One-A-Day Women's 50 Plus Tab] 2 tab PO DAILY [History] Rosuvastatin [Crestor] 10 mg PO DAILY 08/25/18 [History] amLODIPine [Norvasc] 10 mg PO DAILY 08/25/18 [History] Levofloxacin [Levaquin] 500 mg PO Q24H #5 tab 09/07/18 [Rx] Metoprolol Tartrate [Lopressor] 25 mg PO BID #60 tab 09/07/18 [Rx] Follow up Appointment(s)/Referral(s): Cole Hernandez DO [Primary Care Provider] - 1 Week Jose Garcia MD [STAFF PHYSICIAN] - 1 Week Patient Instructions/Handouts: [facility] [place] [facility] Closed [facility] Management System Discharge Instructions, Full Liquid Diet (DC), Open Colostomy Reversal (DC)
[2018-09-07] MEDS: MAGNESIUM SULFATE-D5W PMX 1 GM in DEXTROSE/WATER 1 100ML.BAG IVPB SCH ×3 (15:49→16:49)
[2018-09-07 16:00] VITALS: BP 114/82; PULSE 75; RESP 12; TEMP 98
[2018-09-07] MEDS ORDERED: LEVOFLOXACIN 500 MG TAB PO SCH (16:00)
== END 2018-09-07 18:20 | disposition home or self-care (01) | DRG 329 ==
LOC: 2ORMAIN 10:11 → EDSTATUS 13:50 → 4SSUR 17:20
PROVIDERS: ADMIT Surgery; ATTEND Surgery
PROC: 0DBG0ZZ Excision of Left Large Intestine, Open Approach (ICD-10-PCS; 2018-09-01)
PROC: 0DNW0ZZ Release Peritoneum, Open Approach (ICD-10-PCS; 2018-09-01)
PROC: 0DP6XUZ Removal of Feeding Device from Stomach, External Approach (ICD-10-PCS; 2018-09-01)
PROC: 0DB80ZZ Excision of Small Intestine, Open Approach (ICD-10-PCS; principal; 2018-09-01 13:25)
DX: Z43.3 Encounter for attention to colostomy (principal); J96.01 Acute respiratory failure with hypoxia; J69.0 Pneumonitis due to inhalation of food and vomit; Z43.1 Encounter for attention to gastrostomy; N17.9 Acute kidney failure, unspecified; J98.11 Atelectasis; K56.7 Ileus, unspecified; E87.70 Fluid overload, unspecified; I48.0 Paroxysmal atrial fibrillation; I71.2 Thoracic aortic aneurysm, without rupture; E83.42 Hypomagnesemia; I25.5 Ischemic cardiomyopathy; I35.1 Nonrheumatic aortic (valve) insufficiency; K66.0 Peritoneal adhesions (postprocedural) (postinfection); T88.59XA Other complications of anesthesia, initial encounter; T41.3X5A Adverse effect of local anesthetics, initial encounter; K21.9 Gastro-esophageal reflux disease without esophagitis; I10 Essential (primary) hypertension; E78.5 Hyperlipidemia, unspecified; K58.9 Irritable bowel syndrome, unspecified; M19.012 Primary osteoarthritis, left shoulder; M19.011 Primary osteoarthritis, right shoulder; M19.042 Primary osteoarthritis, left hand; M19.041 Primary osteoarthritis, right hand; M47.812 Spondylosis without myelopathy or radiculopathy, cervical region; E03.9 Hypothyroidism, unspecified; F41.9 Anxiety disorder, unspecified; F32.9 Major depressive disorder, single episode, unspecified; R77.8 Other specified abnormalities of plasma proteins; I83.90 Asymptomatic varicose veins of unspecified lower extremity; Z79.01 Long term (current) use of anticoagulants; Z79.82 Long term (current) use of aspirin; Z79.890 Hormone replacement therapy; Z79.899 Other long term (current) drug therapy; Z87.891 Personal history of nicotine dependence; Z86.718 Personal history of other venous thrombosis and embolism; Z86.010 Personal history of colon polyps; Z87.19 Personal history of other diseases of the digestive system; Z86.19 Personal history of other infectious and parasitic diseases; Z86.711 Personal history of pulmonary embolism; Z90.49 Acquired absence of other specified parts of digestive tract; Z90.710 Acquired absence of both cervix and uterus; Z86.72 Personal history of thrombophlebitis; Z98.42 Cataract extraction status, left eye; Z98.41 Cataract extraction status, right eye; Z96.1 Presence of intraocular lens; Z88.1 Allergy status to other antibiotic agents; Z88.0 Allergy status to penicillin; Z88.2 Allergy status to sulfonamides; Z88.8 Allergy status to other drugs, medicaments and biological substances; Z80.3 Family history of malignant neoplasm of breast; Z82.49 Family history of ischemic heart disease and other diseases of the circulatory system; Y92.230 Patient room in hospital as the place of occurrence of the external cause
CPT/HCPCS: 71045; 71046; 80048; 80053; 83735; 84484; 85025; 86850; 86900; 86901; 88304; 88307; 93005; 94760

== ENCOUNTER 2019-05-15 10:09 | Observation (INO) | payer MEDICARE ==
--- NOTE | 2019-05-15 10:41 | ED ---
General Adult HPI - General Chief complaint: Shortness of Breath Stated complaint: SOB Time Seen by Provider: 05/15/19 10:20 Source: patient, RN notes reviewed Mode of arrival: wheelchair Limitations: no limitations - History of Present Illness Initial comments: 78-year-old female presents emergency Department chief complaint shortness of breath. Patient states that she woke up today and felt very short of breath. Patient states she became very anxious at this time. Patient states that her blood pressure was elevated but denies any chest pain. Patient states that she recently stopped Norvasc. She states she stopped because she was having leg swelling. Patient denies any fever, chills. Patient states that she does have a cough. Patient currently takes Eliquis for A. fib with a history of DVT. Patient denies any nausea vomiting diarrhea constipation. Patient states she feels greatly improved since been in the emergency room on oxygen. - Related Data Home Medications Medication Instructions Recorded Confirmed Apixaban [Eliquis] 5 mg PO BID 05/12/18 05/15/19 Losartan Potassium [Cozaar] 50 mg PO DAILY 08/25/18 05/15/19 Rosuvastatin [Crestor] 10 mg PO DAILY 08/25/18 05/15/19 amLODIPine [Norvasc] 10 mg PO DAILY 08/25/18 05/15/19 Cholecalciferol [Vitamin D3 (25 1,000 unit PO DAILY 05/15/19 05/15/19 Mcg = 1000 Iu)] Citalopram Hydrobromide [CeleXA] 10 mg PO DAILY 05/15/19 05/15/19 Ferrous Sulfate [Feosol] 325 mg PO DAILY 05/15/19 05/15/19 Hydrochlorothiazide [Hydrodiuril] 12.5 mg PO DAILY 05/15/19 05/15/19 Omeprazole/Sodium Bicarbonate 1 cap PO DAILY 05/15/19 05/15/19 [Omeppi 40 mg-1,100 mg Capsule] Previous Rx's Medication Instructions Recorded Acetaminophen Tab [Tylenol] 650 mg PO Q4HR PRN tab 06/14/18 Aspirin 81 mg PO DAILY chew 06/14/18 Levothyroxine Sodium [Synthroid] 100 mcg PO DAILY@0630 tab 06/14/18 Metoprolol Tartrate [Lopressor] 25 mg PO BID #60 tab 09/07/18 Allergies Allergy/AdvReac Type Severity Reaction Status Date / Time Penicillins Allergy RASH ON Verified 05/15/19 10:30 TONGUE sulfamethoxazole Allergy Vomiting Verified 05/15/19 10:30 [From Bactrim] trimethoprim [From Bactrim] Allergy Vomiting Verified 05/15/19 10:30 cephalexin monohydrate AdvReac Nausea Verified 05/15/19 10:30 [From Keflex] diazepam [From Valium] AdvReac PHLEBITIS Verified 05/15/19 10:30 IN RT ARM diphenhydramine AdvReac Unknown Verified 05/15/19 10:30 [From Benadryl] erythromycin base AdvReac Unknown Verified 05/15/19 10:30 Review of Systems ROS Statement: Those systems with pertinent positive or pertinent negative responses have been documented in the HPI. ROS Other: All systems not noted in ROS Statement are negative. Past Medical History Past Medical History: Deep Vein Thrombosis (DVT), GERD/Reflux, Hyperlipidemia, Osteoarthritis (OA), Pulmonary Embolus (PE), Thyroid Disorder Additional Past Medical History / Comment(s): IBS, past rectal bleed/PROCTITIS, diverticulosis, COLON/gastric Polyps/ montague's esophagus in past, arthritis in neck/back bilateral shoulders & bilateral FINGERS, past R arm phlebitis, past liver cyst. SL LEAKY VALVE, GETS ECHO YEARLY. SEPSIS, COLOSTOMY D/T PERFORATION 05/20/18; HAS PEG TUBE; EPISODE OF AFIB POST-OP. EDEMA FEET. History of Any Multi-Drug Resistant Organisms: VRE Date of last positivie culture/infection: 06/12/18 MDRO Source:: VRE Past Surgical History: Bladder Surgery, Bowel Resection, Breast Surgery, Hysterectomy, Orthopedic Surgery Additional Past Surgical History / Comment(s): Hysterectomy with cystocele, R shoulder arthroscopy for rotator cuff repair and R shoulder arthrotomy for spur, L foot injured as child with surgical repair, EGDs/colonoscopies, R breast benign biopsy, bilateral cataract removal/lens implants. VARICOSE VEINS LASERED BOB. PICC LINE, THEN REMOVAL; COLOSTOMY 04/2018; PEG TUBE 06/10/18. Past Anesthesia/Blood Transfusion Reactions: Postoperative Nausea & Vomiting (PO NV) Additional Past Anesthesia/Blood Transfusion Reaction / Comment(s): PONV X1. Past Psychological History: Unable to Obtain Past Alcohol Use History: Unable to Obtain Past Drug Use History: Unable to Obtain - Past Family History Mother Family Medical History: Cancer Additional Family Medical History / Comment(s): BREAST CANCER Father Family Medical History: Coronary Artery Disease (CAD) General Exam Limitations: no limitations General appearance: alert, in no apparent distress, anxious Head exam: Present: atraumatic, normocephalic, normal inspection Eye exam: Present: normal appearance, PERRL, EOMI. Absent: scleral icterus, conjunctival injection, periorbital swelling ENT exam: Present: normal exam, normal oropharynx, mucous membranes moist Neck exam: Present: normal inspection, full ROM. Absent: tenderness, meningismus, lymphadenopathy Respiratory exam: Present: normal lung sounds bilaterally. Absent: respiratory distress, wheezes, rales, rhonchi, stridor Cardiovascular Exam: Present: regular rate, normal rhythm, normal heart sounds. Absent: systolic murmur, diastolic murmur, rubs, gallop, clicks GI/Abdominal exam: Present: soft, normal bowel sounds. Absent: distended, tenderness, guarding, rebound, rigid Extremities exam: Absent: pedal edema Neurological exam: Present: alert Skin exam: Present: warm, dry, intact, normal color. Absent: rash Course Vital Signs 05/15/19 05/15/19 05/15/19 10:15 11:20 11:47 Temperature 97.7 F Pulse Rate 81 60 61 Respiratory 26 H 16 16 Rate Blood Pressure 119/101 179/89 131/93 O2 Sat by Pulse 100 99 99 Oximetry 05/15/19 05/15/19 13:00 14:09 Temperature Pulse Rate 70 56 L Respiratory 16 20 Rate Blood Pressure 199/128 O2 Sat by Pulse 98 Oximetry EKG Findings - EKG Comments: EKG Findings:: EKG performed at 11:26 sinus rhythm with PACs prolonged QT rate of 63 ME 176 QRS 84 QT/QTC 468/478 Medical Decision Making - Medical Decision Making 78-year-old female initially presented emergency from for dyspnea. She is coming complaining of leg swelling which she thought was related to her Norvasc. Patient's BMP is elevated from previous up to 3000. Chest x-ray shows evidence of cardiomegaly though no overt signs of failure. Patient was improved sitting up with supplemental O2 she does complain orthopnea. Patient labs otherwise show mildl, hypomagnesemia, hypokalemia. to complain of mild headache and initial presentation those seemed to worsen. CT was of the brain was obtained which showed no acute abnormality. She has normal neuro exam. Patient was given morphine as she is Eliquis cannot take Toradol. She does have an ALLERGY to Benadryl. Patient was given Zofran which did not help her nausea right on was ordered. Patient was now evaluated by Dr. Trujillo given the fact that she's had this intractable headache. Dilaudid, hydralazine was ordered for her blood pressure as a continue to elevate. Case discussed with admitting physician who will come and evaluate the patient. - Lab Data Result diagrams: 05/15/19 10:49 05/15/19 10:49 Lab Results 05/15/19 05/15/19 05/15/19 Range/Units 10:49 10:49 10:49 WBC 8.4 (3.8-10.6) k/uL RBC 5.57 H (3.80-5.40) m/uL Hgb 13.6 D (11.4-16.0) gm/dL Hct 42.8 (34.0-46.0) % MCV 76.8 L (80.0-100.0) fL MCH 24.4 L (25.0-35.0) pg MCHC 31.7 (31.0-37.0) g/dL RDW 18.9 H (11.5-15.5) % Plt Count 219 (150-450) k/uL Neutrophils % 73 % Lymphocytes % 18 % Monocytes % 6 % Eosinophils % 1 % Basophils % 1 % Neutrophils # 6.1 (1.3-7.7) k/uL Lymphocytes # 1.5 (1.0-4.8) k/uL Monocytes # 0.5 (0-1.0) k/uL Eosinophils # 0.1 (0-0.7) k/uL Basophils # 0.1 (0-0.2) k/uL Hypochromasia Slight Anisocytosis Slight Microcytosis Moderate PT (9.0-12.0) sec INR (<1.2) APTT (22.0-30.0) sec Sodium 141 (137-145) mmol/L Potassium 3.3 L (3.5-5.1) mmol/L Chloride 106 (98-107) mmol/L Carbon Dioxide 19 L (22-30) mmol/L Anion Gap 16 mmol/L BUN 14 (7-17) mg/dL Creatinine 1.14 H (0.52-1.04) mg/dL Est GFR (CKD-EPI)AfAm 54 (>60 ml/min/1.73 sqM) Est GFR (CKD-EPI)NonAf 47 (>60 ml/min/1.73 sqM) Glucose 105 H (74-99) mg/dL Calcium 10.3 H (8.4-10.2) mg/dL Magnesium 1.5 L (1.6-2.3) mg/dL Total Bilirubin 0.6 (0.2-1.3) mg/dL AST 25 (14-36) U/L ALT 22 (9-52) U/L Alkaline Phosphatase 83 (38-126) U/L Troponin I (0.000-0.034) ng/mL NT-Pro-B Natriuret Pep 3320 pg/mL Total Protein 7.6 (6.3-8.2) g/dL Albumin 4.5 (3.5-5.0) g/dL Urine Color Urine Appearance (Clear) Urine pH (5.0-8.0) Ur Specific [place] (1.001-1.035) Urine Protein (Negative) Urine Glucose (UA) (Negative) Urine Ketones (Negative) Urine Blood (Negative) Urine Nitrite (Negative) Urine Bilirubin (Negative) Urine Urobilinogen (<2.0) mg/dL Ur Leukocyte Esterase (Negative) 05/15/19 05/15/19 05/15/19 Range/Units 10:49 10:49 12:55 WBC (3.8-10.6) k/uL RBC (3.80-5.40) m/uL Hgb (11.4-16.0) gm/dL Hct (34.0-46.0) % MCV (80.0-100.0) fL MCH (25.0-35.0) pg MCHC (31.0-37.0) g/dL RDW (11.5-15.5) % Plt Count (150-450) k/uL Neutrophils % % Lymphocytes % % Monocytes % % Eosinophils % % Basophils % % Neutrophils # (1.3-7.7) k/uL Lymphocytes # (1.0-4.8) k/uL Monocytes # (0-1.0) k/uL Eosinophils # (0-0.7) k/uL Basophils # (0-0.2) k/uL Hypochromasia Anisocytosis Microcytosis PT 12.0 (9.0-12.0) sec INR 1.2 H (<1.2) APTT 23.9 (22.0-30.0) sec Sodium (137-145) mmol/L Potassium (3.5-5.1) mmol/L Chloride (98-107) mmol/L Carbon Dioxide (22-30) mmol/L Anion Gap mmol/L BUN (7-17) mg/dL Creatinine (0.52-1.04) mg/dL Est GFR (CKD-EPI)AfAm (>60 ml/min/1.73 sqM) Est GFR (CKD-EPI)NonAf (>60 ml/min/1.73 sqM) Glucose (74-99) mg/dL Calcium (8.4-10.2) mg/dL Magnesium (1.6-2.3) mg/dL Total Bilirubin (0.2-1.3) mg/dL AST (14-36) U/L ALT (9-52) U/L Alkaline Phosphatase (38-126) U/L Troponin I <0.012 (0.000-0.034) ng/mL NT-Pro-B Natriuret Pep pg/mL Total Protein (6.3-8.2) g/dL Albumin (3.5-5.0) g/dL Urine Color Light Yellow Urine Appearance Clear (Clear) Urine pH 8.0 (5.0-8.0) Ur Specific [place] 1.009 (1.001-1.035) Urine Protein Negative (Negative) Urine Glucose (UA) Negative (Negative) Urine Ketones Negative (Negative) Urine Blood Negative (Negative) Urine Nitrite Negative (Negative) Urine Bilirubin Negative (Negative) Urine Urobilinogen <2.0 (<2.0) mg/dL Ur Leukocyte Esterase Negative (Negative) Disposition Clinical Impression: Hypertension, Headache, CHF (congestive heart failure), Dyspnea Disposition: [facility] Condition: Fair Referrals: Cole Hernandez DO [Primary Care Provider] - 1-2 days
[2019-05-15 11:02] LABS: Anisocytosis Slight; Basophils # (A) 0.1 k/uL (0-0.2); Basophils % (A) 1 %; Eosinophils # (A) 0.1 k/uL (0-0.7); Eosinophils % (A) 1 %; HCT 42.8 % (34.0-46.0); Hypochromasia Slight; Lymphocytes # (A) 1.5 k/uL (1.0-4.8); Lymphocytes % (A) 18 %; MCH 24.4 pg (25.0-35.0); MCHC 31.7 g/dL (31.0-37.0); MCV 76.8 fL (80.0-100.0); Mean Platelet Volume 7.4; Microcytosis Moderate; Monocytes # (A) 0.5 k/uL (0-1.0); Monocytes % (A) 6 %; Neutrophils # (A) 6.1 k/uL (1.3-7.7); Neutrophils % (A) 73 %; Platelet Count 219 k/uL (150-450); RBC 5.57 m/uL (3.80-5.40); RDW 18.9 % (11.5-15.5); WBC 8.4 k/uL (3.8-10.6)
[2019-05-15 11:06] LABS: HGB 13.6 gm/dL (11.4-16.0)
--- NOTE | 2019-05-15 11:06 | XR ---
EXAMINATION TYPE: XR chest 2V DATE OF EXAM: 05/15/2019 HISTORY: difficulty breathing. REFERENCE: Previous study dated 09/07/2018. FINDINGS: The heart is mildly prominent. The lungs are clear. Pleural space are clear. IMPRESSION: MILD CARDIOMEGALY.
[2019-05-15 11:09] LABS: INR 1.2 (<1.2); Partial Thromboplastin Time 23.9 sec (22.0-30.0)
[2019-05-15 11:18] LABS: Albumin 4.5 g/dL (3.5-5.0); Calcium 10.3 mg/dL (8.4-10.2); Magnesium 1.5 mg/dL (1.6-2.3); Potassium 3.3 mmol/L (3.5-5.1); Total Bilirubin 0.6 mg/dL (0.2-1.3); Total Protein 7.6 g/dL (6.3-8.2)
[2019-05-15] MEDS ORDERED: LORazepam 2 MG/ML INJ IV STA (11:21)
[2019-05-15] MEDS ORDERED: ONDANSETRON 4 MG/2 ML VIAL IVP STA (12:29)
[2019-05-15] MEDS ORDERED: MORPHINE SULFATE 2 MG/ML SYRINGE IVP ONE (12:29)
[2019-05-15 13:08] LABS: Appearance,Urine Clear (Clear); Bilirubin,Urine Negative (Negative); Blood,Urine Negative (Negative); Color,Urine Light Yellow; Glucose,Urine (UA) Negative (Negative); Ketones,Urine Negative (Negative); Leukocyte Esterase,Urine Negative (Negative); Nitrite,Urine Negative (Negative); Protein,Urine Negative (Negative); Specific Gravity,Urine 1.009 (1.001-1.035); Urobilinogen,Urine <2.0 mg/dL (<2.0)
--- NOTE | 2019-05-15 13:42 | CT ---
EXAMINATION TYPE: CT brain wo con DATE OF EXAM: 05/15/2019 COMPARISON: NONE HISTORY: Intractable headache CT DLP: 1090.4 mGycm Automated exposure control for dose reduction was used. FINDINGS: Central structures are midline. There is no evidence of hydrocephalus. There is diffuse periventricul ar white matter lucency, likely reflecting chronic white matter ischemic change. There is no acute fo rosendo lesion, mass effect or midline shift identified. I do not see evidence of intracranial blood. Visualized portions of the paranasal sinuses and mastoids are clear. The bony calvarium is intact. IMPRESSION: 1. NO ACUTE INTRACRANIAL ABNORMALITY. 2. MILD DEGENERATIVE CHANGE.
[2019-05-15] MEDS ORDERED: METOCLOPRAMIDE 5 MG/ML 2 ML VIAL IVP STA (14:03)
[2019-05-15] MEDS ORDERED: hydrALAZINE HCL 20 MG/ML 1 ML VIAL IVP STA ×2 (14:03→14:46)
[2019-05-15] MEDS ORDERED: HYDROmorphone 0.5 MG/0.5 ML SYRINGE IVP STA (14:19)
[2019-05-15] MEDS ORDERED: LORazepam 2 MG/ML INJ IV PRN (15:20)
[2019-05-15] MEDS ORDERED: NALOXONE 0.4 MG/ML 1 ML VIAL IV PRN (15:20)
[2019-05-15] MEDS ORDERED: ENALAPRILAT 1.25 MG/ML 1 ML VIAL IVP STA (15:20)
[2019-05-15] MEDS ORDERED: POTASSIUM CHLORIDE 20 MEQ in WATER FOR INJECTION 1 100ML.BAG IVPB STA (15:39)
[2019-05-15] MEDS: MAGNESIUM SULFATE-D5W PMX 1 GM in DEXTROSE/WATER 1 100ML.BAG IVPB SCH ×2 (19:15→20:03)
[2019-05-15] MEDS: HYDROmorphone 0.5 MG/0.5 ML SYRINGE IVP PRN (20:53)
[2019-05-15] MEDS: METOPROLOL TARTRATE 25 MG TAB PO SCH (22:24)
[2019-05-15] MEDS: APIXABAN 5 MG TAB PO SCH (22:24)
[2019-05-16] MEDS: HYDROmorphone 0.5 MG/0.5 ML SYRINGE IVP PRN (00:36)
--- NOTE | 2019-05-16 02:12 | P.HPIM ---
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 Patient says that she has been having headaches for the past 4 days and thinks it is due to her increased heart rate. Patient was found have SBP greater than 200 in the ER. Patient says that she woke up today and felt very short of breath and became very anxious. Patient was brought to the hospital by her family. No complaints of fever or chills. Patient does have cough without sputum production. No nausea vomiting or diarrhea. No abdominal pain. Denied any recent illnesses. Patient does have intractable headache currently and could not provide most of the history. Family is at bedside. Patient was given hydralazine and enalapril IV in the ER with improvement in blood pressure. Patient was given a dose of IV Dilaudid. Chest x-ray showed mild cardiomegaly. CT head showed no acute intracranial abnormality. Mild degenerative changes. BNP 3320 Potassium 3.8 and magnesium 1.5 Urinalysis negative for infection Review of Systems Constitutional: Patient denies any fever or chills . No generalized weakness or weight loss. Abdomen: Patient denied nausea vomiting and diarrhea and abdominal pain. Cardiovascular: Patient denies any chest pain and does have short of breath no palpitations. Respiratory: patient denied any cough is from production. No shortness of breath Neurologic: Patient denied any numbness or tingling. Severe headache. Data review of systems could not be obtained from the patient. Past Medical History Past Medical History: Deep Vein Thrombosis (DVT), GERD/Reflux, Hyperlipidemia, Osteoarthritis (OA), Pulmonary Embolus (PE), Thyroid Disorder Additional Past Medical History / Comment(s): IBS, past rectal bleed/PROCTITIS, diverticulosis, COLON/gastric Polyps/ montague's esophagus in past, arthritis in neck/back bilateral shoulders & bilateral FINGERS, past R arm phlebitis, past liver cyst. SL LEAKY VALVE, GETS ECHO YEARLY. SEPSIS, COLOSTOMY D/T PERFORATION 05/20/18; HAS PEG TUBE; EPISODE OF AFIB POST-OP. EDEMA FEET. History of Any Multi-Drug Resistant Organisms: VRE Date of last positivie culture/infection: 06/12/18 MDRO Source:: VRE Past Surgical History: Bladder Surgery, Bowel Resection, Breast Surgery, Hysterectomy, Orthopedic Surgery Additional Past Surgical History / Comment(s): Hysterectomy with cystocele, R shoulder arthroscopy for rotator cuff repair and R shoulder arthrotomy for spur, L foot injured as child with surgical repair, EGDs/colonoscopies, R breast benign biopsy, bilateral cataract removal/lens implants. VARICOSE VEINS LASERED BOB. PICC LINE, THEN REMOVAL; COLOSTOMY 04/2018; PEG TUBE 06/10/18. Past Anesthesia/Blood Transfusion Reactions: Postoperative Nausea & Vomiting (PONV) Additional Past Anesthesia/Blood Transfusion Reaction / Comment(s): PONV X1. Past Psychological History: Unable to Obtain Additional Psychological History / Comment(s): ANXIETY BEGAN DURING [facility] HOSPITALIZATION 04/2018. Smoking Status: Former smoker Past Alcohol Use History: Unable to Obtain Additional Past Alcohol Use History / Comment(s): STARTED SMOKING AT AGE 17 QUIT AT AGE 43 SMOKED 1PPD Past Drug Use History: Unable to Obtain - Past Family History Mother Family Medical History: Cancer Additional Family Medical History / Comment(s): BREAST CANCER Father Family Medical History: Coronary Artery Disease (CAD) Medications and Allergies Home Medications Medication Instructions Recorded Confirmed Type Apixaban [Eliquis] 5 mg PO BID 05/12/18 05/15/19 History Acetaminophen Tab [Tylenol] 650 mg PO Q4HR PRN tab 06/14/18 05/15/19 Rx Aspirin 81 mg PO DAILY chew 06/14/18 05/15/19 Rx Levothyroxine Sodium [Synthroid] 100 mcg PO DAILY@0630 tab 06/14/18 05/15/19 Rx Losartan Potassium [Cozaar] 50 mg PO DAILY 08/25/18 05/15/19 History Rosuvastatin [Crestor] 10 mg PO DAILY 08/25/18 05/15/19 History amLODIPine [Norvasc] 10 mg PO DAILY 08/25/18 05/15/19 History Metoprolol Tartrate [Lopressor] 25 mg PO BID #60 tab 09/07/18 05/15/19 Rx Cholecalciferol [Vitamin D3 (25 1,000 unit PO DAILY 05/15/19 05/15/19 History Mcg = 1000 Iu)] Citalopram Hydrobromide [CeleXA] 10 mg PO DAILY 05/15/19 05/15/19 History Ferrous Sulfate [Feosol] 325 mg PO DAILY 05/15/19 05/15/19 History Hydrochlorothiazide [Hydrodiuril] 12.5 mg PO DAILY 05/15/19 05/15/19 History Omeprazole/Sodium Bicarbonate 1 cap PO DAILY 05/15/19 05/15/19 History [Omeppi 40 mg-1,100 mg Capsule] Allergies Allergy/AdvReac Type Severity Reaction Status Date / Time Penicillins Allergy RASH ON Verified 05/15/19 10:30 TONGUE sulfamethoxazole Allergy Vomiting Verified 05/15/19 10:30 [From Bactrim] trimethoprim [From Bactrim] Allergy Vomiting Verified 05/15/19 10:30 cephalexin monohydrate AdvReac Nausea Verified 05/15/19 10:30 [From Keflex] diazepam [From Valium] AdvReac PHLEBITIS Verified 05/15/19 10:30 IN RT ARM diphenhydramine AdvReac Unknown Verified 05/15/19 10:30 [From Benadryl] erythromycin base AdvReac Unknown Verified 05/15/19 10:30 Physical Exam Vitals: Vital Signs Temp Pulse Resp BP Pulse Ox 05/15/19 16:27 79 16 157/88 98 05/15/19 16:00 97.8 F 76 16 160/100 98 05/15/19 15:58 76 16 98 05/15/19 14:09 56 L 20 199/128 05/15/19 13:00 70 16 98 05/15/19 11:47 61 16 131/93 99 05/15/19 11:20 60 16 179/89 99 05/15/19 10:15 97.7 F 81 26 H 119/101 100 Intake and Output 05/15/19 05/15/19 05/15/19 06:59 14:59 22:59 Other: Weight 72.575 kg PHYSICAL EXAMINATION: Patient is lying in the bed comfortably, mild distress, awake alert and oriented.. HEENT: Normocephalic. Neck is supple. Pupils reactive. Nostrils clear. Oral cavity is moist. Ears reveal no drainage. Neck reveals no JVD, carotid bruits, or thyromegaly. CHEST EXAMINATION: Trachea is central. Symmetrical expansion. Lung arias clear to auscultation and percussion. CARDIAC: Normal S1, S2 with no gallops. No murmurs ABDOMEN: Soft. Bowel sounds normal. No organomegaly. No abdominal bruits. Extremities: reveal no edema. No clubbing or cyanosis Neurologically awake, alert, oriented x3 with well-coordinated movements. No focal deficits noted Skin: No rash or skin lesions. Psychiatric: Coperative. Nonsuicidal Musculoskeletal: No joint swelling or deformity. Normal range of motion. Results CBC & Chem 7: 05/15/19 10:49 05/15/19 10:49 Labs: Abnormal Lab Results - Last 24 Hours (Table) 05/15/19 05/15/19 05/15/19 Range/Units 10:49 10:49 10:49 RBC 5.57 H (3.80-5.40) m/uL MCV 76.8 L (80.0-100.0) fL MCH 24.4 L (25.0-35.0) pg RDW 18.9 H (11.5-15.5) % INR 1.2 H (<1.2) Potassium 3.3 L (3.5-5.1) mmol/L Carbon Dioxide 19 L (22-30) mmol/L Creatinine 1.14 H (0.52-1.04) mg/dL Glucose 105 H (74-99) mg/dL Calcium 10.3 H (8.4-10.2) mg/dL Magnesium 1.5 L (1.6-2.3) mg/dL Thrombosis Risk Factor Assmnt - DVT/VTE Prophylaxis DVT/VTE Prophylaxis: Pharmacologic Prophylaxis ordered - Choose All That Apply Any of the Below Risk Factors Present?: Yes Each Factor Represents 1 point: Heart failure (<1month) Other Risk Factors: Yes Each Risk Factor Represents 3 Points: Age 75 years or older Thrombosis Risk Factor Assessment Total Risk Factor Score: 4 Thrombosis Risk Factor Assessment Level: Moderate Risk Assessment and Plan Assessment: Intractable headache likely due to uncontrolled hypertension Hypertensive urgency Elevated BNP. Without evidence of leg swelling lung condition. Previous echocardiogram showed normal EF. History of DVT/PE. Currently on anticoagulation with Eliquis. Paroxysmal atrial fibrillation. Patient had one episode postoperatively. Hypothyroidism Hyperlipidemia Hypertension Osteoarthritis History of diverticulitis with perforation status post colectomy/colostomy reversal in August 2018. Previous history of smoking Anxiety Plan: Patient was given IV hydralazine and enalapril in the ER with improvement in blood pressure and patient was also given IV Dilaudid. Headache is improving as well. Continue the home medications. Patient recently stopped taking Norvasc due to leg swelling. Started back on Norvasc as well. Continue with anticoagulation. CT head showed no acute process. Continue with home medications and follow up closely Further recommendations based on the clinical course. Prognosis guarded with multiple medical problems and comorbid conditions. Discussed with the family at bedside in detail. Time with Patient: Greater than 30
[2019-05-16] MEDS: LEVOTHYROXINE 100 MCG TAB PO SCH (05:57)
[2019-05-16] MEDS: MAGNESIUM SULFATE-D5W PMX 1 GM in DEXTROSE/WATER 1 100ML.BAG IVPB SCH ×2 (05:57→09:13)
[2019-05-16 08:10] LABS: Calcium 9.8 mg/dL (8.4-10.2); Magnesium 2.8 mg/dL (1.6-2.3); Potassium 3.6 mmol/L (3.5-5.1)
[2019-05-16] MEDS ORDERED: NICOTINE 14MG/24HR PATCH TRANSDERM SCH (09:00)
[2019-05-16] MEDS: SODIUM BICARBONATE TAB 650 MG TAB PO SCH (09:10)
[2019-05-16] MEDS: METOPROLOL TARTRATE 25 MG TAB PO SCH ×2 (09:11→20:46)
[2019-05-16] MEDS: APIXABAN 5 MG TAB PO SCH ×2 (09:11→20:46)
[2019-05-16] MEDS: CHOLECALCIFEROL 1,000 UNIT TAB PO SCH (09:12)
[2019-05-16] MEDS: LOSARTAN 50 MG TAB PO SCH (09:12)
[2019-05-16] MEDS: ATORVASTATIN 20 MG TAB PO SCH (09:12)
[2019-05-16] MEDS: PANTOPRAZOLE 40 MG TABLET PO SCH (09:12)
[2019-05-16] MEDS: ASPIRIN 81 MG PO SCH (09:12)
[2019-05-16] MEDS: amLODIPine 10 MG TAB PO SCH (09:13)
[2019-05-16] MEDS: CITALOPRAM HYDROBROMIDE 10 MG TAB PO SCH (09:14)
--- NOTE | 2019-05-16 11:38 | P.PN ---
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 Patient says that she has been having headaches for the past 4 days and thinks it is due to her increased heart rate. Patient was found have SBP greater than 200 in the ER. Patient says that she woke up today and felt very short of breath and became very anxious. Patient was brought to the hospital by her family. No complaints of fever or chills. Patient does have cough without sputum production. No nausea vomiting or diarrhea. No abdominal pain. Denied any recent illnesses. Patient does have intractable headache currently and could not provide most of t he history. Family is at bedside. Patient was given hydralazine and enalapril IV in the ER with improvement in blood pressure. Patient was given a dose of IV Dilaudid. Chest x-ray showed mild cardiomegaly. CT head showed no acute intracranial abnormality. Mild degenerative changes. BNP 3320 Potassium 3.8 and magnesium 1.5 Urinalysis negative for infection 05/16/2019 Norvasc added back on antihypertensive regimen yesterday, blood pressure is well controlled. Headache has subsided. Telemetry atrial fibrillation, controlled ventricular rate. Electrolytes supplemented, potassium 3.6, magnesium 2.8. Mild elevation in creatinine, 1.43. Positive bowel movement. Vital signs stable, maintaining O2 sats in the high 90s on 2 L nasal cannula which can be weaned off. Receiving prn Ativan for anxieity. Denies chest pain, palpitations. Denies lightheadedness, dizziness or focal deficits. Objective - Vital Signs Vital signs: Vital Signs Temp 98.3 F 05/16/19 06:50 Pulse 63 05/16/19 06:50 Resp 18 05/16/19 06:50 BP 114/76 05/16/19 06:50 Pulse Ox 96 05/16/19 06:50 Intake & Output 05/15/19 05/16/19 05/16/19 18:59 06:59 18:59 Intake Total 300 Balance 300 Weight 72.575 kg Intake: Intake, IV Titration 300 Amount Magnesium Sulfate-D5w Pmx 200 1 gm In Dextrose/Water 1 100ml.bag @ 100 mls/hr IVPB Q1H KATI Rx#: [id number] Potassium Chloride 20 meq 100 In Water For Injection 1 100ml.bag @ 50 mls/hr IVPB ONCE STA Rx#: [id number] Other: # Voids 2 - Exam Patient is sitting up in bed, anxious, teary-eyed, awake alert and oriented 3. HEENT: Normocephalic. Neck is supple. Pupils reactive. Nostrils clear. Oral cavity is moist. Neck reveals no JVD, carotid bruits, or thyromegaly. CHEST EXAMINATION: Trachea is central. Symmetrical expansion. Lung arias clear to auscultation and percussion. CARDIAC: Normal S1, S2 with no gallops. No murmurs ABDOMEN: Soft. Bowel sounds normal. No organomegaly. No abdominal bruits. Extremities: reveal no edema. No clubbing or cyanosis Neurologically awake, alert, oriented x3 with well-coordinated movements. No focal deficits noted Skin: No rash or skin lesions. Psychiatric: Coperative. Anxious, emotional. Musculoskeletal: No joint swelling or deformity. Normal range of motion. - Labs CBC & Chem 7: 05/15/19 10:49 05/16/19 07:10 Labs: Abnormal Lab Results - Last 24 Hours (Table) 05/15/19 05/15/19 05/15/19 Range/Units 10:49 10:49 10:49 RBC 5.57 H (3.80-5.40) m/uL MCV 76.8 L (80.0-100.0) fL MCH 24.4 L (25.0-35.0) pg RDW 18.9 H (11.5-15.5) % INR 1.2 H (<1.2) Potassium 3.3 L (3.5-5.1) mmol/L Carbon Dioxide 19 L (22-30) mmol/L BUN (7-17) mg/dL Creatinine 1.14 H (0.52-1.04) mg/dL Glucose 105 H (74-99) mg/dL Calcium 10.3 H (8.4-10.2) mg/dL Magnesium 1.5 L (1.6-2.3) mg/dL 05/16/19 Range/Units 07:10 RBC (3.80-5.40) m/uL MCV (80.0-100.0) fL MCH (25.0-35.0) pg RDW (11.5-15.5) % INR (<1.2) Potassium (3.5-5.1) mmol/L Carbon Dioxide (22-30) mmol/L BUN 23 H (7-17) mg/dL Creatinine 1.43 H (0.52-1.04) mg/dL Glucose 154 H (74-99) mg/dL Calcium (8.4-10.2) mg/dL Magnesium 2.8 H (1.6-2.3) mg/dL Assessment and Plan Assessment: Intractable headache likely due to uncontrolled hypertension, subsided Hypertensive urgency, resolved Elevated BNP. Without evidence of leg swelling lung condition. Previous echocardiogram showed normal EF. History of DVT/PE. Currently on anticoagulation with Eliquis. Paroxysmal atrial fibrillation. Patient had one episode postoperatively. Hypothyroidism Hyperlipidemia Hypertension Osteoarthritis History of diverticulitis with perforation status post colectomy/colostomy reversal in August 2018. Previous history of smoking Anxiety Hypokalemia Hypomagnesemia Plan: Continue on current medication regime , Ativan, monitoring and symptomatic treatment. Maintain antihypertensive regimen, blood pressure well controlled. Maintain anticoagulation. Plan of care discussed at bedside with both patient and who verbalized understanding of and agreement with. Potassium and magnesium supplementation as per replacement protocols. Close monitoring of electrolytes, renal function with repeat follow-up labs in a.m. Continue monitor overnight, discharge planning in progress for tomorrow. The impression and plan of care has been dictated as directed. : I performed a history and examination of this patient, discussed the same with the dictator. I agree with the dictator's note ,documented as a scribe. Any additional findings or plans will be noted.
[2019-05-16] MEDS: ACETAMINOPHEN TAB 325 MG TAB PO PRN ×2 (13:35→20:46)
[2019-05-16] MEDS: HYDROcodone/APAP 5-325MG 1 EACH TAB PO PRN (22:01)
[2019-05-17] MEDS: HYDROcodone/APAP 5-325MG 1 EACH TAB PO PRN (05:22)
[2019-05-17] MEDS: LEVOTHYROXINE 100 MCG TAB PO SCH (05:23)
[2019-05-17 07:50] LABS: Calcium 9.3 mg/dL (8.4-10.2); Potassium 3.4 mmol/L (3.5-5.1)
[2019-05-17] MEDS: CHOLECALCIFEROL 1,000 UNIT TAB PO SCH (08:29)
[2019-05-17] MEDS: PANTOPRAZOLE 40 MG TABLET PO SCH (08:29)
[2019-05-17] MEDS: ATORVASTATIN 20 MG TAB PO SCH (08:29)
[2019-05-17] MEDS: LOSARTAN 50 MG TAB PO SCH (08:29)
[2019-05-17] MEDS: SODIUM BICARBONATE TAB 650 MG TAB PO SCH (08:29)
[2019-05-17] MEDS: amLODIPine 10 MG TAB PO SCH (08:29)
[2019-05-17] MEDS: ASPIRIN 81 MG PO SCH (08:29)
[2019-05-17] MEDS: METOPROLOL TARTRATE 25 MG TAB PO SCH ×2 (08:29→20:41)
[2019-05-17] MEDS: APIXABAN 5 MG TAB PO SCH ×2 (08:29→20:41)
[2019-05-17] MEDS: CITALOPRAM HYDROBROMIDE 10 MG TAB PO SCH (08:30)
[2019-05-17] MEDS: SODIUM CHLORIDE 0.9% 1,000 ML IV SCH (11:35)
--- NOTE | 2019-05-17 11:59 | P.CNNES ---
History of Present Illness Consult date: 05/17/19 Requesting physician: Sophia Bradford Reason for Consult: Headache Chief complaint: Headache History of Present Illness: This is a 78 RH female who did have migraines during her adult years until m enopause. She came into the hospital c/o a severe holocranial pressure-like pain up to 8/10. She was found to be markedly hypertensive, and primary team has been diligently working on BP control, which is now better. She did have a breakthrough headache last night that was of the same characteristics. It responded to a dose of Ativan. Currently, she only has a mild 3/10 headache. She also has h/o cervical spondylosis for which she wears a soft neck collar. She often feels pain that starts at the skull base with radiation to the bioccipital area. There is no associated photosonophobia. She did have N/V when her headache was severe. In general, she feels better now. Denies associated tongue/jaw claudication, pain on mastication or visual disturbance. No vertigo, diplopia, confusion, seizure, facial numbness or droop, bulbar symptoms, aphasia, focal numbness/weakness, tremors, bowel/bladder incontinence or ataxia. Trigger was apparently elevated BP and excessive neck movements. Alleviating factor is rest. She only started having these headaches 5 days ago and was ongoing daily lasting all day until her BP was adequately treated. Review of Systems I have performed a 14-point organ ROS with patient; pertinents are as per HPI. Past Medical History Past Medical History: Deep Vein Thrombosis (DVT), GERD/Reflux, Hyperlipidemia, Osteoarthritis (OA), Pulmonary Embolus (PE), Thyroid Disorder Additional Past Medical History / Comment(s): IBS, past rectal bleed/PROCTITIS, diverticulosis, COLON/gastric Polyps/ montague's esophagus in past, arthritis in neck/back bilateral shoulders & bilateral FINGERS, past R arm phlebitis, past liver cyst. SL LEAKY VALVE, GETS ECHO YEARLY. SEPSIS, COLOSTOMY D/T PERFORATION 05/20/18; HAS PEG TUBE; EPISODE OF AFIB POST-OP. EDEMA FEET. History of Any Multi-Drug Resistant Organisms: VRE Date of last positivie culture/infection: 06/12/18 MDRO Source:: VRE Past Surgical History: Bladder Surgery, Bowel Resection, Breast Surgery, Hysterectomy, Orthopedic Surgery Additional Past Surgical History / Comment(s): Hysterectomy with cystocele, R shoulder arthroscopy for rotator cuff repair and R shoulder arthrotomy for spur, L foot injured as child with surgical repair, EGDs/colonoscopies, R breast benign biopsy, bilateral cataract removal/lens implants. VARICOSE VEINS LASERED BOB. PICC LINE, THEN REMOVAL; COLOSTOMY 04/2018; PEG TUBE 06/10/18. Past Anesthesia/Blood Transfusion Reactions: Postoperative Nausea & Vomiting (PONV) Additional Past Anesthesia/Blood Transfusion Reaction / Comment(s): PONV X1. Past Psychological History: Unable to Obtain Additional Psychological History / Comment(s): ANXIETY BEGAN DURING [facility] HOSPITALIZATION 04/2018. Smoking Status: Former smoker Past Alcohol Use History: Unable to Obtain Additional Past Alcohol Use History / Comment(s): STARTED SMOKING AT AGE 17 QUIT AT AGE 43 SMOKED 1PPD Past Drug Use History: Unable to Obtain - Past Family History Mother Family Medical History: Cancer Additional Family Medical History / Comment(s): BREAST CANCER Father Family Medical History: Coronary Artery Disease (CAD) Medications and Allergies Home Medications Medication Instructions Recorded Confirmed Type Apixaban [Eliquis] 5 mg PO BID 05/12/18 05/15/19 History Acetaminophen Tab [Tylenol] 650 mg PO Q4HR PRN tab 06/14/18 05/15/19 Rx Aspirin 81 mg PO DAILY chew 06/14/18 05/15/19 Rx Levothyroxine Sodium [Synthroid] 100 mcg PO DAILY@0630 tab 06/14/18 05/15/19 Rx Losartan Potassium [Cozaar] 50 mg PO DAILY 08/25/18 05/15/19 History Rosuvastatin [Crestor] 10 mg PO DAILY 08/25/18 05/15/19 History amLODIPine [Norvasc] 10 mg PO DAILY 08/25/18 05/15/19 History Metoprolol Tartrate [Lopressor] 25 mg PO BID #60 tab 09/07/18 05/15/19 Rx Cholecalciferol [Vitamin D3 (25 1,000 unit PO DAILY 05/15/19 05/15/19 History Mcg = 1000 Iu)] Citalopram Hydrobromide [CeleXA] 10 mg PO DAILY 05/15/19 05/15/19 History Ferrous Sulfate [Feosol] 325 mg PO DAILY 05/15/19 05/15/19 History Hydrochlorothiazide [Hydrodiuril] 12.5 mg PO DAILY 05/15/19 05/15/19 History Omeprazole/Sodium Bicarbonate 1 cap PO DAILY 05/15/19 05/15/19 History [Omeppi 40 mg-1,100 mg Capsule] Allergies Allergy/AdvReac Type Severity Reaction Status Date / Time Penicillins Allergy RASH ON Verified 05/15/19 10:30 TONGUE sulfamethoxazole Allergy Vomiting Verified 05/15/19 10:30 [From Bactrim] trimethoprim [From Bactrim] Allergy Vomiting Verified 05/15/19 10:30 cephalexin monohydrate AdvReac Nausea Verified 05/15/19 10:30 [From Keflex] diazepam [From Valium] AdvReac PHLEBITIS Verified 05/15/19 10:30 IN RT ARM diphenhydramine AdvReac Unknown Verified 05/15/19 10:30 [From Benadryl] erythromycin base AdvReac Unknown Verified 05/15/19 10:30 Physical Examination - Vital Signs Vital Signs: Vital Signs Temp Pulse Resp BP Pulse Ox 05/17/19 08:38 96 05/17/19 08:10 18 05/17/19 07:37 98.2 F 59 L 122/83 93 L 05/17/19 03:59 18 05/17/19 01:55 98.0 F 63 18 156/80 94 L 05/17/19 00:57 15 05/16/19 20:00 16 05/16/19 19:53 98.0 F 70 17 108/64 94 L 05/16/19 15:00 98.8 F 71 16 122/55 98 05/16/19 13:42 80 118/74 Intake and Output 05/16/19 05/17/19 05/17/19 22:59 06:59 14:59 Intake Total 240 240 Balance 240 240 Intake: Oral 240 240 Other: Voiding Method Toilet Toilet Toilet # Voids 1 1 1 Gen NAD Pleasant and cooperative HEENT NCAT Sclera without icterus O/P clear Neck Soft neck collar on Cor RRR no m/r/g Lungs CTAB Abd Soft NTND +BS Ext Warm to touch No edema Neuro MS A+Ox4 Normal fluency Able to follow all commands CN PERRL VFF no APD EOMI no nystagmus or MAUREEN No facial asymmetry Masseter's symmetric Hearing intact to normal voice bilaterally Speech not dysarthric Equal elevation of palate Tongue midline Sym shrug and SCM bilaterally Motor Normal bulk/tone No pronator or tremors Strength 5/5 sym throughout Sens Intact to LT x4 No neglect or extinction Coord No dysmetria on FTN bilaterally DTRs 2+/4 sym throughout Toes downgoing bilaterally No clonus at achilles Gait Deferred Results - Laboratory Findings CBC and BMP: 05/15/19 10:49 05/17/19 06:57 Abnormal Lab Findings: Abnormal Labs 05/15/19 05/15/19 05/15/19 10:49 10:49 10:49 RBC 5.57 H MCV 76.8 L MCH 24.4 L RDW 18.9 H INR 1.2 H Potassium 3.3 L Carbon Dioxide 19 L BUN Creatinine 1.14 H Glucose 105 H Calcium 10.3 H Magnesium 1.5 L 05/16/19 05/17/19 07:10 06:57 RBC MCV MCH RDW INR Potassium 3.4 L Carbon Dioxide BUN 23 H 31 H Creatinine 1.43 H 1.41 H Glucose 154 H 101 H Calcium Magnesium 2.8 H - Diagnostic Findings Additional findings: CT Head wo cont 05/17/19. No ICH. Nil acute. I have reviewed neuroimages myself. Assessment and Plan Assessment: Acute headache in the setting of elevated BP. Her headache is likely mixed from elevated BP, muscle tension and possible occipital irritation. Her neuro exam is non-focal. Do not suspect other secondary causes of headache. Plan: -Tizanidine 2mg po q6h prn headache -Treat BP as per primary team -CT Head results d/w patient -No further inpatient neuro recs at this time. Stable for discharge from acute neuro standpoint. Please call with new ?. Thank you for this consultation. Time with Patient: Greater than 30 (Time spent in direct patient care, greater than 50% of which was spent in [id number] counseling and coordination of care: 70 minutes)
[2019-05-17 14:33] VITALS: BMI 26.9
--- NOTE | 2019-05-17 14:44 | P.PN ---
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 Patient says that she has been having headaches for the past 4 days and thinks it is due to her increased heart rate. Patient was found have SBP greater than 200 in the ER. Patient says that she woke up today and felt very short of breath and became very anxious. Patient was brought to the hospital by her family. No complaints of fever or chills. Patient does have cough without sputum production. No nausea vomiting or diarrhea. No abdominal pain. Denied any recent illnesses. Patient does have intractable headache currently and could not provide most of t he history. Family is at bedside. Patient was given hydralazine and enalapril IV in the ER with improvement in blood pressure. Patient was given a dose of IV Dilaudid. Chest x-ray showed mild cardiomegaly. CT head showed no acute intracranial abnormality. Mild degenerative changes. BNP 3320 Potassium 3.8 and magnesium 1.5 Urinalysis negative for infection 05/16/2019 Norvasc added back on antihypertensive regimen yesterday, blood pressure is well controlled. Headache has subsided. Telemetry atrial fibrillation, controlled ventricular rate. Electrolytes supplemented, potassium 3.6, magnesium 2.8. Mild elevation in creatinine, 1.43. Positive bowel movement. Vital signs stable, maintaining O2 sats in the high 90s on 2 L nasal cannula which can be weaned off. Receiving prn Ativan for anxieity. Denies chest pain, palpitations. Denies lightheadedness, dizziness or focal deficits. 05/17/2019 referring frontal headache started throughout the night, persists this morning. Denies diplopia. Denies nausea vomiting. BUN 31 and creatinine 1.41. Minimal fluid intake. Minimal ambulation with in room to bathroom. Denies chest pain, palpitations or shortness of breath. Maintaining O2 sats in the 90s on room air. Objective - Vital Signs Vital signs: Vital Signs Temp 98.6 F 05/17/19 13:32 Pulse 58 L 05/17/19 13:32 Resp 18 05/17/19 08:10 BP 148/70 05/17/19 13:32 Pulse Ox 94 L 05/17/19 13:32 Intake & Output 05/16/19 05/17/19 05/17/19 18:59 06:59 18:59 Intake Total 240 480 Balance 240 480 Intake: Oral 240 480 Other: Voiding Method Toilet Toilet # Voids 1 1 1 - Exam Patient is sitting up in bed, no acute distress, awake alert and oriented 3. HEENT: Normocephalic. Neck is supple. Pupils reactive. Nostrils clear. Oral cavity is moist. Tongue midline. Neck reveals no JVD, carotid bruits, or thyromegaly. CHEST EXAMINATION: Trachea is central. Symmetrical expansion. Lung arias clear to auscultation and percussion. CARDIAC: Normal S1, S2 with no gallops. No murmurs ABDOMEN: Soft. Nondistended, nontender, Bowel sounds normal. No organomegaly. Extremities: reveal no edema. No clubbing or cyanosis, no calf tenderness. Neurologically awake, alert, oriented x3 with well-coordinated movements. No facial symmetry. Speech fluent and appropriate. No focal deficits noted. Strength and sensation grossly intact. Skin: No rash or skin lesions. Psychiatric: Coperative. Calm. - Labs CBC & Chem 7: 05/15/19 10:49 05/17/19 06:57 Labs: Abnormal Lab Results - Last 24 Hours (Table) 05/17/19 Range/Units 06:57 Potassium 3.4 L (3.5-5.1) mmol/L BUN 31 H (7-17) mg/dL Creatinine 1.41 H (0.52-1.04) mg/dL Glucose 101 H (74-99) mg/dL Microbiology - Last 24 Hours (Table) 05/15/19 10:49 Blood Culture - Preliminary Blood No Growth after 48 hours Assessment and Plan Assessment: Intractable headache likely due to uncontrolled hypertension possible atypical migraine,Workup in progress Hypertensive urgency, resolved Elevated BNP. Without evidence of leg swelling lung condition. Previous echocardiogram showed normal EF. History of DVT/PE. Currently on anticoagulation with Eliquis. Paroxysmal atrial fibrillation. Patient had one episode postoperatively. Hypothyroidism Hyperlipidemia Hypertension Osteoarthritis History of diverticulitis with perforation status post colectomy/colostomy reversal in August 2018. Previous history of smoking Anxiety Hypokalemia Hypomagnesemia Plan: Continue on current medication regime , Ativan, monitoring and symptomatic treatment. Neurology consulted regarding recurrent headaches .IV fluids initiated at 50 MLS per hour secondary to renal function. Close monitoring of renal function with repeat labs ordered for a.m. Maintain antihypertensive regimen, blood pressure well controlled. Increase ambulation, as tolerated, up in chair for all meals. Discharge planning in progress for tomorrow. The impression and plan of care has been dictated as directed. : I performed a history and examination of this patient, discussed the same with the dictator. I agree with the dictator's note ,documented as a scribe. Any additional findings or plans will be noted.
[2019-05-18] MEDS: ACETAMINOPHEN TAB 325 MG TAB PO PRN (05:35)
[2019-05-18] MEDS: SODIUM CHLORIDE 0.9% 1,000 ML IV SCH (05:36)
[2019-05-18] MEDS: LEVOTHYROXINE 100 MCG TAB PO SCH (05:36)
[2019-05-18 07:57] LABS: Anisocytosis Slight; Basophils # (A) 0.1 k/uL (0-0.2); Basophils % (A) 1 %; Eosinophils # (A) 0.2 k/uL (0-0.7); Eosinophils % (A) 3 %; HCT 38.9 % (34.0-46.0); HGB 12.3 gm/dL (11.4-16.0); Hypochromasia Slight; Lymphocytes # (A) 1.5 k/uL (1.0-4.8); Lymphocytes % (A) 20 %; MCH 24.4 pg (25.0-35.0); MCHC 31.5 g/dL (31.0-37.0); MCV 77.3 fL (80.0-100.0); Microcytosis Moderate; Monocytes # (A) 0.7 k/uL (0-1.0); Monocytes % (A) 10 %; Neutrophils # (A) 4.7 k/uL (1.3-7.7); Neutrophils % (A) 64 %; Platelet Count 206 k/uL (150-450); RBC 5.03 m/uL (3.80-5.40); WBC 7.3 k/uL (3.8-10.6)
[2019-05-18 08:02] LABS: Calcium 9.1 mg/dL (8.4-10.2); Potassium 3.3 mmol/L (3.5-5.1)
[2019-05-18 08:25] VITALS: BP 161/81; PULSE 59; RESP 16; TEMP 97.3
[2019-05-18] MEDS: SODIUM BICARBONATE TAB 650 MG TAB PO SCH (09:32)
[2019-05-18] MEDS: amLODIPine 10 MG TAB PO SCH (09:32)
[2019-05-18] MEDS: CHOLECALCIFEROL 1,000 UNIT TAB PO SCH (09:34)
[2019-05-18] MEDS: ATORVASTATIN 20 MG TAB PO SCH (09:34)
[2019-05-18] MEDS: CITALOPRAM HYDROBROMIDE 10 MG TAB PO SCH (09:35)
[2019-05-18] MEDS: METOPROLOL TARTRATE 25 MG TAB PO SCH (09:35)
[2019-05-18] MEDS: APIXABAN 5 MG TAB PO SCH (09:35)
[2019-05-18] MEDS: PANTOPRAZOLE 40 MG TABLET PO SCH (09:35)
[2019-05-18] MEDS: LOSARTAN 50 MG TAB PO SCH (09:35)
[2019-05-18] MEDS: ASPIRIN 81 MG PO SCH (09:35)
--- NOTE | 2019-05-18 15:18 | P.DS ---
Providers Date of admission: 05/15/19 16:17 Expected date of discharge: 05/18/19 Attending physician: Cole Hernandez Consults: 05/17/19 09:39 Consult Physician Routine Consulting Provider: Mindy Carballo Consult Reason/Comments: Headaches Do you want consulting provider notified?: Yes Primary care physician: Cole Hernandez [place] [facility] Course: Final Diagnoses: Assessment: Intractable headache likely due to uncontrolled hypertension Hypertensive urgency, resolved Elevated BNP. Without evidence of leg swelling lung condition. Previous echocardiogram showed normal EF. History of DVT/PE. Currently on anticoagulation with Eliquis. Paroxysmal atrial fibrillation. Patient had one episode postoperatively. Hypothyroidism Hyperlipidemia Hypertension Osteoarthritis History of diverticulitis with perforation status post colectomy/colostomy reversal in August 2018. 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 Patient says that she has been having headaches for the past 4 days and thinks it is due to her increased heart rate. Patient was found have SBP greater than 200 in the ER. Patient says that she woke up today and felt very short of breath and became very anxious. Patient was brought to the hospital by her family. No complaints of fever or chills. Patient does have cough without sputum production. No nausea vomiting or diarrhea. No abdominal pain. Denied any r ecent illnesses. Patient does have intractable headache currently and could not provide most of the history. Family is at bedside. Patient was given hydralazine and enalapril IV in the ER with improvement in blood pressure. Patient was given a dose of IV Dilaudid. Chest x-ray showed mild cardiomegaly. CT head showed no acute intracranial abnormality. Mild degenerative changes. BNP 3320 Potassium 3.8 and magnesium 1.5 Urinalysis negative for infection 05/16/2019 Norvasc added back on antihypertensive regimen yesterday, blood pressure is well controlled. Headache has subsided. Telemetry atrial fibrillation, controlled ventricular rate. Electrolytes supplemented, potassium 3.6, magnesium 2.8. Mild elevation in creatinine, 1.43. Positive bowel movement. Vital signs stable, maintaining O2 sats in the high 90s on 2 L nasal cannula which can be weaned off. Receiving prn Ativan for anxieity. Denies chest pain, palpitations. Denies lightheadedness, dizziness or focal deficits. 05/17/2019 referring frontal headache started throughout the night, persists this morning. Denies diplopia. Denies nausea vomiting. BUN 31 and creatinine 1.41. Minimal fluid intake. Minimal ambulation with in room to bathroom. Denies chest pain, palpitations or shortness of breath. Maintaining O2 sats in the 90s on room air. Evaluated by neurology with headache, Tizanidine prn initiated with no further neuro recommendations at this time. Blood pressure controlled. Creatinine continues down to 1.11 Significant clinical improvement. Cleared by all consults for discharge. Patient is being discharged home in a stable condition with guarded prognosis. - Exam GENERAL:no acute distress, awake alert and oriented 3. CHEST EXAMINATION: Lung arias clear to auscultation and percussion. CARDIAC: Normal S1, S2 with no gallops. No murmurs ABDOMEN: Soft. Nondistended, nontender, Bowel sounds normal. Neurologically No focal deficits noted. The impression and plan of care has been dictated as directed. : I performed a history and examination of this patient, discussed the same with the dictator. I agree with the dictator's note ,documented as a scribe. Any additional findings or plans will be noted. Patient Condition at Discharge: Stable Plan - Discharge Summary Discharge Rx Participant: Yes New Discharge Prescriptions: New tiZANidine [Zanaflex] 2 mg PO TID PRN #12 tab PRN Reason: Headache Continue Apixaban [Eliquis] 5 mg PO BID Acetaminophen Tab [Tylenol] 650 mg PO Q4HR PRN tab PRN Reason: Fever and/ or Mild Pain Aspirin 81 mg PO DAILY chew Levothyroxine Sodium [Synthroid] 100 mcg PO DAILY@0630 tab Losartan Potassium [Cozaar] 50 mg PO DAILY amLODIPine [Norvasc] 10 mg PO DAILY Rosuvastatin [Crestor] 10 mg PO DAILY Metoprolol Tartrate [Lopressor] 25 mg PO BID #60 tab Ferrous Sulfate [Iron (65 MG Elemental)] 325 mg PO DAILY Citalopram Hydrobromide [CeleXA] 10 mg PO DAILY Cholecalciferol [Vitamin D3 (25 Mcg = 1000 Iu)] 1,000 unit PO DAILY Omeprazole/Sodium Bicarbonate [Omeppi 40 mg-1,100 mg Capsule] 1 cap PO DAILY Discharge Medication List Apixaban [Eliquis] 5 mg PO BID 05/12/18 [History] Acetaminophen Tab [Tylenol] 650 mg PO Q4HR PRN tab 06/14/18 [Rx] Aspirin 81 mg PO DAILY chew 06/14/18 [Rx] Levothyroxine Sodium [Synthroid] 100 mcg PO DAILY@0630 tab 06/14/18 [Rx] Losartan Potassium [Cozaar] 50 mg PO DAILY 08/25/18 [History] Rosuvastatin [Crestor] 10 mg PO DAILY 08/25/18 [History] amLODIPine [Norvasc] 10 mg PO DAILY 08/25/18 [History] Metoprolol Tartrate [Lopressor] 25 mg PO BID #60 tab 09/07/18 [Rx] Cholecalciferol [Vitamin D3 (25 Mcg = 1000 Iu)] 1,000 unit PO DAILY 05/15/19 [History] Citalopram Hydrobromide [CeleXA] 10 mg PO DAILY 05/15/19 [History] Ferrous Sulfate [Iron (65 MG Elemental)] 325 mg PO DAILY 05/15/19 [History] Omeprazole/Sodium Bicarbonate [Omeppi 40 mg-1,100 mg Capsule] 1 cap PO DAILY 05/15/19 [History] tiZANidine [Zanaflex] 2 mg PO TID PRN #12 tab 05/18/19 [Rx] Follow up Appointment(s)/Referral(s): Cole Hernandez DO [Primary Care Provider] - 1 Week (Office closed at time of discharge, please call and make appointment) Ambulatory/Diagnostic Orders: Basic Metabolic Panel [LAB.AMB] Time Frame: 3 Days, Location: None Selected Patient Instructions/Handouts: Heart Failure (DC), Acute Headache (DC), Chronic Hypertension (GEN), Hypertension (DC)
== END 2019-05-18 14:00 ==
LOC: EC 10:09 → 4SSUR 16:17
PROVIDERS: ADMIT Family Medicine; ATTEND Family Medicine
DX: R51 Headache (principal); I16.0 Hypertensive urgency; I11.9 Hypertensive heart disease without heart failure; I48.0 Paroxysmal atrial fibrillation; K21.9 Gastro-esophageal reflux disease without esophagitis; E78.5 Hyperlipidemia, unspecified; M19.90 Unspecified osteoarthritis, unspecified site; E87.6 Hypokalemia; E83.42 Hypomagnesemia; K22.70 Barrett's esophagus without dysplasia; K58.9 Irritable bowel syndrome, unspecified; K76.89 Other specified diseases of liver; R79.89 Other specified abnormal findings of blood chemistry; E03.9 Hypothyroidism, unspecified; R05 Cough; Z78.0 Asymptomatic menopausal state; M47.812 Spondylosis without myelopathy or radiculopathy, cervical region; Z91.14 Patient's other noncompliance with medication regimen; Z79.01 Long term (current) use of anticoagulants; Z79.890 Hormone replacement therapy; Z79.82 Long term (current) use of aspirin; Z79.899 Other long term (current) drug therapy; Z88.0 Allergy status to penicillin; Z88.1 Allergy status to other antibiotic agents; Z88.8 Allergy status to other drugs, medicaments and biological substances; Z88.2 Allergy status to sulfonamides; Z90.49 Acquired absence of other specified parts of digestive tract; Z87.891 Personal history of nicotine dependence; Z86.69 Personal history of other diseases of the nervous system and sense organs; Z86.711 Personal history of pulmonary embolism; Z86.718 Personal history of other venous thrombosis and embolism; Z16.21 Resistance to vancomycin; Z86.72 Personal history of thrombophlebitis; Z86.010 Personal history of colon polyps; Z87.19 Personal history of other diseases of the digestive system; Z98.42 Cataract extraction status, left eye; Z98.41 Cataract extraction status, right eye; Z96.1 Presence of intraocular lens; Z80.3 Family history of malignant neoplasm of breast; Z82.49 Family history of ischemic heart disease and other diseases of the circulatory system
CPT/HCPCS: 96376 ×4; 96366; 96367; 96365; 96375; 99285; 36415; 93005; 83880; 80053; 80048 ×3; 83605; 83735 ×2; 84484; 85025 ×2; 85610; 85730; 81003; 87040; 71046; 70450; G0378 ×4; J2060 ×2; J0360; J2765; J3480; J2405; J2270; J3475 ×2; J1170 ×2

== ENCOUNTER → 2019-05-31 | Outpatient (CLI) | payer MEDICARE ==
--- NOTE | 2019-05-31 14:34 | US ---
EXAMINATION TYPE: US kidneys/renal and bladder DATE OF EXAM: 05/31/2019 COMPARISON: CT abdomen dated 07/03/2018 CLINICAL HISTORY: R10.9 Abd pain, N20.0 Kidney stones. Hx renal cysts per CT. No hx of renal stones per patient. Left side pain x 1 week. Was on antibiotics for possible UTI. Nephrolithiasis and abd ominal pain. EXAM MEASUREMENTS: Right Kidney: 10.8 x 4.5 x 5.0 cm Left Kidney: 13.3 x 5.0 x 7.7 cm Right Kidney: Moderate right hydronephrosis. Multiple cystic appearing lesions visualized, largest me asured. Superior= 3.1 x 2.7 x 2.9 cm. Inferior = 2.5 x 1.4 x 2.0 cm. Left Kidney: Multiple cystic appearing lesions visualized, largest seen superior pole 11.1 x 8.1 x 7. 7 cm. Possible severe hydronephrosis visualized. Limited visualization of renal cortex and sinus du e to cyst and possible hydronephrosis. Bladder: distended, wnl Bilateral Jets seen No nephrolithiasis is seen. No suspicious masses are identified. The urinary bladder is anechoic. Bilateral ureteral jets are seen. IMPRESSION: 1. Moderate right hydronephrosis with multiple benign-appearing right renal cysts. 2. Contour of the left kidney is not clearly demarcated with numerous left renal cysts seen and possi ble severe left hydronephrosis. This could be better evaluated on CT.
== END | disposition home or self-care (01) ==
LOC: RADUSWWP 13:28
PROVIDERS: ATTEND Family Medicine
DX: N13.2 Hydronephrosis with renal and ureteral calculous obstruction (principal); N28.1 Cyst of kidney, acquired
CPT/HCPCS: 76770

== ENCOUNTER → 2019-06-07 | Outpatient (CLI) | payer MEDICARE ==
--- NOTE | 2019-06-07 15:14 | CT ---
EXAMINATION TYPE: CT abdomen pelvis wo con DATE OF EXAM: 06/07/2019 COMPARISON: Ultrasound kidneys 05/31/[address] abdomen 07/03/2018 HISTORY: Hematuria and LUQ pain CT DLP: 400.10 mGycm Automated exposure control for dose reduction was used. TECHNIQUE: Helical acquisition of images from the lung bases through the pelvis. FINDINGS: Lack of intravenous contrast could compromise sensitivity. There is a sizable hiatal hernia present. LUNG BASES: No significant abnormality is appreciated. AORTA: No significant abnormality is appreciataed. LIVER/GB: Hypodensities within the liver likely represent cysts and are similar to prior exam. PANCREAS: No significant abnormality is seen. SPLEEN: No significant abnormality is seen. ADRENALS: No significant abnormality is seen. KIDNEYS: Multiple cortical cysts present. The largest on the left measures approximately 10 to 11 cm in the upper pole in exophytic location and causes displacement of the left kidney. Additionally the medial aspect there is an additional cystic focus measuring 5.2 cm, lower pole shows a focus measurin g 5.7 cm extending in exophytic location. Laterally is smaller focus measures 2.1 cm inferiorly. The right kidney shows a probable parapelvic cyst centrally following pole measuring 2.5 cm. Upper pole c ystic foci measure 2.3 cm posteriorly and 2.3 cm anteriorly. There may be a ureteropelvic junction na rrowing on the right, the collecting system is prominent. Findings are similar to prior exam.. REPRODUCTIVE ORGANS: Not seen. URINARY BLADDER: No significant abnormality is seen. BOWEL: Postop changes noted to the bowel within the pelvis. FREE AIR: No Free Air is visible. ASCITES: None visible. PELVIC ADENOPATHY: None visualized. RETROPERITONEAL ADENOPATHY: No Retroperitoneal Adenopathy visible. OSSEOUS STRUCTURES: Scoliotic curvature noted to the lumbar spine. There are degenerative disc aguilar es and facet arthropathy. IMPRESSION: BILATERAL RENAL CYSTS SHOW SIMILAR APPEARANCE
== END | disposition home or self-care (01) ==
LOC: RADCTMAIN 13:06
PROVIDERS: ATTEND Urology
DX: N28.1 Cyst of kidney, acquired (principal)
CPT/HCPCS: 74176

== ENCOUNTER → 2020-07-11 | Outpatient (CLI) | payer MEDICARE ==
--- NOTE | 2020-07-11 11:56 | XR ---
Limited right hand HISTORY: Pain and swelling 3 views the right hand Bone mineralization is reduced. There is degenerative change at the intercarpal joint laterally withi n the mid carpal row, carpometacarpal joint of the first digit. Some hypertrophic change, subchondral sclerosis and joint space loss is present. Alignment is maintained. No fracture or dislocation. Dege nerative changes also present at the distal interphalangeal joint of the second digit. Soft tissue sw elling noted at the dorsal aspect of the metacarpal heads. IMPRESSION: Osteopenia, osteoarthritis.
--- NOTE | 2020-07-12 08:55 | XR ---
EXAMINATION TYPE: XR wrist complete RT DATE OF EXAM: 07/11/2020 COMPARISON: NONE HISTORY: Pain TECHNIQUE: Four views submitted. FINDINGS: The osseous structures are intact. Arthropathy of the MCP joints are noted and there is severe arthro margaret of the first carpometacarpal joint. Diffuse osteopenia. Mild narrowing of the radiocarpal joint . IMPRESSION: 1. Diffuse osteopenia with findings suggestive of osteoarthritis.
== END | disposition home or self-care (01) ==
LOC: RADXRMAIN 11:02
PROVIDERS: ATTEND Family Medicine
DX: M19.041 Primary osteoarthritis, right hand (principal); M85.841 Other specified disorders of bone density and structure, right hand

== ENCOUNTER → 2020-09-19 | Outpatient (CLI) | payer MEDICARE ==
[2020-09-19 11:16] LABS: HCT 42.5 % (34.0-46.0); HGB 14.1 gm/dL (11.4-16.0); MCH 26.7 pg (25.0-35.0); MCHC 33.1 g/dL (31.0-37.0); MCV 80.6 fL (80.0-100.0); Mean Platelet Volume 8.2; Platelet Count 219 k/uL (150-450); RBC 5.27 m/uL (3.80-5.40); RDW 14.2 % (11.5-15.5); WBC 6.2 k/uL (3.8-10.6)
== END | disposition home or self-care (01) ==
LOC: LABPAT 09:38
PROVIDERS: ATTEND Surgery
DX: Z01.818 Encounter for other preprocedural examination (principal); K43.0 Incisional hernia with obstruction, without gangrene; K43.9 Ventral hernia without obstruction or gangrene
CPT/HCPCS: 36415; 84132; 85027; 93005

== ENCOUNTER 2020-09-26 08:18 | Day surgery (SDC) | payer MEDICARE ==
[2020-09-24 14:16] VITALS: BMI 27.6
[~2020-09-26 08:18] MED LIST changes: +ACETAMINOPHEN TAB 500 MG TAB PO PRN; -DEXAMETHASONE SOD PHOSPHATE 10 MG/ML 1 ML VIAL IV ONE; +DEXAMETHASONE SOD PHOSPHATE 4 MG/ML 1 ML VIAL IV ONE; -HEPARIN SODIUM,PORCINE 5,000 UNIT/ML 1 ML VIAL SQ ONE; +HEPARIN SODIUM,PORCINE 5,000 UNIT/ML 1 ML VIAL SQ PRN; -HYDROmorphone 0.5 MG/0.5 ML SYRINGE IVP PRN; +LIDOCAINE 1% (10MG/ML) FOR IV START INTRADERMA PRN; -LIDOCAINE 1% 20 ML VIAL (10MG/ML) FOR IV START INTRADERMA PRN; -MIDAZOLAM (PF) 2 MG/2 ML VIAL IV PRN; +MIDAZOLAM 2 MG/2 ML VIAL IV PRN; -SCOPOLAMINE 1.5MG/72HR PATCH TRANSDERM ONE; -ceFAZolin IN SWFI 2 GM/20 ML SYRINGE IVP ONE; +fentaNYL (PF) 50 MCG/ML 2 ML AMP IVP PRN; -metroNIDAZOLE-NS PMX 500 MG in SALINE 1 100ML.BAG IVPB ONE
[2020-09-26] MEDS ORDERED: MIDAZOLAM 2 MG/2 ML VIAL IV ONE (09:29)
[2020-09-26] MEDS ORDERED: fentaNYL (PF) 50 MCG/ML 2 ML AMP IV ONE (09:29)
--- NOTE | 2020-09-26 10:26 | P.ANPRN ---
Procedure Note - Anesthesia - Nerve Block Performed Bilateral Transversus Abdominis Single Time Out Performed: Yes ([id number]) Date of Procedure: 09/26/20 Procedure Start Time: 09:30 Procedure Stop Time: 09:37 Location of Patient: PreOp Indication: Acute Post-Operative Pain, Requested by Surgeon Specifically requested for management of pain by DrEduardo: Jose Garcia Sedation Type: Sedate with meaningful contact maintained Preparation: Sterile Prep Position: Supine Catheter: None Needle Types: Pajunk Needle Gauge: 21 Ultrasound used to visualize needle placement: Yes Ultrasound used to observe medication spread: Yes Injectate: 0.5% Ropivacaine (see comment for volume) (15cc each side) Blood Aspirated: No Pain Paresthesia on Injection Noted: No Resistance on Injection: Normal Image Stored and Saved: Yes Events: Uneventful and Well Tolerated
--- NOTE | 2020-09-26 10:37 | P.GSHP ---
History of Present Illness H&P Date: 09/26/20 Chief Complaint: Incisional hernia This a 80-year-old female who presents today for laparoscopic robotic repair of incisional hernia. Patient's previous history of perforated diverticulitis with colostomy and then reversal colostomy. She developed an incisional hernia at t he superior portion of her scar. 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 SL LEAKY VALVE, GETS ECHO YEARLY. SEPSIS, COLOSTOMY D/T PERFORATION 05/20/18; EPISODE OF AFIB POST-OP. occasional EDEMA FEET. History of Any Multi-Drug Resistant Organisms: VRE Date of last positivie culture/infection: 06/12/18 MDRO Source:: VRE Past Surgical History: Bladder Surgery, Bowel Resection, Breast Surgery, Hysterectomy, Orthopedic Surgery Additional Past Surgical History / Comment(s): R shoulder arthroscopy for rotator cuff repair and R shoulder arthrotomy for spur, L foot injured as child with surgical repair, EGDs/colonoscopies, R breast benign biopsy, bilateral cataract removal/lens implants. VARICOSE VEINS LASERED BOB. PICC LINE, THEN REMOVAL; COLOSTOMY 04/2018; then reversed PEG TUBE 06/10/18, now removed Past Anesthesia/Blood Transfusion Reactions: Postoperative Nausea & Vomiting (PONV) Additional Past Anesthesia/Blood Transfusion Reaction / Comment(s): PONV X1. Smoking Status: Former smoker - Past Family History Mother Family Medical History: Cancer Additional Family Medical History / Comment(s): BREAST CANCER Father Family Medical History: Coronary Artery Disease (CAD) Medications and Allergies Home Medications Medication Instructions Recorded Confirmed Type Apixaban [Eliquis] 5 mg PO BID 05/12/18 09/26/20 History Levothyroxine Sodium [Synthroid] 100 mcg PO DAILY@0630 tab 06/14/18 09/26/20 Rx Rosuvastatin [Crestor] 10 mg PO DAILY 08/25/18 09/26/20 History amLODIPine [Norvasc] 10 mg PO QAM 08/25/18 09/26/20 History Metoprolol Tartrate [Lopressor] 25 mg PO BID #60 tab 09/07/18 09/26/20 Rx Losartan [Cozaar] 25 mg PO QAM 09/24/20 09/26/20 History Omeprazole/Sodium Bicarbonate 1 each PO DAILY 09/24/20 09/26/20 History [Zegerid 20 mg Capsule] hydroCHLOROthiazide [Hydrodiuril] 25 mg PO DAILY 09/24/20 09/26/20 History Allergies Allergy/AdvReac Type Severity Reaction Status Date / Time Penicillins Allergy RASH ON Verified 09/26/20 08:40 TONGUE sulfamethoxazole Allergy Vomiting Verified 09/26/20 08:40 [From Bactrim] trimethoprim [From Bactrim] Allergy Vomiting Verified 09/26/20 08:40 cephalexin monohydrate AdvReac Nausea Verified 09/26/20 08:40 [From Keflex] diazepam [From Valium] AdvReac PHLEBITIS Verified 09/26/20 08:40 IN RT ARM diphenhydramine AdvReac Unknown Verified 09/26/20 08:40 [From Benadryl] erythromycin base AdvReac Unknown Verified 09/26/20 08:40 Surgical - Exam Vital Signs Temp Pulse Resp BP Pulse Ox 97.9 F 67 16 138/79 97 09/26/20 08:43 09/26/20 08:43 09/26/20 08:43 09/26/20 08:43 09/26/20 08:43 - General well developed, well nourished, no distress - Eyes PERRL - ENT normal pinna - Neck no masses - Respiratory normal expansion - Cardiovascular Rhythm: regular - Abdomen Abdomen: soft, non tender Hernia: incisional (5 cm incisional hernia) Assessment and Plan Assessment: Incisional hernia. We'll perform laparoscopic robotic-assisted repair.
[2020-09-26] MEDS ORDERED: MIDAZOLAM 2 MG/2 ML VIAL ONE (10:44)
[2020-09-26] MEDS ORDERED: NEOSTIGMINE 1 MG/ML 10 ML VIAL ONE (10:44)
[2020-09-26] MEDS ORDERED: ePHEDrine SULFATE/0.9% NACL/PF 50 MG/5 ML SYRINGE IV ONE (10:44)
[2020-09-26] MEDS ORDERED: fentaNYL (PF) 50 MCG/ML 2 ML AMP ONE (10:44)
[2020-09-26] MEDS ORDERED: GLYCOPYRROLATE 0.2 MG/ML 2 ML VIAL ONE (10:44)
[2020-09-26] MEDS ORDERED: SUCCINYLCHOLINE CHLORIDE 100 MG/5 ML SYR IV ONE (10:44)
[2020-09-26] MEDS ORDERED: PROPOFOL 10 MG/ML 20 ML VIAL IV ONE (10:44)
[2020-09-26] MEDS ORDERED: LIDOCAINE 1% INJ 10MG/ML (20 ML MDV) ONE (10:44)
[2020-09-26] MEDS ORDERED: ROCURONIUM 10 MG/ML (10 ML VIAL) IV ONE (10:44)
[2020-09-26] MEDS ORDERED: BUPIVACAINE (PF) 0.25% 30 ML VIAL SQ ONE (11:43)
[2020-09-26] MEDS ORDERED: LACTATED RINGERS 1,000 ML IV ONE ×2 (11:49→12:08)
[2020-09-26] MEDS ORDERED: ONDANSETRON 4 MG/2 ML VIAL IVP PRN (12:08)
[2020-09-26] MEDS ORDERED: HYDROmorphone 0.5 MG/0.5 ML SYRINGE IVP PRN (12:08)
[2020-09-26] MEDS ORDERED: ACETAMINOPHEN TAB 325 MG TAB PO PRN (12:08)
[2020-09-26] MEDS ORDERED: HYDROcodone/APAP 5-325MG 1 EACH TAB PO PRN (12:08)
[2020-09-26] MEDS ORDERED: NALOXONE 0.4 MG/ML 1 ML VIAL IV PRN (12:08)
--- NOTE | 2020-09-26 12:08 | P.OP ---
Date of Procedure: 09/26/20 Preoperative Diagnosis: Incisional hernia Postoperative Diagnosis: Incarcerated incisional hernia Adhesions Procedure(s) Performed: Diagnostic laparoscopy Open Repair of incisional hernia with mesh Anesthesia: CAM Surgeon: Jose Garcia Estimated Blood Loss (ml): 10 Pathology: none sent Condition: stable Disposition: PACU Description of Procedure: The patient's placed on the operative table in supine position. She received general anesthesia. Her abdomen was prepped and draped usual sterile fashion. Using a 5 mL optical trocar in the right upper quadrant the. Cavity was entered. The antrum was insufflated after adequate insufflation the laparoscope was placed back. Cavity. There were significant adhesions seen throughout the peritoneal cavity. This point decided to perform an open repair of incisional hernia. The abdomen was insufflated the trochars withdrawn. The skin was incised along the midline scar. Then using electrocautery symptoms the subcu incision was divided and then the fascia exposed. The hernia defect encompassed mainly the upper portion of her incision. Fascia extremity was exposed. The fascia was then repaired #1 to fix suture. After the fascia was repaired. A piece of Prolene mesh placed over top the repair and secured with a supersharp tacker. A ALESHIA drains brought through separate stab incision. Major's fascia closed with 0 Vicryl. Skin was closed viktoriya. Patient top she will was sent to recovery room stable condition..
[2020-09-26] MEDS ORDERED: HYDROmorphone 0.5 MG/0.5 ML SYRINGE IVP ONE ×4 (12:27→13:49)
[2020-09-26] MEDS ORDERED: ONDANSETRON 4 MG/2 ML VIAL IVP ONE (12:56)
[2020-09-26] MEDS ORDERED: METOCLOPRAMIDE 5 MG/ML 2 ML VIAL IVP ONE (13:27)
[2020-09-26] MEDS: fentaNYL (PF) 50 MCG/ML 2 ML AMP IV ONE ×2 (14:20→14:32)
[2020-09-26 16:52] LABS: INR 1.1 (<1.2); Partial Thromboplastin Time 22.9 sec (22.0-30.0); Prothrombin Time 11.6 sec (9.0-12.0)
[2020-09-26] MEDS: KETOROLAC 15 MG/ML 1 ML VIAL IVP SCH (17:54)
[2020-09-26] MEDS: DOCUSATE 100 MG CAP PO SCH (20:49)
[2020-09-27] MEDS: KETOROLAC 15 MG/ML 1 ML VIAL IVP SCH ×3 (00:16→13:14)
[2020-09-27] MEDS: DOCUSATE 100 MG CAP PO SCH (07:49)
[2020-09-27] MEDS ORDERED: ATORVASTATIN 20 MG TAB PO SCH (09:00)
[2020-09-27] MEDS ORDERED: PANTOPRAZOLE SODIUM 40 MG GRANULE PKT PO SCH (09:00)
[2020-09-27] MEDS ORDERED: LOSARTAN 25 MG TAB PO SCH (09:00)
[2020-09-27] MEDS ORDERED: ENOXAPARIN 40 MG/0.4 ML SYRINGE SQ SCH (09:00)
[2020-09-27] MEDS ORDERED: METOPROLOL TARTRATE 25 MG TAB PO SCH (09:00)
--- NOTE | 2020-09-27 12:38 | P.CONS ---
History of Present Illness - Reason for Consult Consult date: 09/27/20 Medical management hypertension, hypothyroidism Requesting physician: Jose Garcia - Chief Complaint Incisional hernia, status post laparoscopic repair - History of Present Illness This is a 80-year-old female with past medical history of gastroesophageal reflux disease, DVT, hyperlipidemia, hypertension, osteoarthritis, PE, hypothyroidism, and multiple other medical issues presented for elective repair of incisional hernia. Tolerated procedure well. Diet initiated this morning, tolerated well with no nausea or vomiting. Passing flatus. Pain controlled on current regimen. Denies chest pain, palpitations or shortness of breath. Maintaining O2 sats in the 90s on 2 L nasal cannula. Afebrile. Review of Systems ROS Statement: Those systems with pertinent positive or pertinent negative responses have been documented in the HPI. ROS Other: All systems not noted in ROS Statement are negative. 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 SL LEAKY VALVE, GETS ECHO YEARLY. SEPSIS, COLOSTOMY D/T PERFORATION 05/20/18; EPISODE OF AFIB POST-OP. occasional EDEMA FEET. 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 VARICOSE VEINS LASERED BOB. PICC LINE, THEN REMOVAL; COLOSTOMY 04/2018; then reversed PEG TUBE 06/10/18, now removed Past Anesthesia/Blood Transfusion Reactions: Postoperative Nausea & Vomiting (PONV) Additional Past Anesthesia/Blood Transfusion Reaction / Comm: PONV X1. Past Psychological History: Anxiety Additional Psychological History / Comment(s): states no current medication Smoking Status: Former smoker Past Alcohol Use History: None Reported Additional Past Alcohol Use History / Comment(s): STARTED SMOKING AT AGE 17 QUIT AT AGE 43 SMOKED 1PPD Past Drug Use History: None Reported - Past Family History Mother Family Medical History: Cancer Additional Family Medical History / Comment(s): BREAST CANCER Father Family Medical History: Coronary Artery Disease (CAD) Medications and Allergies Home Medications Medication Instructions Recorded Confirmed Type Apixaban [Eliquis] 5 mg PO BID 05/12/18 09/26/20 History Levothyroxine Sodium [Synthroid] 100 mcg PO DAILY@0630 tab 06/14/18 09/26/20 Rx Rosuvastatin [Crestor] 10 mg PO DAILY 08/25/18 09/26/20 History amLODIPine [Norvasc] 10 mg PO QAM 08/25/18 09/26/20 History Metoprolol Tartrate [Lopressor] 25 mg PO BID #60 tab 09/07/18 09/26/20 Rx Losartan [Cozaar] 25 mg PO QAM 09/24/20 09/26/20 History Omeprazole/Sodium Bicarbonate 1 each PO DAILY 09/24/20 09/26/20 History [Zegerid 20 mg Capsule] hydroCHLOROthiazide [Hydrodiuril] 25 mg PO DAILY 09/24/20 09/26/20 History Docusate [Colace] 100 mg PO BID #30 capsule 09/27/20 Rx HYDROcodone/APAP 5-325MG [[place] 1 tab PO Q6HR PRN 3 Days #12 tab 09/27/20 Rx 5-325] Allergies Allergy/AdvReac Type Severity Reaction Status Date / Time Penicillins Allergy RASH ON Verified 09/26/20 08:40 TONGUE sulfamethoxazole Allergy Vomiting Verified 09/26/20 08:40 [From Bactrim] trimethoprim [From Bactrim] Allergy Vomiting Verified 09/26/20 08:40 cephalexin monohydrate AdvReac Nausea Verified 09/26/20 08:40 [From Keflex] diazepam [From Valium] AdvReac PHLEBITIS Verified 09/26/20 08:40 IN RT ARM diphenhydramine AdvReac Unknown Verified 09/26/20 08:40 [From Benadryl] erythromycin base AdvReac Unknown Verified 09/26/20 08:40 Physical Exam Vitals: Vital Signs Temp Pulse Resp BP Pulse Ox 09/27/20 07:46 98.3 F 72 18 131/75 94 L 09/27/20 02:00 97.8 F 67 18 124/69 93 L 09/26/20 19:45 97.5 F L 73 17 116/64 96 09/26/20 19:15 73 17 09/26/20 15:42 98 F 60 14 117/65 98 09/26/20 14:45 55 L 12 119/63 96 09/26/20 14:30 55 L 16 121/62 96 09/26/20 14:15 56 L 16 119/61 96 09/26/20 14:00 53 L 16 121/64 99 09/26/20 13:45 55 L 16 124/66 99 09/26/20 13:30 53 L 16 124/67 99 09/26/20 13:15 54 L 16 123/69 99 09/26/20 13:00 56 L 16 123/68 99 09/26/20 12:45 55 L 16 129/72 99 09/26/20 12:30 60 16 128/68 99 09/26/20 12:15 69 16 141/72 98 09/26/20 12:08 97.2 F L 87 16 113/81 98 09/26/20 09:42 56 L 16 142/71 97 09/26/20 08:43 97.9 F 67 16 138/79 97 Intake and Output 09/26/20 09/27/20 09/27/20 22:59 06:59 14:59 Intake Total 500 Output Total 30 Balance 500 -30 Intake: Intake, IV Titration 500 Amount Lactated Ringers 1,000 ml 500 @ 125 mls/hr IV .Q8H ONE Rx#:[id number] Output: Drainage 30 Abdomen 30 Other: # Voids 2 PHYSICAL EXAM: VITAL SIGNS: As above GENERAL: Sitting up in bed, no acute distress HEENT: Conjunctivae normal. eyes normal. Oral mucosa moist NECK: No JVD. No thyroid enlargement. No LNs CARDIOVASCULAR: S1, S2 regular.. No murmur RESPIRATION: Breath sounds diminished in the bases. No rhonchi or crackles. No bronchial breathing. ABDOMEN: Soft, status post surgery . Abdominal dressing clean dry and intact, ALESHIA with small amount of sanguinous drainage.No guarding. Bowel sounds heard. LEGS: No edema. no swelling PSYCHIATRY: Alert and oriented X3, mood and affect normal. NERVOUS SYSTEM: Cranial N 2-12 grossly normal. Moves all 4 limbs. No focal deficits. Strength and sensation grossly intact.. Skin: Warm and dry, no rash Lymphatic system. No LN neck axilla. Assessment and Plan Assessment: Incisional hernia, status post diagnostic laparoscopy with open repair Acute hypoxic respiratory failure, postoperative History of DVT, PE anticoagulated on Eliquis-on hold. Chronic Paroxysmal atrial fibrillation. Hypothyroidism Hyperlipidemia Hypertension Osteoarthritis History of diverticulitis with perforation status post colectomy/colostomy reversal in August 2018. History of nicotine dependence Anxiety Plan: Continue on current medication regime ,monitoring and symptomatic treatment. Labs ordered/pending. Eliquis to be resumed as soon as surgery clears. Diet advancement /pain management as per surgery.Increase ambulation as tolerated. Aggressive pulmonary toileting with incentive spirometer. Thank you to Dr. Garcia for the consult. The impression and plan of care has been dictated as directed. : I performed a history and examination of this patient, discussed the same with the dictator. I agree with the dictator's note ,documented as a scribe. Any additional findings or plans will be noted.
--- NOTE | 2020-09-27 12:40 | P.DS ---
Providers Expected date of discharge: 09/27/20 Attending physician: Jose Garcia Consults: 09/26/20 12:08 Consult Physician Routine Consulting Provider: Cole Hernandez Consult Reason/Comments: Medical management Do you want consulting provider notified?: Yes Primary care physician: Cole Hernandez Hospital Course: Discharge diagnosis 1. Incarcerated incisional hernia and adhesions status post diagnostic la paroscopy and open repair of incisional hernia with mesh Hospital course This is a 80-year-old female previous history of perforated diverticulitis with colostomy and then reversal colostomy. She developed an incisional hernia at the superior portion of her scar. Patient is status post diagnostic laparoscopy and open repair of incisional hernia with mesh. Patient tolerated surgery well. Pain is controlled. She is tolerating diet. She is up and ambulating. She is afebrile. She is stable for discharge. Physician Natural [employer] Engineer note has been reviewed by physician. Signing provider agrees with the documented findings, assessment, and plan of care. Patient Condition at Discharge: Stable Plan - Discharge Summary Discharge Rx Participant: Yes New Discharge Prescriptions: New Docusate [Colace] 100 mg PO BID #30 capsule HYDROcodone/APAP 5-325MG [[place] 5-325] 1 tab PO Q6HR PRN 3 Days #12 tab PRN Reason: Pain Continue Apixaban [Eliquis] 5 mg PO BID Levothyroxine Sodium [Synthroid] 100 mcg PO DAILY@0630 tab amLODIPine [Norvasc] 10 mg PO QAM Rosuvastatin [Crestor] 10 mg PO DAILY Metoprolol Tartrate [Lopressor] 25 mg PO BID #60 tab hydroCHLOROthiazide [Hydrodiuril] 25 mg PO DAILY Omeprazole/Sodium Bicarbonate [Zegerid 20 mg Capsule] 1 each PO DAILY Losartan [Cozaar] 25 mg PO QAM Discharge Medication List Apixaban [Eliquis] 5 mg PO BID 05/12/18 [History] Levothyroxine Sodium [Synthroid] 100 mcg PO DAILY@0630 tab 06/14/18 [Rx] Rosuvastatin [Crestor] 10 mg PO DAILY 08/25/18 [History] amLODIPine [Norvasc] 10 mg PO QAM 08/25/18 [History] Metoprolol Tartrate [Lopressor] 25 mg PO BID #60 tab 09/07/18 [Rx] Losartan [Cozaar] 25 mg PO QAM 09/24/20 [History] Omeprazole/Sodium Bicarbonate [Zegerid 20 mg Capsule] 1 each PO DAILY 09/24/20 [History] hydroCHLOROthiazide [Hydrodiuril] 25 mg PO DAILY 09/24/20 [History] Docusate [Colace] 100 mg PO BID #30 capsule 09/27/20 [Rx] HYDROcodone/APAP 5-325MG [[place] 5-325] 1 tab PO Q6HR PRN 3 Days #12 tab 09/27/20 [Rx] Follow up Appointment(s)/Referral(s): Cole Hernandez DO [Primary Care Provider] - 10/05/20 11:20 am Jose Garcia MD [STAFF PHYSICIAN] - 10/04/20 2:00 pm Activity/Diet/Wound Care/Special Instructions: Send home with IS, Q1H [place] No driving while taking Hope No lifting over 10 pounds You may shower. No soaking or tub baths for 2 weeks Very light activity until you are reevaluated at your follow up appointment with your surgeon Keep a log of ALESHIA drain output and bring with you to your follow-up appointment Milk/strip drains 2-3 times a day Discharge Disposition: HOME SELF-CARE
[2020-09-27] MEDS ORDERED: CALCIUM CARBONATE 500 MG CHEWABLE PO PRN (13:05)
[2020-09-27 14:44] VITALS: BP 146/84; PULSE 74; RESP 20; TEMP 98.2
[2020-09-27 19:14] LABS: Basophils # (A) 0.03 X 10*3/uL (0.00-0.10); Basophils % (A) 0.2 %; Eosinophils # (A) 0 X 10*3/uL (0.04-0.35); Eosinophils % (A) 0 %; HCT 38.3 % (37.2-46.3); HGB 12.2 g/dL (12.0-15.0); Lymphocytes # (A) 1.52 X 10*3/uL (0.90-5.00); Lymphocytes % (A) 10.7 %; MCH 26.2 pg (27.0-32.0); MCHC 31.9 g/dL (32.0-37.0); MCV 82.4 fL (80.0-97.0); Mean Platelet Volume 11.1 fL (9.5-12.2); Monocytes # (A) 1.25 X 10*3/uL (0.20-1.00); Monocytes % (A) 8.8 %; Neutrophils # (A) 11.33 X 10*3/uL (1.80-7.70); Neutrophils % (A) 79.9 %; Platelet Count 216 X 10*3/uL (140-440); RBC 4.65 X 10*6/uL (4.10-5.20); RDW 14.6 % (11.5-14.5); WBC 14.18 X 10*3/uL (4.50-10.00)
[2020-09-27 22:58] LABS: African American GFR (CKD) 38.3 (60.0-200.0); Anion Gap 13.3 mmol/L (4.00-12.00); BUN/Creat Ratio 18.67 Ratio (12.00-20.00); Calcium 9.2 mg/dL (8.7-10.3); Carbon Dioxide 25.7 mmol/L (21.6-31.8); Magnesium 1.6 mg/dL (1.5-2.4); Potassium 3.2 mmol/L (3.5-5.5)
[2020-09-28] MEDS ORDERED: LEVOTHYROXINE 100 MCG TAB PO SCH (06:30)
== END 2020-09-27 17:38 | disposition home or self-care (01) ==
LOC: OR 08:18 → 4SSUR 12:08 → OR 09-27 17:38
PROVIDERS: ATTEND Surgery
DX: K43.0 Incisional hernia with obstruction, without gangrene (principal); Z53.31 Laparoscopic surgical procedure converted to open procedure; K66.0 Peritoneal adhesions (postprocedural) (postinfection); I10 Essential (primary) hypertension; J96.01 Acute respiratory failure with hypoxia; I48.0 Paroxysmal atrial fibrillation; E03.9 Hypothyroidism, unspecified; F41.9 Anxiety disorder, unspecified; E78.5 Hyperlipidemia, unspecified; K21.9 Gastro-esophageal reflux disease without esophagitis; M19.90 Unspecified osteoarthritis, unspecified site; K57.90 Diverticulosis of intestine, part unspecified, without perforation or abscess without bleeding; Z86.711 Personal history of pulmonary embolism; Z86.718 Personal history of other venous thrombosis and embolism; Z87.19 Personal history of other diseases of the digestive system; Z90.710 Acquired absence of both cervix and uterus; Z90.49 Acquired absence of other specified parts of digestive tract; Z86.19 Personal history of other infectious and parasitic diseases; Z98.890 Other specified postprocedural states; Z98.41 Cataract extraction status, right eye; Z98.42 Cataract extraction status, left eye; Z96.1 Presence of intraocular lens; Z87.891 Personal history of nicotine dependence; Z80.3 Family history of malignant neoplasm of breast; Z82.49 Family history of ischemic heart disease and other diseases of the circulatory system; Z79.01 Long term (current) use of anticoagulants; Z79.890 Hormone replacement therapy; Z79.899 Other long term (current) drug therapy; Z88.0 Allergy status to penicillin; Z88.1 Allergy status to other antibiotic agents; Z88.2 Allergy status to sulfonamides; Z88.8 Allergy status to other drugs, medicaments and biological substances
CPT/HCPCS: 64488; 80048; 83735; 85025; 85610; 85730; 49561; 49568; C1781; J2250; J1644; J1100; J2710; J2765; J0690; J2405; J2001; J1650; J3010; J1885 ×2; J0330; J2704; J1170; 86850; 86900; 86901

== ENCOUNTER → 2020-11-28 | Outpatient (CLI) | payer MEDICARE ==
[2020-11-28 13:27] LABS: Appearance,Urine Clear (Clear); Bilirubin,Urine Negative (Negative); Blood,Urine Negative (Negative); Color,Urine Yellow; Glucose,Urine (UA) Negative (Negative); Ketones,Urine Negative (Negative); Leukocyte Esterase,Urine Negative (Negative); Nitrite,Urine Negative (Negative); Protein,Urine Negative (Negative); Specific Gravity,Urine 1.013 (1.001-1.035); Urobilinogen,Urine <2.0 mg/dL (<2.0)
[2020-11-28 13:50] LABS: Creatinine,Urine Random 169.3 mg/dL; Protein/Creatinine Ratio,Urine 0.053
[2020-11-28 15:59] LABS: Basophils # (A) 0.07 X 10*3/uL (0.00-0.10); Basophils % (A) 1.2 %; Eosinophils # (A) 0.16 X 10*3/uL (0.04-0.35); Eosinophils % (A) 2.7 %; HGB 13.3 g/dL (12.0-15.0); Lymphocytes # (A) 1.67 X 10*3/uL (0.90-5.00); Lymphocytes % (A) 28.4 %; MCH 26.3 pg (27.0-32.0); MCHC 31.7 g/dL (32.0-37.0); MCV 83.2 fL (80.0-97.0); Mean Platelet Volume 11.6 fL (9.5-12.2); Monocytes # (A) 0.63 X 10*3/uL (0.20-1.00); Monocytes % (A) 10.7 %; Neutrophils # (A) 3.34 X 10*3/uL (1.80-7.70); Neutrophils % (A) 56.7 %; Platelet Count 231 X 10*3/uL (140-440); RBC 5.05 X 10*6/uL (4.10-5.20); RDW 14.8 % (11.5-14.5); WBC 5.89 X 10*3/uL (4.50-10.00)
[2020-11-28 21:11] LABS: % Iron Saturation 10.64 (12.00-45.00); African American GFR (CKD) 38.3 (60.0-200.0); Albumin 4.5 g/dL (3.80-4.90); Anion Gap 15.1 mmol/L (4.00-12.00); BUN/Creat Ratio 16.67 Ratio (12.00-20.00); Calcium 9.7 mg/dL (8.7-10.3); Carbon Dioxide 21.9 mmol/L (21.6-31.8); Magnesium 1.5 mg/dL (1.5-2.4); Phosphorus 3.8 mg/dL (2.4-5.1); Potassium 3.6 mmol/L (3.5-5.5); Uric Acid 7.7 mg/dL (2.9-7.7)
[2020-11-28 21:21] LABS: Ferritin 11.5 ng/mL (10.0-291.0)
== END | disposition home or self-care (01) ==
LOC: LABWHC1 10:24
PROVIDERS: ATTEND Nurse Practitioner Family
DX: E55.9 Vitamin D deficiency, unspecified (principal); N39.0 Urinary tract infection, site not specified; N18.32 Chronic kidney disease, stage 3b; N25.81 Secondary hyperparathyroidism of renal origin; D64.9 Anemia, unspecified; M10.9 Gout, unspecified
CPT/HCPCS: 36415; 80048; 81003; 82040; 82306; 82570; 82728; 83540; 83550; 83735; 83970; 84100; 84156; 84550; 85025

== ENCOUNTER 2021-03-08 20:25 | Inpatient (IN) | payer MEDICARE ==
--- NOTE | 2021-03-08 21:00 | ED ---
Abdominal Pain HPI - General Source: patient, RN notes reviewed, old records reviewed Mode of arrival: ambulatory Limitations: no limitations - History of Present Illness MD Complaint: abdominal pain -: month(s) (1) Radiation: none Severity scale (1-10): 0 Consistency: now resolved Worsens With: eating Associated Symptoms: nausea, vomiting Treatments Prior to Arrival: other (Transfer from [facility]) <Brooks Curry - Last Filed: 03/08/21 21:02> <Bailey Gregory - Last Filed: 03/11/21 00:02> - General Chief Complaint: Abdominal Pain Stated Complaint: gallbladder pain - History of Present Illness Initial Comments: 80-year-old white female, alert and oriented 4, presents to the emergency room after being transferred from [facility]. Patient states that she went to the hospital after having pain today around 12:30. Patient states that she woke up this morning went to [employer] for breakfast around 8:30 and then at around 12:30 or 1:00 she started to have some abdominal pain. She tho ught she needed to eat something, so she ate 15 cheetoes and then she had worsening pain and started to vomit. Patient states that she hadn't eaten very much so vomitus was mostly phlegm. She states that the pain has been coming and going and has had 4 attacks this month. At [facility], Patient was found to have on ultrasound a 1 cm common bile duct and gallbladder wall thickening with large pancreatic cysts. Patient was transferred here with a recommendation for an MRCP. (Brooks Curry) - Related Data Home Medications Medication Instructions Recorded Confirmed Apixaban [Eliquis] 5 mg PO BID 05/12/18 03/08/21 Rosuvastatin [Crestor] 10 mg PO DAILY 08/25/18 03/08/21 amLODIPine [Norvasc] 10 mg PO DAILY 08/25/18 03/08/21 Omeprazole/Sodium Bicarbonate 1 cap PO DAILY 09/24/20 03/08/21 [Zegerid 20 mg Capsule] hydroCHLOROthiazide [Hydrodiuril] 25 mg PO DAILY 09/24/20 03/08/21 Citalopram Hydrobromide [CeleXA] 5 mg PO DAILY 03/08/21 03/08/21 Ergocalciferol [Vitamin D2 (1250 1,250 mcg PO TU 03/08/21 03/08/21 Mcg = 28181 Iu)] Levothyroxine Sodium 88 mcg PO DAILY 03/08/21 03/08/21 Losartan [Cozaar] 25 mg PO DAILY 03/08/21 03/08/21 Previous Rx's Medication Instructions Recorded Metoprolol Tartrate [Lopressor] 25 mg PO BID #60 tab 09/07/18 Allergies Allergy/AdvReac Type Severity Reaction Status Date / Time Penicillins Allergy RASH ON Verified 09/26/20 08:40 TONGUE sulfamethoxazole Allergy Vomiting Verified 09/26/20 08:40 [From Bactrim] trimethoprim [From Bactrim] Allergy Vomiting Verified 09/26/20 08:40 cephalexin monohydrate AdvReac Nausea Verified 09/26/20 08:40 [From Keflex] diazepam [From Valium] AdvReac PHLEBITIS Verified 09/26/20 08:40 IN RT ARM diphenhydramine AdvReac Unknown Verified 09/26/20 08:40 [From Benadryl] erythromycin base AdvReac Unknown Verified 09/26/20 08:40 Review of Systems ROS Other: All systems not noted in ROS Statement are negative. <Brooks Curry - Last Filed: 03/08/21 21:02> ROS Other: All systems not noted in ROS Statement are negative. <Bailey Gregory - Last Filed: 03/11/21 00:02> ROS Statement: Those systems with pertinent positive or pertinent negative responses have been documented in the HPI. Past Medical History Past Medical History: Deep Vein Thrombosis (DVT), GERD/Reflux, Hyperlipidemia, Osteoarthritis (OA), Pulmonary Embolus (PE), Thyroid Disorder Additional Past Medical History / Comment(s): IBS, past rectal bleed/PROCTITIS, diverticulosis, COLON/gastric Polyps/ montague's esophagus in past, arthritis in neck/back bilateral shoulders & bilateral FINGERS, past R arm phlebitis, past liver cyst. SL LEAKY VALVE, GETS ECHO YEARLY. SEPSIS, COLOSTOMY D/T PERFORATION 05/20/18; HAS PEG TUBE; EPISODE OF AFIB POST-OP. EDEMA FEET. History of Any Multi-Drug Resistant Organisms: VRE Date of last positivie culture/infection: 06/12/18 MDRO Source:: VRE Past Surgical History: Bladder Surgery, Bowel Resection, Breast Surgery, Hysterectomy, Orthopedic Surgery Additional Past Surgical History / Comment(s): Hysterectomy with cystocele, R shoulder arthroscopy for rotator cuff repair and R shoulder arthrotomy for spur, L foot injured as child with surgical repair, EGDs/colonoscopies, R breast benign biopsy, bilateral cataract removal/lens implants. VARICOSE VEINS LASERED BOB. PICC LINE, THEN REMOVAL; COLOSTOMY 04/2018; PEG TUBE 06/10/18. Past Anesthesia/Blood Transfusion Reactions: Postoperative Nausea & Vomiting (PONV) Additional Past Anesthesia/Blood Transfusion Reaction / Comment(s): PONV X1. Past Psychological History: Unable to Obtain Smoking Status: Never smoker Past Alcohol Use History: Unable to Obtain Past Drug Use History: Unable to Obtain - Past Family History Mother Family Medical History: Cancer Additional Family Medical History / Comment(s): BREAST CANCER Father Family Medical History: Coronary Artery Disease (CAD) <Brooks Curry - Last Filed: 03/08/21 21:02> General Exam Limitations: no limitations General appearance: alert, in no apparent distress Head exam: Present: atraumatic, normocephalic, normal inspection Eye exam: Present: normal appearance, PERRL, EOMI. Absent: scleral icterus, conjunctival injection, periorbital swelling Pupils: Present: normal accommodation ENT exam: Present: normal exam, normal oropharynx, mucous membranes moist Neck exam: Present: normal inspection, full ROM. Absent: tenderness, meningismus, lymphadenopathy, thyromegaly Respiratory exam: Present: normal lung sounds bilaterally. Absent: respiratory distress, wheezes, rales, rhonchi, stridor, chest wall tenderness, accessory muscle use, decreased breath sounds, prolonged expiratory Cardiovascular Exam: Present: regular rate, normal rhythm, normal heart sounds. Absent: systolic murmur, diastolic murmur, rubs, gallop, clicks GI/Abdominal exam: Present: soft, normal bowel sounds. Absent: distended, tenderness, guarding, rebound, rigid, organomegaly, mass, hernia Extremities exam: Present: normal inspection, full ROM, normal capillary refill. Absent: tenderness, pedal edema, joint swelling, calf tenderness Back exam: Present: normal inspection, full ROM. Absent: tenderness, CVA tenderness (R), CVA tenderness (L), muscle spasm, paraspinal tenderness, vertebral tenderness, rash noted Neurological exam: Present: alert, oriented X3, CN II-XII intact Psychiatric exam: Present: normal affect, normal mood Skin exam: Present: warm, dry, intact, normal color. Absent: rash, cyanosis, diaphoretic, erythema, petechiae, pallor, mottled <Brooks Curry - Last Filed: 03/08/21 21:02> Course Vital Signs 03/08/21 03/08/21 20:28 21:45 Temperature 98.7 F Pulse Rate 71 64 Respiratory 16 18 Rate Blood Pressure 140/76 134/72 O2 Sat by Pulse 98 95 Oximetry Medical Decision Making <Brooks Curry - Last Filed: 03/08/21 21:02> - Lab Data Result diagrams: 03/10/21 05:57 03/10/21 05:57 <Bailey Gregory - Last Filed: 03/11/21 00:02> - Medical Decision Making CT the abdomen and pelvis with contrast from [place] shows common bile duct dilation with mild gallbladder wall thickening. There are several cystic lesions in the liver, kidneys and pancreas. The largest cyst measures 21 x 22 mm in the head. This could be related to the common bile duct dilation and was recommended for MRCP. patient has no pain at this time, she denies any nausea. Abdomen is soft, patient is afebrile, vital signs are stable. Case discussed with Dr. Gregory, will admit patient with consult to surgery and GI.. (Brooks Curry) I was available for consultation in the emergency department. The history and physical exam were done by the midlevel provider. I was consulted for this [facility] care. I reviewed the case with the midlevel provider and based on their presentation of the patient, I agree with the assessment, medical decision making and plan of care as documented. Chart was dictated using [employer] dictation software. Attempts were made to correct any dictation errors however some typographical errors may persist. (Bailey Gregory) Disposition Decision Date: 03/08/21 Decision Time: 21:05 <Brooks Curry - Last Filed: 03/08/21 21:02> <Bailey Gregory - Last Filed: 03/11/21 00:02> Clinical Impression: Common bile duct dilatation, Pancreatic cyst Disposition: ADMITTED IP TO THIS [facility] Condition: Good
[2021-03-08] MEDS ORDERED: NALOXONE 0.4 MG/ML 1 ML VIAL IV PRN (21:11)
[2021-03-08] MEDS ORDERED: FAMOTIDINE 20 MG/2 ML VIAL IV STA (21:15)
[2021-03-08] MEDS: SODIUM CHLORIDE 0.9% 1,000 ML IV SCH (21:45)
[2021-03-08] MEDS: APIXABAN 5 MG TAB PO SCH (22:11)
[2021-03-08] MEDS: METOPROLOL TARTRATE 25 MG TAB PO SCH (22:12)
[2021-03-08 23:52] LABS: Basophils # (A) 0.1 k/uL (0-0.2); Basophils % (A) 1 %; Eosinophils % (A) 1 %; HCT 37.5 % (34.0-46.0); HGB 12.2 gm/dL (11.4-16.0); Lymphocytes # (A) 1.3 k/uL (1.0-4.8); Lymphocytes % (A) 22 %; MCH 26.1 pg (25.0-35.0); MCHC 32.4 g/dL (31.0-37.0); MCV 80.6 fL (80.0-100.0); Mean Platelet Volume 7.8; Monocytes # (A) 0.5 k/uL (0-1.0); Monocytes % (A) 9 %; Neutrophils # (A) 3.7 k/uL (1.3-7.7); Neutrophils % (A) 65 %; Platelet Count 190 k/uL (150-450); RBC 4.65 m/uL (3.80-5.40); RDW 14.2 % (11.5-15.5); WBC 5.8 k/uL (3.8-10.6)
[2021-03-09 00:04] LABS: Potassium 3.1 mmol/L (3.5-5.1)
[2021-03-09 00:05] LABS: African American GFR (CKD) 46 (>60 ml/min/1.73 sqM); Anion Gap 10 mmol/L; Blood Urea Nitrogen 25 mg/dL (7-17); Calcium 9.4 mg/dL (8.4-10.2); Carbon Dioxide 24 mmol/L (22-30); Chloride 105 mmol/L (98-107); Glucose 101 mg/dL (74-99); Non-African American GFR(CKD) 40 (>60 ml/min/1.73 sqM); Sodium 139 mmol/L (137-145)
[2021-03-09] MEDS ORDERED: Potassium Replacement Protocol 1 EACH MISC MISCELLANE PRN (01:04)
[2021-03-09] MEDS: POTASSIUM CHLORIDE ER 20 MEQ TAB.ER PO SCH ×2 (04:42→05:42)
[2021-03-09] MEDS: LEVOTHYROXINE 88 MCG TAB PO SCH (07:06)
[2021-03-09 07:45] LABS: Potassium 3.5 mmol/L (3.5-5.1)
[2021-03-09] MEDS: ATORVASTATIN 20 MG TAB PO SCH (08:52)
[2021-03-09] MEDS: LOSARTAN 25 MG TAB PO SCH (08:52)
[2021-03-09] MEDS: amLODIPine 10 MG TAB PO SCH (08:52)
[2021-03-09] MEDS: APIXABAN 5 MG TAB PO SCH ×2 (08:52→21:13)
[2021-03-09] MEDS: hydroCHLOROthiazide 25 MG TAB PO SCH (08:52)
[2021-03-09] MEDS: CITALOPRAM HYDROBROMIDE 10 MG TAB PO SCH (08:52)
[2021-03-09] MEDS: METOPROLOL TARTRATE 25 MG TAB PO SCH (08:52)
[2021-03-09] MEDS ORDERED: OMEPRAZOLE PO SCH (09:00)
[2021-03-09] MEDS ORDERED: METOPROLOL TARTRATE 25 MG TAB PO SCH (09:00)
[2021-03-09] MEDS ORDERED: SODIUM BICARBONATE PO SCH (09:00)
[2021-03-09] MEDS ORDERED: APIXABAN 5 MG TAB PO SCH (09:00)
[2021-03-09] MEDS ORDERED: [UNRECOGNIZED DRUG - OTHER] PO SCH (09:00)
--- NOTE | 2021-03-09 10:04 | P.GSCN ---
History of Present Illness Consult date: 03/09/21 History of present illness: 80-year-old female presents as a transfer from an outside facility secondary to imaging finding of common bile duct dilation and pancreatic cysts. Patient states that [place] and began having upper abdominal pain that was significant. She states that she has had similar attacks previously, however this one was the worst. She states that she had [employer] breakfast and went to the casino with her and upon leaving, began having some abdominal pain. She initially thought these were hunger pains and tried eating Cheetos, and this worsened her pain. Secondary to her pain, she presented to the emergency department and [place]. She states that on her arrival she began dry heaving and having phlegm-type vomiting. She states that after vomiting, she immediately felt better. On workup in [place], ultrasound of the abdomen was performed that did show a dilated common bile duct and distended gallbladder with a 9 mm focus concerning for a gallbladder polyp. She also had a CT of the abdomen and pelvis that was concerning of liver and pancreatic cysts with unknown etiology. It is unclear whether the cyst is causing the common bile duct dilation according to the report. Further evaluation was recommended with MRCP. At this time, the patient denies any abdominal pain. She denies any nausea or vomiting. She is currently tolerating clear liquid diet. She is on anticoagulation due to history of pulmonary embolism. She states that she has a, located surgical history involving colectomy with colostomy creation, colostomy reversal and hernia repair. She was offered to see her previous surgeon, however she did decline. Review of Systems All systems: negative Past Medical History Past Medical History: Deep Vein Thrombosis (DVT), GERD/Reflux, Hyperlipidemia, Osteoarthritis (OA), Pulmonary Embolus (PE), Thyroid Disorder Additional Past Medical History / Comment(s): IBS, past rectal bleed/PROCTITIS, diverticulosis, COLON/gastric Polyps/ montague's esophagus in past, arthritis in neck/back bilateral shoulders & bilateral FINGERS, past R arm phlebitis, past liver cyst. SL LEAKY VALVE, GETS ECHO YEARLY. SEPSIS, COLOSTOMY D/T PERFORATION 05/20/18; HAS PEG TUBE; EPISODE OF AFIB POST-OP. EDEMA FEET. 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 VARICOSE VEINS LASERED BOB. PICC LINE, THEN REMOVAL; COLOSTOMY 04/2018; PEG TUBE 06/10/18. Past Anesthesia/Blood Transfusion Reactions: Postoperative Nausea & Vomiting (PONV) Additional Past Anesthesia/Blood Transfusion Reaction / Comm: PONV X1. Past Psychological History: Unable to Obtain Additional Psychological History / Comment(s): ANXIETY BEGAN DURING [facility] 04/2018. Smoking Status: Former smoker Past Alcohol Use History: None Reported Additional Past Alcohol Use History / Comment(s): STARTED SMOKING AT AGE 17 QUIT AT AGE 43 SMOKED 1PPD Past Drug Use History: None Reported - Past Family History Mother Family Medical History: Cancer Additional Family Medical History / Comment(s): BREAST CANCER Father Family Medical History: Coronary Artery Disease (CAD) Medications and Allergies Home Medications Medication Instructions Recorded Confirmed Type Apixaban [Eliquis] 5 mg PO BID 05/12/18 03/08/21 History Rosuvastatin [Crestor] 10 mg PO DAILY 08/25/18 03/08/21 History amLODIPine [Norvasc] 10 mg PO DAILY 08/25/18 03/08/21 History Metoprolol Tartrate [Lopressor] 25 mg PO BID #60 tab 09/07/18 03/08/21 Rx Omeprazole/Sodium Bicarbonate 1 cap PO DAILY 09/24/20 03/08/21 History [Zegerid 20 mg Capsule] hydroCHLOROthiazide [Hydrodiuril] 25 mg PO DAILY 09/24/20 03/08/21 History Citalopram Hydrobromide [CeleXA] 5 mg PO DAILY 03/08/21 03/08/21 History Ergocalciferol [Vitamin D2 (1250 1,250 mcg PO TU 03/08/21 03/08/21 History Mcg = 54772 Iu)] Levothyroxine Sodium 88 mcg PO DAILY 03/08/21 03/08/21 History Losartan [Cozaar] 25 mg PO DAILY 03/08/21 03/08/21 History Allergies Allergy/AdvReac Type Severity Reaction Status Date / Time Penicillins Allergy RASH ON Verified 09/26/20 08:40 TONGUE sulfamethoxazole Allergy Vomiting Verified 09/26/20 08:40 [From Bactrim] trimethoprim [From Bactrim] Allergy Vomiting Verified 09/26/20 08:40 cephalexin monohydrate AdvReac Nausea Verified 09/26/20 08:40 [From Keflex] diazepam [From Valium] AdvReac PHLEBITIS Verified 09/26/20 08:40 IN RT ARM diphenhydramine AdvReac Unknown Verified 09/26/20 08:40 [From Benadryl] erythromycin base AdvReac Unknown Verified 09/26/20 08:40 Surgical - Exam Osteopathic Statement: *. No significant issues noted on an osteopathic structural exam other than those noted in the History and Physical/Consult. Vital Signs Temp Pulse Resp BP Pulse Ox 98.7 F 71 16 140/76 98 03/08/21 20:28 03/08/21 20:28 03/08/21 20:28 03/08/21 20:28 03/08/21 20:28 - General well nourished, no distress - Eyes PERRL - ENT no hearing loss - Neck trachea midline - Respiratory normal respiratory effort - Abdomen Nondistended, no rebound, no guarding, surgical scars well-healed Abdomen: soft, non tender - Psychiatric oriented to time, oriented to person, oriented to place Results - Labs 03/08/21 23:25 03/09/21 07:08 Abnormal Lab Results - Last 24 Hours (Table) 03/08/21 Range/Units 23:25 Potassium 3.1 L (3.5-5.1) mmol/L BUN 25 H (7-17) mg/dL Creatinine 1.29 H (0.52-1.04) mg/dL Glucose 101 H (74-99) mg/dL Diabetes panel 03/08/21 03/09/21 Range/Units 23:25 07:08 Sodium 139 (137-145) mmol/L Potassium 3.1 L 3.5 (3.5-5.1) mmol/L Chloride 105 (98-107) mmol/L Carbon Dioxide 24 (22-30) mmol/L BUN 25 H (7-17) mg/dL Creatinine 1.29 H (0.52-1.04) mg/dL Glucose 101 H (74-99) mg/dL Calcium 9.4 (8.4-10.2) mg/dL Calcium panel 03/08/21 Range/Units 23:25 Calcium 9.4 (8.4-10.2) mg/dL Pituitary panel 03/08/21 03/09/21 Range/Units 23:25 07:08 Sodium 139 (137-145) mmol/L Potassium 3.1 L 3.5 (3.5-5.1) mmol/L Chloride 105 (98-107) mmol/L Carbon Dioxide 24 (22-30) mmol/L BUN 25 H (7-17) mg/dL Creatinine 1.29 H (0.52-1.04) mg/dL Glucose 101 H (74-99) mg/dL Calcium 9.4 (8.4-10.2) mg/dL Adrenal panel 03/08/21 03/09/21 Range/Units 23:25 07:08 Sodium 139 (137-145) mmol/L Potassium 3.1 L 3.5 (3.5-5.1) mmol/L Chloride 105 (98-107) mmol/L Carbon Dioxide 24 (22-30) mmol/L BUN 25 H (7-17) mg/dL Creatinine 1.29 H (0.52-1.04) mg/dL Glucose 101 H (74-99) mg/dL Calcium 9.4 (8.4-10.2) mg/dL Assessment and Plan Plan: Discussed the case in depth with the patient. At this point, imaging reports from outside facility were reviewed. It was difficult to obtain liver function panel that was drawn at the outside facility. We will obtain a CMP for evaluation of liver enzymes along with lipase and amylase. As further imaging was recommended with MRCP, this will also be ordered. If patient does have pancreatic lesion, she will likely need referral to hepatobiliary services at a tertiary care facility. GI recommendations are also pending. We will continue to provide recommendations based on patient's clinical progress.
[2021-03-09 11:24] LABS: ALT 327 U/L (4-34); AST 360 U/L (14-36); African American GFR (CKD) 47 (>60 ml/min/1.73 sqM); Albumin 3.5 g/dL (3.5-5.0); Albumin/Globulin Ratio 1.3; Alkaline Phosphatase 209 U/L (38-126); Amylase 78 U/L (30-110); Anion Gap 6 mmol/L; Blood Urea Nitrogen 21 mg/dL (7-17); Calcium 9.6 mg/dL (8.4-10.2); Carbon Dioxide 26 mmol/L (22-30); Chloride 108 mmol/L (98-107); Globulin 2.7 g/dL; Glucose 88 mg/dL (74-99); Lipase 161 U/L (23-300); Non-African American GFR(CKD) 41 (>60 ml/min/1.73 sqM); Sodium 140 mmol/L (137-145); Total Bilirubin 0.9 mg/dL (0.2-1.3); Total Protein 6.2 g/dL (6.3-8.2)
--- NOTE | 2021-03-09 17:08 | XR ---
EXAMINATION TYPE: XR chest 1V DATE OF EXAM: 03/09/2021 COMPARISON: 05/15/2019 HISTORY: Short of breath TECHNIQUE: FINDINGS: There is no heart failure nor confluent pneumonic infiltrate. Costophrenic angles are clear . Thoracic aorta shows mild atheromatous change. Bony thorax is intact. There is small hiatal hernia. IMPRESSION: No active cardiopulmonary disease. Hiatal hernia.
--- NOTE | 2021-03-09 17:17 | HP ---
HISTORY AND PHYSICAL CHIEF COMPLAINT: Abdominal pain. HISTORY OF PRESENT ILLNESS: This 80-year-old woman with a past medical history of multiple medical problems including DVT, history of GERD, hypertension, DJD, history of pulmonary embolism. History of irritable bowel syndrome. History of colonic polyp. History of Parks's esophagus. History of bowel resection. Was in the [facility] when the patient developed severe abdominal pain. The pain was mainly in the upper abdomen. The patient also has severe nausea and vomiting also and the patient was sent to [facility] and workup was done at [facility] and in the [facility] workup, multiple abnormalities on the CT scan were noted including CBD dilatation, mild gallbladder wall thickening and several cysts in the liver, kidneys and pancreas also. The largest cyst was 21 to 22 mm. The patient is referred to [facility] for evaluation treatment. Surgical evaluation in progress. There is no history of fever, rigors. No headache, loss of consciousness, seizures. PAST MEDICAL HISTORY: History of DVT, GERD, hyperlipidemia, DJD, pulmonary embolism, bowel surgery. MEDICATIONS: Home medications are HydroDIURIL, Norvasc, Crestor, Zegerid, Lopressor, Cozaar, levothyroxine, vitamin D2, Celexa Eliquis. FAMILY HISTORY: History of breast cancer in the family. SOCIAL HISTORY: Previous history of smoking. No history of alcohol intake. REVIEW OF SYSTEMS: ENT: No diminished hearing. CARDIOVASCULAR: As mentioned earlier. GI: As mentioned. : No dysuria. NERVOUS SYSTEM: No numbness, weakness. ALLERGY: No asthma or hayfever. MUSCULOSKELETAL: As mentioned. HEMATOLOGY/ONCOLOGY: As mentioned earlier. ENDOCRINE: No history of diabetes, hypothyroid. CONSTITUTIONAL: As mentioned earlier. DERMATOLOGY: Negative. RHEUMATOLOGY: Negative. PSYCHIATRY: As mentioned earlier. PHYSICAL EXAMINATION: Pulse 59, blood pressure 137/72, respiration 20, temperature 98.1, pulse ox 94% on room air. HEENT: Conjunctivae normal. NECK: No JVD. CARDIOVASCULAR: S1, S2 muffled. RESPIRATION: Breath sounds diminished at the bases, a few scattered rhonchi and crackles. ABDOMEN: Soft, mild diffuse discomfort on palpation. No guarding. No rigidity. No mass palpable. LEGS: No edema. No swelling. NERVOUS SYSTEM: Higher functions as mentioned earlier. Moves all 4 limbs. No focal motor or sensory deficit. LYMPHATICS: No lymphadenopathy. SKIN: No rashes. JOINTS: No active deforming arthropathy. LABS: At this time show CBC within normal limits, sodium 140, potassium 3.5, creatinine is 1.26 and AST 360 and ALT is 327, alkaline phosphatase 209, total protein 6.2. ASSESSMENT: 1. Abdominal pain and CBD dilatation, rule out CBD obstruction. 2. Elevated AST, ALT and alkaline phosphatase. 3. Gallbladder wall thickening, rule out acute cholecystitis and cholelithiasis. 4. Increased creatinine with acute renal failure, acute tubular necrosis. 5. Hypokalemia. 6. Multiple cyst in the liver, kidneys and pancreas with polycystic kidney disease. 7. History of DVT. 8. History of gastroesophageal reflux disease. 9. History of hyperlipidemia. 10.History of DJD. 11.History of pulmonary embolus. 12.History IBS. 13.History of proctitis. 14.History of diverticulosis. 15.History of colostomy with perforation. 16.History of VRE. 17.History of atrial fibrillation. 18.History of bowel resection. 19.History of breast surgery. 20.History of anxiety. 21.History of nicotine dependence. 22.FULL CODE. RECOMMENDATIONS AND DISCUSSION: This 80-year-old woman who presented with multiple complex medical issues, we will monitor the patient closely. Will resume the home medications. Proton pump inhibitors. Symptomatic treatment. Closely follow with surgery, otherwise prognosis guarded. Further recommendations to follow. Surgical evaluation, gastroenterology evaluation, MRCP has been ordered by surgery. MMODL / IJN: [id number] /
[2021-03-09] MEDS: SODIUM CHLORIDE 0.9% 1,000 ML IV SCH (18:09)
[2021-03-09 20:32] LABS: Appearance,Urine Clear (Clear); Bacteria,Urine Few /hpf; Bilirubin,Urine Negative (Negative); Blood,Urine Trace (Negative); Color,Urine Light Yellow; Glucose,Urine (UA) Negative (Negative); Ketones,Urine Negative (Negative); Leukocyte Esterase,Urine Moderate (Negative); Nitrite,Urine Negative (Negative); PH, Urine 6.5 (5.0-8.0); Protein,Urine Negative (Negative); RBC,Urine 5 /hpf (0-5); Specific Gravity,Urine 1.009 (1.001-1.035); Squamous Epithelial Cell,Urine 1 /hpf (0-4); Urobilinogen,Urine <2.0 mg/dL (<2.0); WBC,Urine 58 /hpf (0-5)
[2021-03-09 20:34] LABS: ALT 274 U/L (4-34); AST 228 U/L (14-36); African American GFR (CKD) 58 (>60 ml/min/1.73 sqM); Albumin 4.2 g/dL (3.5-5.0); Albumin/Globulin Ratio 1.5; Alkaline Phosphatase 167 U/L (38-126); Anion Gap 11 mmol/L; Blood Urea Nitrogen 17 mg/dL (7-17); Calcium 9.5 mg/dL (8.4-10.2); Carbon Dioxide 21 mmol/L (22-30); Chloride 108 mmol/L (98-107); Globulin 2.8 g/dL; Glucose 108 mg/dL (74-99); Non-African American GFR(CKD) 51 (>60 ml/min/1.73 sqM); Sodium 140 mmol/L (137-145); Total Bilirubin 1.4 mg/dL (0.2-1.3)
[2021-03-09 20:39] LABS: Potassium 4.6 mmol/L (3.5-5.1)
[2021-03-09 20:57] LABS: INR 1.3 (<1.2)
--- NOTE | 2021-03-10 02:28 | MR ---
EXAMINATION TYPE: MR MRCP DATE OF EXAM: 03/09/2021 COMPARISON: 05/13/2018 HISTORY: Patient may have a cyst that is blocking the pancreatic and liver duct. Multiplanar multiecho imaging of the abdomen without contrast. There are MRCP images. There are numerous large cysts in the kidneys and more on the left side. Largest cyst measures 10 cm on the left kidney. I see no hydronephrosis. There are numerous simple cysts in the liver that measure up to 1.5 cm. There are numerous cysts thro ughout the pancreas the largest measures 10 mm. The pancreatic duct is not dilated. The gallbladder appears intact. There is probably abscess single gallstone in the gallbladder fundus. The spleen appears intact. There is no ascites. There is no sign of a bowel obstruction. There is no evidence of pleural effusion at the lung bases. There is some fusiform narrowing of the common bile duct. There is mildly dilated common bile duct up to 12 mm. Common bile duct appears unusually long. There is rounded filling defect in the distal com mon bile duct. This measures 5 mm. IMPRESSION: Numerous cysts are present in the kidneys and liver and pancreas. There is a mild enlargement of the biliary tree with a stricture of the common bile duct. There is evidence of a single common duct stone in the distal common bile duct. This appears new comp ared to old exam. Bile ducts appear increased in size compared to old exam. I see no suspicious pancreatic mass.
[2021-03-10] MEDS: METOPROLOL TARTRATE 25 MG TAB PO SCH ×3 (02:44→20:03)
[2021-03-10] MEDS: SODIUM CHLORIDE 0.9% 1,000 ML IV SCH ×2 (02:46→14:12)
[2021-03-10] MEDS: LEVOTHYROXINE 88 MCG TAB PO SCH (05:35)
[2021-03-10 06:19] LABS: Basophils # (A) 0.1 k/uL (0-0.2); Basophils % (A) 1 %; Eosinophils # (A) 0.1 k/uL (0-0.7); Eosinophils % (A) 2 %; HCT 37.5 % (34.0-46.0); HGB 12.6 gm/dL (11.4-16.0); Lymphocytes # (A) 1.1 k/uL (1.0-4.8); Lymphocytes % (A) 15 %; MCHC 33.6 g/dL (31.0-37.0); MCV 80.5 fL (80.0-100.0); Mean Platelet Volume 7.6; Monocytes # (A) 0.6 k/uL (0-1.0); Monocytes % (A) 9 %; Neutrophils # (A) 5.4 k/uL (1.3-7.7); Neutrophils % (A) 72 %; Platelet Count 194 k/uL (150-450); RBC 4.66 m/uL (3.80-5.40); RDW 14.1 % (11.5-15.5); WBC 7.5 k/uL (3.8-10.6)
[2021-03-10] MEDS ORDERED: PANTOPRAZOLE 40 MG TABLET PO SCH (07:30)
[2021-03-10] MEDS: APIXABAN 5 MG TAB PO SCH (08:26)
[2021-03-10] MEDS: ATORVASTATIN 20 MG TAB PO SCH (08:26)
[2021-03-10] MEDS: CITALOPRAM HYDROBROMIDE 10 MG TAB PO SCH (08:26)
[2021-03-10] MEDS: amLODIPine 10 MG TAB PO SCH (08:26)
[2021-03-10] MEDS: LOSARTAN 25 MG TAB PO SCH (08:26)
[2021-03-10] MEDS: hydroCHLOROthiazide 25 MG TAB PO SCH (08:26)
--- NOTE | 2021-03-10 09:16 | P.PN ---
Subjective Progress Note Date: 03/10/21 Patient seen and examined at bedside. No acute events. Still occasional discomfort in the right upper quadrant. Objective - Vital Signs Vital signs: Vital Signs Temp 98.7 F 03/10/21 04:42 Pulse 70 03/10/21 04:42 Resp 16 03/10/21 04:42 BP 115/71 03/10/21 04:42 Pulse Ox 96 03/10/21 04:42 Intake & Output 03/09/21 03/10/21 03/10/21 18:59 06:59 18:59 Other: Voiding Method Toilet Toilet - Constitutional General appearance: Present: cooperative - Gastrointestinal Gastrointestinal Comment(s): Soft, nontender, nondistended, no rebound, no guarding, surgical scarring noted - Labs CBC & Chem 7: 03/10/21 05:57 03/09/21 19:55 Labs: Abnormal Lab Results - Last 24 Hours (Table) 03/09/21 03/09/21 03/09/21 Range/Units 07:08 19:55 19:55 PT 13.0 H (9.0-12.0) sec INR 1.3 H (<1.2) Chloride 108 H 108 H (98-107) mmol/L Carbon Dioxide 21 L (22-30) mmol/L BUN 21 H (7-17) mg/dL Creatinine 1.26 H 1.06 H (0.52-1.04) mg/dL Glucose 108 H (74-99) mg/dL Total Bilirubin 1.4 H (0.2-1.3) mg/dL AST 360 H 228 H (14-36) U/L ALT 327 H 274 H (4-34) U/L Alkaline Phosphatase 209 H 167 H (38-126) U/L Total Protein 6.2 L (6.3-8.2) g/dL Urine Blood (Negative) Ur Leukocyte Esterase (Negative) Urine WBC (0-5) /hpf Urine Bacteria (None) /hpf 03/09/21 Range/Units 20:10 PT (9.0-12.0) sec INR (<1.2) Chloride (98-107) mmol/L Carbon Dioxide (22-30) mmol/L BUN (7-17) mg/dL Creatinine (0.52-1.04) mg/dL Glucose (74-99) mg/dL Total Bilirubin (0.2-1.3) mg/dL AST (14-36) U/L ALT (4-34) U/L Alkaline Phosphatase (38-126) U/L Total Protein (6.3-8.2) g/dL Urine Blood Trace H (Negative) Ur Leukocyte Esterase Moderate H (Negative) Urine WBC 58 H (0-5) /hpf Urine Bacteria Few H (None) /hpf Assessment and Plan Plan: 72-year-old female with choledocholithiasis. MRCP concerning for stone in the distal common bile duct. GI recommendations are pending. Did discuss future surgical intervention with the patient. Based on patient's surgical history, there is a high likelihood of converting to open procedure based on adhesions and previous surgical scarring. She states that she was not able to complete a previous laparoscopic procedure based on surgical scarring.
[2021-03-10] MEDS ORDERED: ACETAMINOPHEN TAB 325 MG TAB PO STA (09:29)
[2021-03-10 10:02] LABS: African American GFR (CKD) 50.1 (60.0-200.0); Albumin 3.9 g/dL (3.80-4.90); Albumin/Globulin Ratio 1.7 (1.60-3.17); Anion Gap 9.9 mmol/L (4.00-12.00); BUN/Creat Ratio 12.5 Ratio (12.00-20.00); Calcium 9.2 mg/dL (8.7-10.3); Carbon Dioxide 24.1 mmol/L (21.6-31.8); Globulin 2.3 g/dL (1.6-3.3); Non-African American GFR(CKD) 43.3 (60.0-200.0); Potassium 3.4 mmol/L (3.5-5.5); Total Bilirubin 0.8 mg/dL (0.3-1.2); Total Protein 6.2 g/dL (6.2-8.2)
--- NOTE | 2021-03-10 10:05 | P.CONS ---
History of Present Illness - Reason for Consult Consult date: 03/09/21 CBD dilation, pancreatic cyst Requesting physician: Axel Cruz - Chief Complaint Abdominal pain - History of Present Illness 80-year-old female with a medical history significant for reflux, hypertension, prior DVT/PE, irritable bowel syndrome, Montague's esophagus, colon polyps and prior bowel resection who presented as a transfer from outside hospital for abdominal pain. She had presented to the emergency department reporting severe pain in the epigastric and right upper quadrant of her abdomen. She reported associated severe nausea with episodes of vomiting. Computed tomography scan at outside facility showed CBD dilation with mild gallbladder wall thickening and cyst noted in the liver, kidneys and pancreas. Since that time she reports that she has continued to have some pain in the epigastric region of her abdomen. No further nausea or vomiting. She does report a known history of reflux for which she takes Zegerid at home. On presentation to the hospital WBC 5.8, hemoglobin 12.2, platelet count 190,000. MRI of the abdomen has been ordered and is pending. Review of Systems REVIEW OF SYSTEMS: CONSTITUTIONAL: Denies any fevers, chills, weight change or fatigue. CARDIOVASCULAR: Denies any chest pain, palpitations high or low blood pressures RESPIRATORY: Denies any shortness of breath, hemoptysis or cough. GENITOURINARY: No dysuria or hematuria. MUSCULOSKELETAL: No weakness reported. SKIN: Denies any new rashes or lesions, jaundice or pallor. PSYCHIATRIC: Denies any depression or anxiety. NEUROLOGY: Denies headache, denies any new focal deficits. EARS/NOSE/THROAT: No recent hearing change, congestion, nasal discharge or sore throat. EYES: No pain in eyes, discharge or change in vision. GASTROINTESTINAL: As per HPI. Past Medical History Past Medical History: Deep Vein Thrombosis (DVT), GERD/Reflux, Hyperlipidemia, Osteoarthritis (OA), Pulmonary Embolus (PE), Thyroid Disorder Additional Past Medical History / Comment(s): IBS, past rectal bleed/PROCTITIS, diverticulosis, COLON/gastric Polyps/ montague's esophagus in past, arthritis in neck/back bilateral shoulders & bilateral FINGERS, past R arm phlebitis, past liver cyst. SL LEAKY VALVE, GETS ECHO YEARLY. SEPSIS, COLOSTOMY D/T PERFORATION 05/20/18; HAS PEG TUBE; EPISODE OF AFIB POST-OP. EDEMA FEET. 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 VARICOSE VEINS LASERED BOB. PICC LINE, THEN REMOVAL; COLOSTOMY 04/2018; PEG TUBE 06/10/18. Past Anesthesia/Blood Transfusion Reactions: Postoperative Nausea & Vomiting (PONV) Additional Past Anesthesia/Blood Transfusion Reaction / Comm: PONV X1. Past Psychological History: Unable to Obtain Additional Psychological History / Comment(s): ANXIETY BEGAN DURING [facility] 04/2018. Smoking Status: Former smoker Past Alcohol Use History: None Reported Additional Past Alcohol Use History / Comment(s): STARTED SMOKING AT AGE 17 QUIT AT AGE 43 SMOKED 1PPD Past Drug Use History: None Reported - Past Family History Mother Family Medical History: Cancer Additional Family Medical History / Comment(s): BREAST CANCER Father Family Medical History: Coronary Artery Disease (CAD) Medications and Allergies Home Medications Medication Instructions Recorded Confirmed Type Apixaban [Eliquis] 5 mg PO BID 05/12/18 03/08/21 History Rosuvastatin [Crestor] 10 mg PO DAILY 08/25/18 03/08/21 History amLODIPine [Norvasc] 10 mg PO DAILY 08/25/18 03/08/21 History Metoprolol Tartrate [Lopressor] 25 mg PO BID #60 tab 09/07/18 03/08/21 Rx Omeprazole/Sodium Bicarbonate 1 cap PO DAILY 09/24/20 03/08/21 History [Zegerid 20 mg Capsule] hydroCHLOROthiazide [Hydrodiuril] 25 mg PO DAILY 09/24/20 03/08/21 History Citalopram Hydrobromide [CeleXA] 5 mg PO DAILY 03/08/21 03/08/21 History Ergocalciferol [Vitamin D2 (1250 1,250 mcg PO TU 03/08/21 03/08/21 History Mcg = [id number] Iu)] Levothyroxine Sodium 88 mcg PO DAILY 03/08/21 03/08/21 History Losartan [Cozaar] 25 mg PO DAILY 03/08/21 03/08/21 History Allergies Allergy/AdvReac Type Severity Reaction Status Date / Time Penicillins Allergy RASH ON Verified 09/26/20 08:40 TONGUE sulfamethoxazole Allergy Vomiting Verified 09/26/20 08:40 [From Bactrim] trimethoprim [From Bactrim] Allergy Vomiting Verified 09/26/20 08:40 cephalexin monohydrate AdvReac Nausea Verified 09/26/20 08:40 [From Keflex] diazepam [From Valium] AdvReac PHLEBITIS Verified 09/26/20 08:40 IN RT ARM diphenhydramine AdvReac Unknown Verified 09/26/20 08:40 [From Benadryl] erythromycin base AdvReac Unknown Verified 09/26/20 08:40 Physical Exam Vitals: Vital Signs Temp Pulse Pulse Resp BP BP Pulse Ox 03/09/21 08:50 60 144/78 03/09/21 04:50 98.3 F 51 L 20 124/65 94 L 03/08/21 22:56 98.3 F 64 20 132/78 96 03/08/21 21:45 64 18 134/72 95 03/08/21 20:28 98.7 F 71 16 140/76 98 Intake and Output 03/08/21 03/09/21 03/09/21 22:59 06:59 14:59 Intake Total 100 Balance 100 Intake: Oral 100 Other: Voiding Method Toilet Toilet # Voids 2 Weight 71.668 kg On physical examination, patient appears comfortable in no apparent distress. HEAD: Normocephalic, atraumatic. EYES: No scleral icterus. No conjunctival injection. MOUTH: No lesions, tongue midline. NECK: Trachea midline, no gross abnormalities. CHEST: Clear to auscultation with no wheezing or rhonchi appreciated. HEART: Regular rate and rhythm. ABDOMEN: Soft, mildly tender to palpation in the right upper quadrant and epigastric region of her abdomen. Bowel sounds are positive. No organomegaly. No guarding or rigidity. EXTREMITIES: No pedal edema. SKIN: No rashes, no jaundice. NEUROLOGIC: Alert and oriented x3. No focal deficits. Results CBC & Chem 7: 03/10/21 05:57 03/09/21 19:55 Labs: Abnormal Lab Results - Last 24 Hours (Table) 03/08/21 Range/Units 23:25 Potassium 3.1 L (3.5-5.1) mmol/L BUN 25 H (7-17) mg/dL Creatinine 1.29 H (0.52-1.04) mg/dL Glucose 101 H (74-99) mg/dL CT scan - abdomen: report reviewed (Computed tomography scan of the abdomen from outside facility significant for CBD dilation, mild gallbladder wall thickening and several cysts in the liver, kidneys and pancreas.) Assessment and Plan (1) Common bile duct dilatation Narrative/Plan: 80-year-old female who presented to outside hospital with complaints of abdominal pain, nausea and vomiting. Computed tomography scan at that facility showed cysts of the liver, pancreas and kidneys as well as CBD dilation and gallbladder wall thickening of unknown etiology. At this time MRCP has been ordered for further evaluation and to rule out CBD stone. Current Visit: Yes Status: Acute Code(s): K83.8 - OTHER SPECIFIED DISEASES OF BILIARY TRACT SNOMED Code(s): 857508937 (2) Pancreatic cyst Current Visit: Yes Status: Acute Code(s): K86.2 - CYST OF PANCREAS SNOMED Code(s): 22764922 (3) Abdominal pain Current Visit: No Status: Acute Code(s): R10.9 - UNSPECIFIED ABDOMINAL PAIN SNOMED Code(s): 98727353 Plan: Supportive care Clear liquid diet Continue to monitor CBC, BMP, LFTs MRCP pending Extensive discussion with the patient and her family if any evidence of CBD obstruction or choledocholithiasis will proceed to ERCP with all the risks, benefits and possible complications described at length to the patient and her family with all their questions answered to their satisfaction, and addition she will likely need outpatient endoscopic ultrasound a tertiary referral center in the future for further evaluation of pancreatic cysts Surgical service is following the patient Thank you for allowing us to participate in the care of the patient, we will continue to follow
[2021-03-10] MEDS: POTASSIUM CHLORIDE ER 20 MEQ TAB.ER PO SCH ×2 (14:10→15:19)
[2021-03-10] MEDS: PANTOPRAZOLE 40 MG/10 ML VIAL IVP SCH (20:03)
[2021-03-10] MEDS ORDERED: LEVOFLOXACIN 500MG-D5W PMX 500 MG in DEXTROSE/WATER 1 100ML.BAG IVPB SCH (21:00)
--- NOTE | 2021-03-10 22:02 | PN ---
PROGRESS NOTE DATE OF SERVICE: 03/10/2021 INTERVAL HISTORY: This 80-year-old woman who was admitted with abdominal pain and CBD dilatation had an MRCP which showed numerous cysts and as well as mild enlargement of the biliary tree with stricture of the common bile duct. Evidence of CBD stone was also noted. Dr. Watt is planning ERCP tomorrow. No chest pain. No palpitations. No fever. PAST MEDICAL HISTORY: Reviewed. REVIEW OF SYSTEMS: Cardiovascular: No angina. No palpitations. Respiratory: As mentioned earlier. GI: As mentioned earlier. : No dysuria. Nervous system: No numbness or weakness. MEDICATIONS: Reviewed. EXAM: Alert and oriented times three. Pulse 60. Blood pressure 139/72, respiration 20, temperature 98.4, pulse ox 97% on room air. HEENT: Conjunctivae normal. Neck: No JVD. Cardiovascular: S1, S2 muffled. Respirations: Breath sounds diminished in the bases. A few rhonchi. No crackles. Abdomen: Soft. Nervous system: No focal deficits. LABORATORY DATA: CBC within normal limits. Sodium 142. Potassium 3.4. LFTs are noted. UA noted with 58 WBCs. ASSESSMENT: 1. Abdominal pain, CBD dilatation, possible CBD obstruction with gallstones. 2. Possible CBD stricture. 3. Elevated AST/ALT with alkaline phosphatase. 4. Gallbladder thickening, rule out acute cholecystitis and cholelithiasis. 5. Increased creatinine with acute renal failure, acute tubular necrosis. 6. Acute urinary tract infection present on admission. 7. Hypokalemia. 8. Multiple cysts in the liver, kidneys and pancreas with possible polycystic kidney disease. 9. History of deep vein thrombosis. 10.History of gastroesophageal reflux disease. 11.Hyperlipidemia. 12.History of degenerative joint disease. 13.History of pulmonary embolism. 14.History of irritable bowel syndrome. 15.History of proctitis. 16.History of diverticulosis. 17.History of colostomy with perforation. 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 19.History of atrial fibrillation. 20.History of bowel resection. 21.History of breast surgery. 22.History of anxiety. 23.History of nicotine dependence. 24.FULL CODE. RECOMMENDATIONS AND DISCUSSION: Recommend to continue current medications, continue monitoring, symptomatic treatment, add antibiotics. Otherwise ERCP per Gastroenterology. Surgery is also following the patient closely. Guarded prognosis. Further recommendations to follow. MMODL / IJN: [id number] /
[2021-03-11] MEDS: SODIUM CHLORIDE 0.9% 1,000 ML IV SCH ×2 (02:14→20:39)
[2021-03-11] MEDS: LEVOTHYROXINE 88 MCG TAB PO SCH (05:30)
[2021-03-11 05:35] LABS: Basophils % (A) 1 %; Eosinophils # (A) 0.2 k/uL (0-0.7); Eosinophils % (A) 3 %; HCT 37.3 % (34.0-46.0); HGB 12.8 gm/dL (11.4-16.0); Lymphocytes # (A) 1.1 k/uL (1.0-4.8); Lymphocytes % (A) 24 %; MCH 27.4 pg (25.0-35.0); MCHC 34.3 g/dL (31.0-37.0); MCV 79.9 fL (80.0-100.0); Mean Platelet Volume 7.8; Monocytes # (A) 0.5 k/uL (0-1.0); Monocytes % (A) 11 %; Neutrophils # (A) 2.6 k/uL (1.3-7.7); Neutrophils % (A) 58 %; Platelet Count 165 k/uL (150-450); RBC 4.67 m/uL (3.80-5.40); WBC 4.5 k/uL (3.8-10.6)
--- NOTE | 2021-03-11 07:15 | P.PN ---
Subjective Progress Note Date: 03/10/21 Principal diagnosis: CBD dilation, choledocholithiasis The patient is seen lying in bed today. She did have some loose stool yesterday. So reporting some abdominal tenderness. No other acute complaints. Objective - Vital Signs Vital signs: Vital Signs Temp 98.7 F 03/10/21 04:42 Pulse 70 03/10/21 04:42 Resp 16 03/10/21 04:42 BP 115/71 03/10/21 04:42 Pulse Ox 96 03/10/21 04:42 Intake & Output 03/09/21 03/10/21 03/10/21 18:59 06:59 18:59 Other: Voiding Method Toilet Toilet - Exam On physical examination, patient appears comfortable in no apparent distress. HEAD: Normocephalic, atraumatic. EYES: No scleral icterus. No conjunctival injection. MOUTH: No lesions, tongue midline. NECK: Trachea midline, no gross abnormalities. ABDOMEN: Soft, mildly tender to palpation. Bowel sounds are positive. No organomegaly. No guarding or rigidity. EXTREMITIES: No pedal edema. SKIN: No rashes, no jaundice. NEUROLOGIC: Alert and oriented x3. No focal deficits. - Labs CBC & Chem 7: 03/11/21 05:11 03/10/21 05:57 Labs: Abnormal Lab Results - Last 24 Hours (Table) 03/09/21 03/09/21 03/09/21 Range/Units 07:08 19:55 19:55 PT 13.0 H (9.0-12.0) sec INR 1.3 H (<1.2) Potassium (3.5-5.5) mmol/L Chloride 108 H 108 H (98-107) mmol/L Carbon Dioxide 21 L (22-30) mmol/L BUN 21 H (7-17) mg/dL Creatinine 1.26 H 1.06 H (0.52-1.04) mg/dL Est GFR (CKD-EPI)AfAm (60.0-200.0) Est GFR (CKD-EPI)NonAf (60.0-200.0) Glucose 108 H (74-99) mg/dL Total Bilirubin 1.4 H (0.2-1.3) mg/dL AST 360 H 228 H (14-36) U/L ALT 327 H 274 H (4-34) U/L Alkaline Phosphatase 209 H 167 H (38-126) U/L Total Protein 6.2 L (6.3-8.2) g/dL Urine Blood (Negative) Ur Leukocyte Esterase (Negative) Urine WBC (0-5) /hpf Urine Bacteria (None) /hpf 03/09/21 03/10/21 Range/Units 20:10 05:57 PT (9.0-12.0) sec INR (<1.2) Potassium 3.4 L (3.5-5.5) mmol/L Chloride (98-107) mmol/L Carbon Dioxide (22-30) mmol/L BUN (7-17) mg/dL Creatinine (0.52-1.04) mg/dL Est GFR (CKD-EPI)AfAm 50.1 L (60.0-200.0) Est GFR (CKD-EPI)NonAf 43.3 L (60.0-200.0) Glucose (74-99) mg/dL Total Bilirubin (0.2-1.3) mg/dL AST 125 H (14-36) U/L ALT 231 H (4-34) U/L Alkaline Phosphatase 186 H (38-126) U/L Total Protein (6.3-8.2) g/dL Urine Blood Trace H (Negative) Ur Leukocyte Esterase Moderate H (Negative) Urine WBC 58 H (0-5) /hpf Urine Bacteria Few H (None) /hpf Assessment and Plan (1) Common bile duct dilatation Narrative/Plan: 80-year-old female who presented to outside hospital with complaints of abdominal pain, nausea and vomiting. Computed tomography scan at that facility showed cysts of the liver, pancreas and kidneys as well as CBD dilation and gallbladder wall thickening of unknown etiology. At this time MRCP has been ordered for further evaluation and to rule out CBD stone. MRCP performed and suggestive of CBD dilation with distal CBD stone, with redemonstration of cysts. Current Visit: Yes Status: Acute Code(s): K83.8 - OTHER SPECIFIED DISEASES OF BILIARY TRACT SNOMED Code(s): 683603012 (2) Pancreatic cyst Current Visit: Yes Status: Acute Code(s): K86.2 - CYST OF PANCREAS SNOMED Code(s): 16296793 (3) Abdominal pain Current Visit: No Status: Acute Code(s): R10.9 - UNSPECIFIED ABDOMINAL PAIN SNOMED Code(s): 61672494 (4) Choledocholithiasis Current Visit: Yes Status: Acute Code(s): K80.50 - CALCULUS OF BILE DUCT W/O CHOLANGITIS OR CHOLECYST W/O OBST SNOMED Code(s): 933979310 Plan: Supportive care Clear liquid diet Continue to monitor CBC, BMP, LFTs MRCP extensive discussion with the patient and her family if any evidence of CBD obstruction or choledocholithiasis will proceed to ERCP which was demonstrated with distal stone seen on MRCP and with all the risks, benefits and possible complications described at length to the patient and her family with all their questions answered to their satisfaction Plan for ERCP on 03/12/21 as patient was given anticoagulation therapy this morning which has been held In addition she will likely need outpatient endoscopic ultrasound a tertiary referral center in the future for further evaluation of pancreatic cysts Surgical service is following the patient Thank you for allowing us to participate in the care of the patient, we will continue to follow
--- NOTE | 2021-03-11 09:08 | P.PN ---
Subjective Progress Note Date: 03/11/21 Patient seen and examined at bedside. Overall, comfortable. Denies any significant abdominal pain. No nausea or vomiting. Objective - Vital Signs Vital signs: Vital Signs Temp 97.9 F 03/11/21 05:00 Pulse 65 03/11/21 05:00 Resp 20 03/11/21 05:00 BP 123/58 03/11/21 05:00 Pulse Ox 97 03/11/21 05:00 Intake & Output 03/10/21 03/11/21 03/11/21 18:59 06:59 18:59 Intake Total 1100 Balance 1100 Intake: Intake, IV Titration 1000 Amount Levofloxacin 500Mg-D5w 100 Pmx 500 mg In Dextrose/ Water 1 100ml.bag @ 100 mls/hr IVPB HS [facility] Rx#: [id number] Sodium Chloride 0.9% 1, 900 000 ml @ 75 mls/hr IV . [id number] [facility] Rx#:[id number] Oral 100 Other: Voiding Method Toilet # Voids 4 1 # Bowel Movements 4 - Constitutional General appearance: Present: cooperative - Gastrointestinal Gastrointestinal Comment(s): Soft, nontender, nondistended, no rebound, no guarding - Labs CBC & Chem 7: 03/11/21 05:11 03/10/21 05:57 Labs: Abnormal Lab Results - Last 24 Hours (Table) 03/10/21 03/11/21 Range/Units 05:57 05:11 MCV 79.9 L (80.0-100.0) fL Potassium 3.4 L (3.5-5.5) mmol/L Est GFR (CKD-EPI)AfAm 50.1 L (60.0-200.0) Est GFR (CKD-EPI)NonAf 43.3 L (60.0-200.0) AST 125 H (13-35) U/L ALT 231 H (8-44) U/L Alkaline Phosphatase 186 H (41-126) U/L Assessment and Plan Plan: Lengthy discussion was had with the patient. Plan is for ERCP by GI, likely tomorrow as the patient was provided with anticoagulation. Anticoagulation is currently being held. Discussion was also had about future cholecystectomy. Patient is concerned about financial standing with current hospital stay and is undergoing testing and other procedures. She is unsure if she wants to move forward with cholecystectomy after ERCP. She is also aware that based on previous inability to complete laparoscopic procedure by previous surgeon, she may require an open cholecystectomy.
[2021-03-11 10:24] LABS: African American GFR (CKD) 50.1 (60.0-200.0); Anion Gap 11.3 mmol/L (4.00-12.00); Calcium 9.1 mg/dL (8.7-10.3); Carbon Dioxide 20.7 mmol/L (21.6-31.8); Non-African American GFR(CKD) 43.3 (60.0-200.0); Potassium 3.8 mmol/L (3.5-5.5)
[2021-03-11] MEDS: hydroCHLOROthiazide 25 MG TAB PO SCH (10:34)
[2021-03-11] MEDS: PANTOPRAZOLE 40 MG/10 ML VIAL IVP SCH ×2 (10:34→20:38)
[2021-03-11] MEDS: METOPROLOL TARTRATE 25 MG TAB PO SCH ×2 (10:35→20:38)
[2021-03-11] MEDS: amLODIPine 10 MG TAB PO SCH (10:35)
[2021-03-11] MEDS: ATORVASTATIN 20 MG TAB PO SCH (10:35)
[2021-03-11] MEDS: CITALOPRAM HYDROBROMIDE 10 MG TAB PO SCH ×2 (10:36→10:41)
[2021-03-11] MEDS: metroNIDAZOLE-NS PMX 500 MG in SALINE 1 100ML.BAG IVPB ONE ×2 (10:37→12:21)
[2021-03-11] MEDS: LOSARTAN 25 MG TAB PO SCH (10:41)
[2021-03-11] MEDS ORDERED: INDOMETHACIN 50MG SUPPOSITORY RECTAL ONE (11:00)
--- NOTE | 2021-03-11 16:44 | P.PN ---
Subjective Progress Note Date: 03/11/21 Principal diagnosis: Gallstone pancreatitis Patient was seen and examined sitting up in her bed. She denies any abdominal pain, nausea, or vomiting. She underwent an MRCP which showed a CBD stone. Plan is for ERCP tomorrow. Patient's Eliquis has been on hold. She has been t olerating clear liquids and yogurt. Objective - Vital Signs Vital signs: Vital Signs Temp 97.9 F 03/11/21 05:00 Pulse 65 03/11/21 05:00 Resp 20 03/11/21 05:00 BP 123/58 03/11/21 05:00 Pulse Ox 97 03/11/21 05:00 Intake & Output 03/10/21 03/11/21 03/11/21 18:59 06:59 18:59 Intake Total 1100 Balance 1100 Intake: Intake, IV Titration 1000 Amount Levofloxacin 500Mg-D5w 100 Pmx 500 mg In Dextrose/ Water 1 100ml.bag @ 100 mls/hr IVPB HS [facility] Rx#: [id number] Sodium Chloride 0.9% 1, 900 000 ml @ 75 mls/hr IV . [id number] [facility] Rx#:[id number] Oral 100 Other: Voiding Method Toilet # Voids 4 1 # Bowel Movements 4 - Exam General appearance: The patient is alert, oriented, appears in no acute distress. HET: Head is normocephalic and atraumatic. Conjunctiva pink. Sclera anicteric. Neck: Supple without lymphadenopathy. Abdomen: Soft, nontender, nondistended with bowel sounds. No guarding or rigidity. Extremities: Normal skin color and turgor. No pedal edema Skin: No rashes, no jaundice Neurological: No focal deficits. Alert and oriented 3. - Labs CBC & Chem 7: 03/11/21 05:11 03/11/21 05:11 Labs: Abnormal Lab Results - Last 24 Hours (Table) 03/10/21 03/11/21 Range/Units 05:57 05:11 MCV 79.9 L (80.0-100.0) fL Potassium 3.4 L (3.5-5.5) mmol/L Est GFR (CKD-EPI)AfAm 50.1 L (60.0-200.0) Est GFR (CKD-EPI)NonAf 43.3 L (60.0-200.0) AST 125 H (13-35) U/L ALT 231 H (8-44) U/L Alkaline Phosphatase 186 H (41-126) U/L Assessment and Plan (1) Common bile duct dilatation Narrative/Plan: 80-year-old female who presented to outside hospital with complaints of abdominal pain, nausea and vomiting. Computed tomography scan at that facility showed cysts of the liver, pancreas and kidneys as well as CBD dilation and gallbladder wall thickening of unknown etiology. MRCP was ordered showing evidence of CBD obstruction or choledocholithiasis. Current Visit: Yes Status: Acute Code(s): K83.8 - OTHER SPECIFIED DISEASES OF BILIARY TRACT SNOMED Code(s): 360526044 (2) Choledocholithiasis Current Visit: Yes Status: Acute Code(s): K80.50 - CALCULUS OF BILE DUCT W/O CHOLANGITIS OR CHOLECYST W/O OBST SNOMED Code(s): 800723232 (3) Abdominal pain Current Visit: No Status: Acute Code(s): R10.9 - UNSPECIFIED ABDOMINAL PAIN SNOMED Code(s): 52871998 (4) Pancreatic cyst Current Visit: Yes Status: Acute Code(s): K86.2 - CYST OF PANCREAS SNOMED Code(s): 09855559 Plan: 1. Supportive care 2. Patient may have clear liquid diet with yogurt, nothing by mouth after midnight 3. MRCP ordered and reviewed 4. ERCP scheduled for tomorrow 5. Continue to hold anticoagulation at this time 6. Surgical services following patient 7. Continue IV Levaquin, may discontinue Flagyl 8. Indomethacin one hour prior to ERCP Thank you for this consultation, we will continue to follow Dr. Watt I agree with the dictator's note, documented as a scribe by Kassandra Gomez.
--- NOTE | 2021-03-11 17:25 | P.PN ---
Subjective Progress Note Date: 03/11/21 This is a 72-year-old female admitted with gallstone pancreatitis. MRCP reported common duct stone. Scheduled for ERCP tomorrow. Anticoagulation/Eliquis remains on hold. Tolerating clear liquid diet.Denies nausea ,vomiting. Denies abdominal pain. Objective - Vital Signs Vital signs: Vital Signs Temp 98.2 F 03/11/21 11:51 Pulse 63 03/11/21 11:51 Resp 17 03/11/21 11:51 BP 129/80 03/11/21 11:51 Pulse Ox 93 L 03/11/21 11:51 Intake & Output 03/10/21 03/11/21 03/11/21 18:59 06:59 18:59 Intake Total 1100 Balance 1100 Intake: Intake, IV Titration 1000 Amount Levofloxacin 500Mg-D5w 100 Pmx 500 mg In Dextrose/ Water 1 100ml.bag @ 100 mls/hr IVPB HS [facility] Rx#: [id number] Sodium Chloride 0.9% 1, 900 000 ml @ 75 mls/hr IV . [id number] [facility] Rx#:[id number] Oral 100 Other: Voiding Method Toilet Toilet # Voids 4 1 # Bowel Movements 4 - Exam PHYSICAL EXAM: VITAL SIGNS: [As above] GENERAL: Sitting up in bed, no acute distress HEENT: Conjunctivae normal. eyes normal. NECK: No JVD. No thyroid enlargement. No LNs CARDIOVASCULAR: S1, S2 regular. No murmur RESPIRATION: Breath sounds diminished in the bases. No rhonchi or crackles. No bronchial breathing. ABDOMEN: Soft, nontender, nondistended . No guarding. no masses palpable. Bowel sounds heard. LEGS: No edema. no swelling PSYCHIATRY: Alert and oriented X3, mood and affect normal. NERVOUS SYSTEM: Cranial N 2-12 grossly normal. Moves all 4 limbs. No focal deficits. Strength and sensation grossly intact.. Skin: no lesions, no rash - Labs CBC & Chem 7: 03/11/21 05:11 03/11/21 05:11 Labs: Abnormal Lab Results - Last 24 Hours (Table) 03/11/21 03/11/21 Range/Units 05:11 05:11 MCV 79.9 L (80.0-100.0) fL Carbon Dioxide 20.7 L (21.6-31.8) mmol/L Est GFR (CKD-EPI)AfAm 50.1 L (60.0-200.0) Est GFR (CKD-EPI)NonAf 43.3 L (60.0-200.0) BUN/Creatinine Ratio 10.00 L (12.00-20.00) Ratio Microbiology - Last 24 Hours (Table) 03/10/21 21:25 Urine Culture - Preliminary Urine,Voided Assessment and Plan Assessment: CBD dilation Choledocholithiasis Acute renal failure Possible acute UTI, culture pending Pancreatic cysts, further follow-up outpatient at tertiary care center History of PE History of colostomy with perforation Chronic atrial fibrillation History of nicotine dependence Plan: Continue on current medication regime ,monitoring and symptomatic treatment. Continue holding anticoagulation.ERCP scheduled for tomorrow. Maintain IV antibiotics Follow closely with both GI and surgery. The impression and plan of care has been dictated as directed. : I performed a history and examination of this patient, discussed the same with the dictator. I agree with the dictator's note ,documented as a scribe. Any additional findings or plans will be noted.
[2021-03-11] MEDS: LEVOFLOXACIN 250MG-D5W PMX 250 MG in DEXTROSE/WATER 1 50ML.BAG IVPB SCH (20:38)
[2021-03-12] MEDS: LEVOTHYROXINE 88 MCG TAB PO SCH (07:20)
[2021-03-12] MEDS: LOSARTAN 25 MG TAB PO SCH (08:11)
[2021-03-12] MEDS: METOPROLOL TARTRATE 25 MG TAB PO SCH ×2 (08:11→20:22)
[2021-03-12] MEDS: amLODIPine 10 MG TAB PO SCH (08:11)
[2021-03-12] MEDS: ATORVASTATIN 20 MG TAB PO SCH (08:11)
[2021-03-12] MEDS: hydroCHLOROthiazide 25 MG TAB PO SCH (08:11)
[2021-03-12] MEDS: PANTOPRAZOLE 40 MG/10 ML VIAL IVP SCH ×2 (08:11→20:22)
[2021-03-12] MEDS: SODIUM CHLORIDE 0.9% 1,000 ML IV SCH ×2 (08:13→15:27)
[2021-03-12] MEDS ORDERED: INDOMETHACIN 50MG SUPPOSITORY RECTAL ONE (10:00)
--- NOTE | 2021-03-12 10:33 | P.PN ---
Subjective Progress Note Date: 03/12/21 Patient seen and examined at bedside. No acute events. Plan is for ERCP today. Objective - Vital Signs Vital signs: Vital Signs Temp 98.7 F 03/12/21 04:45 Pulse 63 03/12/21 08:13 Resp 20 03/12/21 04:45 BP 143/87 03/12/21 08:13 Pulse Ox 97 03/12/21 04:45 Intake & Output 03/11/21 03/12/21 03/12/21 18:59 06:59 18:59 Intake Total 1500 120 Balance 1500 120 Intake: Intake, IV Titration 900 Amount Sodium Chloride 0.9% 1, 900 000 ml @ 75 mls/hr IV . [id number] [facility] Rx#:[id number] Oral 600 120 Other: Voiding Method Toilet Toilet # Voids 2 1 - Constitutional General appearance: Present: cooperative, no acute distress - Gastrointestinal Gastrointestinal Comment(s): Soft, nontender, nondistended, no rebound, no guarding - Labs CBC & Chem 7: 03/11/21 05:11 03/11/21 05:11 Labs: Microbiology - Last 24 Hours (Table) 03/10/21 22:15 Blood Culture - Preliminary Blood No Growth after 24 hours 03/10/21 21:25 Urine Culture - Preliminary Urine,Voided Assessment and Plan Plan: Plan is for ERCP today by gastroenterology. After discussion with the patient and the patient's , likelihood is that patient will be requesting to move forward with cholecystectomy. We'll plan for cholecystectomy in the next few days, based on ERCP findings.
[2021-03-12 11:02] LABS: INR 1.1 (0.90-1.11); Prothrombin Time 11.9 sec (9.9-11.9)
[2021-03-12] MEDS ORDERED: ONDANSETRON 4 MG/2 ML VIAL ONE ×2 (12:21→14:59)
[2021-03-12 12:23] LABS: African American GFR (CKD) 50.1 (60.0-200.0); Albumin 3.9 g/dL (3.80-4.90); Albumin/Globulin Ratio 1.5 (1.60-3.17); BUN/Creat Ratio 9.17 Ratio (12.00-20.00); Calcium 9.6 mg/dL (8.7-10.3); Globulin 2.6 g/dL (1.6-3.3); Non-African American GFR(CKD) 43.3 (60.0-200.0); Potassium 3.7 mmol/L (3.5-5.5); Total Bilirubin 0.6 mg/dL (0.2-1.2); Total Protein 6.5 g/dL (6.2-8.2)
[2021-03-12] MEDS ORDERED: ONDANSETRON 4 MG/2 ML VIAL IVP ONE ×2 (12:25→15:01)
[2021-03-12] MEDS ORDERED: IV FLUID CONTINUATION 900 ML IV ONE (12:28)
[2021-03-12] MEDS ORDERED: LIDOCAINE 1% INJ 10MG/ML (20 ML MDV) ONE (12:55)
[2021-03-12] MEDS ORDERED: SUCCINYLCHOLINE CHLORIDE 100 MG/5 ML SYR IV ONE (12:55)
[2021-03-12] MEDS ORDERED: PROPOFOL 10 MG/ML 20 ML VIAL IV ONE (12:55)
[2021-03-12] MEDS ORDERED: fentaNYL (PF) 50 MCG/ML 2 ML AMP ONE (12:55)
[2021-03-12] MEDS ORDERED: PHENYLEPHRINE-0.9% NACL SYG 1,000 MCG/10 ML SYRINGE ONE (12:55)
[2021-03-12] MEDS ORDERED: MIDAZOLAM 2 MG/2 ML VIAL ONE (12:55)
[2021-03-12] MEDS ORDERED: IOPAMIDOL-300 50ML BTL MISCELLANE ONE (13:55)
--- NOTE | 2021-03-12 14:08 | P.PCN ---
Date of Procedure: 03/12/21 Description of Procedure: Brief history: 80-year-old female who presented to outside hospital with complaints of abdominal pain, nausea and vomiting. Computed tomography scan at that facility showed cysts of the liver, pancreas and kidneys as well as CBD dilation and gallbladder wall thickening of unknown etiology. At this time MRCP performed and suggestive of CBD dilation with distal CBD stone, with redemonstration of cysts. Procedure performed: ERCP with cholangiogram, sphincterotomy and balloon sweep productive of a large CBD stone Preoperative diagnoses: Choledocholithiasis, abdominal pain, cholelithiasis, elevated liver enzymes IV sedation per anesthesia Estimated blood loss: Minimal. Procedure: After informed consent was obtained from the patient and after the risks benefits and complications including bleeding perforation and pancreatitis explained in detail the patient was brought into the endoscopy unit. The patient was placed in prone position and IV conscious sedation was administered by anesthesia under continuous monitoring. The Olympus side-viewing duoden oscope was then inserted into the mouth and esophagus intubated without any difficulty. The scope was gradually advanced into the stomach and duodenum. The major papilla was identified without any difficulty. Cannulation of the papilla was performed and a wire was passed into the CBD into the common hepatic duct. Dye was injected into the duct and cholangiogram was significant for a diffusely dilated CBD with a filling defect in the distal CBD. A sphincterotome was then used to make an 8 mm sphincterotomy. The sphincterotome was then exchanged over a wire for the balloon extractor which was inserted serially into the CBD and common hepatic duct up to the bifurcation with the duct swept with a balloon measuring 8.5 mm and then 11.5 mm. A large CBD stone was removed from the duct. The pancreatic duct was not cannulated or injected. The patient tolerated the procedure well. Impression: Choledocholithiasis. ERCP with cholangiogram significant for a dilated CBD with a distal CBD defect, sphincterotomy and balloon sweeps of the duct productive of a large CBD stone. Recommendations: The findings of this examination were discussed with the patient as well as her . Okay to resume full liquid diet. Timing of cholecystectomy to be discussed with the patient in the surgical service. Continue to monitor CBC, BMP, LFTs and for signs and symptoms of pancreatitis. Continue broad-spectrum antibiotic therapy. Recommend outpatient follow-up a tertiary center for endoscopic ultrasound given pancreatic cysts noted on imaging.
--- NOTE | 2021-03-12 14:10 | P.PN ---
Subjective Progress Note Date: 03/12/21 This is a 72-year-old female admitted with gallstone pancreatitis. MRCP reported common duct stone. Scheduled for ERCP tomorrow. Anticoagulation/Eliquis remains on hold. Tolerating clear liquid diet.Denies nausea ,vomiting. Denies abdominal pain. 03/12/2021 scheduled for ERCP today. Reports central abdominal pain. Maintained on IV fluid hydration. Denies chest pain, palpitations or shortness of breath. Potential Cholecystectomy pending per ERCP results. Objective - Vital Signs Vital signs: Vital Signs Temp 98.4 F 03/12/21 12:25 Pulse 72 03/12/21 12:25 Resp 18 03/12/21 12:25 BP 171/86 03/12/21 12:25 Pulse Ox 98 03/12/21 12:25 Intake & Output 03/11/21 03/12/21 03/12/21 18:59 06:59 18:59 Intake Total 1500 120 200 Balance 1500 120 200 Intake: IV 200 Intake, IV Titration 900 Amount Sodium Chloride 0.9% 1, 900 000 ml @ 75 mls/hr IV . [id number] [facility] Rx#:[id number] Oral 600 120 Other: Voiding Method Toilet Toilet # Voids 2 1 - Exam PHYSICAL EXAM: VITAL SIGNS: [As above] GENERAL: Sitting up in bed, no acute distress HEENT: Conjunctivae normal. eyes normal. NECK: No JVD. No thyroid enlargement. No LNs CARDIOVASCULAR: S1, S2 regular. No murmur RESPIRATION: Breath sounds diminished in the bases. No rhonchi or crackles. No bronchial breathing. ABDOMEN: Soft, nondistended, diffuse mid-center tenderness. No guarding. no masses palpable. Bowel sounds heard. LEGS: No edema. no swelling. PSYCHIATRY: Alert and oriented X3, mood and affect normal. NERVOUS SYSTEM: Cranial N 2-12 grossly normal. Moves all 4 limbs. No focal deficits. Strength and sensation grossly intact. Skin: no lesions, no rash - Labs CBC & Chem 7: 03/11/21 05:11 03/12/21 05:54 Labs: Abnormal Lab Results - Last 24 Hours (Table) 03/12/21 Range/Units 05:54 Est GFR (CKD-EPI)AfAm 50.1 L (60.0-200.0) Est GFR (CKD-EPI)NonAf 43.3 L (60.0-200.0) BUN/Creatinine Ratio 9.17 L (12.00-20.00) Ratio AST 45 H (13-35) U/L ALT 123 H (8-44) U/L Alkaline Phosphatase 141 H (41-126) U/L Albumin/Globulin Ratio 1.50 L (1.60-3.17) g/dL Microbiology - Last 24 Hours (Table) 03/10/21 21:25 Urine Culture - Preliminary Urine,Voided Gram Neg Bacilli 03/10/21 22:15 Blood Culture - Preliminary Blood No Growth after 24 hours Assessment and Plan Assessment: CBD dilation Choledocholithiasis Acute renal failure Possible acute UTI, culture pending Pancreatic cysts, further follow-up outpatient at tertiary care center History of PE History of colostomy with perforation Chronic atrial fibrillation History of nicotine dependence Plan: Continue on current medication regime ,monitoring and symptomatic treatment. Anticoagulation on hold .ERCP scheduled for today. Maintain IV fluid hydration, antibiotics. Potential cholecystectomy, pending ERCP. The impression and plan of care has been dictated as directed. : I performed a history and examination of this patient, discussed the same with the dictator. I agree with the dictator's note ,documented as a scribe. Any additional findings or plans will be noted.
--- NOTE | 2021-03-12 20:01 | FL ---
Fluoroscopy HISTORY: Abnormal MRCP, biliary ductal dilatation, choledocholithiasis 45 seconds fluoroscopy time supplied to the referring clinician. 3 intraoperative C-arm images docum ent the procedure. See dictated report from gastroenterology.
[2021-03-12] MEDS: LEVOFLOXACIN 250MG-D5W PMX 250 MG in DEXTROSE/WATER 1 50ML.BAG IVPB SCH (20:23)
[2021-03-12] MEDS: MAG HYDROX/AL HYDROX/SIMETH 30 ML CUP PO PRN (21:36)
[2021-03-12] MEDS ORDERED: ERGOCALCIFEROL 1,250 MCG (50,000 IU) CAPSULE PO SCH (21:53)
[2021-03-12] MEDS ORDERED: HYDROmorphone 1 MG/ML 1 ML SYRINGE IVP PRN (23:17)
[2021-03-13] MEDS: SODIUM CHLORIDE 0.9% 1,000 ML IV SCH ×3 (04:56→20:37)
[2021-03-13] MEDS: MAG HYDROX/AL HYDROX/SIMETH 30 ML CUP PO PRN (04:56)
[2021-03-13 05:23] LABS: African American GFR (CKD) 50 (>60 ml/min/1.73 sqM); Anion Gap 9 mmol/L; Blood Urea Nitrogen 14 mg/dL (7-17); Calcium 8.7 mg/dL (8.4-10.2); Carbon Dioxide 22 mmol/L (22-30); Chloride 106 mmol/L (98-107); Glucose 109 mg/dL (74-99); Magnesium 1.3 mg/dL (1.6-2.3); Non-African American GFR(CKD) 43 (>60 ml/min/1.73 sqM); Potassium 3.4 mmol/L (3.5-5.1); Sodium 137 mmol/L (137-145)
[2021-03-13] MEDS: LEVOTHYROXINE 88 MCG TAB PO SCH (06:03)
[2021-03-13 06:19] LABS: Amylase 1518 U/L (30-110)
[2021-03-13] MEDS ORDERED: Magnesium Replacement Protocol 1 EACH MISC MISCELLANE PRN (06:22)
[2021-03-13] MEDS ORDERED: Potassium Replacement Protocol 1 EACH MISC MISCELLANE PRN (06:23)
[2021-03-13 06:36] LABS: Lipase 10153 U/L (23-300)
[2021-03-13] MEDS: MAGNESIUM SULFATE-D5W PMX 1 GM in DEXTROSE/WATER 1 100ML.BAG IVPB SCH ×3 (08:40→10:43)
[2021-03-13] MEDS: CITALOPRAM HYDROBROMIDE 10 MG TAB PO SCH (08:40)
[2021-03-13] MEDS: ATORVASTATIN 20 MG TAB PO SCH (08:40)
[2021-03-13] MEDS: LOSARTAN 25 MG TAB PO SCH (08:40)
[2021-03-13] MEDS: hydroCHLOROthiazide 25 MG TAB PO SCH (08:40)
[2021-03-13] MEDS: METOPROLOL TARTRATE 25 MG TAB PO SCH ×2 (08:40→20:28)
[2021-03-13] MEDS: amLODIPine 10 MG TAB PO SCH (08:40)
[2021-03-13] MEDS: PANTOPRAZOLE 40 MG/10 ML VIAL IVP SCH ×2 (08:41→20:28)
[2021-03-13 11:57] LABS: Total Bilirubin 0.5 mg/dL (0.2-1.3)
[2021-03-13] MEDS: POTASSIUM CHLORIDE 10 MEQ in WATER FOR INJECTION 1 100ML.BAG IVPB SCH ×4 (12:02→16:10)
--- NOTE | 2021-03-13 15:27 | P.PN ---
Subjective Progress Note Date: 03/13/21 Patient seen and examined at bedside. Underwent ERCP yesterday. States she is a bit uncomfortable today with some epigastric abdominal pain. Denies any significant nausea or vomiting. Objective - Vital Signs Vital signs: Vital Signs Temp 98.1 F 03/13/21 11:36 Pulse 60 03/13/21 11:36 Resp 17 03/13/21 11:36 BP 124/71 03/13/21 11:36 Pulse Ox 94 L 03/13/21 11:36 Intake & Output 03/12/21 03/13/21 03/13/21 18:59 06:59 18:59 Intake Total 950 1225 Balance 950 1225 Intake: IV 950 Intake, IV Titration 775 Amount Levofloxacin 250Mg-D5w 50 Pmx 250 mg In Dextrose/ Water 1 50ml.bag @ 50 mls /hr IVPB HS [facility] Rx#: [id number] Sodium Chloride 0.9% 1, 725 000 ml @ 75 mls/hr IV . [id number] [facility] Rx#:[id number] Oral 450 Other: Voiding Method Toilet # Voids 1 1 - Constitutional General appearance: Present: cooperative - Gastrointestinal Gastrointestinal Comment(s): Soft, mild tenderness to palpation in the epigastrium, nondistended, no rebound, no guarding - Labs CBC & Chem 7: 03/11/21 05:11 03/13/21 04:42 Labs: Abnormal Lab Results - Last 24 Hours (Table) 03/13/21 03/13/21 Range/Units 04:42 04:42 Potassium 3.4 L (3.5-5.1) mmol/L Creatinine 1.21 H (0.52-1.04) mg/dL Glucose 109 H (74-99) mg/dL Magnesium 1.3 L (1.6-2.3) mg/dL ALT 88 H (4-34) U/L Amylase 1518 H* (30-110) U/L Lipase 51140 H (23-300) U/L Microbiology - Last 24 Hours (Table) 03/10/21 21:25 Urine Culture - Final Urine,Voided Escherichia coli 03/10/21 22:15 Blood Culture - Preliminary Blood No Growth after 48 hours Assessment and Plan Plan: 80-year-old female with choledocholithiasis. She is status post ERCP from yesterday in which a large common bile duct stone was evacuated. Patient's amylase and lipase are elevated today pretty significantly. She is also having some epigastric tenderness. Secondary to this, we will plan to treat the patient's pancreatitis. Case was discussed with patient's admitting physician, Dr. Hernandez. Based on recent pancreatitis and being high risk for an open procedure because of intra-abdominal adhesions, we will postpone surgical intervention. This is reasonable as the patient has also underwent a sphincterotomy. Once patient is cleared for discharge after pancreatitis treatment, she will follow-up as an outpatient for plan for elective cholecystectomy. Patient was agreeable with this plan.
--- NOTE | 2021-03-13 15:35 | P.PN ---
Subjective Progress Note Date: 03/13/21 Principal diagnosis: Gallstone pancreatitis The patient was seen and examined sitting up in bed. Yesterday she underwent an ERCP with cholangiogram significant for a dilated CBD with a distal CBD defect, sphincterectomy and balloon sweeps of the duct productive of a large CBD stone. The patient was experiencing increased right upper quadrant pain following the procedure, a repeat amylase and lipase were ordered. Amylase 1518, lipase 10,153. Patient has been nothing by mouth. Liver enzymes are improving. Total bilirubin 0.5, alkaline phosphatase 105, AST 36, ALT 88. Patient denies any nausea or vomiting. She's been afebrile. Surgical services is following. Objective - Vital Signs Vital signs: Vital Signs Temp 98.1 F 03/13/21 11:36 Pulse 60 03/13/21 11:36 Resp 17 03/13/21 11:36 BP 124/71 03/13/21 11:36 Pulse Ox 94 L 03/13/21 11:36 Intake & Output 03/12/21 03/13/21 03/13/21 18:59 06:59 18:59 Intake Total 950 1225 Balance 950 1225 Intake: IV 950 Intake, IV Titration 775 Amount Levofloxacin 250Mg-D5w 50 Pmx 250 mg In Dextrose/ Water 1 50ml.bag @ 50 mls /hr IVPB HS [facility] Rx#: [id number] Sodium Chloride 0.9% 1, 725 000 ml @ 75 mls/hr IV . [id number] [facility] Rx#:[id number] Oral 450 Other: Voiding Method Toilet # Voids 1 1 - Exam General appearance: The patient is alert, oriented, appears in no acute dis tress. HET: Head is normocephalic and atraumatic. Conjunctiva pink. Sclera anicteric. Neck: Supple without lymphadenopathy. Abdomen: Soft, right upper quadrant and epigastric tenderness, nondistended with bowel sounds. No guarding or rigidity. Extremities: Normal skin color and turgor. No pedal edema Skin: No rashes, no jaundice Neurological: No focal deficits. Alert and oriented 3. - Labs CBC & Chem 7: 03/11/21 05:11 03/13/21 04:42 Labs: Abnormal Lab Results - Last 24 Hours (Table) 03/12/21 03/13/21 Range/Units 05:54 04:42 Potassium 3.4 L (3.5-5.1) mmol/L Creatinine 1.21 H (0.52-1.04) mg/dL Est GFR (CKD-EPI)AfAm 50.1 L (60.0-200.0) Est GFR (CKD-EPI)NonAf 43.3 L (60.0-200.0) BUN/Creatinine Ratio 9.17 L (12.00-20.00) Ratio Glucose 109 H (74-99) mg/dL Magnesium 1.3 L (1.6-2.3) mg/dL AST 45 H (13-35) U/L ALT 123 H (8-44) U/L Alkaline Phosphatase 141 H (41-126) U/L Albumin/Globulin Ratio 1.50 L (1.60-3.17) g/dL Amylase 1518 H* (30-110) U/L Lipase 79052 H (23-300) U/L Microbiology - Last 24 Hours (Table) 03/10/21 21:25 Urine Culture - Final Urine,Voided Escherichia coli 03/10/21 22:15 Blood Culture - Preliminary Blood No Growth after 48 hours Assessment and Plan (1) Common bile duct dilatation Narrative/Plan: 80-year-old female who presented to outside hospital with complaints of abdominal pain, nausea and vomiting. Computed tomography scan at that facility showed cysts of the liver, pancreas and kidneys as well as CBD dilation and gallbladder wall thickening of unknown etiology. MRCP was ordered showing evidence of CBD obstruction or choledocholithiasis. Current Visit: Yes Status: Acute Code(s): K83.8 - OTHER SPECIFIED DISEASES OF BILIARY TRACT SNOMED Code(s): 652296299 (2) Choledocholithiasis Narrative/Plan: Patient underwent ERCP yesterday with stone extraction Current Visit: Yes Status: Acute Code(s): K80.50 - CALCULUS OF BILE DUCT W/O CHOLANGITIS OR CHOLECYST W/O OBST SNOMED Code(s): 391450959 (3) Abdominal pain Current Visit: No Status: Acute Code(s): R10.9 - UNSPECIFIED ABDOMINAL PAIN SNOMED Code(s): 39075901 (4) Pancreatic cyst Current Visit: Yes Status: Acute Code(s): K86.2 - CYST OF PANCREAS SNOMED Code(s): 53183678 (5) Acute pancreatitis Current Visit: Yes Status: Acute Code(s): K85.90 - ACUTE PANCREATITIS WITHOUT NECROSIS OR INFECTION, UNSP SNOMED Code(s): 006799497 Plan: 1. Clear liquid diet 2. Repeat CBC, CMP, lipase 3. Patient is status post ERCP with stone extraction 4. Continue pain medications as needed 5. Surgical services following patient 6. Continue medical management per primary medicine team Thank you for this consultation, we will continue to follow Dr. Watt I agree with the dictator's note, documented as a scribe by Kassandra Gomez.
--- NOTE | 2021-03-13 16:15 | P.PN ---
Subjective Progress Note Date: 03/13/21 This is a 72-year-old female admitted with gallstone pancreatitis. MRCP reported common duct stone. Scheduled for ERCP tomorrow. Anticoagulation/Eliquis remains on hold. Tolerating clear liquid diet.Denies nausea ,vomiting. Denies abdominal pain. 03/12/2021 scheduled for ERCP today. Reports central abdominal pain. Maintained on IV fluid hydration. Denies chest pain, palpitations or shortness of breath. Potential Cholecystectomy pending per ERCP results. 03/13/2021 status post ERCP with cholangiogram significant for dilated common bile duct with the distal common bile duct defect, sphincterectomy and balloon sweeps of large common bile duct stone. Reports post procedure she experienced significant right upper quadrant pain. Amylase 1518, lipase 10,153. LFTs trending down. Denies nausea or vomiting. Reports not passing flatus. No bowel movement. Creatinine 1.21. Maintained on bowel rest, IV fluid hydration and antibiotics. Currently complains of mid left abdominal pain radiating through to back. Potassium 3.4, magnesium 1.3. Afebrile. Objective - Vital Signs Vital signs: Vital Signs Temp 98.1 F 03/13/21 11:36 Pulse 60 03/13/21 11:36 Resp 17 03/13/21 11:36 BP 124/71 03/13/21 11:36 Pulse Ox 94 L 03/13/21 11:36 Intake & Output 03/12/21 03/13/21 03/13/21 18:59 06:59 18:59 Intake Total 950 1225 Balance 950 1225 Intake: IV 950 Intake, IV Titration 775 Amount Levofloxacin 250Mg-D5w 50 Pmx 250 mg In Dextrose/ Water 1 50ml.bag @ 50 mls /hr IVPB HS [facility] Rx#: [id number] Sodium Chloride 0.9% 1, 725 000 ml @ 75 mls/hr IV . [id number] [facility] Rx#:[id number] Oral 450 Other: Voiding Method Toilet # Voids 1 1 - Exam PHYSICAL EXAM: VITAL SIGNS: [As above] GENERAL: Sitting up in bed, no acute distress HEENT: Conjunctivae normal. eyes normal. NECK: No JVD. No thyroid enlargement. No LNs CARDIOVASCULAR: S1, S2 regular. No murmur RESPIRATION: Breath sounds diminished in the bases. No rhonchi or crackles. ABDOMEN: Soft, nondistended, diffuse mid-left center tenderness. No guarding. no masses palpable. Bowel sounds heard. LEGS: No edema. no swelling. PSYCHIATRY: Alert and oriented X3, mood and affect normal. NERVOUS SYSTEM: Cranial N 2-12 grossly normal. Moves all 4 limbs. No focal deficits. Strength and sensation grossly intact. Skin: no lesions, no rash - Labs CBC & Chem 7: 03/11/21 05:11 03/13/21 04:42 Labs: Abnormal Lab Results - Last 24 Hours (Table) 03/13/21 03/13/21 Range/Units 04:42 04:42 Potassium 3.4 L (3.5-5.1) mmol/L Creatinine 1.21 H (0.52-1.04) mg/dL Glucose 109 H (74-99) mg/dL Magnesium 1.3 L (1.6-2.3) mg/dL ALT 88 H (4-34) U/L Amylase 1518 H* (30-110) U/L Lipase 61129 H (23-300) U/L Microbiology - Last 24 Hours (Table) 03/10/21 21:25 Urine Culture - Final Urine,Voided Escherichia coli 03/10/21 22:15 Blood Culture - Preliminary Blood No Growth after 48 hours Assessment and Plan Assessment: CBD dilation Choledocholithiasis, status post ERCP, sphincterectomy, evacuation of a large, bile duct stone. Acute pancreatitis. Acute renal failure Possible acute UTI, culture pending Pancreatic cysts, recommend further follow-up outpatient at tertiary care center History of PE History of colostomy with perforation Chronic atrial fibrillation History of nicotine dependence Plan: Continue on current medication regime ,monitoring and symptomatic treatment. Magnesium and potassium supplements ordered via replacement protocols. Maintain IV fluid hydration, antibiotics. Pain management. Cholecystectomy postponed-currently treating acute pancreatitis. Aggressive pulmonary toileting with Incentive spirometer ordered. Increase ambulation as tolerated .Close monitoring of lipase, LFTs, CBC with repeat labs ordered for a.m. The impression and plan of care has been dictated as directed. : I performed a history and examination of this patient, discussed the same with the dictator. I agree with the dictator's note ,documented as a scribe. Any additional findings or plans will be noted.
[2021-03-13] MEDS: LEVOFLOXACIN 250MG-D5W PMX 250 MG in DEXTROSE/WATER 1 50ML.BAG IVPB SCH (20:28)
[2021-03-14] MEDS: LEVOTHYROXINE 88 MCG TAB PO SCH (06:18)
[2021-03-14 06:42] LABS: Basophils % (A) 0 %; Eosinophils # (A) 0.1 k/uL (0-0.7); Eosinophils % (A) 1 %; HCT 36.9 % (34.0-46.0); HGB 11.9 gm/dL (11.4-16.0); Lymphocytes % (A) 10 %; MCHC 32.4 g/dL (31.0-37.0); MCV 83.4 fL (80.0-100.0); Mean Platelet Volume 7.9; Monocytes # (A) 0.8 k/uL (0-1.0); Monocytes % (A) 8 %; Neutrophils # (A) 8.1 k/uL (1.3-7.7); Neutrophils % (A) 80 %; Platelet Count 174 k/uL (150-450); RBC 4.42 m/uL (3.80-5.40); RDW 14.3 % (11.5-15.5); WBC 10.1 k/uL (3.8-10.6)
[2021-03-14] MEDS: ATORVASTATIN 20 MG TAB PO SCH (09:08)
[2021-03-14] MEDS: CITALOPRAM HYDROBROMIDE 10 MG TAB PO SCH (09:08)
[2021-03-14] MEDS: amLODIPine 10 MG TAB PO SCH (09:09)
[2021-03-14] MEDS: METOPROLOL TARTRATE 25 MG TAB PO SCH ×2 (09:09→20:40)
[2021-03-14] MEDS: hydroCHLOROthiazide 25 MG TAB PO SCH (09:09)
[2021-03-14] MEDS: PANTOPRAZOLE 40 MG/10 ML VIAL IVP SCH ×2 (09:09→20:41)
[2021-03-14] MEDS: LOSARTAN 25 MG TAB PO SCH (09:09)
--- NOTE | 2021-03-14 12:05 | P.PN ---
Subjective Progress Note Date: 03/14/21 This is a 72-year-old female admitted with gallstone pancreatitis. MRCP reported common duct stone. Scheduled for ERCP tomorrow. Anticoagulation/Eliquis remains on hold. Tolerating clear liquid diet.Denies nausea ,vomiting. Denies abdominal pain. 03/12/2021 scheduled for ERCP today. Reports central abdominal pain. Maintained on IV fluid hydration. Denies chest pain, palpitations or shortness of breath. Potential Cholecystectomy pending per ERCP results. 03/13/2021 status post ERCP with cholangiogram significant for dilated common bile duct with the distal common bile duct defect, sphincterectomy and balloon sweeps of large common bile duct stone. Reports post procedure she experienced significant right upper quadrant pain. Amylase 1518, lipase 10,153. LFTs trending down. Denies nausea or vomiting. Reports not passing flatus. No bowel movement. Creatinine 1.21. Maintained on bowel rest, IV fluid hydration and antibiotics. Currently complains of mid left abdominal pain radiating through to back. Potassium 3.4, magnesium 1.3. Afebrile. 03/14/2021 maintained on bowel rest, IV fluid hydration. Feels significantly better, pain improved. Labs pending. Passing flatus, Afebrile. Urine culture reporting E. coli, antibiotics adjusted. Objective - Vital Signs Vital signs: Vital Signs Temp 98.6 F 03/14/21 05:00 Pulse 80 03/14/21 05:00 Resp 16 03/14/21 05:00 BP 112/70 03/14/21 05:00 Pulse Ox 91 L 03/14/21 05:00 Intake & Output 03/13/21 03/14/21 03/14/21 18:59 06:59 18:59 Intake Total 2200 590 Balance 2200 590 Intake: Intake, IV Titration 2200 Amount Magnesium Sulfate-D5w Pmx 300 1 gm In Dextrose/Water 1 100ml.bag @ 100 mls/hr IVPB Q1H [facility] Rx#: [id number] Potassium Chloride 10 meq 400 In Water For Injection 1 100ml.bag @ 100 mls/hr IVPB Q1HR [facility] Rx#: [id number] Sodium Chloride 0.9% 1, 1500 000 ml @ 125 mls/hr IV . Q8H [facility] Rx#:[id number] Oral 590 Other: Voiding Method Toilet # Voids 2 - Exam PHYSICAL EXAM: VITAL SIGNS: [As above] GENERAL: Sitting up in bed, no acute distress HEENT: Conjunctivae normal. eyes normal. NECK: No JVD. No thyroid enlargement. No LNs CARDIOVASCULAR: S1, S2 regular. No murmur RESPIRATION: Breath sounds diminished in the bases. No rhonchi or crackles. ABDOMEN: Soft, nondistended, minimal mid-left center tenderness. No guarding. no masses palpable. Bowel sounds heard. LEGS: No edema. no swelling. PSYCHIATRY: Alert and oriented X3, mood and affect normal. NERVOUS SYSTEM: Cranial N 2-12 grossly normal. Moves all 4 limbs. No focal deficits. Strength and sensation grossly intact. Skin: no lesions, no rash - Labs CBC & Chem 7: 03/14/21 06:23 03/13/21 04:42 Labs: Abnormal Lab Results - Last 24 Hours (Table) 03/13/21 03/14/21 Range/Units 04:42 06:23 Neutrophils # 8.1 H (1.3-7.7) k/uL ALT 88 H (4-34) U/L Microbiology - Last 24 Hours (Table) 03/10/21 22:15 Blood Culture - Preliminary Blood No Growth after 72 hours 03/10/21 21:25 Urine Culture - Final Urine,Voided Escherichia coli Assessment and Plan Assessment: CBD dilation Choledocholithiasis, status post ERCP, sphincterectomy, evacuation of a large, bile duct stone. Acute pancreatitis. Acute renal failure Acute UTI, E. coli Pancreatic cysts, recommend further follow-up outpatient at tertiary care center History of PE History of colostomy with perforation Chronic atrial fibrillation History of nicotine dependence Plan: Continue on current medication regime ,monitoring and symptomatic treatment. Labs pending .Maintain IV fluid hydration. Aggressive pulmonary toileting with Incentive spirometer ordered. Increase ambulation as tolerated . Outpatient Cholecystectomy recommended. Close monitoring of lipase, LFTs, CBC with repeat labs ordered for a.m. discharge planning soon pending lipase within the acceptable level, and once tolerating diet advancement. The impression and plan of care has been dictated as directed. : I performed a history and examination of this patient, discussed the same with the dictator. I agree with the dictator's note ,documented as a scribe. Any ad ditional findings or plans will be noted.
[2021-03-14] MEDS: NITROFURANTOIN MONOHYD/M-CRYST 100 MG CAP PO SCH ×2 (12:56→20:41)
[2021-03-14] MEDS: SODIUM CHLORIDE 0.9% 1,000 ML IV SCH (12:57)
[2021-03-14 13:06] LABS: African American GFR (CKD) 55.7 (60.0-200.0); Albumin 3.6 g/dL (3.80-4.90); Albumin/Globulin Ratio 1.57 (1.60-3.17); Anion Gap 11.8 mmol/L (4.00-12.00); BUN/Creat Ratio 9.09 Ratio (12.00-20.00); Calcium 8.5 mg/dL (8.7-10.3); Carbon Dioxide 20.2 mmol/L (21.6-31.8); Globulin 2.3 g/dL (1.6-3.3); Magnesium 1.8 mg/dL (1.5-2.4); Potassium 3.8 mmol/L (3.5-5.5); Total Bilirubin 0.6 mg/dL (0.3-1.2); Total Protein 5.9 g/dL (6.2-8.2)
[2021-03-14 13:13] LABS: Lipase 1142 U/L (23-300)
--- NOTE | 2021-03-14 13:33 | P.PN ---
Subjective Progress Note Date: 03/14/21 Principal diagnosis: Gallstone pancreatitis Melissa is seen and examined sitting up in bed. States her pain has improved significantly. She denies any nausea or vomiting. She is status post ERCP with stone extraction. Plan is for outpatient cholecystectomy. Repeat lipase 208 d own from 10,153 Objective - Vital Signs Vital signs: Vital Signs Temp 98.6 F 03/14/21 05:00 Pulse 80 03/14/21 08:40 Resp 16 03/14/21 08:40 BP 112/70 03/14/21 05:00 Pulse Ox 91 L 03/14/21 05:00 Intake & Output 03/13/21 03/14/21 03/14/21 18:59 06:59 18:59 Intake Total 2200 590 Balance 2200 590 Intake: Intake, IV Titration 2200 Amount Magnesium Sulfate-D5w Pmx 300 1 gm In Dextrose/Water 1 100ml.bag @ 100 mls/hr IVPB Q1H [facility] Rx#: [id number] Potassium Chloride 10 meq 400 In Water For Injection 1 100ml.bag @ 100 mls/hr IVPB Q1HR [facility] Rx#: [id number] Sodium Chloride 0.9% 1, 1500 000 ml @ 125 mls/hr IV . Q8H [facility] Rx#:[id number] Oral 590 Other: Voiding Method Toilet Toilet # Voids 2 - Exam General appearance: The patient is alert, oriented, appears in no acute distress. HET: Head is normocephalic and atraumatic. Conjunctiva pink. Sclera anicteric. Neck: Supple without lymphadenopathy. Abdomen: Soft, right upper quadrant and epigastric tenderness, nondistended with bowel sounds. No guarding or rigidity. Extremities: Normal skin color and turgor. No pedal edema Skin: No rashes, no jaundice Neurological: No focal deficits. Alert and oriented 3. - Labs CBC & Chem 7: 03/14/21 06:23 03/14/21 06:23 Labs: Abnormal Lab Results - Last 24 Hours (Table) 03/14/21 Range/Units 06:23 Neutrophils # 8.1 H (1.3-7.7) k/uL Microbiology - Last 24 Hours (Table) 03/10/21 22:15 Blood Culture - Preliminary Blood No Growth after 72 hours 03/10/21 21:25 Urine Culture - Final Urine,Voided Escherichia coli Assessment and Plan (1) Common bile duct dilatation Narrative/Plan: 80-year-old female who presented to outside hospital with complaints of abdominal pain, nausea and vomiting. Computed tomography scan at that facility showed cysts of the liver, pancreas and kidneys as well as CBD dilation and gallbladder wall thickening of unknown etiology. MRCP was ordered showing evidence of CBD obstruction or choledocholithiasis. Current Visit: Yes Status: Acute Code(s): K83.8 - OTHER SPECIFIED DISEASES OF BILIARY TRACT SNOMED Code(s): 911383423 (2) Choledocholithiasis Narrative/Plan: Patient underwent ERCP yesterday with stone extraction Current Visit: Yes Status: Acute Code(s): K80.50 - CALCULUS OF BILE DUCT W/O CHOLANGITIS OR CHOLECYST W/O OBST SNOMED Code(s): 353887391 (3) Abdominal pain Current Visit: No Status: Acute Code(s): R10.9 - UNSPECIFIED ABDOMINAL PAIN SNOMED Code(s): 97896008 (4) Pancreatic cyst Current Visit: Yes Status: Acute Code(s): K86.2 - CYST OF PANCREAS SNOMED Code(s): 29017923 (5) Acute pancreatitis Current Visit: Yes Status: Acute Code(s): K85.90 - ACUTE PANCREATITIS WITHO UT NECROSIS OR INFECTION, UNSP SNOMED Code(s): 391383881 Plan: 1. Okay for full liquid diet 2. Patient is status post ERCP with stone extraction 3. Continue pain medications as needed 4. Surgical services following patient, plan is for outpatient cholecystectomy 5. Continue medical management per primary medicine team Thank you for this consultation, patient may be discharged home from gastroenterology standpoint Dr. Watt I agree with the dictator's note, documented as a scribe by Kassandra Gomez.
[2021-03-14 13:43] LABS: Amylase 415 U/L (30-110)
[2021-03-14 20:15] VITALS: RESP 16
[2021-03-15] MEDS: LEVOTHYROXINE 88 MCG TAB PO SCH (05:46)
[2021-03-15] MEDS: amLODIPine 10 MG TAB PO SCH (09:00)
[2021-03-15] MEDS: LOSARTAN 25 MG TAB PO SCH (09:00)
[2021-03-15] MEDS: hydroCHLOROthiazide 25 MG TAB PO SCH (09:00)
[2021-03-15] MEDS: PANTOPRAZOLE 40 MG/10 ML VIAL IVP SCH (09:00)
[2021-03-15] MEDS: ATORVASTATIN 20 MG TAB PO SCH (09:01)
[2021-03-15] MEDS: CITALOPRAM HYDROBROMIDE 10 MG TAB PO SCH (09:01)
[2021-03-15] MEDS: METOPROLOL TARTRATE 25 MG TAB PO SCH (09:01)
[2021-03-15] MEDS: NITROFURANTOIN MONOHYD/M-CRYST 100 MG CAP PO SCH (09:01)
[2021-03-15] MEDS: SODIUM CHLORIDE 0.9% 1,000 ML IV SCH ×2 (09:02→09:55)
--- NOTE | 2021-03-15 11:40 | P.PN ---
Subjective Progress Note Date: 03/14/21 Patient seen and examined at bedside. Tolerating diet. Denies abdominal pain. Objective - Vital Signs Vital signs: Vital Signs Temp 98.5 F 03/15/21 04:43 Pulse 78 03/15/21 04:43 Resp 16 03/15/21 04:43 BP 131/76 03/15/21 04:43 Pulse Ox 97 03/15/21 04:43 Intake & Output 03/14/21 03/15/21 03/15/21 18:59 06:59 18:59 Intake Total 240 1500 Output Total 1 Balance 239 1500 Intake: Intake, IV Titration 1500 Amount Sodium Chloride 0.9% 1, 1500 000 ml @ 125 mls/hr IV . Q8H [facility] Rx#:[id number] Oral 240 Output: Stool 1 Other: Voiding Method Toilet Toilet # Voids 3 4 # Bowel Movements 2 - Constitutional General appearance: Present: cooperative - Gastrointestinal Gastrointestinal Comment(s): soft, nontender - Labs CBC & Chem 7: 03/14/21 06:23 03/14/21 06:23 Labs: Abnormal Lab Results - Last 24 Hours (Table) 03/14/21 03/14/21 Range/Units 06:23 06:23 Carbon Dioxide 20.2 L (21.6-31.8) mmol/L Est GFR (CKD-EPI)AfAm 55.7 L (60.0-200.0) Est GFR (CKD-EPI)NonAf 48.0 L (60.0-200.0) BUN/Creatinine Ratio 9.09 L (12.00-20.00) Ratio Calcium 8.5 L (8.7-10.3) mg/dL ALT 63 H (8-44) U/L Total Protein 5.9 L (6.2-8.2) g/dL Albumin 3.60 L (3.80-4.90) g/dL Albumin/Globulin Ratio 1.57 L (1.60-3.17) g/dL Amylase 415 H* (30-110) U/L Lipase 208 H 1142 H (14-63) U/L Microbiology - Last 24 Hours (Table) 03/10/21 22:15 Blood Culture - Preliminary Blood No Growth after 96 hours Assessment and Plan Plan: 80-year-old female with choledocholithiasis. She is status post ERCP in which a large common bile duct stone was evacuated. Patient's amylase and lipase have decreased from yesterday. Epigastric tenderness improved. Case was discussed with patient's admitting physician, Dr. Hernandez. Based on recent pancreatitis and being high risk for an open procedure because of intra-abdominal adhesions, we will postpone surgical intervention. This is reasonable as the patient has also underwent a sphincterotomy. Once patient is cleared for discharge after pancreatitis treatment, she will follow-up as an outpatient for plan for elective cholecystectomy. Patient was agreeable with this plan.
[2021-03-15 12:14] VITALS: BP 131/83; PULSE 74; TEMP 98.3
--- NOTE | 2021-03-15 14:13 | P.DS ---
Providers Date of admission: 03/11/21 14:43 Attending physician: Cole Hernandez Consults: 03/08/21 21:13 Consult Physician Urgent Consulting Provider: Santos Brewster Consult Reason/Comments: CBD dilation; pancreatic cyst Do you want consulting provider notified?: Yes Primary care physician: Cole Hernandez [facility] Hospital Course: 74-year-old pleasant female appears to have been admitted with choledocholithiasis and common bile duct dilatation patient underwent ERCP with sphincterotomy and removal of larger bile that stone. Postprocedure patient ended up having acute pancreatitis which is not uncommon. Patient to have pancreatitis did improve patient is able to tolerate diet and the patient is clinically doing well and will be discharged today. Considering patient's blood pressures I do not believe patient will need had good thiazide which will be discontinued at this time neck rest of the antidepressive medications were continued. Patient was started on nitrofurantoin UTI with the E. coli, patient will be given prescription for 3 more days comparing total 5 day of therapy for urinary tract infection. Patient will follow with general surgery for cholecystectomy and as an outpatient PHYSICAL EXAMINATION: GENERAL: The patient is alert and oriented x3, not in any acute distress. Well developed, well nourished. HEENT: Pupils are round and equally reacting to light. EOMI. No scleral icterus. No conjunctival pallor. Normocephalic, atraumatic. No pharyngeal erythema. No thyromegaly. CARDIOVASCULAR: S1 and S2 present. No murmurs, rubs, or gallops. PULMONARY: Chest is clear to auscultation, no wheezing or crackles. ABDOMEN: Soft, nontender, nondistended, normoactive bowel sounds. No palpable organomegaly. MUSCULOSKELETAL: No joint swelling or deformity. EXTREMITIES: No cyanosis, clubbing, or pedal edema. NEUROLOGICAL: Gross neurological examination did not reveal any focal deficits. SKIN: No rashes. Personal medical problems and has physician course please up to the docume ntation from Dr. Hernandez Patient Condition at Discharge: Good Plan - Discharge Summary New Discharge Prescriptions: Continue Apixaban [Eliquis] 5 mg PO BID amLODIPine [Norvasc] 10 mg PO DAILY Rosuvastatin [Crestor] 10 mg PO DAILY Metoprolol Tartrate [Lopressor] 25 mg PO BID #60 tab Omeprazole/Sodium Bicarbonate [Zegerid 20 mg Capsule] 1 cap PO DAILY Ergocalciferol [Vitamin D2 (1250 Mcg = 24849 Iu)] 1,250 mcg PO TU Levothyroxine Sodium 88 mcg PO DAILY Citalopram Hydrobromide [CeleXA] 5 mg PO DAILY Losartan [Cozaar] 25 mg PO DAILY Discontinued hydroCHLOROthiazide [Hydrodiuril] 25 mg PO DAILY Discharge Medication List Apixaban [Eliquis] 5 mg PO BID 05/12/18 [History] Rosuvastatin [Crestor] 10 mg PO DAILY 08/25/18 [History] amLODIPine [Norvasc] 10 mg PO DAILY 08/25/18 [History] Metoprolol Tartrate [Lopressor] 25 mg PO BID #60 tab 09/07/18 [Rx] Omeprazole/Sodium Bicarbonate [Zegerid 20 mg Capsule] 1 cap PO DAILY 09/24/20 [History] Citalopram Hydrobromide [CeleXA] 5 mg PO DAILY 03/08/21 [History] Ergocalciferol [Vitamin D2 (1250 Mcg = 46968 Iu)] 1,250 mcg PO TU 03/08/21 [History] Levothyroxine Sodium 88 mcg PO DAILY 03/08/21 [History] Losartan [Cozaar] 25 mg PO DAILY 03/08/21 [History] Follow up Appointment(s)/Referral(s): Cole Hernandez DO [Primary Care Provider] - 03/21/21 11:40 am Santos Brewster DO [Doctor of Osteopathic Medicine] - 10 Days ('s office is closed on fridays.patient will have to call and schedule own appt.) Patient Instructions/Handouts: Pancreatitis (DC), ERCP (Endoscopic Retrograde Cholangiopancreatography) (DC) Discharge Disposition: HOME SELF-CARE
== END 2021-03-15 13:15 | disposition home or self-care (01) | DRG 444 ==
LOC: EC 20:25 → 5NMEDONC 21:17 → OBSVTOIN 03-11 14:43
PROVIDERS: ADMIT Family Medicine; ATTEND Family Medicine
PROC: 0FC98ZZ Extirpation of Matter from Common Bile Duct, Via Natural or Artificial Opening Endoscopic (ICD-10-PCS; principal; 2021-03-12 13:10)
PROC: BF101ZZ Fluoroscopy of Bile Ducts using Low Osmolar Contrast (ICD-10-PCS; 2021-03-12 13:10)
DX: K80.51 Calculus of bile duct without cholangitis or cholecystitis with obstruction (principal); N17.0 Acute kidney failure with tubular necrosis; K85.10 Biliary acute pancreatitis without necrosis or infection; K86.2 Cyst of pancreas; I48.20 Chronic atrial fibrillation, unspecified; N39.0 Urinary tract infection, site not specified; Q61.3 Polycystic kidney, unspecified; Z79.01 Long term (current) use of anticoagulants; Z82.49 Family history of ischemic heart disease and other diseases of the circulatory system; Z86.718 Personal history of other venous thrombosis and embolism; K21.9 Gastro-esophageal reflux disease without esophagitis; Z86.711 Personal history of pulmonary embolism; Z87.891 Personal history of nicotine dependence; E87.6 Hypokalemia; K76.89 Other specified diseases of liver; E78.5 Hyperlipidemia, unspecified; M19.90 Unspecified osteoarthritis, unspecified site; K58.9 Irritable bowel syndrome, unspecified; Z80.3 Family history of malignant neoplasm of breast; B96.20 Unspecified Escherichia coli [E. coli] as the cause of diseases classified elsewhere; I10 Essential (primary) hypertension; Z79.890 Hormone replacement therapy; Z86.010 Personal history of colon polyps; Z79.899 Other long term (current) drug therapy; Z86.72 Personal history of thrombophlebitis; K82.8 Other specified diseases of gallbladder; Z90.49 Acquired absence of other specified parts of digestive tract; Z90.710 Acquired absence of both cervix and uterus; Z93.1 Gastrostomy status
CPT/HCPCS: 43262; 43264; 71045; 74181; 74330; 80048; 80053; 81001; 82150; 82247; 83690; 83735; 84075; 84450; 84460; 85025; 85610; 87040; 87077; 87086; 87186; 87324; 96374; 99284

== ENCOUNTER → 2021-03-20 | Outpatient (CLI) | payer MEDICARE ==
[2021-03-20 11:07] LABS: Appearance,Urine Clear (Clear); Bacteria,Urine Many /hpf; Bilirubin,Urine Negative (Negative); Blood,Urine Negative (Negative); Color,Urine Light Yellow; Glucose,Urine (UA) Negative (Negative); Ketones,Urine Negative (Negative); Leukocyte Esterase,Urine Large (Negative); Mucus,Urine Rare /hpf; Nitrite,Urine Negative (Negative); Protein,Urine Negative (Negative); Specific Gravity,Urine 1.005 (1.001-1.035); Squamous Epithelial Cell,Urine 1 /hpf (0-4); Urobilinogen,Urine <2.0 mg/dL (<2.0); WBC,Urine 145 /hpf (0-5)
[2021-03-20 12:55] LABS: Creatinine,Urine Random 60.7 mg/dL; Protein/Creatinine Ratio,Urine 0.264
[2021-03-20 15:26] LABS: Basophils # (A) 0.07 X 10*3/uL (0.00-0.10); Basophils % (A) 1.3 %; Eosinophils # (A) 0.22 X 10*3/uL (0.04-0.35); HGB 12.4 g/dL (12.0-15.0); Lymphocytes # (A) 1.39 X 10*3/uL (0.90-5.00); Lymphocytes % (A) 25.2 %; MCH 26.2 pg (27.0-32.0); MCHC 31.8 g/dL (32.0-37.0); MCV 82.5 fL (80.0-97.0); Mean Platelet Volume 10.9 fL (9.5-12.2); Monocytes # (A) 0.71 X 10*3/uL (0.20-1.00); Monocytes % (A) 12.9 %; Neutrophils % (A) 56.1 %; Platelet Count 281 X 10*3/uL (140-440); RBC 4.73 X 10*6/uL (4.10-5.20); RDW 14.8 % (11.5-14.5); WBC 5.52 X 10*3/uL (4.50-10.00)
[2021-03-20 23:16] LABS: Ferritin 33.1 ng/mL (10.0-291.0)
[2021-03-21 00:24] LABS: % Iron Saturation 9.39 (12.00-45.00); African American GFR (CKD) 41.6 (60.0-200.0); Anion Gap 12.5 mmol/L (4.00-12.00); BUN/Creat Ratio 9.29 Ratio (12.00-20.00); Calcium 9.1 mg/dL (8.7-10.3); Carbon Dioxide 26.5 mmol/L (21.6-31.8); Magnesium 1.6 mg/dL (1.5-2.4); Non-African American GFR(CKD) 35.9 (60.0-200.0); Phosphorus 3.8 mg/dL (2.4-5.1); Potassium 3.2 mmol/L (3.5-5.5); Uric Acid 7.2 mg/dL (2.9-7.7)
[2021-03-22 05:00] LABS: Amylase 101 U/L (23-121); Lipase 58 U/L (14-63)
== END | disposition home or self-care (01) ==
LOC: LABWHC1 10:02
PROVIDERS: ATTEND Nurse Practitioner Family
DX: N18.32 Chronic kidney disease, stage 3b (principal); E55.9 Vitamin D deficiency, unspecified; N25.81 Secondary hyperparathyroidism of renal origin; M10.9 Gout, unspecified; N39.0 Urinary tract infection, site not specified; D64.9 Anemia, unspecified; R80.9 Proteinuria, unspecified
CPT/HCPCS: 36415; 80048; 81001; 82040; 82150; 82306; 82570; 82728; 83540; 83550; 83690; 83735; 83970; 84100; 84156; 84550; 85025

== ENCOUNTER 2021-04-12 12:19 | Inpatient (IN) | payer MEDICARE ==
[2021-04-09 10:45] VITALS: BMI 25.1
[~2021-04-12 12:19] MED LIST changes: -ACETAMINOPHEN TAB 500 MG TAB PO PRN; -HEPARIN SODIUM,PORCINE 5,000 UNIT/ML 1 ML VIAL SQ PRN; +HEPARIN SODIUM,PORCINE/PF 5,000 UNIT/0.5 ML SYRINGE SQ PRN; +HYDROmorphone 0.5 MG/0.5 ML SYRINGE IVP PRN; -LACTATED RINGERS 1,000 ML IV SCH; -MIDAZOLAM 2 MG/2 ML VIAL IV PRN; -fentaNYL (PF) 50 MCG/ML 2 ML AMP IVP PRN
[2021-04-12] MEDS: LACTATED RINGERS 1,000 ML IV SCH ×5 (12:39→16:24)
[2021-04-12] MEDS ORDERED: fentaNYL (PF) 50 MCG/ML 2 ML AMP ONE (13:26)
[2021-04-12] MEDS ORDERED: GLYCOPYRROLATE 0.2 MG/ML 2 ML VIAL ONE (13:26)
[2021-04-12] MEDS ORDERED: ROCURONIUM 10 MG/ML (5 ML VIAL) IV ONE (13:26)
[2021-04-12] MEDS ORDERED: LIDOCAINE 1% INJ 10MG/ML (20 ML MDV) ONE (13:26)
[2021-04-12] MEDS ORDERED: NEOSTIGMINE 1 MG/ML 10 ML VIAL ONE (13:26)
[2021-04-12] MEDS ORDERED: PROPOFOL 10 MG/ML 20 ML VIAL IV ONE (13:26)
[2021-04-12] MEDS ORDERED: SUCCINYLCHOLINE CHLORIDE 100 MG/5 ML SYR IV ONE (13:26)
[2021-04-12] MEDS ORDERED: HYDROcodone/APAP 5-325MG 1 EACH TAB PO PRN (15:03)
[2021-04-12] MEDS ORDERED: ONDANSETRON 4 MG/2 ML VIAL IVP PRN (15:03)
[2021-04-12] MEDS ORDERED: NALOXONE 0.4 MG/ML 1 ML VIAL IV PRN (15:03)
--- NOTE | 2021-04-12 15:17 | P.OP ---
Date of Procedure: 04/12/21 Preoperative Diagnosis: Cholecystitis Cholelithiasis Postoperative Diagnosis: Cholecystitis cholelithiasis Procedure(s) Performed: Laparoscopic, converted to open cholecystectomy Anesthesia: CAM Surgeon: Santos Brewster Estimated Blood Loss (ml): 26 IV fluids (ml): 400 Pathology: other (Gallbladder and contents) Disposition: floor Indications for Procedure: 80-year-old female with recent hospitalization secondary to concern for cholecystitis and choledocholithiasis. She did undergo ERCP at that time did develop post-ERCP pancreatitis. Patient was discharged from the hospital with plan for outpatient follow-up and her cholecystectomy. She also is noted to have multiple abdominal procedures in the past with concern for significant intra-abdominal adhesions. Plan is for left scopic cholecystectomy with possibility of open cholecystectomy. Patient was explained the risks, benefits and alternatives to the procedure did provide consent prior to attending the operating suite. Operative Findings: Distended and thickened gallbladder Cholelithiasis Description of Procedure: The patient was brought into the operating suite and placed in supine position on the operating table. Sedation was provided by anesthesia patient underwent endotracheal intubation. The patient was then prepped and draped in regular sterile fashion. A 5 mm incision was made in the left upper quadrant and palmers point. The abdomen was then entered under direct visualization using a 5 mm Visiport. Pneumoperitoneum was then achieved. On insertion of the laparoscope, significant amount of intra-abdominal adhesions were noted with winsome wel, omentum and mesentery adhered to the peritoneum. There was no clear visualization of any significant portion of the abdomen. The gallbladder was not visualized at all. Secondary to this, decision was made for performing an open cholecystectomy. 5 mm port was removed and pneumoperitoneum was released. A right sided subcostal incision was made and dissection was carried to the fascia. The fascia was incised and the muscles were split. The peritoneum was then incised along the length of the incision. Bookwalter retractor was put into place after packing the bowel inferiorly. The gallbladder was clearly visualized and was noted to be distended and grasped. Cautery was used to dissect the gallbladder from the liver bed. Patient was noted to lose from the liver bed, however bleeding was well controlled with pressure and cautery. Dissection was then carried towards the infundibulum and the base of the gallbladder. The cystic duct and cystic artery were clearly visualized. Both were skeletonized using a right angle dissector. The cystic artery was then tied with 3-0 silk suture with 2 sutures placed proximally and one placed distally and the artery was ligated. The cystic duct was tied with a 3-0 silk suture distally. Clip weapons designer was then placed and 2 clips are placed proximally one was placed distally on the cystic duct and the cystic duct was ligated. There was no evidence of further bleeding or any bilious output. Irrigation was then placed within the wound bed and suctioned. Again, no evidence of bleeding or bile output. The liver bed was examined and further cauterized. Coagulant material, snow, was placed on the liver bed. Hemostasis was noted to be maintained. A ALESHIA drain was then placed and secured to the right side of the abdominal wall and placed under the liver bed and secured with a 2-0 nylon suture. The wound was then closed with running 3-0 Vicryl suture on the peritoneal layer and running 0 Vicryl suture on the fascial layer. The subcutaneous tissue Major's layer was closed with interrupted 3-0 Vicryl suture. Skin viktoriya were then applied to both incision sites. Sterile dressing was applied. Sponge count and instrument count were noted to be correct at the end of the case by the staff. The patient was awakened in the operating suite and taken to postanesthesia care unit in stable condition.
[2021-04-12] MEDS ORDERED: PROMETHAZINE INJ 25 MG/ML 1 ML VIAL IVPB ONE (15:51)
[2021-04-12] MEDS: HYDROmorphone 0.5 MG/0.5 ML SYRINGE IVP PRN ×2 (16:56→23:06)
[2021-04-12] MEDS ORDERED: ACETAMINOPHEN IV (For NPO) 1,000 MG in EMPTY BAG 1 BAG IVPB ONE (19:00)
[2021-04-12] MEDS: PANTOPRAZOLE 40 MG/10 ML VIAL IVP SCH (19:40)
[2021-04-12] MEDS: HEPARIN SODIUM,PORCINE/PF 5,000 UNIT/0.5 ML SYRINGE SQ SCH (19:41)
--- NOTE | 2021-04-12 20:51 | CONS ---
CONSULTATION DATE OF CONSULTATION: 04/12/2021 REASON FOR CONSULTATION: Advice regarding GERD, DVT and other medical issues requested by Dr. Brewster. HISTORY OF PRESENT ILLNESS: This 80-year-old woman with a past medical history of DVT, GERD, hypertension, DJD, pulmonary embolism, being followed by Dr. Cole Hernandez in the outpatient setting, underwent laparoscopic converted to open cholecystectomy for cholecystitis and cholelithiasis. Postoperatively the patient was vomiting. There is no history of any fever, rigor, chills. No history of headache, loss of consciousness, seizures at this time. The patient was taking Eliquis prior to surgery. There is no history of any fever, rigors, chills at this time. PAST MEDICAL HISTORY: History of DVT, history of pulmonary embolism, history of hypothyroidism, history of pancreatitis and history of lithotripsy. MEDICATIONS: Home medications are Norvasc mg p.o. daily, Crestor 10 mg daily, Zegerid, lopressor, Cozaar, levothyroxine, Celexa, Eliquis. ALLERGIES: PENICILLIN, , BACTRIM, KEFLEX, VALIUM, BENADRYL, ERYTHROMYCIN BASE. FAMILY HISTORY: History of breast cancer in the family. SOCIAL HISTORY: Previous history of smoking. No history of alcohol intake. REVIEW OF SYSTEMS: ENT: No diminished hearing. No diminished vision. CARDIOVASCULAR SYSTEM: No angina, palpitations. RESPIRATORY SYSTEM: As mentioned earlier. GI: As mentioned earlier. : No dysuria. NERVOUS SYSTEM: No numbness, weakness. ALLERGY/IMMUNOLOGY: No asthma or hay fever. MUSCULOSKELETAL: As mentioned earlier. HEMATOLOGY/ONCOLOGY: As mentioned earlier. ENDOCRINE: Hypothyroidism present. CONSTITUTIONAL: As mentioned earlier. DERMATOLOGY: Negative. RHEUMATOLOGY: Negative. PSYCHIATRY: As mentioned earlier. PHYSICAL EXAMINATION: Patient is alert and oriented x3. Pulse 53, blood pressure is 162/81, respirations 16, temperature normal, pulse ox 98% on 2 L. HEENT: Conjunctivae normal. NECK: No jugular venous distention. CARDIOVASCULAR: S1, S2 muffled. RESPIRATION: Breath sounds diminished at the bases. A few scattered rhonchi. ABDOMEN: Soft. Status post surgery. LEGS: No edema. No swelling. NERVOUS SYSTEM: Higher functions as mentioned earlier. Moves all 4 limbs. No focal motor or sensory deficit. LYMPHATICS: No lymph node palpable in neck, axillae or groin. SKIN: No ulcer, rash, bleeding. JOINTS: No active deforming arthropathy. LABS: Labs are not available. ASSESSMENT: 1. Status post laparoscopic converted to open cholecystectomy for cholecystitis and cholelithiasis. 2. Postoperative vomiting. 3. History of deep vein thrombosis, pulmonary embolism. 4. History of gastroesophageal reflux disease. 5. Hyperlipidemia. 6. History of degenerative joint disease. 7. History of hypothyroidism. 8. History of pancreatitis. 9. History of nephrolithiasis. 10.History of Parks's esophagus. 11.History of bowel resection, bowel surgery. 12.History of anxiety. 13.FULL CODE. RECOMMENDATIONS AND DISCUSSION: In this 80-year-old woman who presented with multiple complex medical issues, at this time I recommend to continue current medications, continue symptomatic treatment. Otherwise at this time I would recommend resuming the home medications when she is p.o. IV Protonix. Anticoagulation to be resumed once the patient is p.o. Otherwise, I would also recommend repeat labs. We will follow the patient closely with you. Patient may be asked to follow up with Dr. Cole Hernandez closely after discharge. Thank you, Dr. Brewster, for letting us participate in the care of this patient. MMODL / IJN: [id number] / CARLOS
[2021-04-12] MEDS ORDERED: FAMOTIDINE 20 MG TAB PO SCH (21:00)
[2021-04-12] MEDS: ONDANSETRON 4 MG/2 ML VIAL IVP PRN (23:07)
[2021-04-12] MEDS ORDERED: HYDROmorphone 0.5 MG/0.5 ML SYRINGE IVP STA (23:35)
[2021-04-12] MEDS ORDERED: HYDROmorphone 1 MG/ML 1 ML SYRINGE IVP PRN (23:36)
[2021-04-12] MEDS ORDERED: METOCLOPRAMIDE 5 MG/ML 2 ML VIAL IVP STA (23:37)
[2021-04-12] MEDS ORDERED: SIMETHICONE 40 MG/0.6 ML DROPS 2,000 MG/30 ML BOTTLE PO PRN (23:38)
[2021-04-13] MEDS: METOPROLOL TARTRATE 25 MG TAB PO SCH ×3 (00:28→22:11)
[2021-04-13] MEDS: LACTATED RINGERS 1,000 ML IV SCH ×3 (00:29→06:59)
[2021-04-13] MEDS ORDERED: KETOROLAC 15 MG/ML 1 ML VIAL IVP STA (04:58)
[2021-04-13] MEDS: ONDANSETRON 4 MG/2 ML VIAL IVP PRN (06:02)
[2021-04-13] MEDS: LEVOTHYROXINE 88 MCG TAB PO SCH (06:02)
[2021-04-13] MEDS: HYDROmorphone 0.5 MG/0.5 ML SYRINGE IVP PRN (06:04)
[2021-04-13] MEDS: PANTOPRAZOLE 40 MG/10 ML VIAL IVP SCH ×2 (08:46→22:11)
[2021-04-13] MEDS: ATORVASTATIN 20 MG TAB PO SCH (08:46)
[2021-04-13] MEDS: CITALOPRAM HYDROBROMIDE 10 MG TAB PO SCH (08:47)
[2021-04-13] MEDS: HEPARIN SODIUM,PORCINE/PF 5,000 UNIT/0.5 ML SYRINGE SQ SCH ×2 (08:47→22:11)
[2021-04-13] MEDS: LOSARTAN 25 MG TAB PO SCH (08:51)
[2021-04-13] MEDS: amLODIPine 10 MG TAB PO SCH (08:52)
[2021-04-13] MEDS ORDERED: SIMETHICONE 40 MG/0.6 ML DROPS 2,000 MG/30 ML BOTTLE PO PRN (09:52)
--- NOTE | 2021-04-13 10:09 | P.PN ---
Subjective Progress Note Date: 04/13/21 Patient seen and examined at bedside. Overnight, patient did have significant pain. Nursing staff did contact me about this overnight. Pain medications were adjusted and simethicone drops were added and patient states this morning she is feeling better, with some ongoing discomfort around the incision site and around the ALESHIA drain site. Complains of some nausea but denies any emesis episodes. Objective - Vital Signs Vital signs: Vital Signs Temp 98.0 F 04/13/21 08:45 Pulse 72 04/13/21 08:45 Resp 16 04/13/21 08:45 BP 119/75 04/13/21 08:45 Pulse Ox 95 04/13/21 09:57 Intake & Output 04/12/21 04/13/21 04/13/21 18:59 06:59 18:59 Intake Total 1350 Output Total 56 60 Balance 1294 -60 Weight 70 kg Intake: IV 1250 Blood Product 100 Output: Drainage 60 Right Upper Abdomen 60 Estimated Blood Loss 56 Other: Voiding Method Bedpan Diaper # Voids 1 - Constitutional General appearance: Present: cooperative, no acute distress - EENT ENT: Present: hearing grossly normal - Respiratory Details: No difficulty with respiration - Gastrointestinal Gastrointestinal Comment(s): Soft, nondistended, tenderness around incision site and around ALESHIA drain site, ALESHIA drain in place with serosanguineous output, no rebound, no guarding - Psychiatric Psychiatric: Present: A&O x's 3 Assessment and Plan Plan: Postoperative day #1, open cholecystectomy. Pain medications were adjusted with adding Toradol and increasing narcotic dose when necessary. Simethicone drops were added. Will continue patient on clear liquid diet for now. Continue IV fluids. Increase activity. Continue incentive spirometry. Appreciate medical recommendations.
[2021-04-13] MEDS: KETOROLAC 15 MG/ML 1 ML VIAL IVP SCH ×2 (10:45→17:45)
[2021-04-13 12:03] LABS: HCT 40.5 % (37.2-46.3); HGB 12.7 g/dL (12.0-15.0); MCH 26.2 pg (27.0-32.0); MCHC 31.4 g/dL (32.0-37.0); MCV 83.5 fL (80.0-97.0); Mean Platelet Volume 12.3 fL (9.5-12.2); Platelet Count 180 X 10*3/uL (140-440); RBC 4.85 X 10*6/uL (4.10-5.20); RDW 14.5 % (11.5-14.5); WBC 21.23 X 10*3/uL (4.50-10.00)
[2021-04-13] MEDS: METOCLOPRAMIDE 5 MG/ML 2 ML VIAL IVP SCH ×2 (12:05→17:49)
[2021-04-13 12:38] LABS: Basophils # (A) 0.02 X 10*3/uL (0.00-0.10); Basophils % (A) 0.1 %; Eosinophils # (A) 0 X 10*3/uL (0.04-0.35); Eosinophils % (A) 0 %; Lymphocytes % (A) 4.7 %; Monocytes % (A) 7.5 %; Neutrophils # (A) 18.48 X 10*3/uL (1.80-7.70); Neutrophils % (A) 87.1 %
--- NOTE | 2021-04-13 19:23 | P.PN ---
Progress Note - Text Progress Note Date: 04/13/21 Checked multiple times today on lab draw. It was apparently sent this morning (04/13) at around 730a. CMP is still not resulted as of 1900 on 04/13. Discussed with laboratory and I was informed blood work is now outsourced to [facility]) which requires transport. I called [facility] and they informed me that they are unsure if the specimen has been run and will be trying to find the specimen. I will await further communication on this blood work, otherwise another sample will be sent. Santos Brewster, DO
[2021-04-13 20:21] LABS: African American GFR (CKD) 38.3 (60.0-200.0); Albumin 4.1 g/dL (3.80-4.90); Albumin/Globulin Ratio 1.52 (1.60-3.17); Anion Gap 13.3 mmol/L (4.00-12.00); BUN/Creat Ratio 15.33 Ratio (12.00-20.00); Calcium 9.2 mg/dL (8.7-10.3); Carbon Dioxide 25.7 mmol/L (21.6-31.8); Globulin 2.7 g/dL (1.6-3.3); Potassium 3.9 mmol/L (3.5-5.5); Total Bilirubin 0.7 mg/dL (0.2-1.2); Total Protein 6.8 g/dL (6.2-8.2)
--- NOTE | 2021-04-14 01:16 | P.PN ---
Subjective Progress Note Date: 04/13/21 Principal diagnosis: Status post open cholecystectomy Ms. Medeiros is a 80-year-old female with a history of DVT, GERD, hypertension, DJD, PE, underwent laparoscopic converted to open cholecystectomy for cholecystitis and cholelithiasis. On 04/13/2021-patient is seen and examined at the bedside. As per discussion with nursing staff, patient complained of abdominal pain last night, patient was started on tramadol this morning by Dr. Brewster. She is currently lying in bed states that her abdominal pain is better and currently 5 out of 10 in intensity. Patient did not have a bowel movement but has been passing gas. She denies having any vomiting but feels like she has a trapped in her usual flatus, feeling that she wants to burp but cannot burp. She denies having any chest pain or difficulty in breathing. No dysuria or hematuria. She denies having any fevers chills or rigors. Patient's vitals have been reviewed T-max 98.2, heart rate 60, respiratory 18, blood pressure 124/78 saturating at 93% on 2 L of oxygen. Labs from this morning showing white count of 21.2, hemoglobin 12.7, platelets 180. Sodium 140, potassium 3.9, chloride 101, bicarb 25, BUN 23, creatinine 1.5. Objective - Vital Signs Vital signs: Vital Signs Temp 98.0 F 04/13/21 08:45 Pulse 72 04/13/21 08:45 Resp 16 04/13/21 08:45 BP 119/75 04/13/21 08:45 Pulse Ox 95 04/13/21 09:57 Intake & Output 04/12/21 04/13/21 04/13/21 18:59 06:59 18:59 Intake Total 1350 Output Total 56 60 Balance 1294 -60 Weight 70 kg Intake: IV 1250 Blood Product 100 Output: Drainage 60 Right Upper Abdomen 60 Estimated Blood Loss 56 Other: Voiding Method Bedpan Bedpan Diaper Diaper # Voids 1 - Exam GEN. APPEARANCE: alert, in no apparent distress HE ENT: No pallor. No icterus. RESPIRATORY EXAM: Bilateral BS ,slightest diminished at the bases, No wheezes or crackles. CARDIOVASCULAR EXAM: S1-S2 heard. No additional sounds. GI/ABDOMINAL EXAM: soft, normal bowel sounds. Pig- tail catheter in place with minimal sanguinous drainage. EXTREMITIES EXAM: No edema. NEUROLOGICAL EXAM: alert, oriented X 3, no focal deficits. PSYCHIATRIC EXAM: normal affect, normal mood SKIN EXAM: No rash. - Labs CBC & Chem 7: 04/13/21 07:37 04/13/21 07:37 Labs: Abnormal Lab Results - Last 24 Hours (Table) 04/13/21 Range/Units 07:37 WBC 21.23 H (4.50-10.00) X 10*3/uL MCH 26.2 L (27.0-32.0) pg MCHC 31.4 L (32.0-37.0) g/dL MPV 12.3 H (9.5-12.2) fL Immature Gran # 0.13 H (0.00-0.04) X 10*3/uL Neutrophils # 18.48 H (1.80-7.70) X 10*3/uL Monocytes # 1.60 H (0.20-1.00) X 10*3/uL Eosinophils # 0 L (0.04-0.35) X 10*3/uL Assessment and Plan Assessment: ASSESSMENT Status post open cholecystectomy postoperative day 1 History of cholelithiasis Postop nausea and vomiting History of DVT and PE GERD Hypertension Hyperlipidemia Hypothyroidism History of pancreatitis History of nephrolithiasis History of Parks's esophagus History of bowel resection History of anxiety PLAN: Patient was complaining of abdominal pain, patient has been started on Toradol that seems to be helping her with the pain. Anticoagulation currently on hold as the drug interaction between Toradol and Eliquis can lead to increased risk of bleeding. Continue heparin for DVT prophylaxis. Will resume full anticoagulation once cleared by surgery. This was discussed in detail with the patient and family members at bedside. Patient's blood pressure and blood sugars are within normal limits. Patient to be continued with the rest of her current medication regimen. Further recommendations to follow depending on the progress of the patient.
[2021-04-14] MEDS: LACTATED RINGERS 1,000 ML IV SCH ×3 (01:20→12:27)
[2021-04-14] MEDS: KETOROLAC 15 MG/ML 1 ML VIAL IVP SCH ×4 (01:20→17:48)
[2021-04-14] MEDS: METOCLOPRAMIDE 5 MG/ML 2 ML VIAL IVP SCH ×4 (01:21→17:48)
[2021-04-14] MEDS: LEVOTHYROXINE 88 MCG TAB PO SCH (05:56)
--- NOTE | 2021-04-14 09:21 | P.PN ---
Subjective Progress Note Date: 04/14/21 Patient seen and examined at bedside. States she is feeling much better than yesterday. States nausea has improved. States she is having an increase in appetite. Denies any significant abdominal pain. No fevers over the past 24 hours. Objective - Vital Signs Vital signs: Vital Signs Temp 97.6 F 04/14/21 02:33 Pulse 60 04/14/21 02:33 Resp 18 04/14/21 02:33 BP 143/76 04/14/21 02:33 Pulse Ox 93 L 04/14/21 07:24 Intake & Output 04/13/21 04/14/21 04/14/21 18:59 06:59 18:59 Intake Total 1300 Output Total 75 30 Balance -75 1270 Intake: Intake, IV Titration 1200 Amount Lactated Ringers 1,000 ml 1200 @ 100 mls/hr IV .Q10H [facility] Rx#:[id number] Oral 100 Output: Drainage 75 30 Right Upper Abdomen 75 30 Other: Voiding Method Bedpan Diaper # Voids 1 1 - Constitutional General appearance: Present: cooperative, no acute distress - Respiratory Details: No difficulty with respiration - Gastrointestinal Gastrointestinal Comment(s): Soft, nontender, nondistended, no rebound, no guarding, incision sites are clean, dry and intact, ALESHIA drain in place with serosanguineous output - Psychiatric Psychiatric: Present: A&O x's 3 - Labs CBC & Chem 7: 04/13/21 07:37 04/13/21 07:37 Labs: Abnormal Lab Results - Last 24 Hours (Table) 04/13/21 04/13/21 Range/Units 07:37 07:37 WBC 21.23 H (4.50-10.00) X 10*3/uL MCH 26.2 L (27.0-32.0) pg MCHC 31.4 L (32.0-37.0) g/dL MPV 12.3 H (9.5-12.2) fL Immature Gran # 0.13 H (0.00-0.04) X 10*3/uL Neutrophils # 18.48 H (1.80-7.70) X 10*3/uL Monocytes # 1.60 H (0.20-1.00) X 10*3/uL Eosinophils # 0 L (0.04-0.35) X 10*3/uL Anion Gap 13.30 H (4.00-12.00) mmol/L Est GFR (CKD-EPI)AfAm 38.3 L (60.0-200.0) Est GFR (CKD-EPI)NonAf 33.0 L (60.0-200.0) Glucose 136 H (70-110) mg/dL Albumin/Globulin Ratio 1.52 L (1.60-3.17) g/dL Assessment and Plan Plan: Postoperative day #2, open cholecystectomy. - Patient's pain is much improved from yesterday, we'll continue with Toradol. Will follow creatinine level today. - Advance to full liquid diet as the patient's appetite has increased and she is no longer feeling any nausea - Will follow with CBC, at this point, it appears leukocytosis is very active as there is no other sign of infection. Patient is afebrile and without any abdominal pain. - Continue ALESHIA drain - Continue to increase activity - Continue incentive spirometry
[2021-04-14] MEDS: amLODIPine 10 MG TAB PO SCH (09:57)
[2021-04-14] MEDS: METOPROLOL TARTRATE 25 MG TAB PO SCH ×2 (10:04→20:01)
[2021-04-14] MEDS: HEPARIN SODIUM,PORCINE/PF 5,000 UNIT/0.5 ML SYRINGE SQ SCH ×2 (10:04→20:01)
[2021-04-14] MEDS: ATORVASTATIN 20 MG TAB PO SCH (10:04)
[2021-04-14] MEDS: PANTOPRAZOLE 40 MG/10 ML VIAL IVP SCH ×2 (10:04→20:01)
[2021-04-14] MEDS: LOSARTAN 25 MG TAB PO SCH (10:06)
[2021-04-14 10:07] LABS: Basophils % (A) 0 %; Eosinophils # (A) 0.1 k/uL (0-0.7); Eosinophils % (A) 1 %; HCT 35.5 % (34.0-46.0); HGB 11.7 gm/dL (11.4-16.0); Lymphocytes % (A) 11 %; MCH 27.5 pg (25.0-35.0); MCHC 32.9 g/dL (31.0-37.0); MCV 83.7 fL (80.0-100.0); Mean Platelet Volume 9.2; Monocytes # (A) 0.6 k/uL (0-1.0); Monocytes % (A) 6 %; Neutrophils # (A) 7.8 k/uL (1.3-7.7); Neutrophils % (A) 81 %; Platelet Count 130 k/uL (150-450); RBC 4.24 m/uL (3.80-5.40); RDW 14.6 % (11.5-15.5); WBC 9.6 k/uL (3.8-10.6)
[2021-04-14] MEDS: CITALOPRAM HYDROBROMIDE 10 MG TAB PO SCH (10:15)
[2021-04-14 10:23] LABS: ALT 13 U/L (4-34); AST 27 U/L (14-36); African American GFR (CKD) 39 (>60 ml/min/1.73 sqM); Albumin 3.4 g/dL (3.5-5.0); Albumin/Globulin Ratio 1.3; Alkaline Phosphatase 70 U/L (38-126); Anion Gap 10 mmol/L; Blood Urea Nitrogen 24 mg/dL (7-17); Calcium 9.1 mg/dL (8.4-10.2); Carbon Dioxide 25 mmol/L (22-30); Chloride 100 mmol/L (98-107); Globulin 2.6 g/dL; Glucose 83 mg/dL (74-99); Non-African American GFR(CKD) 34 (>60 ml/min/1.73 sqM); Potassium 3.4 mmol/L (3.5-5.1); Sodium 135 mmol/L (137-145); Total Bilirubin 0.7 mg/dL (0.2-1.3)
[2021-04-14 11:53] LABS: Basophils # (A) 0.04 X 10*3/uL (0.00-0.10); Basophils % (A) 0.4 %; Eosinophils # (A) 0.02 X 10*3/uL (0.04-0.35); Eosinophils % (A) 0.2 %; HCT 34.6 % (37.2-46.3); HGB 10.8 g/dL (12.0-15.0); Lymphocytes % (A) 15.1 %; MCH 26.7 pg (27.0-32.0); MCHC 31.2 g/dL (32.0-37.0); MCV 85.6 fL (80.0-97.0); Monocytes # (A) 0.79 X 10*3/uL (0.20-1.00); Neutrophils # (A) 7.53 X 10*3/uL (1.80-7.70); Neutrophils % (A) 75.9 %; Platelet Count 109 X 10*3/uL (140-440); RBC 4.04 X 10*6/uL (4.10-5.20); RDW 14.8 % (11.5-14.5); WBC 9.92 X 10*3/uL (4.50-10.00)
[2021-04-14 12:39] LABS: African American GFR (CKD) 41.6 (60.0-200.0); Anion Gap 11.2 mmol/L (4.00-12.00); BUN/Creat Ratio 17.14 Ratio (12.00-20.00); Calcium 8.6 mg/dL (8.7-10.3); Carbon Dioxide 21.8 mmol/L (21.6-31.8); Non-African American GFR(CKD) 35.9 (60.0-200.0); Potassium 3.4 mmol/L (3.5-5.5)
[2021-04-14] MEDS ORDERED: POTASSIUM CHLORIDE ER 20 MEQ TAB.ER PO STA (13:15)
[2021-04-15] MEDS: LACTATED RINGERS 1,000 ML IV SCH ×2 (00:03→08:08)
[2021-04-15] MEDS: METOCLOPRAMIDE 5 MG/ML 2 ML VIAL IVP SCH ×2 (00:36→06:03)
[2021-04-15] MEDS: KETOROLAC 15 MG/ML 1 ML VIAL IVP SCH ×2 (00:36→06:03)
--- NOTE | 2021-04-15 02:08 | P.PN ---
Subjective Progress Note Date: 04/14/21 Principal diagnosis: Status post open cholecystectomy Ms. Medeiros is a 80-year-old female with a history of DVT, GERD, hypertension, DJD, PE, underwent laparoscopic converted to open cholecystectomy for cholecystitis and cholelithiasis. On 04/13/2021-patient is seen and examined at the bedside. As per discussion with nursing staff, patient complained of abdominal pain last night, patient was started on tramadol this morning by Dr. Brewster. She is currently lying in bed states that her abdominal pain is better and currently 5 out of 10 in intensity. Patient did not have a bowel movement but has been passing gas. She denies having any vomiting but feels like she has a trapped in her usual flatus, feeling that she wants to burp but cannot burp. She denies having any chest pain or difficulty in breathing. No dysuria or hematuria. She denies having any fevers chills or rigors. Patient's vitals have been reviewed T-max 98.2, heart rate 60, respiratory 18, blood pressure 124/78 saturating at 93% on 2 L of oxygen. Labs from this morning showing white count of 21.2, hemoglobin 12.7, platelets 180. Sodium 140, potassium 3.9, chloride 101, bicarb 25, BUN 23, creatinine 1.5. On 04/14/2021 -patient is seen and examined at the bedside. She states her abdominal pain is much better with Toradol. He states that her nausea has improved. Patient denies having any fevers chills or rigors. No chest pain or difficulty in breathing. On reviewing the vitals temperature 98.3, heart rate 61, respiratory 20, blood pressure 156/81, saturating at 92% on 2 L of oxygen. On reviewing the labs hemoglobin 11.7, platelets 130, sodium 135, potassium 3.4, chloride 100, bicarb 20, BUN 24, creatinine 1.47. Patient's medications have been reviewed Objective - Vital Signs Vital signs: Vital Signs Temp 98.3 F 04/14/21 10:01 Pulse 61 04/14/21 10:01 Resp 20 04/14/21 10:01 BP 156/81 04/14/21 10:01 Pulse Ox 92 L 04/14/21 10:01 Intake & Output 04/13/21 04/14/21 04/14/21 18:59 06:59 18:59 Intake Total 1300 Output Total 75 30 20 Balance -75 1270 -20 Intake: Intake, IV Titration 1200 Amount Lactated Ringers 1,000 ml 1200 @ 100 mls/hr IV .Q10H [facility] Rx#:[id number] Oral 100 Output: Drainage 75 30 20 Right Upper Abdomen 75 30 20 Other: Voiding Method Bedpan Toilet Diaper # Voids 1 1 - Exam PHYSICAL EXAM GEN. APPEARANCE: alert, in no apparent distress HE ENT: No pallor. No icterus. RESPIRATORY EXAM: Bilateral BS ,slightest diminished at the bases, No wheezes or crackles. CARDIOVASCULAR EXAM: S1-S2 heard. No additional sounds. GI/ABDOMINAL EXAM: soft, normal bowel sounds. Pig- tail catheter in place with minimal sanguinous drainage. EXTREMITIES EXAM: No edema. NEUROLOGICAL EXAM: alert, oriented X 3, no focal deficits. PSYCHIATRIC EXAM: normal affect, normal mood SKIN EXAM: No rash. - Labs CBC & Chem 7: 04/14/21 09:31 04/14/21 09:31 Labs: Abnormal Lab Results - Last 24 Hours (Table) 04/13/21 04/14/21 04/14/21 Range/Units 07:37 06:01 06:01 RBC 4.04 L (4.10-5.20) X 10*6/uL Hgb 10.8 L (12.0-15.0) g/dL Hct 34.6 L (37.2-46.3) % MCH 26.7 L (27.0-32.0) pg MCHC 31.2 L (32.0-37.0) g/dL RDW 14.8 H (11.5-14.5) % Plt Count 109 L (140-440) X 10*3/uL Plt Count Comment DECREASED A Neutrophils # (1.3-7.7) k/uL Eosinophils # 0.02 L (0.04-0.35) X 10*3/uL Sodium (137-145) mmol/L Potassium 3.4 L (3.5-5.5) mmol/L Anion Gap 13.30 H (4.00-12.00) mmol/L BUN (7-17) mg/dL Creatinine (0.52-1.04) mg/dL Est GFR (CKD-EPI)AfAm 38.3 L 41.6 L (60.0-200.0) Est GFR (CKD-EPI)NonAf 33.0 L 35.9 L (60.0-200.0) Glucose 136 H (70-110) mg/dL Calcium 8.6 L (8.7-10.3) mg/dL Total Protein (6.3-8.2) g/dL Albumin (3.5-5.0) g/dL Albumin/Globulin Ratio 1.52 L (1.60-3.17) g/dL 04/14/21 04/14/21 Range/Units 09:31 09:31 RBC (4.10-5.20) X 10*6/uL Hgb (12.0-15.0) g/dL Hct (37.2-46.3) % MCH (27.0-32.0) pg MCHC (32.0-37.0) g/dL RDW (11.5-14.5) % Plt Count 130 L (140-440) X 10*3/uL Plt Count Comment Neutrophils # 7.8 H (1.3-7.7) k/uL Eosinophils # (0.04-0.35) X 10*3/uL Sodium 135 L (137-145) mmol/L Potassium 3.4 L (3.5-5.5) mmol/L Anion Gap (4.00-12.00) mmol/L BUN 24 H (7-17) mg/dL Creatinine 1.47 H (0.52-1.04) mg/dL Est GFR (CKD-EPI)AfAm (60.0-200.0) Est GFR (CKD-EPI)NonAf (60.0-200.0) Glucose (70-110) mg/dL Calcium (8.7-10.3) mg/dL Total Protein 6.0 L (6.3-8.2) g/dL Albumin 3.4 L (3.5-5.0) g/dL Albumin/Globulin Ratio (1.60-3.17) g/dL Assessment and Plan Assessment: ASSESSMENT Status post open cholecystectomy postoperative day #2 History of cholelithiasis Postop nausea and vomiting History of DVT and PE GERD Hypertension Hyperlipidemia Hypothyroidism History of pancreatitis History of nephrolithiasis History of Parks's esophagus History of bowel resection History of anxiety PLAN: Patient's pain better with Toradol. She feel better overall. Anticoagulation currently on hold as the drug interaction between Toradol and Eliquis can lead to increased risk of bleeding. Continue heparin for DVT prophylaxis. Will resume full anticoagulation once cleared by surgery. This was discussed in detail with the patient and family members at bedside. Patient's blood pressure and blood sugars are within normal limits. Patient to be continued with the rest of her current medication regimen. Further recommendations to follow depending on the progress of the patient.
[2021-04-15 02:58] VITALS: RESP 18
[2021-04-15] MEDS: LEVOTHYROXINE 88 MCG TAB PO SCH (06:02)
[2021-04-15 08:04] VITALS: BP 160/95; PULSE 73; TEMP 97.8
--- NOTE | 2021-04-15 08:16 | P.DS ---
Providers Date of admission: 04/12/21 15:29 Attending physician: Santos Brewster DO Consults: 04/12/21 15:03 Consult Physician Routine Consulting Provider: Cole Hernandez Reason/Comments: Med mgmt s/p cholecystectomy, pt known to you Do you want consulting provider notified?: Yes Primary care physician: Cole Hernandez [facility] Course: 72-year-old female presented for elective cholecystectomy. Patient underwent an open cholecystectomy secondary to intra-abdominal adhesions. Postoperatively, patient was sent to the medical surgical floor. She did have significant pain issues in the first 24 hours that were resolved with adjustment of medication and time. Patient's diet was advanced as tolerated. She was restarted on anticoagulation based on following hemoglobin and decrease in serous segment S output from the ALESHIA drain. She is denying any abdominal pain at this time. She is having flatus. Patient is requesting discharge as she is feeling capable of going home. She is surgically stable for discharge. Assessment: Abdomen: Soft, nontender, nondistended, no rebound, incision sites are clean, dry and intact with viktoriya in place Procedures: Open cholecystectomy Patient Condition at Discharge: Fair Plan - Discharge Summary Discharge Rx Participant: Yes New Discharge Prescriptions: New HYDROcodone/APAP 5-325MG [[place] 5-325] 1 each PO Q6HR PRN #12 tab PRN Reason: Pain Sennosides/Docusate Sodium [Senna-S 8.6-50 mg Tablet] 1 each PO DAILY #15 tablet Continue Apixaban [Eliquis] 5 mg PO BID amLODIPine [Norvasc] 10 mg PO DAILY Rosuvastatin [Crestor] 10 mg PO DAILY Metoprolol Tartrate [Lopressor] 25 mg PO BID #60 tab Omeprazole/Sodium Bicarbonate [Zegerid 20 mg Capsule] 1 cap PO DAILY Levothyroxine Sodium 88 mcg PO DAILY Citalopram Hydrobromide [CeleXA] 5 mg PO DAILY Losartan [Cozaar] 25 mg PO DAILY Discharge Medication List Apixaban [Eliquis] 5 mg PO BID 05/12/18 [History] Rosuvastatin [Crestor] 10 mg PO DAILY 08/25/18 [History] amLODIPine [Norvasc] 10 mg PO DAILY 08/25/18 [History] Metoprolol Tartrate [Lopressor] 25 mg PO BID #60 tab 09/07/18 [Rx] Omeprazole/Sodium Bicarbonate [Zegerid 20 mg Capsule] 1 cap PO DAILY 09/24/20 [History] Citalopram Hydrobromide [CeleXA] 5 mg PO DAILY 03/08/21 [History] Levothyroxine Sodium 88 mcg PO DAILY 03/08/21 [History] Losartan [Cozaar] 25 mg PO DAILY 03/08/21 [History] HYDROcodone/APAP 5-325MG [[place] 5-325] 1 each PO Q6HR PRN #12 tab 04/15/21 [Rx] Sennosides/Docusate Sodium [Senna-S 8.6-50 mg Tablet] 1 each PO DAILY #15 tablet 04/15/21 [Rx] Follow up Appointment(s)/Referral(s): Santos Brewster DO [Doctor of Osteopathic Medicine] - 2 Weeks Patient Instructions/Handouts: Open Cholecystectomy (DC) Activity/Diet/Wound Care/Special Instructions: Okay to shower, pat wounds dry Apply gauze as necessary No lifting greater than 5 pounds Stay on a low-fat diet Discharge Disposition: HOME SELF-CARE
[2021-04-15] MEDS: LOSARTAN 25 MG TAB PO SCH (08:49)
[2021-04-15] MEDS: ATORVASTATIN 20 MG TAB PO SCH (08:49)
[2021-04-15] MEDS: amLODIPine 10 MG TAB PO SCH (08:49)
[2021-04-15] MEDS: CITALOPRAM HYDROBROMIDE 10 MG TAB PO SCH (08:49)
[2021-04-15] MEDS: METOPROLOL TARTRATE 25 MG TAB PO SCH (08:50)
[2021-04-15] MEDS: PANTOPRAZOLE 40 MG/10 ML VIAL IVP SCH (08:50)
[2021-04-15] MEDS ORDERED: APIXABAN 5 MG TAB PO SCH (09:00)
--- NOTE | 2021-04-15 11:18 | CDI ---
Documentation Clarification Form Date: 04/15/2021 10:39:38 AM From: Saige Moreau RN, CCDS Admit Date: 04/12/2021 03:29:00 PM Patient Name: Chrystal Medeiros Visit Number: [id number] Discharge Date: ATTENTION: The Clinical Documentation Specialists (CDI) and [facility] Coding Staff appreciate your assistance in clarifying documentation. Please respond to the clarification below the line at the bottom and electronically sign. The CDI & [facility] Coding staff will review the response and follow-up if needed. Please note: Queries are made part of the Legal Health Record. If you have any questions, please contact the author of this message via ITS. Dr. Anjali Lira Postop nausea and vomiting is documented in the consult on 04/12/21 and subsequent progress notes. The patient had open cholecystectomy on 04/12/21. Additional clarification is requested regarding the relationship, if any, that exists between the diagnosis and the procedure. 04/14 progress note. She denies having any vomiting but feels like she has a trapped in her usual flatus. Patients Admitting Diagnosis: Cholecystitis, Cholelithiasis Post-Operative Diagnosis: Same Procedure performed: Laparoscopic, converted to open cholecystectomy History/Risk Factors: Pancreatitis, Pulmonary embolism, Hypothyroidism Clinical Indicators: 80-year-old female underwent laparoscopic converted to open cholecystectomy for cholecystitis and cholelithiasis. 04/12 consults has postoperatively the patient was vomiting with no fever, rigors, chills. 04/12 Vital signs: 162/81 53 16 98% 2/L NC 04/13 Dr. Brewster progress notes: Complains of some nausea but denies any emesis episodes Treatment: Phenergan 3.125 MG IVPB ONCE (04/12) Zofran 4MG IVP Q 6 HRS PRN 04/12 X2, 04/13 X1 Reglan 10 mg IV ONCE 04/12 then Q6 HRS PRN (04/14 05:51, 12:34, 17:46; 04/15 0032, 0438) Protonix 40 MG PO BID What relationship, if any, exists between the diagnosis of postop nausea, vomiting and the procedure? [ ] Nausea and vomiting is a complication of surgical procedure [ ] Nausea and vomiting] is an expected outcome of the surgical procedure. [ ] Nausea and vomiting is related to patients co-morbid condition(s) of [insert co-morbid dxs] & not a complication of the procedure [ ] Nausea -expected, Vomiting has been ruled out [ ] Other please specify ____ [ ] Unable to determine (Template Last Revised: October 2020) MTDD
--- NOTE | 2021-04-15 14:30 | P.PN ---
Subjective Progress Note Date: 04/15/21 This is a 80-year-old female recently hospitalized with choledocholithiasis, and multiple other medical issues, returns for elective cholecystectomy. Required open cholecystectomy secondary to intra-abdominal adhesions. Tolerated procedure well. Pain controlled. Passing flatus. Expecting discharge home today. Denies chest pain, palpitations or shortness of breath. Afebrile. Objective - Vital Signs Vital signs: Vital Signs Temp 97.8 F 04/15/21 08:04 Pulse 73 04/15/21 08:04 Resp 18 04/15/21 08:04 BP 160/95 04/15/21 08:04 Pulse Ox 93 L 04/15/21 09:33 Intake & Output 04/14/21 04/15/21 04/15/21 18:59 06:59 18:59 Intake Total 1200 Output Total 40 Balance 1160 Intake: IV 1200 Lactated Ringers 1,000 ml 1200 @ 100 mls/hr IV .Q10H KATI Rx#:[id number] Output: Drainage 40 Right Upper Abdomen 40 Other: Voiding Method Toilet Toilet Toilet # Voids 1 2 - Exam PHYSICAL EXAMINATION: GENERAL: alert and oriented x3, no acute distress. HEENT: Pupils are round and equally reacting to light. EOMI. No scleral icterus. No conjunctival pallor. Normocephalic, atraumatic. CARDIOVASCULAR: S1 and S2 present. No murmurs, rubs, or gallops. PULMONARY: Chest is clear to auscultation, no wheezing or crackles. ABDOMEN: Soft, status post surgery, positive bowel sounds NEUROLOGICAL: Gross neurological examination did not reveal any focal deficits. SKIN: No rashes. - Labs CBC & Chem 7: 04/14/21 09:31 04/14/21 09:31 Assessment and Plan Assessment: Status post open cholecystectomy Atelectasis History of recent Choledocholithiasis, status post ERCP, sphincterectomy, evacuation of a large, bile duct stone. History of recent post-ERCP pancreatitis. Acute renal failure History of Pancreatic cysts, recommend further follow-up outpatient at tertiary care center History of PE History of colostomy with perforation Chronic atrial fibrillation History of nicotine dependence Plan: Continue on current medication regime ,monitoring and symptomatic treatment. Eliquis resumed today. Patient is being discharged home today as per primary. Aggressive pulmonary toileting with incentive spirometer reinforced. Patient will follow-up with PCP in one week. The impression and plan of care has been dictated as directed. : I performed a history and examination of this patient, discussed the same with the dictator. I agree with the dictator's note ,documented as a scribe. Any additional findings or plans will be noted.
== END 2021-04-15 14:59 | disposition home or self-care (01) | DRG 415 ==
LOC: OR 12:19 → 4SSUR 15:29
PROVIDERS: ADMIT Family Medicine; ATTEND Family Medicine
PROC: 0FJ44ZZ Inspection of Gallbladder, Percutaneous Endoscopic Approach (ICD-10-PCS; principal; 2021-04-12 13:30)
PROC: 0FT40ZZ Resection of Gallbladder, Open Approach (ICD-10-PCS; principal; 2021-04-12 13:30)
DX: K80.10 Calculus of gallbladder with chronic cholecystitis without obstruction (principal); I48.20 Chronic atrial fibrillation, unspecified; I10 Essential (primary) hypertension; E03.9 Hypothyroidism, unspecified; E78.5 Hyperlipidemia, unspecified; K21.9 Gastro-esophageal reflux disease without esophagitis; Z93.3 Colostomy status; Z87.442 Personal history of urinary calculi; Z86.718 Personal history of other venous thrombosis and embolism; Z86.711 Personal history of pulmonary embolism; Z53.31 Laparoscopic surgical procedure converted to open procedure; Z87.891 Personal history of nicotine dependence; F41.9 Anxiety disorder, unspecified; M19.90 Unspecified osteoarthritis, unspecified site; K66.0 Peritoneal adhesions (postprocedural) (postinfection)
CPT/HCPCS: 80048; 80053; 85025; 88304; 94760

== ENCOUNTER → 2022-03-13 | Outpatient (CLI) | payer MEDICARE ==
--- NOTE | 2022-03-14 03:53 | MR ---
EXAMINATION TYPE: MR lumbar spine wo con DATE OF EXAM: 03/13/2022 COMPARISON: None HISTORY: Lower back pain, radiates down right leg. Multiplanar multiecho imaging of the lumbar spine without contrast. Lumbar vertebrae have normal alignment. There is mild disc space narrowing and decreased signal in th e disks. This is more noticeable at L2-3 and L3-4. There is posterior disc herniation and facet arthr opathy with severe spinal stenosis at L2-3. There is some mild lateral recess stenosis at L3-4. Simil ar lateral recess stenosis seen at L4-5. There is bilateral neural foraminal mild narrowing at L2-3 and L3-4 due to disc space narrowing and f acet arthropathy. No compression fracture. No lumbar paraspinal mass. No focal bone destruction. The sacroiliac joints are intact. IMPRESSION: Multilevel spondylotic changes. There is severe spinal stenosis at L2-3 related to posterior disc her niation and facet arthropathy. There is wavy appearance of the lumbar nerve roots above this stenosis and consistent with severe stenosis and restriction.
== END | disposition home or self-care (01) ==
LOC: RADMRIMAIN 17:12
PROVIDERS: ATTEND Orthopaedic Surgery Orthopaedic Surgery of the Spine
DX: M25.551 Pain in right hip (principal); M41.86 Other forms of scoliosis, lumbar region; M43.16 Spondylolisthesis, lumbar region; M51.36 Other intervertebral disc degeneration, lumbar region
CPT/HCPCS: 72148

== ENCOUNTER → 2022-07-29 | Outpatient (CLI) | payer MEDICARE ==
[2022-07-29 15:16] LABS: Chol/HDL Ratio 2.37 Ratio; Ferritin 24.3 ng/mL (10.0-291.0); LDL Cholesterol,Calculated 45.3 mg/dL (0.0-131.0); VLDL Calculation 18.76 mg/dL (5.00-40.00)
[2022-07-29 15:20] LABS: Basophils # (A) 0.05 X 10*3/uL (0.00-0.10); Eosinophils # (A) 0.08 X 10*3/uL (0.04-0.35); Eosinophils % (A) 1.6 %; HGB 15.4 g/dL (12.0-15.0); Immature Grans, Automated 0.2 %; Lymphocytes # (A) 1.46 X 10*3/uL (0.90-5.00); MCH 29.6 pg (27.0-32.0); MCHC 34.2 g/dL (32.0-37.0); MCV 86.4 fL (80.0-97.0); Mean Platelet Volume 11.3 fL (9.5-12.2); Monocytes % (A) 9.9 %; NRBC Per 100 WBC 0 /100 WBCS (0.0-0.0); Neutrophils # (A) 2.93 X 10*3/uL (1.80-7.70); Neutrophils % (A) 58.3 %; Platelet Count 198 X 10*3/uL (140-440); RBC 5.21 X 10*6/uL (4.10-5.20); RDW 13.2 % (11.5-14.5); WBC 5.03 X 10*3/uL (4.50-10.00)
[2022-07-29 15:58] LABS: Appearance,Urine Clear (Clear); Bilirubin,Urine Negative (Negative); Blood,Urine Negative (Negative); Color,Urine Yellow (Yellow); Ketones,Urine Negative (Negative); Nitrite,Urine Negative (Negative); PH, Urine 7.5 (5.0-8.0); Specific Gravity,Urine 1.011 (1.001-1.030)
[2022-07-29 17:46] LABS: Bacteria,Urine 3+ /HPF (None Seen)
[2022-07-29 18:18] LABS: % Iron Saturation 21.66 (12.00-45.00); ALT 17 U/L (8-44); AST 22 U/L (13-35); African American GFR (CKD) 49.8 (60.0-200.0); Albumin 4.2 g/dL (3.8-4.9); Albumin/Globulin Ratio 1.68 (1.60-3.17); Alkaline Phosphatase 72 U/L (41-126); BUN/Creat Ratio 12.83 Ratio (12.00-20.00); Blood Urea Nitrogen 15.4 mg/dL (9.0-27.0); Calcium 9.7 mg/dL (8.7-10.3); Carbon Dioxide 23.8 mmol/L (20.0-27.5); Chloride 101 mmol/L (96-109); Globulin 2.5 g/dL (1.6-3.3); Glucose 84 mg/dL (70-110); Iron 95 ug/dL (50-170); Magnesium 1.4 mg/dL (1.5-2.4); Non-African American GFR(CKD) 42.9 (60.0-200.0); Phosphorus 3.7 mg/dL (2.4-5.1); Potassium 3.4 mmol/L (3.5-5.5); Sodium 140 mmol/L (135-145); Total Iron Binding Capacity 440 ug/dL (228-460); Total Protein 6.7 g/dL (6.2-8.2); Uric Acid 7.5 mg/dL (2.9-7.7)
[2022-07-29 23:27] LABS: Microalbumin Creatinine Ratio <30 mg/g Creat (0-30)
== END | disposition home or self-care (01) ==
LOC: LABWHC1 09:15
PROVIDERS: ATTEND Nurse Practitioner Family
DX: I12.9 Hypertensive chronic kidney disease with stage 1 through stage 4 chronic kidney disease, or unspecified chronic kidney disease (principal); N18.32 Chronic kidney disease, stage 3b; E78.00 Pure hypercholesterolemia, unspecified; E55.9 Vitamin D deficiency, unspecified; M10.9 Gout, unspecified; N39.0 Urinary tract infection, site not specified; E87.6 Hypokalemia; D50.9 Iron deficiency anemia, unspecified; N25.81 Secondary hyperparathyroidism of renal origin; R80.9 Proteinuria, unspecified; R42 Dizziness and giddiness
CPT/HCPCS: 36415; 80053; 80061; 81001; 82043; 82306; 82570; 82728; 83540; 83550; 83735; 83970; 84100; 84443; 84550; 85025

== ENCOUNTER → 2022-08-26 | Outpatient (CLI) | payer MEDICARE ==
--- NOTE | 2022-08-27 18:48 | MM ---
Reason for Exam: Screening (asymptomatic). Last mammogram was performed 3 year(s) and 5 month(s) ago. Patient History: Menarche at age 15. First Full-Term at age 22. Hysterectomy at age 61. Postmenopausal. 1989, Excisional Biopsy on the Right side. Risk Values: Marcela 5 year model risk: 1.8%. NCI Lifetime model risk: 3.0%. Prior Study Comparison: 01/22/2018 Bilateral MG screening mammo w CAD - 2, Unknown. 04/12/2019 Bilateral MG screening mammo w CAD - 2, Unknown. Tissue Density: There are scattered fibroglandular densities. Findings: Analyzed By CAD. There is no suspicious group of microcalcifications or new suspicious mass in either breast. Overall Assessment: Benign, BI-RAD 2 Management: Screening Mammogram of both breasts in 1 year. 1. Patient should continue monthly self breast exams. 2. A clinical breast exam by your physician is recommended on an annual basis. 3. This exam should not preclude additional follow-up of suspicious palpable abnormalities. Electronically signed and approved by: Santosh Cruz M.D. Radiologist
== END | disposition home or self-care (01) ==
LOC: RADMAMWWP 16:04
PROVIDERS: ATTEND Family Medicine
DX: Z12.31 Encounter for screening mammogram for malignant neoplasm of breast (principal); Z78.0 Asymptomatic menopausal state; Z98.890 Other specified postprocedural states
CPT/HCPCS: 77063; 77067

== ENCOUNTER → 2022-09-02 | Outpatient (CLI) | payer MEDICARE ==
--- NOTE | 2022-09-02 16:02 | US ---
EXAMINATION TYPE: US kidneys/renal and bladder DATE OF EXAM: 09/02/2022 COMPARISON: CT 03/08/2021 CLINICAL HISTORY: 81-year-old female N28.1 CYST OF KIDNEY, ACQUIRED. History of renal cysts TECHNIQUE: Multiple sonographic images of the kidneys and bladder are obtained. FINDINGS: EXAM MEASUREMENTS: Right Kidney: 10.7 x 4.4 x 4.8 cm Left Kidney: 12.4 x 4.5 x 6.5 cm Right Kidney: cystic areas noted, largest = 3.4 x 4.0 x 3.5cm. Prominent collecting system Left Kidney: multiple cystic areas noted, largest = 9.5 x 10.5 x 11.1cm Bladder: wnl Bilateral Jets seen: yes IMPRESSION: We correlated the exam with the patient's 03/08/2021 CT. There are multiple bilateral simple renal cys ts measuring up to 4.0 cm on the right and 11.1 cm the left. There are parapelvic cysts in the right kidney giving the appearance of collecting system fullness. An left-sided extrarenal pelvis is demons trated on the patient's CT. Both of these findings mimic hydronephrosis on the patient's ultrasound. No suspicious solid mass is clearly appreciated by ultrasound.
== END | disposition home or self-care (01) ==
LOC: RADUSWWP 12:05
PROVIDERS: ATTEND Internal Medicine Nephrology
DX: N28.1 Cyst of kidney, acquired (principal)
CPT/HCPCS: 76770

== ENCOUNTER → 2022-12-04 | Outpatient (CLI) | payer MEDICARE ==
[2022-12-04 10:29] LABS: Creatinine,Urine Random 159.9 mg/dL; Protein/Creatinine Ratio,Urine 0.088
[2022-12-04 15:37] LABS: Appearance,Urine Turbid (Clear); Bilirubin,Urine Negative (Negative); Blood,Urine Small (Negative); Color,Urine Yellow (Yellow); Ketones,Urine Negative (Negative); Nitrite,Urine Positive (Negative); Urobilinogen,Urine 0.2 (0.2,1.0)
[2022-12-04 15:39] LABS: Basophils # (A) 0.07 X 10*3/uL (0.00-0.10); Basophils % (A) 1.2 %; Eosinophils # (A) 0.13 X 10*3/uL (0.04-0.35); Eosinophils % (A) 2.2 %; HCT 49.6 % (37.2-46.3); HGB 15.9 g/dL (12.0-15.0); Immature Grans, Automated 0.3 %; Lymphocytes # (A) 1.63 X 10*3/uL (0.90-5.00); Lymphocytes % (A) 28.2 %; MCH 27.9 pg (27.0-32.0); MCHC 32.1 g/dL (32.0-37.0); MCV 87.2 fL (80.0-97.0); Mean Platelet Volume 11.4 fL (9.5-12.2); Monocytes # (A) 0.75 X 10*3/uL (0.20-1.00); NRBC Per 100 WBC 0 /100 WBCS (0.0-0.0); Neutrophils # (A) 3.19 X 10*3/uL (1.80-7.70); Neutrophils % (A) 55.1 %; Platelet Count 190 X 10*3/uL (140-440); RBC 5.69 X 10*6/uL (4.10-5.20); RDW 13.3 % (11.5-14.5); WBC 5.79 X 10*3/uL (4.50-10.00)
[2022-12-04 15:56] LABS: ALT 17 U/L (8-44); AST 19 U/L (13-35); Albumin 4.4 g/dL (3.8-4.9); Chol/HDL Ratio 2.47 Ratio; Ferritin 21.5 ng/mL (10.0-291.0); LDL Cholesterol,Calculated 60.8 mg/dL (0.0-131.0)
[2022-12-04 15:57] LABS: % Iron Saturation 26.26 (12.00-45.00); African American GFR (CKD) 42.9 (60.0-200.0); BUN/Creat Ratio 20.67 Ratio (12.00-20.00); Blood Urea Nitrogen 27.9 mg/dL (9.0-27.0); Calcium 10.1 mg/dL (8.7-10.3); Carbon Dioxide 26.3 mmol/L (20.0-27.5); Chloride 104 mmol/L (96-109); Glucose 98 mg/dL (70-110); Iron 118 ug/dL (50-170); Magnesium 1.8 mg/dL (1.5-2.4); Phosphorus 3.3 mg/dL (2.4-5.1); Potassium 3.5 mmol/L (3.5-5.5); Sodium 143 mmol/L (135-145); Total Iron Binding Capacity 449 ug/dL (228-460); Uric Acid 7.6 mg/dL (2.9-7.7)
[2022-12-04 15:59] LABS: Bacteria,Urine 3+ /HPF (None Seen)
== END | disposition home or self-care (01) ==
LOC: LABWHC1 09:23
PROVIDERS: ATTEND Internal Medicine Cardiovascular Disease
DX: E55.9 Vitamin D deficiency, unspecified (principal); E78.2 Mixed hyperlipidemia; N25.81 Secondary hyperparathyroidism of renal origin; M10.9 Gout, unspecified; N39.0 Urinary tract infection, site not specified; N18.32 Chronic kidney disease, stage 3b; D63.1 Anemia in chronic kidney disease; R80.9 Proteinuria, unspecified
CPT/HCPCS: 36415; 80048; 80061; 81001; 82040; 82306; 82570; 82728; 83540; 83550; 83735; 83970; 84100; 84156; 84450; 84460; 84550; 85025

== ENCOUNTER → 2023-03-07 | Outpatient (CLI) | payer MEDICARE ==
[2023-03-07 23:36] LABS: Appearance,Urine Clear (Clear); Bilirubin,Urine Negative (Negative); Blood,Urine Negative (Negative); Color,Urine Yellow (Yellow); Ketones,Urine Negative (Negative); Nitrite,Urine Negative (Negative); Specific Gravity,Urine 1.018 (1.001-1.030)
[2023-03-07 23:43] LABS: Bacteria,Urine None Seen (None Seen)
[2023-03-08 09:54] LABS: Basophils # (A) 0.07 X 10*3/uL (0.00-0.10); Eosinophils # (A) 0.13 X 10*3/uL (0.04-0.35); Eosinophils % (A) 1.9 %; HCT 46.8 % (37.2-46.3); HGB 15.6 d/dL (12.0-15.0); Lymphocytes % (A) 20.9 %; MCH 28.9 pg (27.0-32.0); MCHC 33.3 d/dL (32.0-37.0); MCV 86.8 FL (80.0-97.0); Monocytes # (A) 0.67 X 10*3/uL (0.20-1.00); NRBC Per 100 WBC 0 X 10*3/uL (0.00-0.01); Neutrophils % (A) 65.9 %; Platelet Count 191 X 10*3/uL (140-440); RBC 5.39 X 10*6/uL (4.10-5.20); RDW 13.4 % (11.5-14.5); WBC 6.69 X 10*3/uL (4.50-10.00)
[2023-03-08 10:46] LABS: % Iron Saturation 18.94 (12.00-45.00); Albumin 4.3 d/dL (3.8-4.9); BUN/Creat Ratio 13.58 Ratio (12.00-20.00); Blood Urea Nitrogen 16.3 mg/dL (9.0-27.0); Carbon Dioxide 23.3 mmol/L (21.6-31.8); Chloride 104 mmol/L (96-109); Ferritin 21.6 ng/mL (10.0-291.0); Glucose 145 mg/dL (70-110); Iron 79 UG/DL (50-170); Magnesium 1.5 mg/dL (1.5-2.4); Phosphorus 3.2 mg/dL (2.4-5.1); Potassium 3.3 mmol/L (3.5-5.5); Sodium 143 mmol/L (135-145); Total Iron Binding Capacity 417 UG/DL (228-460); Uric Acid 7.8 mg/dL (2.9-7.7)
[2023-03-08 17:46] LABS: Microalbumin Creatinine Ratio <6 mg/g Cr (0-30)
== END | disposition home or self-care (01) ==
LOC: LABWHC1 10:46
PROVIDERS: ATTEND Internal Medicine Nephrology
DX: E55.9 Vitamin D deficiency, unspecified (principal); N25.81 Secondary hyperparathyroidism of renal origin; M10.9 Gout, unspecified; N18.32 Chronic kidney disease, stage 3b; D63.1 Anemia in chronic kidney disease; R80.9 Proteinuria, unspecified
CPT/HCPCS: 36415; 80048; 81001; 82040; 82043; 82306; 82570; 82728; 83540; 83550; 83735; 83970; 84100; 84550; 85025; 87086

== ENCOUNTER → 2023-04-07 | Outpatient (CLI) | payer MEDICARE ==
[2023-04-07 19:52] LABS: BUN/Creat Ratio 13.67 Ratio (12.00-20.00); Blood Urea Nitrogen 16.4 mg/dL (9.0-27.0); Calcium 10.1 mg/dL (8.7-10.3); Carbon Dioxide 27.5 mmol/L (21.6-31.8); Chloride 100 mmol/L (96-109); Glucose 75 mg/dL (70-110); Potassium 3.3 mmol/L (3.5-5.5); Sodium 140 mmol/L (135-145)
== END | disposition home or self-care (01) ==
LOC: LABWHC1 12:20
PROVIDERS: ATTEND Internal Medicine Nephrology
DX: N18.32 Chronic kidney disease, stage 3b (principal)
CPT/HCPCS: 36415; 80048

== ENCOUNTER → 2023-08-06 | Outpatient (CLI) | payer MEDICARE ==
[2023-08-06 15:18] LABS: Basophils # (A) 0.06 X 10*3/uL (0.00-0.10); Basophils % (A) 0.8 %; Eosinophils # (A) 0.07 X 10*3/uL (0.04-0.35); Eosinophils % (A) 0.9 %; HCT 48.5 % (37.2-46.3); HGB 16.3 g/dL (12.0-15.0); Lymphocytes # (A) 1.46 X 10*3/uL (0.90-5.00); Lymphocytes % (A) 19.2 %; MCH 29.5 pg (27.0-32.0); MCHC 33.6 g/dL (32.0-37.0); MCV 87.9 FL (80.0-97.0); Mean Platelet Volume 10.9 FL (9.5-12.2); Monocytes # (A) 0.86 X 10*3/uL (0.20-1.00); Monocytes % (A) 11.3 %; NRBC Per 100 WBC 0 X 10*3/uL (0.00-0.01); Neutrophils # (A) 5.13 X 10*3/uL (1.80-7.70); Neutrophils % (A) 67.4 %; Platelet Count 176 X 10*3/uL (140-440); RBC 5.52 X 10*6/uL (4.10-5.20); RDW 13.2 % (11.5-14.5); WBC 7.61 X 10*3/uL (4.50-10.00)
[2023-08-06 15:47] LABS: % Iron Saturation 14.95 (12.00-45.00); ALT 14 U/L (8-44); AST 20 U/L (13-35); Albumin 4.2 g/dL (3.8-4.9); Calcium 9.9 mg/dL (8.7-10.3); Carbon Dioxide 27.3 mmol/L (21.6-31.8); Chloride 101 mmol/L (96-109); Chol/HDL Ratio 2.05 Ratio; Ferritin 60.4 ng/mL (10.0-291.0); Glucose 89 mg/dL (70-110); Iron 58 UG/DL (50-170); LDL Cholesterol,Calculated 39.2 mg/dL (0.0-131.0); Potassium 3.3 mmol/L (3.5-5.5); Sodium 141 mmol/L (135-145); Total Iron Binding Capacity 388 UG/DL (228-460); VLDL Calculation 19.32 mg/dL (5.00-40.00)
== END | disposition home or self-care (01) ==
LOC: LABWHC1 09:59
PROVIDERS: ATTEND Internal Medicine Cardiovascular Disease
DX: N18.32 Chronic kidney disease, stage 3b (principal); D63.1 Anemia in chronic kidney disease; E78.2 Mixed hyperlipidemia; E87.6 Hypokalemia
CPT/HCPCS: 36415; 80048; 80061; 82040; 82043; 82306; 82570; 82728; 83540; 83550; 84450; 84460; 85025

== ENCOUNTER → 2023-08-25 | Outpatient (CLI) | payer MEDICARE ==
[2023-08-25 20:03] LABS: Basophils # (A) 0.07 X 10*3/uL (0.00-0.10); Eosinophils # (A) 0.12 X 10*3/uL (0.04-0.35); Eosinophils % (A) 1.7 %; HCT 46.2 % (37.2-46.3); HGB 15.3 g/dL (12.0-15.0); Lymphocytes # (A) 1.65 X 10*3/uL (0.90-5.00); Lymphocytes % (A) 23.6 %; MCH 29.9 pg (27.0-32.0); MCHC 33.1 g/dL (32.0-37.0); MCV 90.2 FL (80.0-97.0); Mean Platelet Volume 11.3 FL (9.5-12.2); Monocytes # (A) 0.77 X 10*3/uL (0.20-1.00); NRBC Per 100 WBC 0 X 10*3/uL (0.00-0.01); Neutrophils # (A) 4.37 X 10*3/uL (1.80-7.70); Neutrophils % (A) 62.4 %; Platelet Count 205 X 10*3/uL (140-440); RBC 5.12 X 10*6/uL (4.10-5.20); RDW 13.2 % (11.5-14.5)
[2023-08-25 20:41] LABS: % Iron Saturation 22.34 (12.00-45.00); BUN/Creat Ratio 15.45 Ratio (12.00-20.00); Calcium 9.7 mg/dL (8.7-10.3); Carbon Dioxide 22.8 mmol/L (21.6-31.8); Chloride 98 mmol/L (96-109); Ferritin 26.7 ng/mL (10.0-291.0); Glucose 86 mg/dL (70-110); Iron 86 UG/DL (50-170); Potassium 4.1 mmol/L (3.5-5.5); Sodium 135 mmol/L (135-145); Total Iron Binding Capacity 385 UG/DL (228-460)
== END | disposition home or self-care (01) ==
LOC: LABWHC1 14:01
PROVIDERS: ATTEND Family Medicine
DX: E87.6 Hypokalemia (principal); R71.8 Other abnormality of red blood cells
CPT/HCPCS: 36415; 80048; 82728; 83540; 83550; 85025

== ENCOUNTER → 2023-08-25 | Outpatient (CLI) | payer MEDICARE ==
--- NOTE | 2023-08-25 14:40 | US ---
EXAMINATION TYPE: US kidneys/renal and bladder DATE OF EXAM: 08/25/2023 COMPARISON: 09/02/2022 CLINICAL INDICATION: Female, 82 years old with history of N28.1 CYST OF KIDNEY, ACQUIRED; Patient den ies any signs or symptoms at this time EXAM MEASUREMENTS: Right Kidney: 11.4 x 5.1 x 5.5 cm Left Kidney: 13.3 x 6.6 x 6.0 cm Post Void Residual Volume: Not able to see bladder post void mL Right Kidney: Multiple cysts, largest = 4.2 x 4.3 x 3.8 cm Left Kidney: Multiple cysts, largest = 9.5 x 10.0 x 10.0 Bladder: wnl Bilateral Jets seen: Yes Normal Post Void Residual: 0 Bladder is sonolucent. Posterior wall is normal. IMPRESSION: 1. Bilateral renal cysts
== END | disposition home or self-care (01) ==
LOC: RADUSWWP 13:30
PROVIDERS: ATTEND Internal Medicine Nephrology
DX: N28.1 Cyst of kidney, acquired (principal)
CPT/HCPCS: 76770

== ENCOUNTER → 2023-11-27 | Outpatient (CLI) | payer MEDICARE ==
[2023-11-27 15:54] LABS: Basophils # (A) 0.07 X 10*3/uL (0.00-0.10); Eosinophils # (A) 0.11 X 10*3/uL (0.04-0.35); Eosinophils % (A) 1.6 %; HCT 47.3 % (37.2-46.3); HGB 16.2 g/dL (12.0-15.0); Lymphocytes # (A) 1.77 X 10*3/uL (0.90-5.00); Lymphocytes % (A) 25.9 %; MCH 29.8 pg (27.0-32.0); MCHC 34.2 g/dL (32.0-37.0); MCV 87.1 FL (80.0-97.0); Mean Platelet Volume 11.3 FL (9.5-12.2); Monocytes # (A) 0.73 X 10*3/uL (0.20-1.00); Monocytes % (A) 10.7 %; NRBC Per 100 WBC 0 X 10*3/uL (0.00-0.01); Neutrophils # (A) 4.13 X 10*3/uL (1.80-7.70); Neutrophils % (A) 60.5 %; Platelet Count 180 X 10*3/uL (140-440); RBC 5.43 X 10*6/uL (4.10-5.20); RDW 13.3 % (11.5-14.5); WBC 6.83 X 10*3/uL (4.50-10.00)
[2023-11-27 16:09] LABS: % Iron Saturation 26.92 (12.00-45.00); Albumin 4.3 g/dL (3.8-4.9); BUN/Creat Ratio 15.75 Ratio (12.00-20.00); Blood Urea Nitrogen 18.9 mg/dL (9.0-27.0); Carbon Dioxide 27.7 mmol/L (21.6-31.8); Chloride 101 mmol/L (96-109); Ferritin 21.4 ng/mL (10.0-291.0); Glucose 77 mg/dL (70-110); Iron 112 UG/DL (50-170); Magnesium 1.5 mg/dL (1.5-2.4); Phosphorus 3.4 mg/dL (2.4-5.1); Potassium 3.5 mmol/L (3.5-5.5); Sodium 141 mmol/L (135-145); Total Iron Binding Capacity 416 UG/DL (228-460)
[2023-11-27 21:15] LABS: Urine Creatinine 85.9 mg/dL (28.0-217.0)
== END | disposition home or self-care (01) ==
LOC: LABWHC1 10:51
PROVIDERS: ATTEND Internal Medicine Nephrology
DX: N18.32 Chronic kidney disease, stage 3b (principal)
CPT/HCPCS: 36415; 80048; 82040; 82043; 82306; 82570; 82728; 83540; 83550; 83735; 83970; 84100; 85025

== ENCOUNTER → 2023-11-27 | Outpatient (CLI) | payer MEDICARE ==
--- NOTE | 2023-11-30 12:28 | MM ---
Reason for Exam: Screening (asymptomatic). Last mammogram was performed 1 year(s) and 3 month(s) ago. Patient History: Menarche at age 15. First Full-Term at age 22. Hysterectomy at age 61. Postmenopausal. 1989, Excisional Biopsy on the Right side. Risk Values: [place] 5 year model risk: 1.7%. NCI Lifetime model risk: 2.5%. Prior Study Comparison: 01/22/2018 Bilateral MG screening mammo w CAD - 2, Unknown. 04/12/2019 Bilateral MG screening mammo w CAD - 2, Unknown. 08/26/2022 Bilateral MG 3D screening mammo w/cad, [facility]. Tissue Density: The breasts are heterogeneously dense, which may obscure small masses. Findings: Analyzed By CAD. There is no suspicious group of microcalcifications or new suspicious mass in either breast. Overall Assessment: Benign, BI-RAD 2 Management: Screening Mammogram of both breasts in 1 year. . Patient should continue monthly self-breast exams. A clinical breast exam by your physician is recommended on an annual basis. This exam should not preclude additional follow-up of suspicious palpable abnormalities. Note on Marcela scores and lifetime risk: 1. A Marcela score greater than 3% is considered moderate risk. If this is the case, consider specialist referral to assess eligibility for a risk reducing agent. 2. If overall lifetime risk for the development of breast cancer is 20% or higher, the patient may qualify for future screening with alternating mammogram and breast MRI. Electronically signed and approved by: Edinson Jimenez M.D. Radiologis
== END | disposition home or self-care (01) ==
LOC: RADMAMWWP 10:31
PROVIDERS: ATTEND Family Medicine
DX: Z12.31 Encounter for screening mammogram for malignant neoplasm of breast (principal); Z78.0 Asymptomatic menopausal state
CPT/HCPCS: 77063; 77067

== ENCOUNTER → 2024-04-04 | Outpatient (CLI) | payer MEDICARE | END | disposition home or self-care (01) | LOC: LABWHC1 13:27 | PROVIDERS: ATTEND Nurse Practitioner Family | DX: E55.9 Vitamin D deficiency, unspecified (principal); N18.32 Chronic kidney disease, stage 3b; D63.1 Anemia in chronic kidney disease; N25.81 Secondary hyperparathyroidism of renal origin; R80.9 Proteinuria, unspecified | CPT/HCPCS: 36415; 80048; 82040; 82043; 82306; 82570; 82728; 83540; 83550; 83735; 83970; 84100; 85025 ==

== ENCOUNTER → 2024-07-05 | Outpatient (CLI) | payer MEDICARE ==
[2024-07-05 16:14] LABS: Appearance,Urine Cloudy (Clear); Bilirubin,Urine Negative (Negative); Blood,Urine Small (Negative); Color,Urine Yellow (Yellow); Ketones,Urine Negative (Negative); Nitrite,Urine Negative (Negative); Specific Gravity,Urine 1.016 (1.001-1.030)
[2024-07-05 16:20] LABS: Bacteria,Urine 4+ (None Seen)
[2024-07-05 16:40] LABS: % Iron Saturation 23.96 (12.00-45.00); Albumin 4.5 g/dL (3.8-4.9); BUN/Creat Ratio 21.75 Ratio (12.00-20.00); Blood Urea Nitrogen 26.1 mg/dL (9.0-27.0); Calcium 10.2 mg/dL (8.7-10.3); Carbon Dioxide 24.7 mmol/L (21.6-31.8); Chloride 103 mmol/L (96-109); Ferritin 26.8 ng/mL (10.0-291.0); Glucose 94 mg/dL (70-110); Iron 109 UG/DL (50-170); Magnesium 1.5 mg/dL (1.5-2.4); Phosphorus 3.4 mg/dL (2.4-5.1); Potassium 3.5 mmol/L (3.5-5.5); Sodium 141 mmol/L (135-145); Total Iron Binding Capacity 455 UG/DL (228-460); Uric Acid 7.4 mg/dL (2.9-7.7)
[2024-07-05 16:55] LABS: Basophils # (A) 0.11 X 10*3/uL (0.00-0.10); Basophils % (A) 1.7 %; Eosinophils # (A) 0.13 X 10*3/uL (0.04-0.35); HCT 48.5 % (37.2-46.3); HGB 15.8 g/dL (12.0-15.0); Lymphocytes # (A) 1.68 X 10*3/uL (0.90-5.00); Lymphocytes % (A) 25.2 %; MCH 28.1 pg (27.0-32.0); MCHC 32.6 g/dL (32.0-37.0); MCV 86.3 FL (80.0-97.0); Mean Platelet Volume 11.3 FL (9.5-12.2); Monocytes # (A) 0.65 X 10*3/uL (0.20-1.00); Monocytes % (A) 9.8 %; NRBC Per 100 WBC 0 X 10*3/uL (0.00-0.01); Neutrophils # (A) 4.07 X 10*3/uL (1.80-7.70); Platelet Count 210 X 10*3/uL (140-440); RBC 5.62 X 10*6/uL (4.10-5.20); RDW 13.3 % (11.5-14.5); WBC 6.66 X 10*3/uL (4.50-10.00)
== END | disposition home or self-care (01) ==
LOC: LABWHC1 09:47
PROVIDERS: ATTEND Internal Medicine Nephrology
DX: E55.9 Vitamin D deficiency, unspecified (principal); M10.9 Gout, unspecified; N39.0 Urinary tract infection, site not specified; D64.9 Anemia, unspecified; N25.81 Secondary hyperparathyroidism of renal origin; N18.32 Chronic kidney disease, stage 3b
CPT/HCPCS: 36415; 80048; 81001; 82040; 82043; 82306; 82570; 82728; 83540; 83550; 83735; 83970; 84100; 84550; 85025